=== PATIENT | female | born 1955 | race Caucasian/White ===

== ENCOUNTER → 2018-09-12 | Outpatient (CLI) | payer OTHER ==
[~2018-09-12] MED LIST: ABILIFY2 MG PO; LEXAPRO10 MG PO
== END ==
LOC: MAMMO 09:11
PROVIDERS: ATTEND Obstetrics & Gynecology
DX: Z12.31 Encounter for screening mammogram for malignant neoplasm of breast (principal)
CPT/HCPCS: 77067

== ENCOUNTER 2019-12-09 21:17 | Inpatient (IN) | payer OTHER ==
[~2019-12-09] VITALS: Ht 153.9 cm; Wt 89.4 kg
[2019-12-09 21:54] LABS: BASOPHILS % 0.3 % (0.0-1.0); EOSINOPHILS # (AUTO) 0.1 (0.0-0.4); HEMATOCRIT 36.5 % (34.2-44.1); HEMOGLOBIN 10.8 g/dL (12.0-16.0); LYMPHOCYTES # (AUTO) 2.7 (1.0-3.2); LYMPHOCYTES % 26.5 % (18.0-39.1); MEAN CORPUSCULAR HEMOGLOBIN 23.1 pg (28-32); MEAN CORPUSCULAR HGB CONC 29.6 g/dL (31-35); MONOCYTES # (AUTO) 0.7 (0.2-0.8); MONOCYTES % 6.6 % (4.4-11.3); NEUTROPHILS # (AUTO) 6.5 (2.1-6.9); NEUTROPHILS % 65.2 % (38.7-80.0); PLATELET COUNT 385 x10e3/uL (140-360); RED BLOOD COUNT 4.68 x10e6/uL (3.6-5.1)
[2019-12-09] MEDS ORDERED: SODIUM CHLORIDE 0.9% 1000ML 1,000 ML IV ONE ×2 (22:00→22:15)
[2019-12-09] MEDS ORDERED: VANCOMYCIN 1GM/NS 250 ML 250 ML IV ONE (22:00)
[2019-12-09] MEDS ORDERED: ACETAMINOPHEN 325 MG TAB PO ONE (22:00)
[2019-12-09] MEDS ORDERED: PIPER-TAZ 3.375 GM 50 ML IV ONE (22:00)
[2019-12-09 22:12] LABS: ALBUMIN 3.4 g/dL (3.5-5.0); ALBUMIN/GLOBULIN RATIO 0.8 (0.8-2.0); ANION GAP 15.8 mmol/L (8-16); CREATININE, SERUM 1.11 mg/dL (0.57-1.11); POTASSIUM 3.8 mmol/L (3.5-5.1)
[2019-12-09 22:25] LABS: BILIRUBIN,URINE NEGATIVE (NEGATIVE); CLARITY,URINE SL CLOUDY (CLEAR); COLOR,URINE YELLOW (YELLOW); KETONES,URINE NEGATIVE (NEGATIVE); LEUKOCYTE ESTERASE ,URINE TRACE (NEGATIVE); NITRITE,URINE NEGATIVE (NEGATIVE); PROTEIN,URINE DIPSTICK 1+ (NEGATIVE); URINE UROBILINOGEN 0.2 mg/dL (0.2 - 1)
--- NOTE | 2019-12-09 22:27 | Emergency Department Note ---
History of Present Illnes History of Present Illness Chief Complaint: General Medicine Complaints History of Present Illness This is a 64 year old female RT ARM SWELLING AFTER RECEIVING PHENERGAN AND "SLEEPING MEDICINE" IV AFTER ENDOSCOPY DONE ON Sunday12/05/19 AT [facility]; NOTED REDNESS AND TENDERNESS TO RT INNER AC REGION, PT SENSATION INTACT, PULSE +, ABLE TO MOVE EXTREMITY FREELY, C/O SUBJECTIVE FEVER AND NAUSEA; PT IN NAD, . Historian: Patient Arrival Mode: Car Onset (how long ago): day(s) (4) Location: RIGHT UPPER EXTREMITY Quality: REDNESS, SWELLING AND PAIN Radiation: Reports non-radiation Severity: moderate Onset quality: gradual Duration (how long): day(s) (4) Timing of current episode: constant Progression: worsening Context: Reports recent surgery (EGD); Denies recent illness Relieving factors: none Exacerbating factors: none Associated symptoms: Reports denies other symptoms Past Medical/Family History Physician Review I have reviewed the patient's past medical and family history. Any updates have been documented here. Past Medical History Recent Fever: Yes (SUBJECTIVE) Clinical Suspicion of Infectio: Yes New/Unexplained Change in Ment: No Past Medical History: Diabetes, Depression Other Medical History: HIATAL HERNIA UROSEPSIS Other Surgery: LAP BAND, TUMMY TUCK, GASTRIC SLEEVE Social History Smoking Cessation: Never Smoker Alcohol Use: None Any Illegal Drug Use: No Physically hurt or threatened: No Family History Family history of heart diseas: No Other family history HTN,DM Other Last Tetanus: UTD Review of Systems Review of Systems Constitutional: Reports no symptoms, Reports as per HPI EENTM: Reports no symptoms Cardiovascular: Reports no symptoms Respiratory: Reports no symptoms Gastrointestinal: Reports no symptoms Genitourinary: Reports no symptoms Musculoskeletal: Reports as per HPI Integumentary: Reports no symptoms Neurological: Reports no symptoms Psychological: Reports no symptoms Endocrine: Reports no symptoms Hematological/Lymphatic: Reports no symptoms Physical Exam Related Data Allergies: Coded Allergies: No Known Drug Allergies (Verified Allergy, Unknown, 01/08/09) Triage Vital Signs Vital Signs Date Time Temp Pulse Resp B/P (MAP) Pulse Ox O2 Delivery O2 Flow Rate FiO2 12/09/19 21:22 100.0 120 18 145/119 100 Room Air Vital signs reviewed: Yes Physical Exam CONSTITUTIONAL Constitutional: Present well-developed, Present well-nourished HENT HENT: Present normocephalic, Present atraumatic, Present oropharynx clear/moist, Present nose normal HENT L/R: Present left ext ear normal, Present right ext ear normal EYES Eyes: Reports PERRL, Reports conjunctivae normal NECK Neck: Present ROM normal PULMONARY Pulmonary: Present effort normal, Present breath sounds normal CARDIOVASCULAR Cardiovascular: Present regular rhythm, Present heart sounds normal, Present capillary refill normal, Present tachycardia (120) GASTROINTESTINAL Abdominal: Present soft, Present nontender, Present bowel sounds normal GENITOURINARY Genitourinary: Present exam deferred SKIN Skin: Present warm, Present dry MUSCULOSKELETAL REDNESS, SWELLING AND TENDERNESS TO UPPER INNER ARM, IV PUNCTURE SITE FROM 4 DAYS AGO IS IN DORSAL ASPECT OF RIGHT FOREARM Musculoskeletal: Present ROM normal NEUROLOGICAL Neurological: Present alert, Present oriented x 3, Present no gross motor or sensory deficits PSYCHOLOGICAL Psychological: Present mood/affect normal, Present judgement normal Results Laboratory Result Diagram: 12/09/19212912/09/192129 Laboratory Laboratory Tests Test 12/09/19 21:41 12/09/19 21:30 Urine Color Yellow (YELLOW) Urine Clarity Sl cloudy (CLEAR) Urine pH 7 (5 - 7) Urine Specific Mineral 1.020 (1.010-1.025) Urine Protein 1+ (NEGATIVE) Urine Glucose (UA) 2+ (NEGATIVE) Urine Ketones Negative (NEGATIVE) Urine Blood Trace (NEGATIVE) Urine Nitrite Negative (NEGATIVE) Urine Bilirubin Negative (NEGATIVE) Urine Urobilinogen 0.2 mg/dL (0.2 - 1) Urine Leukocyte Esterase Trace (NEGATIVE) Urine RBC 6-10 /HPF (0-5) Urine WBC 11-20 /HPF (0-5) Urine Epithelial Cells Moderate /LPF (NONE) Urine Bacteria Moderate /HPF (NONE) White Blood Count 10.00 x10e3/uL (4.8-10.8) Red Blood Count 4.68 x10e6/uL (3.6-5.1) Hemoglobin 10.8 g/dL (12.0-16.0) Hematocrit 36.5 % (34.2-44.1) Mean Corpuscular Volume 78.0 fL (81-99) Mean Corpuscular Hemoglobin 23.1 pg (28-32) Mean Corpuscular Hemoglobin Concent 29.6 g/dL (31-35) Red Cell Distribution Width 18.0 % (11.7-14.4) Platelet Count 385 x10e3/uL (140-360) Neutrophils (%) (Auto) 65.2 % (38.7-80.0) Lymphocytes (%) (Auto) 26.5 % (18.0-39.1) Monocytes (%) (Auto) 6.6 % (4.4-11.3) Eosinophils (%) (Auto) 1.0 % (0.0-6.0) Basophils (%) (Auto) 0.3 % (0.0-1.0) Neutrophils # (Auto) 6.5 (2.1-6.9) Lymphocytes # (Auto) 2.7 (1.0-3.2) Monocytes # (Auto) 0.7 (0.2-0.8) Eosinophils # (Auto) 0.1 (0.0-0.4) Basophils # (Auto) 0.0 (0.0-0.1) Absolute Immature Granulocyte (auto 0.04 x10e3/uL (0-0.1) Sodium Level 134 mmol/L (136-145) Potassium Level 3.8 mmol/L (3.5-5.1) Chloride Level 97 mmol/L (98-107) Carbon Dioxide Level 25 mmol/L (22-29) Anion Gap 15.8 mmol/L (8-16) Blood Urea Nitrogen 11 mg/dL (7-26) Creatinine 1.11 mg/dL (0.57-1.11) Estimat Glomerular Filtration Rate 49 ML/MIN (60-) BUN/Creatinine Ratio 10 (6-25) Glucose Level 329 mg/dL (74-118) Lactic Acid Level 3.4 mmol/L (0.5-2.0) Calcium Level 9.0 mg/dL (8.4-10.2) Total Bilirubin 0.3 mg/dL (0.2-1.2) Aspartate Amino Transf (AST/SGOT) 10 IU/L (5-34) Alanine Aminotransferase (ALT/SGPT) 11 IU/L (0-55) Alkaline Phosphatase 81 IU/L (40-150) Total Protein 7.9 g/dL (6.5-8.1) Albumin 3.4 g/dL (3.5-5.0) Globulin 4.5 g/dL (2.3-3.5) Albumin/Globulin Ratio 0.8 (0.8-2.0) Laboratory Tests Test 12/09/19 21:30 White Blood Count 10.00 x10e3/uL (4.8-10.8) Red Blood Count 4.68 x10e6/uL (3.6-5.1) Hemoglobin 10.8 g/dL (12.0-16.0) Hematocrit 36.5 % (34.2-44.1) Mean Corpuscular Volume 78.0 fL (81-99) Mean Corpuscular Hemoglobin 23.1 pg (28-32) Mean Corpuscular Hemoglobin Concent 29.6 g/dL (31-35) Red Cell Distribution Width 18.0 % (11.7-14.4) Platelet Count 385 x10e3/uL (140-360) Neutrophils (%) (Auto) 65.2 % (38.7-80.0) Lymphocytes (%) (Auto) 26.5 % (18.0-39.1) Monocytes (%) (Auto) 6.6 % (4.4-11.3) Eosinophils (%) (Auto) 1.0 % (0.0-6.0) Basophils (%) (Auto) 0.3 % (0.0-1.0) Neutrophils # (Auto) 6.5 (2.1-6.9) Lymphocytes # (Auto) 2.7 (1.0-3.2) Monocytes # (Auto) 0.7 (0.2-0.8) Eosinophils # (Auto) 0.1 (0.0-0.4) Basophils # (Auto) 0.0 (0.0-0.1) Absolute Immature Granulocyte (auto 0.04 x10e3/uL (0-0.1) Sodium Level 134 mmol/L (136-145) Potassium Level 3.8 mmol/L (3.5-5.1) Chloride Level 97 mmol/L (98-107) Carbon Dioxide Level 25 mmol/L (22-29) Anion Gap 15.8 mmol/L (8-16) Blood Urea Nitrogen 11 mg/dL (7-26) Creatinine 1.11 mg/dL (0.57-1.11) Estimat Glomerular Filtration Rate 49 ML/MIN (60-) BUN/Creatinine Ratio 10 (6-25) Glucose Level 329 mg/dL (74-118) Lactic Acid Level 3.4 mmol/L (0.5-2.0) Calcium Level 9.0 mg/dL (8.4-10.2) Total Bilirubin 0.3 mg/dL (0.2-1.2) Aspartate Amino Transf (AST/SGOT) 10 IU/L (5-34) Alanine Aminotransferase (ALT/SGPT) 11 IU/L (0-55) Alkaline Phosphatase 81 IU/L (40-150) Total Protein 7.9 g/dL (6.5-8.1) Albumin 3.4 g/dL (3.5-5.0) Globulin 4.5 g/dL (2.3-3.5) Albumin/Globulin Ratio 0.8 (0.8-2.0) Lab results reviewed: Yes Imaging Imaging results reviewed: Yes Impressions EXAMINATION: CHEST SINGLE (PORTABLE) INDICATION: FEVER COMPARISON: Chest radiograph 03/13/2009. FINDINGS: TUBES and LINES: None. LUNGS: Lungs are well inflated. Mild patchy bibasilar opacities. No evidence of lobar consolidation or pulmonary edema. PLEURA: No pleural effusion or pneumothorax. HEART AND MEDIASTINUM: The cardiomediastinal silhouette is unremarkable. BONES AND SOFT TISSUES: No acute osseous lesion. Soft tissues are unremarkable. UPPER ABDOMEN: No free air under the diaphragm. IMPRESSION: Mild patchy bibasilar opacities, likely atelectasis, although infectious process is possible in the appropriate clinical setting. No evidence of lobar pneumonia. Signed by: Dr. Blaze Sanchez MD on 12/10/2019 12:06 AM Dictated By: BLAZE SANCHEZ MD Transcribed By: SETH on 12/10/195 Procedures 12 Lead ECG Interpretation ECG Interpretation : ECG: ECG 1 Core Cutter And Reamer: Interpreted by ED physician Date: Dec 09, 2019 Time: 21:42 Rhythm: sinus tachycardia Rate: tachycardia BPM: 121 ST segments normal: Yes T waves normal: Yes Other findings: LVH with strain Clinical Impression: abnormal ECG Assessment & Plan Medical Decision Making MDM PT WITH FEVER, ERYTHEM, TENDERNESS AND SWELLING TO RIGHT UPPER ARM. CBC, CMP, EKG, CXR, BLOOD CULTURE, UA, URINE CULTURE, LACTIC ACID INITIAL LACTIC ACID 3.4 ZOSYN 3.375 GRAMS IV ORDERED VANCOMYCIN 1 GRAM IV ORDERED TYLENOL 975 MG PO ORDERED NS 2 LITER IV BOLUS ORDERED I SPOKE WITH DR PICKETT, ADMIT TO INPATIENT REPEAT LACTIC ACID 2.1 Assessment & Plan Final Impression: (1) Sepsis (2) Cellulitis of right upper arm (3) UTI (urinary tract infection) Depart Disposition: ADMITTED Last Vital Signs Date Time Temp Pulse Resp B/P (MAP) Pulse Ox O2 Delivery O2 Flow Rate FiO2 12/09/19 21:22 100.0 120 18 145/119 100 Room Air Home Meds Reported Medications Esomeprazole Magnesium (Esomeprazole Magnesium) 40 Mg Capsule. 12/10/19 Metformin Hcl (METFORMIN HCL ER) 500 Mg Tab.er.24h 12/10/19 Glipizide (GLIPIZIDE ER) 10 Mg Tab.er.24 12/10/19 Zolpidem Tartrate (ZOLPIDEM TARTRATE) 5 Mg Tablet 12/10/19 Escitalopram Oxalate (LEXAPRO) 10 Mg Tablet, 1 TAB PO DAILY 04/28/12 Aripiprazole* (ABILIFY*) 2 Mg Tablet, 1 TAB PO DAILY 04/28/12 Medications in the ED Acetaminophen 975 mg ONCE ONCE PO ; Start 12/09/19 at 22:00; Stop 12/09/19 at 22:01; Status DC Piperacillin Sod/ Tazobactam Sod 50 ml @ 50 mls/hr NOW ONCE IV ; Start 12/09/19 at 22:00; Stop 12/09/19 at 22:59 Vancomycin HCl 250 ml @ 200 mls/hr NOW ONCE IV ; Start 12/09/19 at 22:00; Stop 12/09/19 at 23:14 Sodium Chloride 1,000 ml @ 999 mls/hr Q1H1M ONCE IV ; Start 12/09/19 at 22:00; Stop 12/09/19 at 23:00 Sodium Chloride 1,000 ml @ 999 mls/hr Q1H1M ONCE IV ; Start 12/09/19 at 22:15; Stop 12/09/19 at 23:15 CAREY DUNLAP MD Dec 09, 2019 22:26
[2019-12-09 22:38] LABS: BACTERIA,URINE MODERATE /HPF; EPITHELIAL CELLS,URINE MODERATE /LPF
[2019-12-10] VITALS (7 sets, daily range): BP systolic 130–151; BP diastolic 68–79
--- NOTE | 2019-12-10 00:10 | Diagnostic Imaging Report ---
EXAMINATION: CHEST SINGLE (PORTABLE) INDICATION: FEVER COMPARISON: Chest radiograph 03/13/2009. FINDINGS: TUBES and LINES: None. LUNGS: Lungs are well inflated. Mild patchy bibasilar opacities. No evidence of lobar consolidation or pulmonary edema. PLEURA: No pleural effusion or pneumothorax. HEART AND MEDIASTINUM: The cardiomediastinal silhouette is unremarkable. BONES AND SOFT TISSUES: No acute osseous lesion. Soft tissues are unremarkable. UPPER ABDOMEN: No free air under the diaphragm. IMPRESSION: Mild patchy bibasilar opacities, likely atelectasis, although infectious process is possible in the appropriate clinical setting. No evidence of lobar pneumonia. Signed by: Dr. Blaze Francis MD on 12/10/2019 12:06 AM
[2019-12-10] MEDS ORDERED: VANCOMYCIN 1GM/NS 250 ML 250 ML IV SCH (00:30)
[2019-12-10] MEDS ORDERED: DEXTROSE 50% SYRINGE 50 ML IV PRN (00:30)
[2019-12-10] MEDS ORDERED: ACETAMINOPHEN 325 MG TAB PO PRN (00:30)
[2019-12-10] MEDS ORDERED: METFORMIN HCL500 M1 PO (00:40)
[2019-12-10] MEDS ORDERED: GLIPIZIDE ER10 MG PO (00:40)
[2019-12-10] MEDS ORDERED: ZOLPIDEM TARTRAT5 MG (00:40)
[2019-12-10] MEDS ORDERED: ESOMEPRAZOLE MA40 MG PO (00:40)
[2019-12-10] MEDS ORDERED: SODIUM CHLORIDE 0.9% 1000ML 1,000 ML IV ONE (01:00)
--- NOTE | 2019-12-10 01:45 | NUR ---
Pt arrived from ED to [facility] [id number] with admitting diagnosis of cellulitis on right upper arm, UTI, and sepsis. Pt alert and oriented x3. Ambulatory in room prn. On IVF (NS at 125ml/hr) and on scheduled IV antibiotic treatment. Call peterson within reach. Will monitor pt closely.
[2019-12-10] MEDS: PIPER-TAZ 3.375 GM 50 ML IV SCH ×3 (06:13→21:03)
[2019-12-10] MEDS: INSULIN REGULAR, HUMAN 100 UNIT/1 ML 3ML VIAL SQ SCH ×4 (07:58→20:55)
[2019-12-10] MEDS: METFORMIN HCL 750 MG TAB ER PO SCH ×2 (09:33→16:47)
[2019-12-10] MEDS: ESCITALOPRAM OXALATE 10 MG TAB PO SCH (09:34)
[2019-12-10] MEDS: PANTOPRAZOLE SOD 40 MG TABEC PO SCH ×2 (09:34→16:47)
--- NOTE | 2019-12-10 10:16 | History and Physical ---
REASON FOR ADMISSION: This is a 64-year-old lady, comes in with redness and tenderness in the right arm. HISTORY OF PRESENT ILLNESS: This is a 64-year-old lady with a history of recent endoscopy on 12/05/2019. The patient had an endoscopy with some medication and IV. The patient started to have some pain and tingling, numbness and tenderness. The patient was called back into the [facility], looked, added ibuprofen and also cold compresses were asked to be applied. The patient's pain was intractable yesterday, also had some fever and some chills. The patient came to the emergency room, was found to be in sepsis and admitted to the hospital for sepsis. PAST MEDICAL HISTORY: History of diabetes, history of depression, history of hiatal hernia. SURGICAL HISTORY: Includes history of lap band, history of tummy tuck, history of gastric sleeve. The patient was recently admitted to the hospital for urosepsis too in the ICU with possible end-organ damage. SOCIAL HISTORY: No EtOH. No IV drug abuse. No history of illicit drug abuse either. FAMILY HISTORY: Positive for hypertension, diabetes, and coronary artery disease. ALLERGIES: NO DRUG ALLERGIES NOTED. REVIEW OF SYSTEMS: Negative for chest pain. Positive for pain and tenderness in the right upper extremity. Positive for fever. Positive for chills. No nausea, vomiting, or diarrhea. No constipation. No rectal bleeding. No hematochezia. No hematemesis either. PHYSICAL EXAMINATION: VITAL SIGNS: Temperature 99.3, pulse of 98, respirations of 17, blood pressure is 137/88, pulse ox 100%. HEENT: Normocephalic, atraumatic. Pupils reactive to light and accommodation. CVS: S1 and S2 normal. Regular rate and rhythm. LUNGS: Clear to auscultation bilaterally. EXTREMITIES: Right arm with tenderness extending from the wrist all the way to the arm, forearm, also with lymphangitis present. LABORATORY VALUES: White count is 10,000, hemoglobin of 10.8 and hematocrit of 36.4. Chemistry shows sodium 134, potassium 3.8, BUN of 11, creatinine of 1.1. Initial lactic acid was 3.4 with a trend of 3.4 to 2.1 to now 1.8. Hemoglobin is normal. MICROBIOLOGY: Urine cultures are pending and blood cultures are pending. ASSESSMENT: Ms. Carmelina Pierson with: 1. Cellulitis of the right upper extremity. 2. Sepsis secondary to cellulitis of the right upper extremity, present on admission. 3. Hypertension. 4. Hyperlipidemia. 5. Diabetes mellitus. 6. History of depression. PLAN: Continue with current antibiotics. Currently, the patient is on Zosyn. She is on IV fluids 25 mL an hour, on vancomycin too. Acetaminophen and ondansetron. We will restart her home medication. Continue current regimen and we will also check her CBC, CMP tomorrow. Further recommendation per clinical course. We will reconcile the medications from home. MD EVELIA Wilson/MODL /[id number]
[2019-12-10] MEDS: VANCOMYCIN 1GM/NS 250 ML 250 ML IV SCH ×2 (10:54→22:17)
[2019-12-10] MEDS ORDERED: SODIUM CHLORIDE 0.9% 250ML 250 ML ONE (14:48)
[2019-12-10] MEDS ORDERED: METOPROLOL SUCC25 MG PO (16:36)
[2019-12-10] MEDS ORDERED: LOSARTAN POTAS100 MG PO (16:36)
[2019-12-10] MEDS ORDERED: REGLAN10 MG PO (16:36)
[2019-12-11] VITALS (8 sets, daily range): BP systolic 120–150; BP diastolic 76–86
[2019-12-11] MEDS: ONDANSETRON HCL INJ 2MG/ML 2ML 2 MG/ML VIAL IV PRN (00:45)
[2019-12-11] MEDS: ACETAMINOPHEN 1000 MG/100 ML IV PRN ×2 (05:35→15:15)
--- NOTE | 2019-12-11 06:00 | NUR ---
PAGED DR RIVERA FOR CONSULT.
[2019-12-11 06:24] LABS: BASOPHILS % 0.4 % (0.0-1.0); EOSINOPHILS # (AUTO) 0.1 (0.0-0.4); EOSINOPHILS % 1.8 % (0.0-6.0); HEMATOCRIT 31.1 % (34.2-44.1); HEMOGLOBIN 8.9 g/dL (12.0-16.0); LYMPHOCYTES # (AUTO) 1.9 (1.0-3.2); LYMPHOCYTES % 25.4 % (18.0-39.1); MEAN CORPUSCULAR HEMOGLOBIN 23.2 pg (28-32); MEAN CORPUSCULAR HGB CONC 28.6 g/dL (31-35); MONOCYTES # (AUTO) 0.6 (0.2-0.8); MONOCYTES % 7.8 % (4.4-11.3); NEUTROPHILS # (AUTO) 4.7 (2.1-6.9); NEUTROPHILS % 64.2 % (38.7-80.0); PLATELET COUNT 295 x10e3/uL (140-360); RED BLOOD COUNT 3.84 x10e6/uL (3.6-5.1); RED CELL DISTRIBUTION WIDTH 17.7 % (11.7-14.4)
[2019-12-11] MEDS: PIPER-TAZ 3.375 GM 50 ML IV SCH ×3 (06:24→21:47)
[2019-12-11 06:51] LABS: ALANINE AMINOTRANSFERASE 9 IU/L (0-55); ALBUMIN 2.7 g/dL (3.5-5.0); ALBUMIN/GLOBULIN RATIO 0.7 (0.8-2.0); ALKALINE PHOSPHATASE 60 IU/L (40-150); ANION GAP 10.6 mmol/L (8-16); BLOOD UREA NITROGEN 12 mg/dL (7-26); BUN/CREATININE RATIO 16 (6-25); CARBON DIOXIDE 22 mmol/L (22-29); CHLORIDE 108 mmol/L (98-107); CREATININE, SERUM 0.73 mg/dL (0.57-1.11); EST GLOMERULAR FILTRATION RATE > 60 ML/MIN (60-); GLUCOSE 150 mg/dL (74-118); POTASSIUM 3.6 mmol/L (3.5-5.1); SODIUM 137 mmol/L (136-145)
[2019-12-11] MEDS: INSULIN REGULAR, HUMAN 100 UNIT/1 ML 3ML VIAL SQ SCH ×4 (07:48→22:01)
[2019-12-11] MEDS: PANTOPRAZOLE SOD 40 MG TABEC PO SCH ×2 (08:01→17:00)
[2019-12-11 08:03] LABS: ANISOCYTOSIS SLIGHT; HYPOCHROMASIA SLIGHT; PLATELET ESTIMATE ADEQUATE; PLATELET MORPHOLOGY COMMENT RARE EDTA CLUMPING; POIKILOCYTOSIS SLIGHT; RBC MORPHOLOGY COMMENT NORMAL
[2019-12-11] MEDS: GLIPIZIDE 5 MG TAB ER PO SCH (08:12)
[2019-12-11] MEDS: METFORMIN HCL 750 MG TAB ER PO SCH ×2 (08:12→17:00)
[2019-12-11] MEDS: ESCITALOPRAM OXALATE 10 MG TAB PO SCH (08:12)
[2019-12-11] MEDS: VANCOMYCIN 1GM/NS 250 ML 250 ML IV SCH ×2 (11:00→23:37)
--- NOTE | 2019-12-11 11:00 | NUR ---
RECEIVED RESTING QUIETLY. NO COMPLAINS VOICED.
--- NOTE | 2019-12-11 17:55 | NUR ---
This is a 64-year-old lady with a history of recent endoscopy on 12/05/2019. The patient had an endoscopy with some medication and IV. The patient started to have some pain and tingling, numbness and tenderness. The patient was called back into the Endoscopy Center, looked, added ibuprofen and also cold compresses were asked to be applied. The patient's pain was intractable yesterday, also had some fever and some chills. The patient came to the emergency room, was found to be in sepsis and admitted to the hospital for sepsis. PAST MEDICAL HISTORY: History of diabetes, history of depression, history of hiatal hernia. SURGICAL HISTORY: Includes history of lap band, history of tummy tuck, history of gastric sleeve. The patient was recently admitted to the hospital for urosepsis too in the ICU with possible end-organ damage. SOCIAL HISTORY: No EtOH. No IV drug abuse. No history of illicit drug abuse either. FAMILY HISTORY: Positive for hypertension, diabetes, and coronary artery disease. ALLERGIES: NO DRUG ALLERGIES NOTED. REVIEW OF SYSTEMS: Negative for chest pain. Positive for pain and tenderness in the right upper extremity. Positive for fever. Positive for chills. No nausea, vomiting, or diarrhea. No constipation. No rectal bleeding. No hematochezia. No hematemesis either. [id number]
--- NOTE | 2019-12-11 18:45 | NUR ---
NO CHANGES AT THIS TIME IN PT STATUS.
--- NOTE | 2019-12-11 22:01 | Consultation ---
DATE OF CONSULTATION: HISTORY OF PRESENT ILLNESS: Ms. Carmelina Pierson is here for redness and swelling of right upper extremity. The patient who was here a week ago, apparently she underwent endoscopy on 12/05/2019. She went home. She did have an IV access in her right arm. She is coming with redness and swelling in that arm. The patient denies any specific fever or chills, but she says since she came here, she is doing much better. PAST MEDICAL HISTORY: Otherwise diabetes mellitus, depression. PAST SURGICAL HISTORY: Denies. ALLERGIES: NKA. SOCIAL HISTORY: There is no smoking, drug abuse, or alcohol abuse. FAMILY HISTORY: Otherwise noncontributory. REVIEW OF SYSTEMS: At present time, beside the pain and redness in arms, she denies any. There is no fever, no chills, no nausea, no vomiting, no diarrhea. LABORATORY DATA: Reviewed. Blood cultures still pending. Her white blood count of 10, hemoglobin of 10. Her sodium of 137, potassium 3.6, creatinine 0.73. MEDICATIONS: List reviewed. She is on vancomycin and Zosyn. PHYSICAL EXAMINATION: GENERAL: Currently alert, oriented. VITAL SIGNS: Stable. Currently afebrile. HEENT: She is not icteric. NECK: Supple. CHEST: Clear. EXTREMITIES: In the right arm there is erythema. There is edema. IMPRESSIONS: Cellulitis, thrombophlebitis of the right upper extremity. PLAN: Continue vancomycin and Zosyn. Await the blood cultures. Keep the arm elevated. Discussed with the patient. Answered all her questions. We will follow. MD TAWNY Lee/VIKAS /[id number]
[2019-12-12] VITALS (7 sets, daily range): BP systolic 128–152; BP diastolic 67–80
[2019-12-12 05:17] LABS: BASOPHILS % 0.6 % (0.0-1.0); EOSINOPHILS # (AUTO) 0.2 (0.0-0.4); EOSINOPHILS % 2.5 % (0.0-6.0); HEMATOCRIT 31.7 % (34.2-44.1); HEMOGLOBIN 9.2 g/dL (12.0-16.0); LYMPHOCYTES # (AUTO) 2.2 (1.0-3.2); LYMPHOCYTES % 34.3 % (18.0-39.1); MEAN CORPUSCULAR HEMOGLOBIN 23.7 pg (28-32); MEAN CORPUSCULAR VOLUME 81.7 fL (81-99); MONOCYTES # (AUTO) 0.4 (0.2-0.8); MONOCYTES % 6.5 % (4.4-11.3); NEUTROPHILS # (AUTO) 3.5 (2.1-6.9); NEUTROPHILS % 55.6 % (38.7-80.0); PLATELET COUNT 279 x10e3/uL (140-360); RED BLOOD COUNT 3.88 x10e6/uL (3.6-5.1); RED CELL DISTRIBUTION WIDTH 17.7 % (11.7-14.4)
[2019-12-12 05:43] LABS: ALANINE AMINOTRANSFERASE 10 IU/L (0-55); ALBUMIN 2.7 g/dL (3.5-5.0); ALBUMIN/GLOBULIN RATIO 0.7 (0.8-2.0); ALKALINE PHOSPHATASE 61 IU/L (40-150); ANION GAP 11.7 mmol/L (8-16); BLOOD UREA NITROGEN 14 mg/dL (7-26); BUN/CREATININE RATIO 18 (6-25); CALCIUM 8.7 mg/dL (8.4-10.2); CARBON DIOXIDE 24 mmol/L (22-29); CHLORIDE 108 mmol/L (98-107); CREATININE, SERUM 0.76 mg/dL (0.57-1.11); EST GLOMERULAR FILTRATION RATE > 60 ML/MIN (60-); GLUCOSE 109 mg/dL (74-118); MAGNESIUM 1.7 MG/DL (1.3-2.1); POTASSIUM 3.7 mmol/L (3.5-5.1); SODIUM 140 mmol/L (136-145)
[2019-12-12] MEDS: PIPER-TAZ 3.375 GM 50 ML IV SCH ×3 (06:41→22:00)
--- NOTE | 2019-12-12 07:00 | NUR ---
RECEIVED BEDSIDE SHIFT REPORT FROM OFF GOING NIGHT NURSE. PATIENT IN STABLE CONDITION, NO S/S OF DISTRESS NOTED. IV SITES ASYMPTOMATIC AND PATIENT, TRANSPARENT DRESSING C/D/I. BED IN LOWEST POSITION AND LOCKED. CALL LIGHT WITHIN REACH.
--- NOTE | 2019-12-12 07:11 | NUR ---
Patient endorsed to next shift for continuity of care.
[2019-12-12] MEDS: INSULIN REGULAR, HUMAN 100 UNIT/1 ML 3ML VIAL SQ SCH ×4 (07:30→21:00)
[2019-12-12] MEDS: PANTOPRAZOLE SOD 40 MG TABEC PO SCH ×2 (10:21→17:58)
[2019-12-12] MEDS: METFORMIN HCL 750 MG TAB ER PO SCH ×2 (10:21→17:58)
[2019-12-12] MEDS: ESCITALOPRAM OXALATE 10 MG TAB PO SCH (10:21)
[2019-12-12] MEDS: GLIPIZIDE 5 MG TAB ER PO SCH (10:21)
--- NOTE | 2019-12-12 16:08 | NUR ---
NOTIFIED ABOUT THE VANCOMYCIN TROUGH 10.2 HE STATED TO CONTINUE THE VANCOMYCIN.
[2019-12-12] MEDS: VANCOMYCIN 1GM/NS 250 ML 250 ML IV SCH (17:58)
--- NOTE | 2019-12-12 19:05 | NUR ---
COMPLETED BEDSIDE SHIFT REPORT AND ROUNDING WITH ONCOMING NIGHT NURSE. PATIENT IN STABLE CONDITION, NO S/S OF DISTRESS NOTED. IV SITES ASYMPTOMATIC AND PATIENT, TRANSPARENT DRESSING C/D/I. BED IN LOWEST POSITION AND LOCKED. CALL LIGHT WITHIN REACH.
--- NOTE | 2019-12-12 22:51 | Progress Note ---
DATE: SUBJECTIVE: Ms. Pierson is feeling better. There is no new complaint. Cultures are negative. PHYSICAL EXAMINATION: GENERAL: She is currently alert, oriented. VITAL SIGNS: Stable. Currently afebrile. HEENT: She is not icteric. NECK: Supple. CHEST: Clear. HEART: S1, S2. No murmur. ABDOMEN: Soft. IMPRESSION: Cellulitis, thrombophlebitis, clinically improving. Continue vancomycin. Continue Zosyn. Cultures are negative. Can change to oral doxycycline if continues to improve. Keep the arm elevated. We will follow. MD TAWNY Lee/MODL /[id number]
[2019-12-13] VITALS (8 sets, daily range): BP systolic 129–163; BP diastolic 72–84
[2019-12-13] MEDS: VANCOMYCIN 1GM/NS 250 ML 250 ML IV SCH ×2 (05:55→16:46)
--- NOTE | 2019-12-13 07:00 | NUR ---
RECEIVED BEDSIDE SHIFT REPORT FROM OFF GOING NIGHT NURSE. PATIENT IN STABLE CONDITION, NO S/S OF DISTRESS NOTED. IV ANTIBIOTIC INFUSING, SITES ASYMPTOMATIC AND PATIENT, TRANSPARENT DRESSING C/D/I. BED IN LOWEST POSITION AND LOCKED. CALL LIGHT WITHIN REACH.
[2019-12-13] MEDS: PIPER-TAZ 3.375 GM 50 ML IV SCH ×3 (07:09→22:00)
--- NOTE | 2019-12-13 07:10 | NUR ---
Patient endorsed to next shift for continuity of care.
[2019-12-13] MEDS: INSULIN REGULAR, HUMAN 100 UNIT/1 ML 3ML VIAL SQ SCH ×4 (07:30→21:00)
[2019-12-13] MEDS: METFORMIN HCL 750 MG TAB ER PO SCH ×2 (08:57→16:46)
[2019-12-13] MEDS: GLIPIZIDE 5 MG TAB ER PO SCH (08:57)
[2019-12-13] MEDS: ESCITALOPRAM OXALATE 10 MG TAB PO SCH (08:58)
[2019-12-13] MEDS: PANTOPRAZOLE SOD 40 MG TABEC PO SCH ×2 (08:58→16:46)
--- NOTE | 2019-12-13 17:50 | Progress Note ---
DATE: SUBJECTIVE: Ms. Pierson is doing better. There is no new complaint. Her arm is feeling better. Her blood cultures remained negative. PHYSICAL EXAMINATION: GENERAL: Currently alert and oriented. VITAL SIGNS: Stable, afebrile. HEENT: She is not icteric. NECK: Supple. CHEST: Clear. HEART: S1, S2. ABDOMEN: Soft. IMPRESSION: Cellulitis, thrombophlebitis, improving. The patient will be discharged home with oral doxycycline 1 mg p.o. b.i.d. for 2 weeks. Follow up as an outpatient. MD TAWNY Lee/VIKAS /[id number]
--- NOTE | 2019-12-13 20:02 | NUR ---
RECEIVED PT IN BED AOX3 .CELLULITIS TO THE RT UPPER ARM,. LEFT UPPER ARM 20 S/L DENIES PAIN . . CALL LIGHT WITHIN REACH. CONTINUE TO MONITOR
[2019-12-14] VITALS (8 sets, daily range): BP systolic 132–162; BP diastolic 69–99
[2019-12-14] MEDS: VANCOMYCIN 1GM/NS 250 ML 250 ML IV SCH ×2 (05:00→17:32)
[2019-12-14] MEDS: PIPER-TAZ 3.375 GM 50 ML IV SCH ×3 (06:00→21:25)
[2019-12-14] MEDS: INSULIN REGULAR, HUMAN 100 UNIT/1 ML 3ML VIAL SQ SCH ×4 (07:30→20:26)
--- NOTE | 2019-12-14 07:40 | NUR ---
PATIENT IS IN STABLE CONDITION WITH NO S/S OF RESPIRATORY DISTRESS. NO PAIN VOICED. RIGHT ARM IS WARM TO TOUCH, REDNESS NOTED WELL EDEMA. CALL LIGHT IS WITHIN REACH, PATIENT INSTRUCTED TO CALL FOR ASSISTANCE NEEDED.
--- NOTE | 2019-12-14 07:53 | NUR ---
PT RESTING BEDSIDE REPORT GIVEN TO THE ONCOMING NURSE
[2019-12-14] MEDS: ESCITALOPRAM OXALATE 10 MG TAB PO SCH (09:03)
[2019-12-14] MEDS: METFORMIN HCL 750 MG TAB ER PO SCH ×2 (09:03→16:08)
[2019-12-14] MEDS: PANTOPRAZOLE SOD 40 MG TABEC PO SCH ×2 (09:03→16:08)
[2019-12-14] MEDS: GLIPIZIDE 5 MG TAB ER PO SCH (09:03)
--- NOTE | 2019-12-14 16:53 | Progress Note ---
DATE: SUBJECTIVE: Ms. Pierson is doing better. There is no new complaint. Her arm is doing better, now she is having thrombophlebitis in the other arm where she had her IV. PHYSICAL EXAMINATION: GENERAL: She is currently alert, oriented. VITAL SIGNS: Stable, afebrile. HEENT: She is not icteric. NECK: Supple. CHEST: Clear. HEART: S1, S2. No murmur. ABDOMEN: Soft. IMPRESSION: Thrombophlebitis. The patient can be discharged home with doxycycline 100 mg p.o. b.i.d., aspirin 325 mg p.o. b.i.d. Keep the arms elevated. Heat pad, both arms. MD TAWNY Lee/VIKAS /[id number]
[2019-12-14] MEDS: ONDANSETRON HCL INJ 2MG/ML 2ML 2 MG/ML VIAL IV PRN (17:32)
--- NOTE | 2019-12-14 18:52 | NUR ---
PATIENT IN STABLE CONDITION WITH NO S/S OF RESPIRATORY DISTRESS. NO PAIN VOICED. IV ANTIBIOTIC INFUSING. CALL LIGHT IS WITHIN REACH, PATIENT INSTRUCTED TO CALL FOR ASSISTANCE NEEDED. SHIFT REPORT GIVEN TO ONCOMING NURSE.
[2019-12-15 00:45] VITALS: BP 142/73
[2019-12-15] MEDS: VANCOMYCIN 1GM/NS 250 ML 250 ML IV SCH (04:05)
[2019-12-15 05:19] VITALS: BP 141/70
[2019-12-15] MEDS: PIPER-TAZ 3.375 GM 50 ML IV SCH (06:03)
--- NOTE | 2019-12-15 06:45 | NUR ---
patient is resting in bed.
--- NOTE | 2019-12-15 07:00 | NUR ---
PATIENT IS AWAKE, ALERT, AND IN STABLE CONDITION WITH NO S/S OF RESPIRATORY DISTRESS. PATIENT DENIES PAIN. CALL LIGHT IS WITHIN REACH- PATIENT INSTRUCTED TO CALL FOR ASSISTANCE NEEDED.
[2019-12-15] MEDS: INSULIN REGULAR, HUMAN 100 UNIT/1 ML 3ML VIAL SQ SCH (07:30)
[2019-12-15 07:52] VITALS: BP 140/78
[2019-12-15] MEDS: PANTOPRAZOLE SOD 40 MG TABEC PO SCH (08:15)
[2019-12-15] MEDS: ESCITALOPRAM OXALATE 10 MG TAB PO SCH (08:15)
[2019-12-15] MEDS: GLIPIZIDE 5 MG TAB ER PO SCH (08:15)
[2019-12-15] MEDS: METFORMIN HCL 750 MG TAB ER PO SCH (08:15)
--- NOTE | 2019-12-15 08:21 | Discharge Summary ---
DISCHARGE DIAGNOSIS: Right arm cellulitis and thrombophlebitis. HISTORY OF PRESENT ILLNESS AND HOSPITAL COURSE: See hospital chart for full details. The patient is lady, who was brought in with an IV recently as an outpatient, where she then developed a phlebitis of the right upper extremity with significant overlying cellulitis, so she was brought and placed on IV antibiotics, warm compresses, where she made significant daily improvement. By the time of discharge, she has almost no redness of the right upper extremity and the phlebitis is much better. The patient states she is not able to tolerate aspirin as part of her regimen to help with phlebitis, so she will continue with the arm elevation and warm compresses at home. She was discharged home with p.o. doxycycline 100 mg b.i.d. for 10 more days and to follow up in 1 week with me. Please see hospital chart for full details. MD TONEY Musa/VIKAS /[id number]
[2019-12-15 08:53] VITALS: BP 140/78
[2019-12-15] MEDS ORDERED: ONDANSETRON HCL 4 MG ORAL DISINTEGRATING TAB PO PRN (11:15)
[2019-12-15 11:34] VITALS: BP 134/72
--- NOTE | 2019-12-15 12:30 | NUR ---
PATIENT DISCHARGE HOME- PATIENT OFF THE UNIT AT 1215 PER WHEELCHAIR ACCOMPANIED BY PCT TO THE FRONT LOBBY. PATIENT IN STABLE CONDITION WITH NO S/S OF RESPIRATORY DISTRESS. NO PAIN VOICED. IV REMOVED WITH TIP INTACT. DISCHARGE TEACHING, INSTRUCTIONS, AND MEDICATION GIVEN TO THE PATIENT. ALL PERSONAL ITEMS TAKEN WITH THE PATIENT.
== END 2019-12-15 12:17 | disposition home or self-care (01) | DRG 872 ==
LOC: ER 22:15 → ERHOLD 12-10 00:21 → MED/SURG3 12-10 01:49
PROVIDERS: ADMIT Family Medicine; ATTEND Family Medicine
DX: A41.9 Sepsis, unspecified organism (principal); T80.1XXA Vascular complications following infusion, transfusion and therapeutic injection, initial encounter; N39.0 Urinary tract infection, site not specified; E78.5 Hyperlipidemia, unspecified; E11.9 Type 2 diabetes mellitus without complications; F32.9 Major depressive disorder, single episode, unspecified; Z11.59 Encounter for screening for other viral diseases; E11.22 Type 2 diabetes mellitus with diabetic chronic kidney disease; I12.9 Hypertensive chronic kidney disease with stage 1 through stage 4 chronic kidney disease, or unspecified chronic kidney disease; N18.3 Chronic kidney disease, stage 3 (moderate); Z79.4 Long term (current) use of insulin; D64.9 Anemia, unspecified; F41.9 Anxiety disorder, unspecified
CPT/HCPCS: 36415; 71045; 80053; 80202; 81001; 82948; 83605; 83735; 85025; 87040; 87086; 93005; 99284; J1817; J2405; J2543; J3370; J7030; J7050; U0002

== ENCOUNTER 2020-03-06 20:36 | Inpatient (IN) | payer OTHER ==
[~2020-03-06] VITALS: Ht 167.6 cm; Wt 93.4 kg
[~2020-03-06 20:36] MED LIST changes: +ESOMEPRAZOLE MA40 MG PO; +GLIPIZIDE ER10 MG PO; +LOSARTAN POTAS100 MG PO; +METFORMIN HCL500 M1 PO; +METOPROLOL SUCC25 MG PO; +REGLAN10 MG PO; +ZOLPIDEM TARTRAT5 MG
[2020-03-06] MEDS ORDERED: ONDANSETRON HCL INJ 2MG/ML 2ML 2 MG/ML VIAL IV STA (21:28)
[2020-03-06] MEDS ORDERED: SODIUM CHLORIDE 0.9% 1000ML 1,000 ML IV ONE (21:30)
--- OUTSIDE RECORDS SUMMARY | 2020-03-06 21:46 | XMS REPORT | Continuity of Care Document ---
Author Author Formerly [facility] t Organization [facility] Address [address] [place] [address] Phone Unavailable Care Team Providers Care Rf Test Technician Name Role Phone Marvin PITTMAN PCP Yuni DUNLAP Attphys Unavailable Zain TORREZ, Jerry Pena Attphys Norberto Alfonso DO Attphys [place]ford TORREZ, Yasmin Briones Attphys [phone] Mariely Mcneil RN Attphys Unavailable Markell ANG, Laci Attphys Unavailable OCTAVIO BACON Attphys Unavailable LEONEL CRUZ Admphys Unavailable Payers Payer Name Policy Type Policy Number Effective Date Expiration Date S tomas [facility] Care [id number] 2014 00:00:00 [facility] AETNAAETNA HMO,POS,EPO, [id number] 2013-PresentO [id number] 2014 00:00:00 Arcenio Schaeffer Problems Condition Name Condition Details Condition Category Status Onset Date Resolution Date Last Treatment Date Treating Clinician Comments Source Chest pain Chest pain Disease Active 2019-10-14 00:00:00 Arcenio Schaeffer Severe episode of recurrent major depres sive disorder, 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, without psychotic features Disease Active 2019-04-07 00:00:00 Arcenio Schaeffer Type 2 diabetes mellitus without complic ation, without long-term current use of insulin Type 2 diabetes mellitus without complic ation, without long-term current use of insulin Disease Active 2019-04-07 00:00:00 Arcenio Schaeffer Essential hypertension Essential hypertension Disease Active 2017-11-19 00:00:[address] [facility] Cellulitis of right upper arm Problem Active [facility] Urinary tract infection Problem Active [facility] History of Past Illness Condition Name Condition Details Condition Category Status Onset Date Resolution Date Last Treatment Date Treating Clinician Comments Source PERRY (dyspnea on exertion) PERRY (dyspnea on exertion) Disease Re solved 2019-10-14 00:00:00 2019-10-14 00:00:00 2019-10-14 13:16:53 H sal Schaeffer Allergies, Adverse Reactions, Alerts Allergy Name Allergy Type Status Severity Reaction(s) Onset Date Inacti ve Date Treating Clinician Comments Source No Known Allergies DA Active U 2018-02-11 00:00:00 [facility] No Known Allergies DA Active U 2016-05-15 00:00:00 [facility] Family History Family Member Diagnosis Comments Start Date Stop Date Source Natural father CABG/Stent [facility] Natural father Heart attack Arcenio Schaeffer Maternal grandfather Stroke [place] Natural mother Heart disease Rg [facility]ational Natural mother Hypertension Rg [employer]ational Natural mother Lung cancer Rg M ethodist Natural mother Thyroid cancer [place] Paternal grandfather Heart attack Ho maude Priceist Natural sister Heart disease Rg [place] Natural sister Thyroid cancer [place] Social History Social Habit Start Date Stop Date Quantity Comments Source Sex Assigned At Mariza Schaeffer Tobacco use and exposure 2019-12-24 00:00:00 2019-12-24 00:00:00 Taya bella used Arcenio Schaeffer Alcohol intake 2019-12-24 00:00:00 2019-12-24 00:00:00 Current drinker of alcohol (finding) Arcenio Schaeffer Alcohol Comment 2017-11-19 00:00:00 2017-11-19 00:00:00 4 margaritas a month Arcenio Schaeffer Smoking Status Start Date Stop Date Source Never smoker Arcenio Parikh t Medications Ordered Medication Name Filled Medication Name Start Date Stop Da te Current Medication? Ordering Clinician Indication Dosage Frequency Signature (SIG) Comments Components Source zolpidem (AMBIEN) 10 mg tablet 2019-11-13 15:00:28 2019-11-13 00 :00:00 No 10mg QD Take 10 mg by mouth nightly. Arcenio Schaeffer zolpidem (AMBIEN) 10 mg tablet 2019-11-13 00:00:00 2020-03-12 23 :59:00 No 10mg QD Take 1 tablet (10 mg total) by mouth nightly for 120 d ays. Arcenio Schaeffer metoclopramide (Reglan) 10 MG tablet 2019-10-24 15:09:51 Yes 10mg Q.[id number] Take 10 mg by mouth 3 (three) times a day. Arcenio Schaeffer zolpidem (AMBIEN) 5 MG tablet 2019-10-24 00:00:00 2019-11-13 00:00:00 No Situational anxiety 10mg QD Take 2 tablets (10 m g total) by mouth nightly as needed for sleep for up to 30 days. Bettina Schaeffer esomeprazole (NexIUM) 40 MG capsule 2019-10-15 16:16:2 2 2019-10-15 00:00:00 No 40mg Q.5D Take 40 mg by mouth 2 (two) times a day. Arcenio Schaeffer metFORMIN (FORTAMET) 1,000 mg 24 hr tablet 2019-10-15 00:00:00 Yes 1000mg QD Take 1 tablet (1,000 mg tota l) by mouth daily with breakfast for 30 days. Arcenio Schaeffer esomeprazole (NexIUM) 40 MG capsule 2019-10-15 00:00:0 0 2019-11-14 23:59:00 No 40mg Q.5D Take 1 capsule (40 mg total) by mouth 2 (two) times a day for 30 days. Arcenio Schaeffer glipiZIDE (GLUCOTROL) 10 MG 24 hr tablet 2019-09 00:00:00 2019-11-14 23:59:00 No 10mg QD Take 1 tablet (10 mg total) by mouth daily for 30 days. Arcenio Schaeffer zolpidem (AMBIEN) 5 MG tablet 2019-10-15 00:00:00 2019-10-24 00: 00:00 No 5mg QD Take 1 tablet (5 mg total) b y mouth nightly as needed for sleep for up to 30 days. Arcenio Schaeffer insulin GLARGINE (LANTUS SOLOSTAR) 100 unit/mL injection (pe n) 2019-10-15 00:00:00 2019-10-15 00:00:00 No 15U QD Inject 15 Units under the skin nightly for 30 days. Arcenio Schaeffer hyoscyamine sulfate 0.125 mg tablet,disintegrating 2019-10-14 21:23:41 2019-10-14 00:00:00 No Q24H Take by mouth daily as needed. Arcenio Schaeffer cyanocobalamin 1,000 mcg/mL injection 2019-04-14 14:56 :44 2019-04-14 00:00:00 No 1000ug Q30D Inject 1,000 mc g into the shoulder, thigh, or buttocks every 30 (thirty) days. Arcenio Schaeffer cyanocobalamin 1,000 mcg/mL injection 2019-04-14 00:00 :00 2019-10-15 00:00:00 No 1000ug Q30D Inject 1 mL (1, 000 mcg total) into the shoulder, thigh, or buttocks every 30 (thirty) days. Arcenio Schaeffer glimepiride (AMARYL) 2 MG tablet 2019-04-09 00:00:00 2019-09 00:00:00 No 2mg QD Take 1 tablet (2 mg total) by mouth daily befor e breakfast. Arcenio Schaeffer nitrofurantoin, macrocrystal-monohydrate, (MACROBID) 100 MG capsule 2019-04-09 00:00:00 2019-04-14 23:59:00 No 100mg Q.5D Take 1 capsule (100 mg total) by mouth 2 (two) times a day for 5 days. Sanju Schaeffer losartan (COZAAR) 50 MG tablet 2019-04-07 00:00:00 Yes Essential hypertension 50mg QD Take 1 tablet (50 mg total) by mouth daily. Arcenio Schaeffer metoprolol succinate XL (TOPROL-XL) 25 mg 24 hr tablet 2019-04-07 00:00:00 Yes Essential hypertension 25mg QD Take 1 tablet (25 mg total) by mouth daily. Arcenio Schaeffer escitalopram (LEXAPRO) 20 MG tablet 2019-04-07 00:00:00 Yes Severe episode of recurrent major depressive disorder, without psychotic features (HCC) 20mg QD Take 1 tablet (20 mg total) by mouth daily. Arcenio Schaeffer losartan (COZAAR) 100 MG tablet 2019-04-07 00:00:00 00:00:00 No Essential hypertension 100mg QD Take 1 tablet (100 mg total) by mouth daily. Arcenio Schaeffer clonIDINE (CATAPRES) 0.1 MG tablet 2019-04-04 00:00:00 Yes Essential hypertension .1mg QD Take 1 tablet (0.1 m g total) by mouth daily. Prn BP over 170/100. Arcenio Schaeffer metFORMIN XR (GLUCOPHAGE-XR) 500 mg 24 hr tablet 2018-10-31 00:00:00 2019-10-15 00:00:00 No Type 2 diabetes leslie itus without complication, without long-term current use of insulin (HCC) 500mg Q.5D T terrie 1 tablet (500 mg total) by mouth 2 (two) times a day. Arcenio Bernard thjose ferrous gluconate (FERGON) 324 MG tablet 2018-09-02 00:00:00 Yes 324mg Q.5D Take 1 tablet (324 mg total) by mouth 2 (two) times a day. Arcenio Schaeffer clonIDINE (CATAPRES) 0.1 MG tablet 2018-08-30 00:00:00 201 01-29-15 00:00:00 No Essential hypertension .1mg QD Take 1 ta blet (0.1 mg total) by mouth daily. Prn BP over 170/100. Arcenio Schaeffer losartan (COZAAR) 50 MG tablet 2018-08-05 00:00:00 2019-04-07 00 :00:00 No 50mg QD Take 1 tablet (50 mg total) by mouth daily. Arcenio Schaeffer escitalopram (LEXAPRO) 20 MG tablet 2018-08-01 00:00:0 0 2019-04-07 00:00:00 No 20mg QD Take 1 tablet (20 mg total) by mouth tristan ly. Arcenio Schaeffer rosuvastatin (CRESTOR) 20 MG tablet 2018-06-26 00:00:0 0 2019-06-26 23:59:00 No Hyperlipidemia, unspecified hyperlipidemia type 20mg QD Take 1 tablet (20 mg total) by mouth daily. Arcenio Schaeffer metoprolol succinate XL (TOPROL-XL) 25 mg 24 hr tablet 2018-06-26 00:00:00 2019-04-07 00:00:00 No Hyperlipidemia, unspecified hyperl ipidemia type 25mg QD Take 1 tablet (25 mg total) by mouth daily. Arcenio Schaeffer Escitalopram Oxalate (Lexapro) 10 Mg TABLET Escitalopr am Oxalate (Lexapro) 10 Mg TABLET Yes 1 Daily [facility] Esomeprazole Magnesium Esomeprazole Magnesium Yes 1 Twice A Day [facility] Glipizide (Glipizide Er) 10 Mg TAB.ER.24 Glipizide (Gl ipizide Er) 10 Mg TAB.ER.24 Yes 1 Daily [facility] Losartan Potassium Losartan Potassium Yes 50 Da lyubov [facility] Metformin Hcl (Metformin Hcl Er) 500 Mg TAB.ER.24H Met formin Hcl (Metformin Hcl Er) 500 Mg TAB.ER.24H Yes 1 Twice A Day [facility] Metoclopramide Hcl (Reglan) 10 Mg TABLET Metoclopramid e Hcl (Reglan) 10 Mg TABLET Yes 10 Three Times A Day [facility] Metoprolol Succinate Metoprolol Succinate Yes Daily [facility] Aripiprazole (Abilify*) 2 Mg TABLET Aripiprazole (Abilify*) 2 Mg TABLET 2019-12-10 00:00:00 No 1 Daily [facility] Zolpidem Tartrate Zolpidem Tartrate 2019-12-10 00:00:00 No [facility] Vital Signs Vital Name Observation Time Observation Value Comments Source Body Temperature 2019-12-15 11:34:00 97.7 [degF] [facility] Weight 2019-12-10 02:30:00 197.03 [lb_av] [facility] BMI (Body Mass Index) 2019-12-10 02:30:00 37.7 kg/m2 [facility] Systolic blood pressure 2019-10-24 15:07:00 121 mm[Hg] Arcenio Schaeffer Diastolic blood pressure 2019-10-24 15:07:00 76 mm[Hg] Arcenio Schaeffer Heart rate 2019-10-24 15:07:00 106 /min Rg Nond[employer]ational Body temperature 2019-10-24 15:07:00 37.22 Nena Hous kelly [employer]ational Body height 2019-10-24 15:07:00 167.6 cm Arcenio Schaeffer Body weight 2019-10-24 15:07:00 95.255 kg Arcenio Schaeffer BMI 2019-10-24 15:07:00 33.89 kg/m2 Arcenio Schaeffer Oxygen saturation in Arterial blood by Pulse oximetry 10-23 15:07:00 98 /min Arcenio Schaeffer Respiratory rate 2019-10-15 15:00:00 18 /min Bettina mendoza [employer] Procedures Procedure Date / Time Performed Performing Clinician Sour e URINE CULTURE 2019-10-24 16:20:00 Becky Pittman BASIC METABOLIC PANEL 2019-10-24 16:20:00 Becky Pittman URINALYSIS, AUTOMATED WITH MICROSCOPY 2019-10-24 16:20:00 Li ncolnBecky POC GLUCOSE 2019-10-24 16:01:00 Becky Pittman ECG 12-LEAD 2019-10-15 11:23:52 Leonel Cruz URINALYSIS, AUTOMATED WITH MICROSCOPY 2019-10-15 11:14:00 Go nzLeonel kim POC GLUCOSE 2019-10-15 11:06:00 Leonel Cruz TTE COMPLETE, WO CONTRAST, W DOPPLER ([id number]) 2019-10-15 11:0 0:00 Leonel Cruz POC GLUCOSE 2019-10-15 07:08:00 Leonel Cruz HEMOGLOBIN A1C 2019-10-15 03:31:00 Leonel Cruz LIPID PANEL 2019-10-15 03:31:00 Leonel Cruz BASIC METABOLIC PANEL 2019-10-15 03:31:00 eLonel Cruz ESTIMATED GFR 2019-10-15 03:31:00 Leonel Cruz POC GLUCOSE 2019-10-14 20:21:00 SanfordLeonel Arcenio Schaeffer TROPONIN 2019-10-14 17:02:00 SanfordLeonel Nondenominational POC GLUCOSE 2019-10-14 14:48:[address] CARDIAC OVERREAD 2019-10-14 14:37:40 SanfordLeonel Arcenio Schaeffer CV CTA CORONARY ARTERIES W CONTRAST 2019-10-14 14:36:01 Cecile kim Leonel Aysmin Arcenio Schaeffer POC GLUCOSE 2019-10-14 13:30:00 SanfordLeonel Arcenio Schaeffer TROPONIN 2019-10-14 12:35:00 SanfordLeonel Yasmin Arcenio Shcaeffer ARTERIAL BLOOD GAS 2019-10-14 12:35:00 SanfordLeonel Arcenio Schaeffer BETA HYDROXYBUTYRATE 2019-10-14 12:07:00 SanfordLeonel Arcenio Schaeffer POC GLUCOSE 2019-10-14 11:54:00 Delvin Alfonso XR CHEST 1 VW PORTABLE 2019-10-14 10:56:07 Delvin Alfonso OR CRITICAL CARE, E/M 30-74 MINUTES 2019-10-14 10:37:26 Delvin Alfonso ECG ED PRELIMINARY INTERPRETATION 2019-10-14 10:37:26 Aldo Alfonso HC COMPLETE BLD COUNT W/AUTO DIFF 2019-10-14 10:35:00 Aldo Alfonso COMPREHENSIVE METABOLIC PANEL 2019-10-14 10:35:00 Keegan Alfonso TROPONIN 2019-10-14 10:35:00 Leonel Cruz B NATRIURETIC PEPTIDE 2019-10-14 10:35:00 Delvin Alfonso ESTIMATED GFR 2019-10-14 10:35:00 Delvin Alfonso ethjose LIPID PANEL 2019-10-14 10:35:00 Delvin Alfonso ethjose HEMOGLOBIN A1C 2019-10-14 10:35:00 Delvin Alfonsoodist ECG 12-LEAD 2019-10-14 10:21:27 Sanford Leonel Yasmin Arcenio Schaeffer POCT INFLUENZA A/B 2019-05-16 16:25:00 Becky Pittman POCT RAPID STREP A 2019-05-16 16:25:00 Becky Pittman COMPREHENSIVE METABOLIC PANEL 2019-04-07 16:03:00 Chanelle Pittman cia URINALYSIS, AUTOMATED WITH MICROSCOPY 2019-04-07 16:03:00 Li ncolnBecky HEMOGLOBIN A1C 2019-04-07 16:03:00 Becky Pittman THYROID STIMULATING HORMONE 2019-04-07 16:03:00 Edgar Pittman CBC WITH PLATELET AND DIFFERENTIAL 2019-04-07 16:03:00 Jeff lnBecky FERRITIN LEVEL 2019-04-07 16:03:00 Becky Pittman TOTAL IRON BINDING CAPACITY 2019-04-07 16:03:00 Edgar Pittman Plan of Care Planned Activity Planned Date Details Comments Source Future Scheduled Test 2019-12-20 00:00:00 INFLUENZA VACCINE [code = INFLUENZA VACCINE] [facility] Future Scheduled Test 2019-08-02 00:00:00 URINE MICROALBUMIN [code = URINE MICROALBUMIN] [facility] Future Scheduled Test 2005 00:00:00 BREAST CANCER SCRE ENING [code = BREAST CANCER SCREENING] [facility] Future Scheduled Test 2005 00:00:00 COLONOSCOPY SCREEN ING [code = COLONOSCOPY SCREENING] [facility] Future Scheduled Test 2005 00:00:00 SHINGLES VACCINES (#1) [code = SHINGLES VACCINES (#1)] [facility] Future Scheduled Test 1976 00:00:00 Screening for isauro gnant neoplasm of cervix (procedure) [code = 126996923] [facility] Future Scheduled Test 1965 00:00:00 DIABETIC FOOT EXAM [code = DIABETIC FOOT EXAM] [facility] Future Scheduled Test 1955 00:00:00 DIABETIC RETINAL E YE EXAM [code = DIABETIC RETINAL EYE EXAM] [facility] Instructions Cellulitis [facility] Instructions Urinary Tract Infection - Women [facility] Encounters Start Date/Time End Date/Time Encounter Type Admission Type [facility] Care Department Encounter ID Source 2019-12-10 00:21:00 2019-12-15 12:17:00 Discharged Inpatient 1 CAREY DUNLAP [facility] [id number] [facility] 2019-10-24 00:00:00 2019-10-24 00:00:00 Outpatient GENIE PITTMAN [facility] [id number] [facility] 2019-10-24 00:00:00 2019-10-24 00:00:00 Outpatient GENIE PITTMAN [facility] [id number] [facility] 2019-10-14 00:00:00 2019-10-15 00:00:00 Outpatient PROSPER CRUZ [facility] 064 [id number] [facility] Results Test Description Test Time Test Comments Results Result Comments Source Capillary blood glucose measurement by glucometer (mas s/volume) 2019-12-15 07:06:00 Test Item Bedside Glucose (test code = 18824-2) 89 70-120 Meter ID: [id number] [facility]villeerum or plasma trough vancomycin level at trough (mass/volume)2019-12-14 16:40:00* Test Item Value Reference Range Interpretation Comments Vancomycin Level Trough (test code = 4092-3) 9.3 5.0-10.0 [facility] automated count (number/volume)2019-12-12 04:48:00* Test Item Value Reference Range Interpretation Comments White Blood Count (test code = 6690-2) 6.30 4.8-10.8 [facility] erythrocytes automated count (number/volume)2019-12-12 04:48:00* Test Item Value Reference Range Interpretation Comments Red Blood Count (test code = 789-8) 3.88 3.6-5.1 [facility] hemoglobin measurement (moles/volume)2019-12-12 04:48:00* Test Item Value Reference Range Interpretation Comments Hemoglobin (test code = 16748-8) 9.2 12.0-16.0 [facility] CenterAutomated blood hematocrit (volume fraction)2019-12-12 04:48:00* Test Item Value Reference Range Interpretation Comments Hematocrit (test code = 4544-3) 31.7 34.2-44.1 [facility] CenterAutomated erythrocyte mean corpuscular [id number] 04:48:00* Test Item Value Reference Range Interpretation Comments Mean Corpuscular Volume (test code = 787-2) 81.7 81-99 [facility] CenterAutomated erythrocyte mean corpuscular hemoglobin (mass per erythrocyte)2019-12-12 04:48:00* Test Item Value Reference Range Interpretation Comments Mean Corpuscular Hemoglobin (test code = 785-6) 23.7 28-32 [facility] CenterAutomated erythrocyte mean corpuscular hemoglobin concentration measurement (mass/volume)2019-12-12 04:48:00* Test Item Value Reference Range Interpretation Comments Mean Corpuscular Hemoglobin Concent (test code = 786-4) 29.0 31-35 [facility] CenterRDW FirRd-Iqu8575-22-24 04:48:00* Test Item Value Reference Range Interpretation Comments Red Cell Distribution Width (test code = 35244-6) 17.7 11.7 -14.4 [facility] CenterAutomated blood platelet count (count/volume)2019-12-12 04:48:00* Test Item Value Reference Range Interpretation Comments Platelet Count (test code = 777-3) 279 140-360 [facility] CenterAutom[facility] blood segmented neutrophil count as percentage of total mawatcbmas9561-11-98 04:48:00* Test Item Value Reference Range Interpretation Comments Neutrophils (%) (Auto) (test code = 25043-6) 55.6 38.7-80.0 [facility] CenterAutom[facility] blood lymphocyte count as percentage ot total vjqqrwhzpg1770-51-14 04:48:00* Test Item Value Reference Range Interpretation Comments Lymphocytes (%) (Auto) (test code = 736-9) 34.3 18.0-39.1 [facility] CenterAutom[facility] blood monocyte count as percentage of total khwrzhlmdo1182-76-49 04:48:00* Test Item Value Reference Range Interpretation Comments Monocytes (%) (Auto) (test code = 5905-5) 6.5 4.4-11.3 [facility] CenterAutomated blood eosinophil count as percentage of total pukqsgolxz8980-20-48 04:48:00* Test Item Value Reference Range Interpretation Comments Eosinophils (%) (Auto) (test code = 713-8) 2.5 0.0-6.0 [facility] CenterAutom[facility] blood basophil count as percentage of total pmaryqhfiu3418-67-05 04:48:00* Test Item Value Reference Range Interpretation Comments Basophils (%) (Auto) (test code = 706-2) 0.6 0.0-1.0 [facility] CenterFluoroscopic procedure less than one hour jighdwzd6358-09-15 04:48:00* Test Item Value Reference Range Interpretation Comments IM GRANULOCYTES % (test code = IM GRANULOCYTES %) 0.5 0.0- 1.0 [facility] CenterAutom[facility] blood neutrophil count 2019-12-12 04:48:00* Test Item Value Reference Range Interpretation Comments Neutrophils # (Auto) (test code = 751-8) 3.5 2.1-6.9 [facility] CenterBlood lymphocytes count (number/volume) 2019-12-12 04:48:00* Test Item Value Reference Range Interpretation Comments Lymphocytes # (Auto) (test code = 31129-3) 2.2 1.0-3.2 [facility] CenterBlood monocytes automated count (number/volume)2019-12-12 04:48:00* Test Item Value Reference Range Interpretation Comments Monocytes # (Auto) (test code = 742-7) 0.4 0.2-0.8 [facility] CenterAutomated blood eosinophil count 2019-12-12 04:48:00* Test Item Value Reference Range Interpretation Comments Eosinophils # (Auto) (test code = 711-2) 0.2 0.0-0.4 [facility] CenterAutomated blood basophil count (count/volume)2019-12-12 04:48:00* Test Item Value Reference Range Interpretation Comments Basophils # (Auto) (test code = 704-7) 0.0 0.0-0.1 [facility] CenterFluoroscopic procedure less than one hour dxvujuvu9035-03-53 04:48:00* Test Item Value Reference Range Interpretation Comments Absolute Immature Granulocyte (auto (julee t code = Absolute Immature Granulocyte (auto) 0.03 0-0.1 [facility]ville[facility] or plasma sodium measurement (moles/volume)2019-12-12 04:48:00* Test Item Value Reference Range Interpretation Comments Sodium Level (test code = 2951-2) 140 136-145 [facility] Greenvilleerum or plasma potassium measurement (moles/volume)2019-12-12 04:48:00* Test Item Value Reference Range Interpretation Comments Potassium Level (test code = 2823-3) 3.7 3.5-5.1 [facility]ville[facility]um or plasma chloride measurement (moles/volume)2019-12-12 04:48:00* Test Item Value Reference Range Interpretation Comments Chloride Level (test code = 2075-0) 108 98-107 [facility] Greenvilleerum or plasma carbon dioxide, total measurement (moles/volume)2019-12-12 04:48:00* Test Item Value Reference Range Interpretation Comments Carbon Dioxide Level (test code = 2028-9) 24 22-29 [facility] Greenvilleerum or plasma anion dzf9749-12-02 04:48:00* Test Item Value Reference Range Interpretation Comments Anion Gap (test code = 83486-9) 11.7 8-16 [facility] Greenvilleerum or plasma urea nitrogen measurement (mass/volume)2019-12-12 04:48:00* Test Item Value Reference Range Interpretation Comments Blood Urea Nitrogen (test code = 3094-0) 14 7-26 [facility]villeerum or plasma creatinine measurement (mass/volume)2019-12-12 04:48:00* Test Item Value Reference Range Interpretation Comments Creatinine (test code = 2160-0) 0.76 0.57-1.11 [facility]villeerum or plasma urea nitrogen/creatinine mass jzloa5748-41-92 04:48:00* Test Item Value Reference Range Interpretation Comments BUN/Creatinine Ratio (test code = 3097-3) 18 6-25 [facility] CenterEstimated glomerular filtration rate (GFR) pxrqnykqlskse5246-89-33 04:48:00* Test Item Value Reference Range Interpretation Comments Estimat Glomerular Filtration Rate (test code = 439055829) > 60 >60 Ranges were taken from the National Kidney Disease Education Program and the [facility] literature.Reference ranges:60 or greater: Pkyvzg25-36 ( for 3 consecutive months): Chronic kidney disease 15 or less: Kidney failureMission Regional Medical CenterGlucose fnhblkbxvbo8540-55-89 04:48:00* Test Item Value Reference Range Interpretation Comments Glucose Level (test code = XHS0741) 109 74-118 [facility] Greenvilleerum or plasma calcium measurement (mass/volume)2019-12-12 04:48:00* Test Item Value Reference Range Interpretation Comments Calcium Level (test code = 45228-1) 8.7 8.4-10.2 [facility]villeerum or plasma magnesium measurement (mass/volume)2019-12-12 04:48:00* Test Item Value Reference Range Interpretation Comments Magnesium Level (test code = 49500-8) 1.7 1.3-2.1 [facility]villeerum or plasma total bilirubin measurement (mass/volume)2019-12-12 04:48:00* Test Item Value Reference Range Interpretation Comments Total Bilirubin (test code = 1975-2) 0.2 0.2-1.2 [facility] CenterFluoroscopic procedure less than one hour vbztxqrv7998-03-73 04:48:00* Test Item Value Reference Range Interpretation Comments Aspartate Amino Transf (AST/SGOT) (test code = Aspartate Amino Transf (AST/SGOT)) 15 5-34 [facility] Greenvilleerum or plasma alanine aminotransferase measurement (enzymatic activity/volume)2019-12-12 04:48:00* Test Item Value Reference Range Interpretation Comments Alanine Aminotransferase (ALT/SGPT) (test code = 1742-6) 10 0-55 [facility] at Greenvilleerum or plasma protein measurement (mass/volume)2019-12-12 04:48:00* Test Item Value Reference Range Interpretation Comments Total Protein (test code = 2885-2) 6.4 6.5-8.1 [facility] albumin measurement (mass/volume)2019-12-12 04:48:00* Test Item Value Reference Range Interpretation Comments Albumin (test code = 1751-7) 2.7 3.5-5.0 [facility] glob[facility] (mass/volume) 2019-12-12 04:48:00* Test Item Value Reference Range Interpretation Comments Globulin (test code = 59642-9) 3.7 2.3-3.5 [facility] albumin/globulin mass vfenj8598-49-08 04:48:00* Test Item Value Reference Range Interpretation Comments Albumin/Globulin Ratio (test code = 1759-0) 0.7 0.8-2.0 [facility] alkaline phosphatase measurement (enzymatic activity/volume)2019-12-12 04:48:00* Test Item Value Reference Range Interpretation Comments Alkaline Phosphatase (test code = 6768-6) 61 40-150 [facility] platelets count by estimate (number/volume)2019-12-11 05:30:00* Test Item Value Reference Range Interpretation Comments Platelet Estimate (test code = 82235-0) ADEQUATE [facility] CenterPlatelet velxhxhhut1381-42-18 05:30:00* Test Item Value Reference Range Interpretation Comments Platelet Morphology Comment (test code = 21672-0) RARE EDTA CLUMPIN G [facility] CenterBlood hypochromia detection by light xnxfuucaig5492-72-86 05:30:00* Test Item Value Reference Range Interpretation Comments Hypochromasia (test code = 728-6) SLIGHT [facility] poikilocytosis detection by light oilmuzmwdp9657-34-53 05:30:00* Test Item Value Reference Range Interpretation Comments Poikilocytosis (test code = 779-9) [facility]IGHT [facility] anisocytosis detection by light mzdgjmeoye4103-27-75 05:30:00* Test Item Value Reference Range Interpretation Comments Anisocytosis (test code = 702-1) SLIGHT [facility] CenterRBC jrdmfjzvlr6071-26-70 05:30:00* Test Item Value Reference Range Interpretation Comments Red Cell Morphology Comment (test code = 6742-1) NORMAL [facility] CenterFluoroscopic procedure less than one hour ezkruocm5605-22-48 05:40:00* Test Item Value Reference Range Interpretation Comments Lactic Acid Level (test code = Lactic Acid Level) 1.8 0.5- 2.0 [facility] CenterFluoroscopic procedure less than one hour olvgcoyj2505-94-97 00:50:00* Test Item Value Reference Range Interpretation Comments Coronavirus (PCR) (test code = Coronavirus (PCR)) NOT DETECTED NOTD ETECTED SARS-COV-2 (COVID19), HIGHRISK, RT-PCRNegative results do not preclude SARS-CoV- 2 infection and should not be used as the sole basis for patient management deci sions. Negative results must be combined with clinical observations, patient his tory, and epidemiological information. Optimum specimen types and timing for pea k viral levels during infections caused by SARS-CoV-2 have not been determined. Collection of multiple specimens ot types of specimens may be necessary to detec t virus. Improper specimen collection and handling, sequence variability under p rimers/probes, or organism present below the limit of detection may lead to fals e negative results. Positive and negative predictive values of testing are highl y dependent on prevalance. False negative test results are more likely when prev alence is high.The expected result is negative (not detected).The SARS-CoV-2 julee t is intended for the qualitative detection of nucleic acid from SARS-CoV-2 in n asopharyngeal and oropharyngeal swab samples from patients who meet COVID-19 cli nical and or epidemiological criteria. For lower respiratory tract specimens, th e assay is submitted for authoriztion by FDA under an Emergency Use Authorizatio n (EUA). Testing methodology is real time RT-PCR. If received as separate collec tion devices, nasopharygeal and oropharyngeal specimens are combined for analysi s. Additional specimens may be split to a separate accession for analysi and rep orting as this test includes a single unit of service.Test results must be corre lated with clinical presentation and evaluated in the context of other laborator y and epidemiologic data. Test performance can be affected because the epidemiol ogy and clinical spectrum of infection caused by SARS-CoV-2 is not fully known. For example, the optimum types of specimens to collect and when during the cours e of infection these specimens are most likely to contain detectable viral RNA m ay not be known.This test has not been Food and Drug Administration (FDA) cleare d or approved and has been authorized by FDA under an Emergency Use Authorizatio n (EUA). The test is only authorized for the duration of the declaration that ci rcumstances exist justifying the authorization of emergency use of in vitro diag nostic tests for detection and/or diagnosis of SARS-CoV-2 under section 564(b) o f the Act, 21 U.S.C. section 360bbb-3(b)(1), unless the authorization is termina mario or revoked sooner. [facility] are certified under the C linical Laboratory Improvement Amendments of 1988 (CLIA), 42 U.S.C. section 263a , to perform high complexity tests.Testing performed by [facility] [id number] [place], [place] [phone] Director: Andre Hanna M.D.CLIA # [id number] [facility] SINGLE (PORTABLE)2019-12-09 23:58:00 [place] [address] Patient Name: YVES LUGO MR #: [id number] : 1955 Age/Sex: 64/F Req #: [id number] Adm Physician: Ordered by: CAREY DUNLAP MD Report #: [id number] Location: ER Room/Bed: Procedure: [id number] DX/CH EST SINGLE (PORTABLE) Exam Date: 12/09/19 Exam Time: 2229 REPORT STATUS: Signed EXAM INATION: CHEST SINGLE (PORTABLE) INDICATION: FEVER COMPARISON: C hest radiograph 03/13/2009. FINDINGS: TUBES and LINES: None. LUNGS: Lungs are well inflated. Mild patchy bibasilar opacities. No evidence of lobar consolidation or pulmonary edema. PLEURA: No pleural effusion or pneumothorax. HEART AND MEDIASTINUM: The cardiomediastinal silhouette is unremarkable. BONES AND SOFT TISSUES: No acute osseous lesion. Soft tissues are unremarkable. UPPER ABDOMEN: No free air under the diaphragm. IMPRESSION: Mild patchy bibasilar opacities, likely atelectasis, al though infectious process is possible in the appropriate clinical setting. No evidence of lobar pneumonia. Signed by: Dr. Ja Sanchez MD on 12/10/2019 1 2:06 AM Dictated By: JA SANCHEZ MD Transcribed By: SETH on 12/10/195 COPY TO: CAREY AKERS MD Urine color tmxcuwrbovipj2939-83-06 21:41:00* Test Item Value Reference Range Interpretation Comments Urine Color (test code = 5778-6) YELLOW YELLOW [facility] CenterUrine bcxdpsl9782-40-92 21:41:00* Test Item Value Reference Range Interpretation Comments Urine Clarity (test code = 30362-2) SL CLOUDY CLEAR [facility]villepecific gravity of Urine by Test strip 2019-12-09 21:41:00* Test Item Value Reference Range Interpretation Comments Urine Specific [place] (test code = 5811-5) 1.020 1.010-1.02 5 [facility] CenterU[facility] pH measurement by automated test lfnfp6598-66-16 21:41:00* Test Item Value Reference Range Interpretation Comments Urine pH (test code = 78769-9) 7 5-7 [facility] CenterUrine leukocyte esterase detection by cvxpdlyi3017-65-11 21:41:00* Test Item Value Reference Range Interpretation Comments Urine Leukocyte Esterase (test code = 5799-2) TRACE NEGATIVE [facility] CenterU[facility] nitrite dpdhdizzy5309-38-00 21:41:00* Test Item Value Reference Range Interpretation Comments Urine Nitrite (test code = 33783-1) NEGATIVE NEGATIVE [facility] CenterU[facility] protein measurement by test strip (mass/volume)2019-12-09 21:41:00* Test Item Value Reference Range Interpretation Comments Urine Protein (test code = 5804-0) 1+ NEGATIVE [facility] CenterU[facility] glucose luqwadziv2260-14-86 21:41:00* Test Item Value Reference Range Interpretation Comments Urine Glucose (UA) (test code = 2349-9) 2+ NEGATIVE [facility] CenterU[facility] ketones detection by automated test vkrog9679-01-83 21:41:00* Test Item Value Reference Range Interpretation Comments Urine Ketones (test code = 41272-1) NEGATIVE NEGATIVE [facility] CenterUrine urobilinogen measurement by test strip (mass/volume)2019-12-09 21:41:00* Test Item Value Reference Range Interpretation Comments Urine Urobilinogen (test code = 66090-6) 0.2 0.2-1 [facility] CenterU[facility] total bilirubin measurement (mass/volume)2019-12-09 21:41:00* Test Item Value Reference Range Interpretation Comments Urine Bilirubin (test code = 1978-6) NEGATIVE NEGATIVE [facility] CenterU[facility] erythrocytes ofpocmcfn1510-34-36 21:41:00* Test Item Value Reference Range Interpretation Comments Urine Blood (test code = 41694-7) TRACE NEGATIVE [facility] CenterAutomated urine sediment leukocyte count by microscopy (number/high power field)2019-12-09 21:41:00* Test Item Value Reference Range Interpretation Comments Urine WBC (test code = 5821-4) 11-20 0-5 [facility] CenterErythrocytes detection in urine sediment by light bzgkwslizt7256-87-07 21:41:00* Test Item Value Reference Range Interpretation Comments Urine RBC (test code = 25316-9) 6-10 0-5 [facility] CenterBacteria detection in urine sediment by light raeeggdsxu7159-83-78 21:41:00* Test Item Value Reference Range Interpretation Comments Urine Bacteria (test code = 01310-6) MODERATE NONE [facility] CenterEpithelial cells detection in urine sediment by light aonhnvdyfc6200-88-40 21:41:00* Test Item Value Reference Range Interpretation Comments Urine Epithelial Cells (test code = 07995-2) MODERATE NONE [facility] CenterBlood iroaoyi5609-76-53 21:30:00* Test Item Value Reference Range Interpretation Comments Blood Culture (test code = 80472717) NO GROWTH AFTER 5 DAYS, FINAL REPORT [facility] CenterBasic metabolic mvnfy5508-18-55 18:27:00 * Test Item Value Reference Range Interpretation Comments Glucose (test code = 2345-7) 181 mg/dL 65-99 H Fasting reference interval For someone without known diabetes, a glucosevalue >125 mg/dL indicates that they may havediabetes and this should be confirmed with afollow-up test. BUN (test code = 3094-0) 8 mg/dL 7-25 Creatinine (test code = 2160-0) 0.90 mg/dL 0.5-0.99 For patients >49 years of age, the reference limitfor Creatinine is approximately 13% higher for peopleidentified as -Citizen Of [place]. EGFR Non-Afr. Citizen Of [place] (test code = 2775) 68 > OR = 60 mL /min/1.73m2 EGFR (test code = 13804-8) 78 > OR = 60 mL/min/1.73m2 BUN/creatinine ratio (test code = 3097-3) NOT APPLICABLE 6- 22 (randy c) Sodium (test code = 2951-2) 137 mmol/L 135-146 Potassium (test code = 2823-3) 3.4 mmol/L 3.5-5.3 L Chloride (test code = 2075-0) 101 mmol/L 98-110 CO2 (test code = 2027-9) 25 mmol/L 20-32 Calcium (test code = 90410-0) 9.6 mg/dL 8.6-10.4 RAC (test code = RAC) Performing Organization Info rmation: Site ID: RGA Name: [facility] Address: [address] [place] [phone] Director: Delvin Yin Lab Interpretation (test code = 11242-5) Abnormal [place], automated with thwonknrxp9222-35-28 18:27:00* Test Item Value Reference Range Interpretation Comments Color, UA (test code = 5778-6) YELLOW YELLOW Appearance (test code = 5767-9) CLOUDY CLEAR A Specific gravity, urine (test code = 5811-5) 1.016 1.001-1.0 35 pH, urine (test code = 5803-2) 6.0 5.0-8.0 Glucose, urine (test code = 94063-7) 3+ NEGATIVE A Bilirubin, UA (test code = 5770-3) NEGATIVE NEGATIVE Ketones, UA (test code = 2514-8) NEGATIVE NEGATIVE Occult blood, urine (test code = 5794-3) TRACE NEGATIVE A Protein, UA (test code = 86067-1) 1+ NEGATIVE A Nitrite, UA (test code = 5802-4) NEGATIVE NEGATIVE Leukocyte esterase, UA (test code = 5799-2) 2+ NEGATIVE A WBC, UA (test code = 5821-4) 20-40 < OR = 5 /HPF A RBC, UA (test code = 23908-2) 0-2 < OR = 2 /HPF Squamous epithelial cells, UA (test code = 55120-7) 0-5 < OR = 5 /HPF Bacteria, UA (test code = 5769-5) FEW NONE SEEN /HPF A Calcium oxalate crystals, UA (test code = 00233-4) FEW NON E OR FEW /HPF Hyaline casts, UA (test code = 5796-8) NONE SEEN NONE SEEN /LPF RAC (test code = RAC) Performing Organization Info rmation: Site ID: RGA Name: [facility] Address: [address] [place] [phone] Director: Delvin Yin Lab Interpretation (test code = 71634-1) Abnormal [place] recwwcm6025-57-23 04:27:00* Test Item Value Reference Range Interpretation Comments Urine culture (test code = 630-4) SEE NOTE CULTURE, URINE, ROUTINE Micro Number: [id number] Test Status: Final Specimen Source: NOT GIVEN Specimen Quality: Adequate Result: Multiple organisms present, each less than 10,000 CFU/mL. These organisms, commonly found on external and internal genitalia, are considered to be colonizers. No further testing performed. RAC (test code = RAC) Performing Organization Info rmation: Site ID: RGA Name: [facility] Address: [address] [place] [phone] Director: Delvin Yin [facility] finrbpi4330-30-70 16:01:00* Test Item Value Reference Range Interpretation Comments POC glucose (test code = 4929088) 196 65-100 [facility] 12 qlyp3169-62-93 10:37:25* Test Item Value Reference Range Interpretation Comments Ventricular rate (test code = 253) 77 Atrial rate (test code = 255) 77 OR interval (test code = 266) 156 QRSD interval (test code = 260) 86 QT interval (test code = 264) 412 QTC interval (test code = 265) 466 P axis 1 (test code = 267) 24 QRS axis 1 (test code = 268) 8 T wave axis (test code = 270) 22 EKG impression (test code = 273) Normal sinus rhythm-N ormal ECG-In automated comparison with ECG of 14-OCT-2019 10:21,-ST no longer depressed in Lateral leads-Electronically Signed By Hardy TORREZ [facility] ([id number]) on 10/15/2019 10:30:16 PM [facility] HospitalTran[facility]horacic Echocardiogram Complete, (w Contrast, Strain and 3D if needed)2019-10-15 12:44:00Interface, Radiology Results In - 10/15/2019 12:44 PM CDT Echocardiography Report [address] [address] Pat.Name: YVES LUGO Pat.ID: [id number] St.Date: 10/15/2019 Refer.MD: LEONEL CRUZ MDExbairon Time: 10:13:00 AM Study Type:Routine Echo Height: 66in Weight: 209lb BSA: 2.04 m2 Age: 1 1955,64Y Sex: FEMALE BP: 117/75 HR: 82 bpm Sonogrphr: JUDY Pemberton, RVS Pat. Stat.:Inpatient Room: A7036 Study Status:Final Echo Event ID:[id number] Order ID: [id number] Reason for Study:HF - Initial eval of known or suspected HF (systeolicor diastolic) based on symptoms, signs, or abnormal test resultsP rocedures: 2D Echo, Colorflow Doppler, Strain, Portable SUMMARY: LV EF is hyperdynamic.Est imated EF is >70%.RV systolic function is normal. FINDINGS: LV: LV size is normal. Concentric left ventricular remodeling. LV EF is hyperdynamic. Overall wall motion is hyperdynamic. Estimated EF is >70%.RV: RV size is normal. RV systolic function is normal.LA: LA size is normal.RA: RA size is normal.AO: Aortic root diameter is normal in size. Ascending aorta diameter is mildly enlarged.CHANDAN: Small anterior pericardial effusion.AV: No structural AV abnormalities noted.MV: No structural MV abnormalities noted.PV: No structural PV abnormalities noted. A trace of pulmonic regurgitation. TV: No structural TV abnormalities noted.Doyle: Diastolic dysfunction Grade I (Mild): Impaired relaxation with normal LV filling pressures.Other: Insufficient TR jet to estimate PA systolic pressure. MEASUREME NTS: 2DPara sternal Long Desha Ao An 2.1 cm LVPWd 0.93 cm A o Rtd 3.4 cm Index 1.7 cm/m2 LA Ds 3.5 cm IVSd 0.98 cm RWT 0.52 LVIDd 3.6 cm Index 1.8 cm/m2 LV Mass 101 g (87-129) LVIDs 1.8 cm LVM Index 50 g/m2 LV%fs 50 % LVOT 2 cm LA Sng Plane LA Area 17 cm2 (8.8-23.4) LA Vol 45 ml Index 22 ml/m2 LA LngAx 5.2 cm LVOT LVOT Area 3.1 cm2 DOPPLERLVOT Stroke Vol LVOT TVI 21 cm HR 78 bpm LVOT LVOT SV 63 ml LVOT CO 4.9 l/min SVi 31 ml/m2 LVOT CI 2.4 l/m/m2 Signed 10/15/2019 12:44 PMSu Gus Forrest M.D.[place]Hemoglobin A1c 2019-10-15 08:06:19* Test Item Value Reference Range Interpretation Comments Hemoglobin A1C (test code = 85381-0) 11.6 % 4-5.6 H HbA1c cutoffs for diagnosing diabetes:4.0% - 5.6% = normal5.7% - 6.4% = increased risk for diabetes (prediabetes)9>=6.5% = jesnjqfr6Qkvob for glycemic control (ADA 2016)< 7.0% Target for non adults with diabetes. More or less stringent targets may be appropriate for individual patients. <7.5% Target for Children and adolescents with type 1 diabetes. Lab Interpretation (test code = 07944-2) Abnormal [facility] MethodistLipid mfpcq0284-13-48 04:22:54* Test Item Value Reference Range Interpretation Comments Cholesterol (test code = 2093-3) 198 mg/dL <200 Triglycerides (test code = 2571-8) 239 mg/dL <150 H HDL cholesterol (test code = 2085-9) 34 mg/dL >40 L LDL cholesterol (test code = 2089-1) 145 mg/dL <100 H Result obtained by direct LDL measurement Lipid panel interpretation (test code = 52418-6) SeeBelow Total Cholesterol (mg/dL) <200 Desirable 200-239 Borderline-high >=240 High Triglycerides (mg/dL) <150 Normal 150-199 Borderline-high 200-499 High >=500 Very high HDL Cholesterol (mg/dL) <40 Low (male) <40 Low (female) LDL Cholesterol (mg/dL) <100 Optimal 100-129 Near or above optimal 130-159 Borderline-high 160-189 High >=190 Very high Risk Catergories that modify LDL goals.Risk Catergories LDL goal (mg/dL)CHD and CHD risk equivalent <100 (10-year risk >20%)Multiple (2+) risk factors <130 (10-year risk =<20%)0-1 risk factors <160 (<10-year risk) Defining levels of lipids in metabolic syndromeTriglycerides >=150 mg/dLHDL Cholesterol Men <40 mg/dL Women <40 mg/dL Non-HDL cholesterol is a second target for therapy in personswith high triglycerides (>=200 mg/dL) Lab Interpretation (test code = 60649-9) Abnormal Arcenio NondenominationalEstimated [id number] 04:22:54* Test Item Value Reference Range Interpretation Comments Estimated GFR (test code = 5488) 80 mL/min/1.73 m2 Catergory Units InterpretationG1 >=90 Normal or highG2 60-89 Mildly nrjbxkdmwP7s 45-59 Mildly to moderately hkuhvsghrT8r 30-44 Moderately to severely decreasedG4 15-29 Severely decreasedG5 <15 Kidney failureThe eGFR was calculated using the Chronic Kidney Disease Epidemiology Collaboration (CKD-EPI) equation. Interpretation is based on recommendations of the National Kidney Foundation-Kidney Disease Outcomes Quality Initiative (NKF-KDOQI) published in 2014. Arcenio SchaefferWfcizpifsVttvzncp5939-88-61 17:53:06* Test Item Value Reference Range Interpretation Comments Troponin (test code = 31654-4) <0.006 0-0.04 In patients suspected of having a myocardial infarction, along with all other appropriate clinical measures and actions including ECG and other diagnostics as appropriate, measure Ultra TnI at 0 hrs and at 3 hrs.Myocardial infarction VERY LIKELYThe 0 hr TnI level is > 0.10 ng/mL Kvng cardial infarction LIKELYThe 0 hr TnI level is > 0.04 ng/mL and 3 hr level is increased or decreased by at least 0.020 ng/mL Myocardi al infarction VERY UNLIKELYBoth the 0 hr and 3 hr TnI levels <= 0.04 ng/mL(within normal limits) OR 0 hr is > 0.04 ng/mL and 3 hr is increased OR decreased by less than 0.020 ng/mL [facility] cta coronary arteries w contrast and ffr if gwwnoh0355-13-38 17:15:00Interface, Radiology Results In - 10/14/2019 5:15 PM CDT Nuclear Cardiology and Cardiac CT [address] [place] [address] Department Number: [phone] CTA Coronary Arteries w/ Calcium Scoring ReportPat.Name: YVES LUGO [facility].ID: [id number] .Date: 10/14/2019 Refer.MD: LEONEL CRUZ MD.Exam Time: 1:58:00 PM Study Type:CTA Coronary Arteries with Calcium ScoringHeight: 66in BSA: 2.06 m2 Age: 1 1955,64Y Sex: FEMALE BP: 162/80 HR: 75 bpm Nuclear Tech:ASHLEY Franco(N)(CT)CPT - 4: CCTA w Thoracic Aorta (NonCongenital) [id number] Event ID:[id number] Order ID: [id number] Reason for Study:ED [place] ACS Pathway, Chest painProcedures: CT Prospective (Intervals), CT Flash Mode with PlanningScanRace: C SUMMARY: ----Technique: IV contrast was administered and sequential 0.[address] cutswere ob tained through the chest using the Siemens Somatom Force CTscanner. Image post- processing consisting of multiplanar and 3Dreconstructions were performed using the Nora IntelliSpaceworkstation. Interactive image viewing, volumetric displ ay, andanalysis were also performed. 3D coronary artery calcium scoring wasdone in accordance with a standardized protocol. Coronary Artery Calcium Score (CACS) Result: The total coronary arterycalcium score is zero.CTA RESULTSLeft Main: A normal sized 4.7 mm artery which arises normally from the leftsinus of Valsalva and divides into the left anterior descending andcircumflex coronary arteries. No significant atherosclerotic plaque ispresent.Left anterior descending (LAD): A normal sized 4.2 mm artery which wraps around the apex and gives offone major diagonal branch and a large first septal call worker artery.No significant athero sclerotic plaque is present.The first diagonal is a 2.5 mm bifurcating artery wh ich has nosignificant atherosclerotic plaque. The first septal is a large 2.0 mm artery which has no significantatherosclerotic plaque. Left circumflex: A normal sized 3.8 mm non-dominant artery which gives off two majorobtuse marginal elsa cleopatra before terminating in the AV groove. Nosignificant atherosclerotic plaque i s present.The first obtuse marginal is a 1.8 mm artery which has no significanta therosclerotic plaque.The second obtuse marginal is a large 3.0 mm trifurcating artery whichhas no significant atherosclerotic plaque. Right coronary artery: A normal sized 4.5mm dominant artery which arises normally from theright sinus of Valsalva and gives off several right ventricularbranches, the posterior descendi ng artery and the posterolateralartery. No significant atherosclerotic plaque i s present. The posterior descending is a 2.0 mm artery which has no significanta therosclerotic plaque. The posterolateral branch is a large 3.5 mm trifurcating artery whichhas no significant atherosclerotic plaque. Ramus: None Stents: None. Bypass Grafts: None.Pulmonary Arteries:The main pulmonary artery is mildly dilat ed at 3.2 cm. but with noproximal thrombus identified.Left Atrial and Pulmonary Vein (PV) Dimensions: Left atrial size (A-P diameter) 3.6 cm.Left atrial volum e: 61 ml. Variant PV anatomy Left superior PV15 mm. Left inferior PV15 mm. Ri ght superior PV15 mm. Right middle PV 4 mm. Right inferior PV11 mm.Lipomatous hypertrophy of the interatrial septum.There is no evidence of the left atrial ap pendage clot.Left Ventricular Valve Morphology/Function:Aortic valve is tri-leaf let with no significant stenosis and onlytrace aortic regurgitation (AROA <0.05 cm2).Mitral valve is normal without significant stenosis or regurgitation.T horacic Aortic Dimensions (systole):No aortic aneurysm or dissection is seen.Aor tic root: 3.6 cm.Sinotubular junction 3.1 cm.Mid ascending thoracic aorta 4.0 cm .Descending thoracic aorta 2.4 cm.Pericardium:No pericardial effusion or pericar dial thickening.Non-Cardiac Findings: Moderately large hiatal hernia.Bilateral small subpleural bullae. CONCLUSIONThe coronary artery calcium score indicates n o significant coronaryatherosclerosis. CT coronary angiography shows no signific ant coronary arteryatherosclerosis or stenosis. No aortic aneurysm or dissection is seen.The main pulmonary artery is mildly dilated at 3.2 cm. but with noprox imal thrombus identified.Aortic valve is tri-leaflet with no significant stenosi s and onlytrace aortic regurgitation (AROA <0.05 cm2).Mitral valve is normal without significant stenosis or regurgitation.No pericardial effusion or pericardial thickening.Lipomatous hypertrophy of the interatrial septum.Moderately large hiatal hernia.There is no evidence of the left atrial appendage clot.Variant PV anatomy. Please refer to the separate radiology report in [facility] for anyadditional non-cardiovascular findings. STUDY QUALITYThe study quality is excellent.COMMENTS: None. ------FINDINGS: Signed 10/14/2019 05:15 PMAlex De La [place] MethodistCT Cardiac [id number] 14:48:03Hm Interface, Radiology Results Incoming - 10/14/2019 2:51 PM CDTEXAMINATION: CT CARDIAC OVERREADCLINICAL HISTORY: Radiology overread of imaging performed in the cardiology department. Only extracardiac structures are assessed. Acute Symptoms with Suspicion of ACS (Urgent Presentation) HIGH Pretest Probability of CAD Nondiagnostic ECG or Equivocal cardiac biomarkers TECHNIQUE: Please refer to cardiology note for details on the acquisition technique.COMPARISON: None. CT notedFINDINGS: Extracardiac findings:Lungs and airways: No acute airspac e disease or suspicious pulmonary nodules. Pleura: No pleural effusion or pneumo thorax.Mediastinum and lymph nodes: No lymphadenopathy. Upper abdomen: There are partially visualized operative changes about the thoracoabdominal junction with intact suture lines in the stomach that appear to relate to gastric sleeve with sliding hiatal hernia. There is mild thickening of the distal esophagus with mi nimal fluid, correlate for history of reflux.Musculoskeletal: No suspicious osse ous lesions.Please refer to separately dictated cardiology report for cardiac an d vascular findings.IMPRESSION:1.Stable small hiatal hernia with operative forrest es involving the proximal stomach as described.Arcenio PriceistBeta epqxychecmxgisn2810-78-60 13:28:55* Test Item Value Reference Range Interpretation Comments Beta hydroxybutyrate (test code = 6873-4) 0.14 mmol/L 0.02-0.27 Rg MethodistArterial blood [id number] 12:55:11* Test Item Value Reference Range Interpretation Comments pH, arterial (test code = 2744-1) 7.47 7.35-7.45 H pCO2, arterial (test code = 2019-8) 34 35- 45 mmHg L pO2, arterial (test code = 2703-7) 91 80- 90 mmHg H Bicarbonate, arterial (test code = 1960-4) 24.4 mmol/L 21-28 Base excess, arterial (test code = 1925-7) 2 -2 - 2 mEq- L O2 saturation, arterial (test code = 2708-6) 98 % 95-100 Lab Interpretation (test code = 77442-6) Abnormal Rg MethodistB natriuretic ebkdcsb7204-56-59 11:52:07* Test Item Value Reference Range Interpretation Comments BNP (test code = 73933-1) 14 pg/mL 0-100 RADHA (test code = RADHA) GLUCOSE results called to an d read back by _NAINA PURCELL/KODY AT 10/14/2019 11:48 BY LM1. Arcenio SchaefferComprehensive metabolic tmfpr2799-50-83 11:40:33* Test Item Value Reference Range Interpretation Comments Sodium (test code = 2951-2) 131 135- 148 mEq/L L Potassium (test code = 2823-3) 4.2 3.5- 5.0 mEq/L Chloride (test code = 2075-0) 92 98- 112 mEq/L L CO2 (test code = 2027-9) 20 24- 31 mEq/L L Anion gap (test code = 02699-0) 19@ANIO 7- 15 mEq/L H BUN (test code = 3094-0) 19 mg/dL 8-23 Creatinine (test code = 2160-0) 0.93 mg/dL 0.5-0.9 H Glucose (test code = 2345-7) 489 mg/dL 65-99 HH Calcium (test code = 80728-4) 10.3 mg/dL 8.8-10.2 H Protein (test code = 2885-2) 8.2 g/dL 6.3-8.3 -[place] 4.6- 7.0 g/dL1 week 4.4-7.6 g/dL7 months-1year 5.1-7.3 g/dL1-2 years 5.6-7.5 g/dL>3 years 6.0-8.0 g/fR47-003 6.3-8.3 g/dL Albumin (test code = 1751-7) 3.3 g/dL 3.5-5 L A/G ratio (test code = 1759-0) 0.7 0.7-3.8 Alkaline phosphatase (test code = 6768-6) 81 U/L 35-104 AST (test code = 1920-8) 12 U/L 10-35 ALT (test code = 1742-6) 9 U/L 5-50 Total bilirubin (test code = 1974-2) 0.3 mg/dL 0-1.2 Lab Interpretation (test code = 49542-2) Abnormal [place] [facility] and dzagbqmvuqtv7808-34-47 10:59:18* Test Item Value Reference Range Interpretation Comments WBC (test code = 66537-8) 8.91 4.50- 11.00 k/uL RBC (test code = 79614-2) 4.60 m/uL 4.2-5.5 HGB (test code = 718-7) 9.6 g/dL 12-16 L HCT (test code = 4544-3) 33.9 % 37-47 L MCV (test code = 787-2) 73.7 fL 82-100 L MCH (test code = 785-6) 20.9 pg 27-34 L MCHC (test code = 786-4) 28.3 g/dL 31-37 L RDW - SD (test code = 23005-0) 43.4 fL 37-55 MPV (test code = 73491-8) 10.3 fL 8.8-13.2 Platelet count (test code = 92312-3) 406 150- 400 k/uL H Nucleated RBC (test code = 05507-9) 0.00 /100 WBC Neutrophils (test code = 51920-2) 70.8 % 39-69 H Lymphocytes (test code = 09267-7) 21.0 % 25-45 L Monocytes (test code = 06441-5) 6.6 % 0-10 Eosinophils (test code = 51293-6) 0.9 % 0-5 Basophils (test code = 11338-1) 0.4 % 0-1 Immature granulocytes (test code = 11272-6) 0.3 % 0-1 "Immature granulocytes" (promyelocytes, myelocytes, metamyelocytes) Lab Interpretation (test code = 41721-4) Abnormal Rg MethodistXR Chest 1 Vw Dqmhuopq6196-12-08 10:57:12Hm Interface, Radiology Results 10/14/2019 11:00 AM CDTExamination: XR CHEST 1 VW PORTABLEClinical history: "SOB" Comparison: None IMPRESSION: Lungs are clear. Lung volumes are low. Cardiomediastinal silhouette is within normal limits. Suspicious osseous lesion is not seen. [facility]-[id number] MethodistECG ED Preliminary Interpretation - Not an Order 2019-10-14 10:37:26* Test Item Value Reference Range Interpretation Comments RADHA (test code = RADHA) Delvin Alfonso DO 5:14 PMECG ED Preliminary Interpretation - Not an OrderPerformed by: Delvin Alfonso DOAuthorized by: Delvin Alfonso DO ECG reviewed by ED Physician in the absence of a wrapper hands sprayer: yes Interpretation: Interpretation: abnormal Rate: ECG rate: 110 ECG rate assessment: tachycardic Rhythm: Rhythm: sinus tachycardia ST segments: ST segments: Normal Lab Interpretation (test code = 18188-4) Abnormal [facility] NYRY6134-25-53 10:37:26SDelvin arnold DO 10/16/2019 5:14 PMCritical CarePerformed by: Delvin Alfonso DOAuthorized by: Delvin Alfonso DO Critical care provider statement: Critical care time (minutes): 45 Critical care time was exclusive of: Teaching time Critical care was necessary to treat or prevent imminent or life-threatening deterioration of the following conditions: Hyperglycemia. Critical care was time spent personally by me on the following activities: Development of treatment plan with patient or surrogate, discussions with consultants, eval uation of patient's response to treatment, examination of patient, interpretatio n of cardiac output measurements, obtaining history from patient or surrogate, o rdering and performing treatments and interventions, pulse oximetry, ordering an d review of laboratory studies, ordering and review of radiographic studies, re- evaluation of patient's condition and review of old [facility] rapid strep [id number] 16:25:00* Test Item Value Reference Range Interpretation Comments Rapid strep A antigen result (test code = 69161-7) Negative Neg ative [facility] Influenza A/[id number] 16:25:00* Test Item Value Reference Range Interpretation Comments Rapid Influenza A Ag (test code = 53863-9) negative Rapid Influenza B Ag (test code = 71708-3) negative [facility] agwiq4413-02-11 14:57:00* Test Item Value Reference Range Interpretation Comments Ferritin level (test code = 2276-4) 11 ng/mL 16-288 L RAC (test code = RAC) Performing Organization Info rmation: Site ID: RGA Name: [facility] Address: [address] [place] [id number] Director: Delvin Yin Lab Interpretation (test code = 45435-3) Abnormal [place] MethodistThyroid stimulating wwenyil0183-55-25 14:57:00* Test Item Value Reference Range Interpretation Comments TSH (test code = 3016-3) 1.26 0.40- 4.50 mIU/L RAC (test code = RAC) Performing Organization Info rmation: Site ID: RAYSHAWN Name: [facility] Address: [address] [place] [address] Director: Delvin Yin [place] MethodistTotal iron binding gdvybkfx3217-23-27 14:57:00* Test Item Value Reference Range Interpretation Comments Iron level (test code = 2498-4) 29 45- 160 mcg/dL L Iron binding capacity (test code = 2500-7) 466 250- 450 mc g/dL (calc) H Iron saturation (test code = 2502-3) 6 16- 45 % (calc) L RAC (test code = RAC) Performing Organization Info rmation: Site ID: RAYSHAWN Name: [facility] Address: [address] [place] [address] Director: Delvin Yin Lab Interpretation (test code = 81862-1) Abnormal [place] MethodistMAMMOGRAPHY DIGITAL SCR [id number] 09:41:00 [place] [address] Patient Name: YVES LUGO MR #: [id number] : 1955 Age/Sex: 63/F Req #: [id number] Adm Physician: Ordered by: OCTAVIO BACON MD Report #: [id number] [facility] Procedure: 1145-6045 M G/MAMMOGRAPHY DIGITAL SCR BILAT Exam Date: 09/12/18 Exam Time: 0933 REPORT STATUS: Sign ed #[id number] - MGSCRBIL #BILATERAL DIGITAL SCREENING MAMMOGRAM WITH CAD: 09/12/2018 CLINICAL: Routine screening. Comparison is made to exams dated: 07/30/2014 mammogram and 05/23/2013 mammogram - [facility]. The tissue of both breasts is predominantly fatty. Current study was also evaluated with a Computer Aided Detection (CAD) system. There are benign vascular calcifications in both breasts. No significant masses, calcifications, or other findings are seen in either breast. There has been no significant interval change. IMPRESSION: BENIGN There is no mammograp hic evidence of malignancy. A 1 year screening mammogram is recommended. The patient will be notified by letter of the results. MICHAELA ULLOA M.D., mc/ashok:09/24/2018 09:38:10 [employer] Architect: Irlanda [employer] RT(R)(M), [facility] letter sent: Normal Exam Mammogram BI-RADS: 2 Benign Dictated By: CHERI ULLOA MD 7 Transcribed By: ASHOK on 12/06 COPY TO: OCTAVIO BACON MD
--- OUTSIDE RECORDS SUMMARY | 2020-03-06 21:46 | XMS REPORT | Clinical Summary ---
Author Author [facility] Organization [facility] Address Unknown Phone Unavailable Care Team Providers Care Staff Auditor Name Role Phone Becky Pittman MD PCP [phone] Allergies No Known Active Allergies Medications End Date Status Medication Sig Dispensed Refills Start Date Active ferrous gluconate Take 1 tablet 60 tablet 3 (FERGON) 324 MG tablet (324 mg 9 total) by mouth 2 (two) times a day. Active clonIDINE (CATAPRES) 0.1 Take 1 tablet 30 tablet 3 MG tabletIndications: (0.1 mg 9 Essential hypertension total) by mouth daily. Prn BP over 170/100. Active losartan (COZAAR) 50 MG Take 1 tablet 30 tablet 2 tabletIndications: (50 mg total) 9 Essential hypertension by mouth daily. Active metoprolol succinate XL Take 1 tablet 30 tablet 2 (TOPROL-XL) 25 mg 24 hr (25 mg total) 9 tabletIndications: by mouth Essential hypertension daily. 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 Active metFORMIN (FORTAMET) Take 1 tablet 30 tablet 0 1,000 mg 24 hr tablet (1,000 mg 0 total) by mouth daily with breakfast for 30 days. 03/12/2020 Active zolpidem (AMBIEN) 10 mg Take 1 tablet 30 tablet 3 tablet (10 mg total) 0 by mouth nightly for 120 days. 10/15/2019 Discontinued (Reorder) esomeprazole (NexIUM) 40 Take 40 mg by 0 MG capsule mouth 2 (two) times a day. 06/26/2019 rosuvastatin (CRESTOR) 20 Take 1 tablet 90 tablet 4 MG tabletIndications: (20 mg total) 9 Hyperlipidemia, by mouth unspecified daily. hyperlipidemia type 04/07/2019 Discontinued metoprolol succinate XL Take 1 tablet 90 tablet 3 (TOPROL-XL) 25 mg 24 hr (25 mg total) 9 tabletIndications: by mouth Hyperlipidemia, daily. unspecified hyperlipidemia type 10/14/2019 Discontinued (Med List Clean up) hyoscyamine sulfate 0.125 Take by mouth 0 mg tablet,disintegrating daily as needed. 04/07/2019 Discontinued (Reorder) escitalopram (LEXAPRO) 20 Take 1 tablet 30 tablet 1 MG tablet (20 mg total) 9 by mouth daily. 04/07/2019 Discontinued (Reorder) losartan (COZAAR) 50 MG Take 1 tablet 30 tablet 1 tablet (50 mg total) 9 by mouth daily. 04/04/2019 Discontinued (Reorder) clonIDINE (CATAPRES) 0.1 Take 1 tablet 30 tablet 0 MG tabletIndications: (0.1 mg 9 Essential hypertension total) by mouth daily. Prn BP over 170/100. 10/15/2019 Discontinued (Stop Taking at Discharge) metFORMIN XR Take 1 tablet 60 tablet 1 (GLUCOPHAGE-XR) 500 mg 24 (500 mg 9 hr tabletIndications: total) by Type 2 diabetes mellitus mouth 2 (two) without complication, times a day. without long-term current use of insulin ([facility]) 04/07/2019 Discontinued (Alternate ther apy) losartan (COZAAR) 100 MG Take 1 tablet 30 tablet 2 tabletIndications: (100 mg 9 Essential hypertension total) by mouth daily. 10/15/2019 Discontinued (Stop Taking at Discharge) glimepiride (AMARYL) 2 MG Take 1 tablet 30 tablet 3 tablet (2 mg total) 9 by mouth daily before breakfast. 04/14/2019 nitrofurantoin, Take 1 10 capsule 0 macrocrystal-monohydrate, capsule (100 9 (MACROBID) 100 MG capsule mg total) by mouth 2 (two) times a day for 5 days. 04/14/2019 Discontinued (Reorder) cyanocobalamin 1,000 Inject 1,000 0 mcg/mL injection mcg into the shoulder, thigh, or buttocks every 30 (thirty) days. 10/15/2019 Discontinued (Stop Taking at Discharge) cyanocobalamin 1,000 Inject 1 mL 10 mL 0 04/14 mcg/mL injection (1,000 mcg 9 total) into the shoulder, thigh, or buttocks every 30 (thirty) days. 10/15/2019 Discontinued (Stop Taking at Discharge) insulin GLARGINE (LANTUS Inject 15 450 Units 0 0 SOLOSTAR) 100 unit/mL Units under 0 injection (pen) the skin nightly for 30 days. 11/14/2019 esomeprazole (NexIUM) 40 Take 1 60 capsule 0 0 MG capsule capsule (40 0 mg total) by mouth 2 (two) times a day for 30 days. 11/14/2019 glipiZIDE (GLUCOTROL) 10 Take 1 tablet 30 tablet 0 MG 24 hr tablet (10 mg total) 0 by mouth daily for 30 days. 10/24/2019 Discontinued (Dose adjustmen t) zolpidem (AMBIEN) 5 MG Take 1 tablet 30 tablet 0 0 tablet (5 mg total) 0 by mouth nightly as needed for sleep for up to 30 days. 11/13/2019 Discontinued (Alternate ther apy) zolpidem (AMBIEN) 5 MG Take 2 0 02 tabletIndications: tablets (10 0 Situational anxiety mg total) by mouth nightly as needed for sleep for up to 30 days. 11/13/2019 Discontinued (Reorder) zolpidem (AMBIEN) 10 mg Take 10 mg by 0 tablet mouth nightly. Active Problems Problem Noted Date Chest pain 10/14/2019 Severe episode of recurrent major depressive disorder , without psychotic 04/07/2019 features Type 2 diabetes mellitus without complication, withou t long-term current 04/07/2019 use of insulin Essential hypertension 11/19/2017 Resolved Problems Problem Noted Date Resolved Date PERRY (dyspnea on exertion) 10/14/2019 10/14/2019 Encounters Care Team Description Date Type Specialty Becky Pittman MD 11/13/2019 Telephone Family Medicine Becky Pittman MD Diabetic ketoacidosis without coma assoc iated with type 2 diabetes mellitus (HCC); Essential hypertension; Microhematuria 10/24/2019 Lab Lab Becky Pittman MD Diabetic ketoacidosis without coma assoc iated with type 2 diabetes mellitus (HCC) (Primary Dx); Essential hypertension; Situational anxiety; Microhematuria 10/24/2019 Office Visit Family Becky Haji MD 10/23/2019 Telephone Family Medicine 10/23/2019 Travel 10/16/2019 Travel Becky Pittman MD 10/16/2019 Telephone Family Medicine Delvin Alfonso DO Gonzalez, Maria Guillermina, MD DOE (dyspnea on exertion) (Primary Dx); Hyperglycemia; Type 2 diabetes mellitus without complication, without long-term current use of insulin (HCC) 10/14/2019 Emergency Cardiology - 10/15/2019 10/14/2019 Travel Becky Pittman MD Upper respiratory tract infection, unspe cified type (Primary Dx) 05/16/2019 Office Visit Family Becky Haji MD 05/15/2019 Telephone Family Becky Haji MD 04/10/2019 Telephone Family Medicine Becky Pittman MD 04/09/2019 Orders Only Family Becky Haji MD Essential hypertension; Type 2 diabetes mellitus without complication, without long-term current use of insulin (HCC); Fatigue, unspecified type; Iron deficiency anemia, unspecified iron deficiency anemia type 04/07/2019 Lab Lab Becky Pittman MD Essential hypertension (Primary Dx); Type 2 diabetes mellitus without complication, without long-term current use of insulin (HCC); Severe episode of recurrent major depressive disorder, without psychotic features (HCC); Iron deficiency anemia, unspecified iron deficiency anemia type; Fatigue, unspecified type 04/07/2019 Office Visit Family Medicine Genie Mcneil RN 04/07/2019 Telephone Access Genie Mcneil RN 04/07/2019 Nurse Triage Access Laci Guillaume RN Med Refill 04/04/2019 Refill Cardiology Laci Guillaume, RN Hypertension 03/17/2019 Telephone Cardiology Laci Guillaume, RN Hypertension 03/17/2019 Telephone Cardiology after 03/06/2019 Surgical History Surgery Date Site/Laterality Comments GASTRIC BYPASS LAPAROSCOPIC GASTRIC BANDING Medical History Medical History Date Comments Depression 2 suicide attempts Anxiety Kidney stones Hypertension CACS=0 (04/07); Echo EF > 7 0% (10/07); CTA Coronaries (-) (10/07) Diabetes (HCC) microalbumin (+) (08/06) Acid reflux EGD (-) (04/07) (12/07) Microcytic anemia 11/2017 Hb 8.3 (12/05), 9.5 (04/08), 9.6 (10/07); ferritin 11 (04/08) H/O colonoscopy 1 polyp (04/07); Dr West [phone] Family History Medical History Relation Name Comments CABG/Stent Father 4 vessels Heart attack Father Stroke Maternal Grandfather Heart disease Mother Hypertension Mother Lung cancer Mother smoker Thyroid cancer Mother Heart attack Paternal Grandfather Heart disease Sister partially blocked c arotid artery Thyroid cancer Sister Relation Name Status Comments Father (Age 78) Maternal Grandfather Mother (Age 62) Paternal Grandfather Sister Social History Date Tobacco Use Types Packs/Day Years Used Never Smoker Smokeless Tobacco: Never Used Tobacco Cessation: Counseling Given: No Drinks/Week oz/Week Comments Alcohol Use 4 margaritas a month Yes Sex Assigned at Date Recorded Not on file Last Filed Vital Signs Reading Time Taken Comments Vital Sign 121/76 10/24/2019 3:07 PM CDT Blood Pressure 106 10/24/2019 3:07 PM CDT Pulse 37.2 C (99 F) 10/24/2019 3:07 PM CDT Temperature 18 10/15/2019 3:00 PM CDT Respiratory Rate 98% 10/24/2019 3:07 PM CDT Oxygen Saturation - - Inhaled Oxygen Concentration 95.3 kg (210 lb) 10/24/2019 3:07 PM CDT Weight 167.6 cm (5' 6") 10/24/2019 3:07 PM CDT Height 33.89 10/24/2019 3:07 PM CDT Body Mass Index Plan of Treatment Health Maintenance Due Date Last Done Comments DIABETIC RETINAL EYE EXAM 1955 DIABETIC FOOT EXAM 1965 CERVICAL CANCER SCREENING 1976 BREAST CANCER SCREENING 2005 COLONOSCOPY SCREENING 2005 SHINGLES VACCINES (#1) 2005 URINE MICROALBUMIN 08/02/2019 08/01/2018 INFLUENZA VACCINE 12/20/2019 Procedures Comments Procedure Name Priority Date/Time Associated Diag nosis URINALYSIS, AUTOMATED Routine 10/24/2019 Microhem aturia WITH MICROSCOPY 4:20 PM CDT BASIC METABOLIC PANEL Routine 10/24/2019 Diabetic ketoacidosis 4:20 PM CDT without coma associated with type 2 diabetes mellitus (HCC) Essential hypertension URINE CULTURE Routine 10/24/2019 Microhematuria 4:20 PM CDT POC GLUCOSE Routine 10/24/2019 Diabetic ketoac idosis 4:01 PM CDT without coma associated with type 2 diabetes mellitus (HCC) ECG 12-LEAD Routine 10/15/2019 11:23 AM CDT URINALYSIS, AUTOMATED Routine 10/15/2019 WITH MICROSCOPY 11:14 AM CDT POC GLUCOSE Routine 10/15/2019 11:06 AM CDT TTE COMPLETE, WO Routine 10/15/2019 CONTRAST, W DOPPLER 11:00 AM CDT ([id number]) POC GLUCOSE Routine 10/15/2019 7:08 AM CDT ESTIMATED GFR Routine 10/15/2019 3:31 AM CDT BASIC METABOLIC PANEL Routine 10/15/2019 3:31 AM CDT LIPID PANEL Routine 10/15/2019 3:31 AM CDT HEMOGLOBIN A1C Routine 10/15/2019 3:31 AM CDT POC GLUCOSE Routine 10/14/2019 8:21 PM CDT TROPONIN Timed 10/14/2019 5:02 PM CDT POC GLUCOSE Routine 10/14/2019 2:[address] CARDIAC OVERREAD STAT 10/14/2019 2:37 PM CDT CV CTA CORONARY ARTERIES STAT 10/14/2019 W CONTRAST 2:36 PM CDT POC GLUCOSE Routine 10/14/2019 1:30 PM CDT ARTERIAL BLOOD GAS STAT 10/14/2019 12:35 PM CDT TROPONIN Timed 10/14/2019 12:35 PM CDT BETA HYDROXYBUTYRATE STAT 10/14/2019 12:07 PM CDT POC GLUCOSE Routine 10/14/2019 11:54 AM CDT XR CHEST 1 VW PORTABLE STAT 10/14/2019 10:56 AM CDT ECG ED PRELIMINARY Routine 10/14/2019 INTERPRETATION 10:37 AM CDT RI CRITICAL CARE, E/M Routine 10/14/2019 30-74 MINUTES 10:37 AM CDT HEMOGLOBIN A1C STAT 10/14/2019 10:35 AM CDT LIPID PANEL STAT 10/14/2019 10:35 AM CDT ESTIMATED GFR STAT 10/14/2019 10:35 AM CDT B NATRIURETIC PEPTIDE STAT 10/14/2019 10:35 AM CDT TROPONIN STAT 10/14/2019 10:35 AM CDT COMPREHENSIVE METABOLIC STAT 10/14/2019 PANEL 10:35 AM CDT HC COMPLETE BLD COUNT STAT 10/14/2019 W/AUTO DIFF 10:35 AM CDT ECG 12-LEAD STAT 10/14/2019 10:21 AM CDT POCT RAPID STREP A Routine 05/16/2019 Upper respi ratory tract 4:25 PM [employer]TING AG[employer]Y MANAGER infection, unspecified type POCT INFLUENZA A/B Routine 05/16/2019 Upper respi ratory tract 4:25 PM BETTING AGENCY MANAGER infection, unspecified type TOTAL IRON BINDING Routine 04/07/2019 Iron defici ency anemia, CAPACITY 4:03 PM BETTING AGENCY MANAGER unspecified iron deficiency anemia type FERRITIN LEVEL Routine 04/07/2019 Iron deficiency anemia, 4:03 PM BETTING AGENCY MANAGER unspecified iron deficiency anemia type CBC WITH PLATELET AND Routine 04/07/2019 Iron def iciency anemia, DIFFERENTIAL 4:03 PM BETTING AGENCY MANAGER unspecified iron deficiency anemia type THYROID STIMULATING Routine 04/07/2019 Essential hypertension HORMONE 4:03 PM BETTING AGENCY MANAGER Fatigue, unspecifie d type HEMOGLOBIN A1C Routine 04/07/2019 Type 2 diabetes mellitus 4:03 PM BETTING AGENCY MANAGER without complication, without long-term current use of insulin (HCC) URINALYSIS, AUTOMATED Routine 04/07/2019 Essentia l hypertension WITH MICROSCOPY 4:03 PM BETTING AGENCY MANAGER COMPREHENSIVE METABOLIC Routine 04/07/2019 Essent ial hypertension PANEL 4:03 PM BETTING AGENCY MANAGER after 03/06/2019 Results * Urinalysis, automated with microscopy (10/24/2019 4:20 PM CDT) Only the most recent of 3 results within the time period is included. Color, UA YELLOW YELLOW [facility] [place] Appearance CLOUDY (A) CLEAR [facility] [place] Specific 1.016 1.001 - 1.035 [facility] gravity, urine [facility] [place] pH, urine 6.0 5.0 - 8.0 [facility] [place] Glucose, urine 3+ (A) NEGATIVE [facility] [place] Bilirubin, UA NEGATIVE NEGATIVE [facility] [place] Ketones, UA NEGATIVE NEGATIVE [facility] [place] Occult blood, TRACE (A) NEGATIVE [facility] [place] Protein, UA 1+ (A) NEGATIVE [facility] [place] Nitrite, UA NEGATIVE NEGATIVE [facility] [place] Leukocyte 2+ (A) NEGATIVE [facility] esterase, UA [facility] [place] WBC, UA 20-40 (A) < OR = 5 /HPF [facility] [place] RBC, UA 0-2 < OR = 2 /HPF [facility] [place] Squamous 0-5 < OR = 5 /HPF [facility] epithelial [facility]AGNOSTICS cells, UA [place] Bacteria, UA FEW (A) NONE SEEN /HPF [facility] [place] Calcium oxalate FEW NONE OR FEW /HPF [facility] crystals, [facility] [place] Hyaline casts, NONE SEEN NONE SEEN /LPF [facility] UA [facility] [place] Specimen Blood Resulting Agency Comment Performing Organization Information: Site ID: [id number] Name: [employer] [facility] Address: [address] [place] [id number] Director: Delvin Yin Performing Organization Address [facility] P benita Number [address] [place] [phone] * Urine culture (10/24/2019 4:20 PM CDT) Pathologist [facility] [place] Urine culture SEE NOTE [facility] Comment: DIAGNOSTICS CULTURE, URINE, ROUTINE [place] Micro Number: [id number] Test Status: Final Specimen Source: NOT GIVEN Specimen Quality: Adequate Result: Multiple organisms present, each less than 10,000 CFU/mL. These organisms, commonly found on external and internal genitalia, are considered to be colonizers. No further testing performed. Specimen Urine Resulting Agency Comment Performing Organization Information: Site ID: [facility] Name: [employer] [facility] Address: [address] [place] [id number] Director: Delvin Yin Performing Organization Address [facility] P benita Number [place] [phone] * Basic metabolic panel (10/24/2019 4:20 PM CDT) Only the most recent of 2 results within the time period is included. Glucose 181 (H) 65 - 99 mg/dL [facility] Comment: DIAGNOSTICS Fasting [place] reference interval For someone without known diabetes, a glucose value >125 mg/dL indicates that they may have diabetes and this should be confirmed with a follow-up test. BUN 8 7 - 25 mg/dL [facility] Creatinine 0.90 0.50 - 0.99 mg/dL [facility] Comment: DIAGNOSTICS For patients >49 years of age, [place] the reference limit for Creatinine is approximately 13% higher for people identified as -Mauritanian. EGFR Non-Afr. 68 > OR = 60 [facility] [place]ian mL/min/1.73m2 [facility] [place] EGFR 78 > OR = 60 [facility] [place] mL/min/1.73m2 [facility] BUN/creatinine NOT APPLICABLE 6 - 22 (calc) [facility] ratio [facility] [place] Sodium 137 135 - 146 mmol/L [facility] [place] Potassium 3.4 (L) 3.5 - 5.3 mmol/L [facility] [place] Chloride 101 98 - 110 mmol/L [facility] [place] CO2 25 20 - 32 mmol/L [facility] [place] Calcium 9.6 8.6 - 10.4 mg/dL [facility] [place] Specimen Blood Resulting Agency Comment Performing Organization Information: Site ID: [id number] Name: [facility] Address: [address] [place] [address] Director: Delvin Yin Performing Organization Address City/State/[facility] Code P benita Number [employer] [place] [address] [place] [address] [phone] * POC glucose (10/24/2019 4:01 PM CDT) Only the most recent of 7 results within the time period is included. Pathologist [facility] [place] POC glucose 196 65 - 100 Specimen Blood * ECG 12 lead (10/15/2019 11:23 AM CDT) Only the most recent of 2 results within the time period is included. Pathologist [facility] [place] Ventricular 77 [facility] rate Atrial rate 77 [facility] RI interval 156 [facility] QRSD interval 86 [facility] QT interval 412 [facility] QTC interval 466 [facility] P axis 1 24 [facility] QRS axis 1 8 [facility] T wave axis 22 [facility] EKG impression Normal sinus rhythm-Normal [facility] MUSE ECG-In automated comparison with ECG of 14-OCT-2019 10:21,-ST no longer depressed in Lateral leads- Specimen Narrative Performed At This result has an attachment that is n ot available. Performing Organization Address City/[facility] P benita Number [facility] MUSE [address] [place] [address] * Transthoracic Echocardiogram Complete, (w Contrast, Strain and 3D if needed) (10/15/2019 11:00 AM CDT) Specimen Narrative Performed At [facility] Echo cardiography Report [id number] [place] [address] Pat.Name: CARMELINA PIERSON Pat.ID: [id number] .Date: 10/15/2019 Refer.MD: LEONEL CRUZ MD Exam Time: 10:13:00 AM Study Type:Routine Echo Height: 66in Weight: 209lb BSA: 2.04 m2 Age: 1 1955,64Y Sex: FEMALE BP: 117/75 HR: 82 bpm Sonogrphr: JUDY Pemberton, RVS Pat. Stat.:Inpatient Room: A7036 Study Status:Final Echo Event ID:[id number] Order ID: [id number] Reason for Study:HF - Initial eval of k nown or suspected HF (systeolic or diastolic) based on symptoms, signs, or abnormal test results Procedures: 2D Echo, Colorflow Doppler, Strain, Portable SUMMARY: LV EF is hyperdynamic. Estimated EF is >70%. RV systolic function is normal. FINDINGS: LV: LV size is normal. Concent delores left ventricular remodeling. LV EF is hyperdynamic. Ov erall wall motion is hyperdynamic. Estimated EF is >70%. RV: RV size is normal. RV syst olic function is normal. LA: LA size is normal. RA: RA size is normal. AO: Aortic root diameter is no rmal in size. Ascending aorta diameter is mildly enlarg ed. CHANDAN: Small anterior pericardial effusion. AV: No structural AV abnormali ties noted. MV: No structural MV abnormali ties noted. PV: No structural PV abnormali ties noted. A trace of pulmonic regurgitation. TV: No structural TV abnormali ties noted. Doyle: Diastolic dysfunction Grade I (Mild): Impaired relaxation with normal LV filling pr essures. Other: Insufficient TR jet to jos er mate PA systolic pressure. MEASUREMENTS: 2D Parasternal Long Colver Ao An 2.1 cm LVPWd 0.93 cm Ao Rtd 3.4 cm Index 1.7 cm/m2 LA Ds 3.5 cm IVSd 0.98 cm RWT 0.52 LVIDd 3.6 cm Index 1.8 cm/m2 LV Mass 101 g (87-12 9) LVIDs 1.8 cm LVM Index 50 g/m LV%fs 50 % LVOT 2 cm LA Sng Plane LA Area 17 cm (8.8-2 3.4) LA Vol 45 ml Index 22 ml/m2 LA LngAx 5.2 cm LVOT LVOT Area 3.1 cm DOPPLER LVOT Stroke Vol LVOT TVI 21 cm HR 78 bpm LVOT LVOT SV 63 ml LVOT CO 4.9 l/min SVi 31 ml/m LVOT CI 2.4 l/m/m Signed 10/15/2019 12:44 PM Dagmar Winters M.D. Procedure Note Interface, Radiology Results In - 10/15/2019 12:44 PM CDT Echocardiography Report [id number] [place] [address] Pat.Name: CARMELINA PIERSON Pat.ID: [id number] .Date: 10/15/2019 Refer.MD: LEONEL CRUZ MD Exam Time: 10:13:00 AM Study Type:Routine Echo Height: 66in Weight: 209lb BSA: 2.04 m2 Age: 1 1955,64Y Sex: FEMALE BP: 117/75 HR: 82 bpm Sonogrphr: JUDY Pemberton RVS Pat. Stat.:Inpatient [facility]: [facility] Study Status:Final Echo Event ID:[id number] Order ID: [id number] Reason for Study:HF - Initial eval of known or suspected HF (systeolic or diastolic) based on symptoms, signs, or abnormal test results Procedures: 2D Echo, Colorflow Doppler, Strain, Portable SUMMARY: LV EF is hyperdynamic. Estimated EF is >70%. RV systolic function is normal. FINDINGS: LV: LV size is normal. Concentric left ventricular remodeling. LV EF is hyperdynamic. Overall wall motion is hyperdynamic. Estimated EF is >70%. RV: RV size is normal. RV systolic function is normal. LA: LA size is normal. RA: RA size is normal. AO: Aortic root diameter is normal in size. Ascending aorta diameter is mildly enlarged. CHANDAN: Small anterior pericardial effusion. AV: No structural AV abnormalities noted. MV: No structural MV abnormalities noted. PV: No structural PV abnormalities noted. A trace of pulmonic regurgitation. TV: No structural TV abnormalities noted. Dyole: Diastolic dysfunction Grade I (Mild): Impaired relaxation with normal LV filling pressures. Other: Insufficient TR jet to estimate PA systolic pressure. MEASUREMENTS: 2D Parasternal Long Colver Ao An 2.1 cm LVPWd 0.93 cm Ao Rtd 3.4 cm Index 1.7 cm/m2 LA Ds 3.5 cm IVSd 0.98 cm RWT 0.52 LVIDd 3.6 cm Index 1.8 cm/m2 LV Mass 101 g (87-129) LVIDs 1.8 cm LVM Index 50 g/m LV%fs 50 % LVOT 2 cm LA Sng Plane LA Area 17 cm (8.8-23.4) LA Vol 45 ml Index 22 ml/m2 LA LngAx 5.2 cm LVOT LVOT Area 3.1 cm DOPPLER LVOT Stroke Vol LVOT TVI 21 cm HR 78 bpm LVOT LVOT SV 63 ml LVOT CO 4.9 l/min SVi 31 ml/m LVOT CI 2.4 l/m/m Signed 10/15/2019 12:44 PM Dagmar Winters M.D. Performing Organization Address City/[facility]/ZIP Code P [facility] [address] [place] [address] * Estimated GFR (10/15/2019 3:31 AM CDT) Only the most recent of 2 results within the time period is included. Estimated GFR 80 mL/min/1.73 m2 [place] Comment: [facility] Interpretation G1 >=90 Normal or high G2 60-89 Mildly decreased G3a 45-59 Mildly to moderately decreased G3b 30-44 Moderately to severely decreased G4 15-29 Severely decreased G5 <15 Kidney failure The eGFR was calculated using the Chronic Kidney Disease Epidemiology Collaboration (CKD-EPI) equation. Interpretation is based on recommendations of the National Kidney Foundation-Kidney Disease Outcomes Quality Initiative (NKF-KDOQI) published in 2014. Specimen Performing Organization Address [facility] P benita Number [facility] [place] [address] PATHOLOGY AND GENOMIC MEDICINE [place] [address] * Hemoglobin A1c (10/15/2019 3:31 AM CDT) Only the most recent of 3 results within the time period is included. Hemoglobin A1C 11.6 (H) 4.0 - 5.6 % [place] Comment: [facility] HbA1c cutoffs for diagnosing HOSPITAL diabetes: 4.0% - 5.6% = normal 5.7% - 6.4% = increased risk for diabetes (prediabetes)9 >=6.5% = diabetes9 Goals for glycemic control (ADA 2016) < 7.0% Target for non adults with diabetes. More or less stringent targets may be appropriate for individual patients. <7.5% Target for Children and adolescents with type 1 diabetes. Specimen Blood Performing Organization Address [facility]/ZIP Code P benita Number [facility] DEPARTMENT OF [address] [place] [address] PATHOLOGY AND GENOMIC MEDICINE [place] [address] * Lipid panel (10/15/2019 3:31 AM CDT) Only the most recent of 2 results within the time period is included. Cholesterol 198 <200 mg/dL [facility] Triglycerides 239 (H) <150 mg/dL [facility] HDL cholesterol 34 (L) >40 mg/dL [facility] LDL cholesterol 145 (H)Comment: Result <100 mg/dL [place] [facility] obtained by direct LDL [facility] Comment: [facility] Total Cholesterol (mg/dL) [facility] <200 Desirable 200-239 Borderline-high >=240 High Triglycerides (mg/dL) <150 Normal 150-199 Borderline-high 200-499 High >=500 Very high HDL Cholesterol (mg/dL) <40 Low (male) <40 Low (female) LDL Cholesterol (mg/dL) <100 Optimal 100-129 Near or above optimal 130-159 Borderline-high 160-189 High >=190 Very high Risk Catergories that modify LDL goals. Risk Catergories LDL goal (mg/dL) CHD and CHD risk equivalent <100 (10-year risk >20%) Multiple (2+) risk factors <130 (10-year risk =<20%) 0-1 risk factors <160 (<10-year risk) Defining levels of lipids in metabolic syndrome Triglycerides >=150 mg/dL HDL Cholesterol Men <40 mg/dL Women <40 mg/dL Non-HDL cholesterol is a second target for therapy in persons with high triglycerides (>=200 mg/dL) Specimen Blood Performing Organization Address City/[facility]/ZIP Code P benita Number [facility] DEPARTMENT OF [address] [place] [address] PATHOLOGY AND GENOMIC MEDICINE [address] * Troponin (10/14/2019 5:02 PM CDT) Only the most recent of 3 results within the time period is included. Troponin <0.006 0.000 - 0.040 ng/mL [place] Comment: [facility]OR[facility]ISM In patients suspected of HOSPITAL having a myocardial infarction, along with all other appropriate clinical measures and actions including ECG and other diagnostics as appropriate, measure Ultra TnI at 0 hrs and at 3 hrs. Myocardial infarction VERY LIKELY The 0 hr TnI level is > 0.10 ng/mL Myocardial infarction LIKELY The 0 hr TnI level is > 0.04 ng/mL and 3 hr level is increased or decreased by at least 0.020 ng/mL Myocardial infarction VERY UNLIKELY Both the 0 hr and 3 hr TnI levels <= 0.04 ng/mL(within normal limits) OR 0 hr is > 0.04 ng/mL and 3 hr is increased OR decreased by less than 0.020 ng/mL Specimen Blood Performing Organization Address City/State/ZIP Code P benita Number [facility] DEPARTMENT OF [address] [place] [address] PATHOLOGY AND GENOMIC MEDICINE [place] [facility]MON[facility] [address] * CT Cardiac Overread (10/14/2019 2:37 PM CDT) Specimen Narrative Performed At EXAMINATION: [facility] CLINICAL HISTORY: Radiology overread of imaging performed in the cardiology department. Only extracardiac structure s are assessed. Acute Symptoms with Suspicion of ACS (Urgent Presentation) HIGH Pretest Probability of CAD Nondiagnostic ECG or Equivocal cardiac biomarkers TECHNIQUE: Please refer to cardiology n ote for details on the acquisition technique. COMPARISON: None. CT 10/19/2018 noted FINDINGS: Extracardiac findings: Lungs and airways: No acute airspace di sease or suspicious pulmonary nodules. Pleura: No pleural effusion or pneumoth orax. Mediastinum and lymph nodes: No lymphad enopathy. Upper abdomen: There are partially visu alized operative changes about the thoracoabdominal junction with intact s uture lines in the stomach that appear to relate to gastric sleeve with sliding h iatal hernia. There is mild thickening of the distal esophagus with minimal fluid, correlate for history of reflux. Musculoskeletal: No suspicious osseous lesions. Please refer to separately dictated car diology report for cardiac and vascular findings. IMPRESSION: 1.Stable small hiatal hernia with opera tive changes involving the proximal stomach as described. Procedure Note Interface, Radiology Results Incoming - 10/14/2019 2:51 PM CDT EXAMINATION: CT CARDIAC OVERREAD CLINICAL HISTORY: Radiology overread of imaging performed in the cardiology department. Only extracardiac structures are assessed. Acute Symptoms with Suspicion of ACS (Urgent Presentation) HIGH Pretest Probability of CAD Nondiagnostic ECG or Equivocal cardiac biomarkers TECHNIQUE: Please refer to cardiology note for details on the acquisition technique. COMPARISON: None. CT 10/19/2018 noted FINDINGS: Extracardiac findings: Lungs and airways: No acute airspace disease or suspicious pulmonary nodules. Pleura: No pleural effusion or pneumothorax. Mediastinum and lymph nodes: No lymphadenopathy. Upper abdomen: There are partially visualized operative changes about the thoracoabdominal junction with intact suture lines in the stomach that appear to relate to gastric sleeve with sliding hiatal hernia. There is mild thickening of the distal esophagus with minimal fluid, correlate for history of reflux. Musculoskeletal: No suspicious osseous lesions. Please refer to separately dictated cardiology report for cardiac and vascular findings. IMPRESSION: 1.Stable small hiatal hernia with operat jovanny changes involving the proximal stomach as described. Performing Organization Address City/State/ZIP Code P benita Number [facility] [address] [place] [address] * Cv cta coronary arteries w contrast and ffr if needed (10/14/2019 2:36 PM CDT) Specimen Narrative Performed At [facility] Cardi ology and Cardiac CT [address] [facility] [address], [place] [address] Department Number: [phone] CTA Coronary Arteries w/ Calcium Scoring Report Pat.Name: CARMELINA PIERSON Shraddha.ID: [id number] St.Date: 10/14/2019 Refer.MD: LEONEL CRUZ MD. Exam Time: 1:58:00 PM Study Type:CTA Coronary Arteries with C alcium Scoring Height: 66in BSA: 2.06 m2 Age: 1 1955,64Y Sex: FEMALE BP: 162/80 HR: 75 bpm Nuclear Tech:ASHLEY Franco(N)(CT ) CPT - 4: CCTA w Thoracic Aorta (No nCongenital) [id number] Nuclear Event ID:[id number] Order ID: [id number] Reason for Study:ED [facility] ACS Path way, Chest pain Procedures: CT Prospective (Intervals), CT Flash Mode with Planning Scan Race: C SUMMARY: Technique: IV contrast was administered and sequential 0.[address] cuts were obtained through the chest using he Siemens Somatom Force CT scanner. Image post-processing consisti ng of multiplanar and 3D reconstructions were performed using [email or web address] workstation. Interactive image viewing, volumetric display, and analysis were also performed. 3D jang ry artery calcium scoring was done in accordance with a standardized protocol. Coronary Artery Calcium Score (CACS) Re sult: The total coronary artery calcium score is zero. CTA RESULTS Left Main: A normal sized 4.7 mm artery which ar ises normally from the left sinus of Valsalva and divides into the left anterior descending and circumflex coronary arteries. No signif icant atherosclerotic plaque is present. Left anterior descending (LAD): A normal sized 4.2 mm artery which wrap s around the apex and gives off one major diagonal branch and a large f irst septal supervisor modern languages artery. No significant atherosclerotic plaque i s present. The first diagonal is a 2.5 mm bifurcat ing artery which has no significant atherosclerotic plaque. The first septal is a large 2.0 mm elsa ry which has no significant atherosclerotic plaque. Left circumflex: A normal sized 3.8 mm non-dominant elsa ry which gives off two major obtuse marginal arteries before termina ting in the AV groove. No significant atherosclerotic plaque is p resent. The first obtuse marginal is a 1.8 mm a rtery which has no significant atherosclerotic plaque. The second obtuse marginal is a large 3 .0 mm trifurcating artery which has no significant atherosclerotic plaq ue. Right coronary artery: A normal sized 4.5mm dominant artery wh ich arises normally from the right sinus of Valsalva and gives off s everal right ventricular branches, the posterior descending elsa ry and the posterolateral artery. No significant atheroscleroti c plaque is present. The posterior descending is a 2.0 mm ar noe which has no significant atherosclerotic plaque. The posterolateral branch is a large 3. 5 mm trifurcating artery which has no significant atherosclerotic plaq ue. Ramus: None Stents: None. Bypass Grafts: None. Pulmonary Arteries: The main pulmonary artery is mildly dil ated at 3.2 cm. but with no proximal thrombus identified. Left Atrial and Pulmonary Vein (PV) D imensions: Left atrial size (A-P diameter) 3.6 cm. Left atrial volume: 61 ml. Variant PV anatomy Left superior PV15 mm. Left inferior PV15 mm. Right superior PV15 mm. Right middle PV 4 mm. Right inferior PV11 mm. Lipomatous hypertrophy of the interatri al septum. There is no evidence of the left atrial appendage clot. Left Ventricular Valve Morphology/Funct ion: Aortic valve is tri-leaflet with no sig nificant stenosis and only trace aortic regurgitation (AROA <0.05 cm2). Mitral valve is normal without signific ant stenosis or regurgitation. Thoracic Aortic Dimensions (systole): No aortic aneurysm or dissection is see n. Aortic root: 3.6 cm. Sinotubular junction 3.1 cm. Mid ascending thoracic aorta 4.0 cm. Descending thoracic aorta 2.4 cm. Pericardium: No pericardial effusion or pericardial thickening. Non-Cardiac Findings: Moderately large hiatal hernia. Bilateral small subpleural bullae. CONCLUSION The coronary artery calcium score indic ates no significant coronary atherosclerosis. CT coronary angiography shows no signif icant coronary artery atherosclerosis or stenosis. No aortic aneurysm or dissection is see n. The main pulmonary artery is mildly dil ated at 3.2 cm. but with no proximal thrombus identified. Aortic valve is tri-leaflet with no sig nificant stenosis and only trace aortic regurgitation (AROA <0.05 cm2). Mitral valve is normal without signific ant stenosis or regurgitation. No pericardial effusion or pericardial thickening. Lipomatous hypertrophy of the interatri al septum. Moderately large hiatal hernia. There is no evidence of the left atrial appendage clot. Variant PV anatomy. Please refer to the separate radiology report in [facility] for any additional non-cardiovascular findings. STUDY QUALITY The study quality is excellent. COMMENTS: None. FINDINGS: Signed 10/14/2019 05:15 PM Juan Carlos Buckner MD Procedure Note Interface, Radiology Results In - 10/14/2019 5:15 PM CDT Nuclear Cardiology and Cardiac CT [address] [place] [address] Department Number: [phone] CTA Coronary Arteries w/ Calcium Scoring Report Pat.Name: CARMELINA PIERSON Pat.ID: [id number] .Date: 10/14/2019 Refer.MD: LEONEL CRUZ MD. Exam Time: 1:58:00 PM Study Type:CTA Coronary Arteries with Calcium Scoring Height: 66in BSA: 2.06 m2 Age: 1 1955,64Y Sex: FEMALE BP: 162/80 HR: 75 bpm Nuclear Tech:ASHLEY Franco(N)(CT) CPT - 4: CCTA w Thoracic Aorta (NonCongenital) [id number] Nuclear Event ID:[id number] Order ID: [id number] Reason for Study:ED [facility] ACS Pathway, Chest pain Procedures: CT Prospective (Intervals), CT Flash Mode with Planning Scan Race: C SUMMARY: Technique: IV contrast was administered and sequential 0.[address] cuts were obtained through the chest using the Siemens Somatom Force CT scanner. Image post-processing consisting of multiplanar and 3D reconstructions were performed using the [employer] workstation. Interactive image viewing, volumetric display, and analysis were also performed. 3D coronary artery calcium scoring was done in accordance with a standardized protocol. Coronary Artery Calcium Score (CACS) Result: The total coronary artery calcium score is zero. CTA RESULTS Left Main: A normal sized 4.7 mm artery which arises normally from the left sinus of Valsalva and divides into the left anterior descending and circumflex coronary arteries. No significant atherosclerotic plaque is present. Left anterior descending (LAD): A normal sized 4.2 mm artery which wraps around the apex and gives off one major diagonal branch and a large first septal supervisor modern languages artery. No significant atherosclerotic plaque is present. The first diagonal is a 2.5 mm bifurcating artery which has no significant atherosclerotic plaque. The first septal is a large 2.0 mm artery which has no significant atherosclerotic plaque. Left circumflex: A normal sized 3.8 mm non-dominant artery which gives off two major obtuse marginal arteries before terminating in the AV groove. No significant atherosclerotic plaque is present. The first obtuse marginal is a 1.8 mm artery which has no significant atherosclerotic plaque. The second obtuse marginal is a large 3.0 mm trifurcating artery which has no significant atherosclerotic plaque. Right coronary artery: A normal sized 4.5mm dominant artery which arises normally from the right sinus of Valsalva and gives off several right ventricular branches, the posterior descending artery and the posterolateral artery. No significant atherosclerotic plaque is present. The posterior descending is a 2.0 mm artery which has no significant atherosclerotic plaque. The posterolateral branch is a large 3.5 mm trifurcating artery which has no significant atherosclerotic plaque. Ramus: None Stents: None. Bypass Grafts: None. Pulmonary Arteries: The main pulmonary artery is mildly dilated at 3.2 cm. but with no proximal thrombus identified. Left Atrial and Pulmonary Vein (PV) Dimensions: Left atrial size (A-P diameter) 3.6 cm. Left atrial volume: 61 ml. Variant PV anatomy Left superior PV15 mm. Left inferior PV15 mm. Right superior PV15 mm. Right middle PV 4 mm. Right inferior PV11 mm. Lipomatous hypertrophy of the interatrial septum. There is no evidence of the left atrial appendage clot. Left Ventricular Valve Morphology/Function: Aortic valve is tri-leaflet with no significant stenosis and only trace aortic regurgitation (AROA <0.05 cm2). Mitral valve is normal without significant stenosis or regurgitation. Thoracic Aortic Dimensions (systole): No aortic aneurysm or dissection is seen. Aortic root: 3.6 cm. Sinotubular junction 3.1 cm. Mid ascending thoracic aorta 4.0 cm. Descending thoracic aorta 2.4 cm. Pericardium: No pericardial effusion or pericardial thickening. Non-Cardiac Findings: Moderately large hiatal hernia. Bilateral small subpleural bullae. CONCLUSION The coronary artery calcium score indicates no significant coronary atherosclerosis. CT coronary angiography shows no significant coronary artery atherosclerosis or stenosis. No aortic aneurysm or dissection is seen. The main pulmonary artery is mildly dilated at 3.2 cm. but with no proximal thrombus identified. Aortic valve is tri-leaflet with no significant stenosis and only trace aortic regurgitation (AROA <0.05 cm2). Mitral valve is normal without significant stenosis or regurgitation. No pericardial effusion or pericardial thickening. Lipomatous hypertrophy of the interatrial septum. Moderately large hiatal hernia. There is no evidence of the left atrial appendage clot. Variant PV anatomy. Please refer to the separate radiology report in [facility] for any additional non-cardiovascular findings. STUDY QUALITY The study quality is excellent. COMMENTS: None. FINDINGS: Signed 10/14/2019 05:15 PM Juan Carlos Buckner MD Performing Organization Address [facility]/ZIP Code P benita Number [facility] [address] [place] [address] * Arterial blood gas (10/14/2019 12:35 PM CDT) pH, arterial 7.47 (H) 7.35 - 7.45 [facility] pCO2, arterial 34 (L) 35 - 45 mmHg [facility] pO2, arterial 91 (H) 80 - 90 mmHg [facility] Bicarbonate, 24.4 21.0 - 28.0 mmol/L [facility] Base excess, 2 -2 - 2 mEq/L [facility] O2 saturation, 98 95 - 100 % [facility] Specimen Blood Performing Organization Address [facility]/ZIP Code P benita Number [facility] DEPARTMENT OF [address] [place] [address] PATHOLOGY AND GENOMIC MEDICINE [address] * Beta hydroxybutyrate (10/14/2019 12:07 PM CDT) Beta 0.14 0.02 - 0.27 mmol/L [facility] Specimen Serum Performing Organization Address City/State/ZIP Code P benita Number [facility] DEPARTMENT OF [address] [place] [address] PATHOLOGY AND GENOMIC MEDICINE [address] * XR Chest 1 Vw Portable (10/14/2019 10:56 AM CDT) Specimen Narrative Performed At Examination: XR CHEST 1 VW PORTABLE [facility] Clinical history: "SOB" Comparison: None IMPRESSION: Lungs are clear. Lung volum es are low. Cardiomediastinal silhouette is within normal limits. Suspicious oss eous lesion is not seen. [id number] Procedure Note Hm Interface, Radiology Results Incoming - 10/14/2019 11:00 AM CDT Examination: XR CHEST 1 VW PORTABLE Clinical history: "SOB" Comparison: None IMPRESSION: Lungs are clear. Lung volumes are low. Cardiomediastinal silhouette is within normal limits. Suspicious osseous lesion is not seen. [id number] Performing Organization Address City/State/[place] [address] * ECG ED Preliminary Interpretation - Not an Order (10/14/2019 10:37 AM CDT) Narrative Performed At Delvin Alfonso DO 10/16/2019 5:14 PM ECG ED Preliminary Interpretation - Not an Order Performed by: Delvin Alfonso DO Authorized by: Delvin Alfonso DO ECG reviewed by ED Physician in the abs ence of a plastics design engineer: yes Interpretation: Interpretation: abnormal Rate: ECG rate: 110 ECG rate assessment: tachycardic Rhythm: Rhythm: sinus tachycardia ST segments: ST segments: Normal * CRITICAL CARE (10/14/2019 10:37 AM CDT) Narrative Performed At Delvin Alfonso DO 10/16/2019 5:14 PM Critical Care Performed by: Delvin Alfonso DO Authorized by: Delvin Alfonso DO Critical care provider statement: Critical care time (minutes): 45 Critical care time was exclusive of: Teaching time Critical care was necessary to treat or prevent imminent or life-threatening deterioration of the f ollowing conditions: Hyperglycemia. Critical care was time spent personal ly by me on the following activities: Development of treatment plan with patient or surrogate, discussions with consultants, evaluatio n of patient's response to treatment, examination of patient, inte rpretation of cardiac output measurements, obtaining history from pa tient or surrogate, ordering and performing treatments and interventions , pulse oximetry, ordering and review of laboratory studies, ordering and review of radiographic studies, re-evaluation of patient's condition an d review of old charts * CBC with platelet and differential (10/14/2019 10:35 AM CDT) Only the most recent of 2 results within the time period is included. WBC 8.91 4.50 - 11.00 k/uL [facility] RBC 4.60 4.20 - 5.50 m/uL [facility] HGB 9.6 (L) 12.0 - 16.0 g/dL [facility] HCT 33.9 (L) 37.0 - 47.0 % [facility] MCV 73.7 (L) 82.0 - 100.0 fL [facility] MCH 20.9 (L) 27.0 - 34.0 pg [facility] MCHC 28.3 (L) 31.0 - 37.0 g/dL [facility] RDW - SD 43.4 37.0 - 55.0 fL [facility] MPV 10.3 8.8 - 13.2 fL [facility] Platelet count 406 (H) 150 - 400 k/uL [facility] Nucleated RBC 0.00 /100 WBC [facility] Neutrophils 70.8 (H) 39.0 - 69.0 % [facility] Lymphocytes 21.0 (L) 25.0 - 45.0 % [facility] Monocytes 6.6 0.0 - 10.0 % [facility] Eosinophils 0.9 0.0 - 5.0 % [facility] Basophils 0.4 0.0 - 1.0 % [facility] Immature 0.3Comment: "Immature 0.0 - 1.0 % [place] granulocytes granulocytes" (promyelocytes, METHOD IST myelocytes, metamyelocytes) HOSPITAL Specimen Blood Performing Organization Address City/[facility] P benita Number [facility] DEPARTMENT OF [address] [place] [address] PATHOLOGY AND GENOMIC MEDICINE [address] * B natriuretic peptide (10/14/2019 10:35 AM CDT) [facility] BNP 14 0 - 100 pg/mL [facility] Specimen Blood Narrative Performed At [facility] results called to and read back by _NAINA KRAMER/KODY AT [facility] DEPARTMENT OF 10/14/2019 11:48 BY LM1. PATHOLOGY AND GENOMIC MEDICINE Performing Organization Address [facility] P benita Number [facility] DEPARTMENT OF [address] [place] [address] PATHOLOGY AND GENOMIC MEDICINE [address] * Comprehensive metabolic panel (10/14/2019 10:35 AM CDT) Only the most recent of 2 results within the time period is included. Sodium 131 (L) 135 - 148 mEq/L [facility] Potassium 4.2 3.5 - 5.0 mEq/L [facility] Chloride 92 (L) 98 - 112 mEq/L [facility] CO2 20 (L) 24 - 31 mEq/L [facility] Anion gap 19@ANIO (H) 7 - 15 mEq/L [facility] BUN 19 8 - 23 mg/dL [facility] Creatinine 0.93 (H) 0.50 - 0.90 mg/dL [facility] Glucose 489 (HH) 65 - 99 mg/dL [facility] Calcium 10.3 (H) 8.8 - 10.2 mg/dL [facility] Protein 8.2 6.3 - 8.3 g/dL [place] Comment: [facility] 4.6-7.0 g/dL 1 week 4.4-7.6 g/dL 7 months-1year 5.1-7.3 g/dL 1-2 years 5.6-7.5 g/dL >3 years 6.0-8.0 g/dL 18-150 6.3-8.3 g/dL Albumin 3.3 (L) 3.5 - 5.0 g/dL [facility] A/G ratio 0.7 0.7 - 3.8 [facility] Alkaline 81 35 - 104 U/L [place] phosphatase [facility] AST 12 10 - 35 U/L [facility] ALT 9 5 - 50 U/L [facility] Total bilirubin 0.3 0.0 - 1.2 mg/dL [facility] Specimen Blood Performing Organization Address [facility] P benita Number [facility] DEPARTMENT OF [address] [place] [address] PATHOLOGY AND GENOMIC MEDICINE [address] * POC Influenza A/B (05/16/2019 4:25 PM BETTING AGENCY MANAGER) [facility] Rapid Influenza negative A Ag Rapid Influenza negative B Ag Specimen Nares * POC rapid strep A (05/16/2019 4:25 PM BETTING AGENCY MANAGER) [facility] Rapid strep A Negative Negative antigen result Specimen Swab * Total iron binding capacity (04/07/2019 4:03 PM BETTING AGENCY MANAGER) [facility] Iron level 29 (L) 45 - 160 mcg/dL [facility] Iron binding 466 (H) 250 - 450 mcg/dL [facility] capacity (calc) [facility] Iron saturation 6 (L) 16 - 45 % (calc) [facility] Specimen Blood Resulting Agency Comment Performing Organization Information: Site ID: [id number] Name: [facility] Address: [address] [place] [phone] Director: Delvin Yin Performing Organization Address City/[facility]/ZIP [facility] P benita Number [employer] [address] [address] * Thyroid stimulating hormone (04/07/2019 4:03 PM BETTING AGENCY MANAGER) [facility] TSH 1.26 0.40 - 4.50 mIU/L [facility] Specimen Blood Resulting Agency Comment Performing Organization Information: Site ID: [id number] Name: [facility] Address: [address] [place] [phone] Director: Delvin Yin Performing Organization Address City/[facility]/ZIP Code P benita Number [address] [facility] [address] [place] [phone] * Ferritin level (04/07/2019 4:03 PM BETTING AGENCY MANAGER) Ferritin level 11 (L) 16 - 288 ng/mL [facility] [place] Specimen Blood Resulting Agency Comment Performing Organization Information: Site ID: [id number] Name: [facility] Address: [address] [place] [phone] Director: Delvin Yin Performing Organization Address [facility] Code P benita Number [address] [address] [facility] [address] [place] [phone] after 03/06/2019 Insurance Type Payer Benefit Subscriber ID Effective Phone Address Plan / Dates Group HMO AETNA AETNA [id number] HMO,POS,EP resent O, MC/EC Advance Directives For more information, please contact: [phone] Patient Hospital Plan Administrator Explanation Type Date Recorded Advance Directives, Living Will and Medical Power of Desktop Support Engineer
--- NOTE | 2020-03-06 21:50 | Emergency Department Note ---
History of Present Illnes History of Present Illness Chief Complaint: General Medicine Complaints History of Present Illness This is a 64 year old female PRESENTS TO ED WITH REPORT OF HYPOTENSION X1 DAY (113/70 IN TRIAGE), NAUSEA AND GENERALIZED WEAKNESS X2 WEEKS; HR 118, PT REPORTS HX SINUS TACHYCARDIA, STATES, "MY HEART RATE IS ALWAYS HIGH." . Historian: Patient Arrival Mode: Car Research Biostatistician Required: No Onset (how long ago): week(s) (2) Location: ALL OVER Quality: GENARLIZED WEAKNESS, NAUSEA, REPORT LOW BLOOD PRESSURE AT HOME Radiation: Reports non-radiation Severity: moderate Onset quality: gradual Duration (how long): week(s) (2) Timing of current episode: constant Progression: worsening Chronicity: new Context: Denies recent illness, Denies recent surgery, Denies recent travel, Denies non-compliance w/ medications Relieving factors: none Exacerbating factors: none Associated symptoms: Reports malaise, Reports nausea/vomiting (NO VOMITING), Reports weakness Treatments prior to arrival: none Past Medical/Family History Physician Review I have reviewed the patient's past medical and family history. Any updates have been documented here. Past Medical History Recent Fever: No Clinical Suspicion of Infectio: No New/Unexplained Change in Ment: No Past Medical History: Hypertension, Diabetes, Anxiety, Depression Other Medical History: Hiatal Hernia Urosepsis Sinus Tach Other Surgery: Lap Band surgery, Abdominoplasty, Gastric sleeve surgery, right wrist surgery Social History Smoking Cessation: Never Smoker Alcohol Use: None TB Exposure/Symptoms: No Family History Family history of heart diseas: No Other Last Tetanus: UTD Review of Systems Review of Systems Constitutional: Reports malaise, Reports weakness EENTM: Reports no symptoms Cardiovascular: Reports no symptoms Respiratory: Reports no symptoms Gastrointestinal: Reports nausea Genitourinary: Reports no symptoms Musculoskeletal: Reports no symptoms Integumentary: Reports no symptoms Neurological: Reports weakness Psychological: Reports no symptoms Endocrine: Reports no symptoms Hematological/Lymphatic: Reports no symptoms Review of other systems: All other systems negative Physical Exam Related Data Allergies: Coded Allergies: No Known Drug Allergies (Verified Allergy, Unknown, 01/08/09) Triage Vital Signs Vital Signs Date Time Temp Pulse Resp B/P (MAP) Pulse Ox O2 Delivery O2 Flow Rate FiO2 03/06/20 21:00 98.4 120 18 113/70 99 Room Air Vital signs reviewed: Yes Physical Exam CONSTITUTIONAL Constitutional: Present well-developed, Present well-nourished; Absent distressed HENT HENT: Present normocephalic, Present atraumatic, Present oropharynx clear/moist, Present nose normal HENT L/R: Present left ext ear normal, Present right ext ear normal EYES Eyes: Reports PERRL, Reports conjunctivae normal NECK Neck: Present ROM normal PULMONARY Pulmonary: Present effort normal, Present breath sounds normal CARDIOVASCULAR Cardiovascular: Present regular rhythm, Present heart sounds normal, Present capillary refill normal, Present normal rate GASTROINTESTINAL Abdominal: Present soft, Present nontender, Present bowel sounds normal GENITOURINARY Genitourinary: Present exam deferred SKIN Skin: Present warm, Present dry MUSCULOSKELETAL Musculoskeletal: Present ROM normal NEUROLOGICAL Neurological: Present alert, Present oriented x 3, Present no gross motor or sensory deficits PSYCHOLOGICAL Psychological: Present mood/affect normal, Present judgement normal Results Laboratory Laboratory Laboratory Tests Test 03/06/20 21:30 White Blood Count 11.61 x10e3/uL (4.8-10.8) Red Blood Count 5.53 x10e6/uL (3.6-5.1) Hemoglobin 12.8 g/dL (12.0-16.0) Hematocrit 42.8 % (34.2-44.1) Mean Corpuscular Volume 77.4 fL (81-99) Mean Corpuscular Hemoglobin 23.1 pg (28-32) Mean Corpuscular Hemoglobin Concent 29.9 g/dL (31-35) Red Cell Distribution Width 18.1 % (11.7-14.4) Platelet Count 473 x10e3/uL (140-360) Neutrophils (%) (Auto) 71.3 % (38.7-80.0) Lymphocytes (%) (Auto) 21.4 % (18.0-39.1) Monocytes (%) (Auto) 6.2 % (4.4-11.3) Eosinophils (%) (Auto) 0.4 % (0.0-6.0) Basophils (%) (Auto) 0.3 % (0.0-1.0) Neutrophils # (Auto) 8.3 (2.1-6.9) Lymphocytes # (Auto) 2.5 (1.0-3.2) Monocytes # (Auto) 0.7 (0.2-0.8) Eosinophils # (Auto) 0.1 (0.0-0.4) Basophils # (Auto) 0.0 (0.0-0.1) Absolute Immature Granulocyte (auto 0.05 x10e3/uL (0-0.1) Sodium Level 134 mmol/L (136-145) Potassium Level 3.5 mmol/L (3.5-5.1) Chloride Level 96 mmol/L (98-107) Carbon Dioxide Level 21 mmol/L (22-29) Anion Gap 20.5 mmol/L (8-16) Blood Urea Nitrogen 24 mg/dL (7-26) Creatinine 1.40 mg/dL (0.57-1.11) Estimat Glomerular Filtration Rate 38 ML/MIN (60-) BUN/Creatinine Ratio 17 (6-25) Glucose Level 179 mg/dL (74-118) Lactic Acid Level 1.8 mmol/L (0.5-2.0) Calcium Level 10.2 mg/dL (8.4-10.2) Total Bilirubin 0.3 mg/dL (0.2-1.2) Aspartate Amino Transf (AST/SGOT) 32 IU/L (5-34) Alanine Aminotransferase (ALT/SGPT) 27 IU/L (0-55) Alkaline Phosphatase 77 IU/L (40-150) Creatine Kinase 39 IU/L (29-168) Creatine Kinase MB 0.70 ng/mL (0-5.0) Troponin I 0.002 ng/mL (0-0.300) Total Protein 8.9 g/dL (6.5-8.1) Albumin 4.1 g/dL (3.5-5.0) Globulin 4.8 g/dL (2.3-3.5) Albumin/Globulin Ratio 0.9 (0.8-2.0) Amylase Level 59 U/L (25-125) Lipase 64 U/L (8-78) Laboratory Tests Test 03/06/20 21:30 Lab results reviewed: Yes Imaging Imaging results reviewed: Yes Impressions EXAMINATION: CHEST SINGLE (PORTABLE) INDICATION: ^GENERALIZED WEAKNESS ^[id number] ^2204 ^Y COMPARISON: 12/09/2019 FINDINGS: AP view TUBES and LINES: None. LUNGS: Lungs are well inflated. Mild right perihilar haziness. PLEURA: No pleural effusion or pneumothorax. HEART AND MEDIASTINUM: The cardiomediastinal silhouette is unremarkable. BONES AND SOFT TISSUES: No acute osseous lesion. Soft tissues are unremarkable. UPPER ABDOMEN: No free air under the diaphragm. IMPRESSION: Mild right perihilar haziness, could represent bronchovascular shadow versus developing pneumonia in the appropriate clinical context. Otherwise, no focal consolidations. Signed by: Dr. Sly Samuel MD on 03/06/2020 10:35 PM Dictated By: SLY SAMUEL MD 34 Transcribed By: SETH on 03/06/202234 COPY TO: CAREY DUNLAP MD~ Procedure: [id number] CT/CT BRAIN WO Exam Date: 03/06/20 Exam Time: 2214 REPORT STATUS: Signed EXAMINATION: Head CT without contrast. HISTORY:Generalized weakness, hypotension. COMPARISON:None. TECHNIQUE: Multidetector axial images were obtained from the foramen magnum to the vertex without contrast. The images were reconstructed using brain and bone algorithms. Thin section brain images were reformatted into coronal and sagittal planes. Dose modulation, iterative reconstruction, and/or weight based adjustment of the mA/kV was utilized to reduce the radiation dose to as low as reasonably achievable. Intravenous contrast: None IMAGE QUALITY: Suboptimal evaluation due to bandlike artifacts. FINDINGS: Skull/scalp: No lytic or blastic. lesions. No surgical changes. Parenchyma: Nonspecific bilateral frontoparietal patchy white matter hypodensity are likely related to small vessel ischemic changes. No acute hemorrhage, mass or acute major vascular territorial infarct. Arteries: No density suggestive of thrombosis. Dural sinuses: No abnormal density suggestive of thrombosis. Ventricles: No hydrocephalus or displacement. Extra-axial spaces: No abnormal density. Brain volume: Mild generalized cerebral volume loss. Craniocervical junction: No mass, Chiari malformation, or basilar invagination. Sella: No mass. Paranasal/mastoid sinuses: Imaged portions unremarkable. IMPRESSION: Suboptimal evaluation due to bandlike artifacts, despite the limitation no gross acute intracranial abnormality. Mild supratentorial white matter microvascular ischemic changes. Mild generalized cerebral volume loss. Signed by: Dr. Nguyen Antunez M.D. on 03/06/2020 10:46 PM Dictated By: NGUYEN ANTUNEZ MD 45 Transcribed By: SETH on 03/06/202245 COPY TO: CAREY DUNLAP MD~ Procedures 12 Lead ECG Interpretation ECG Interpretation : ECG: ECG 1 Research Biostatistician: Interpreted by ED physician Date: Mar 06, 2020 Time: 21:31 Rhythm: sinus tachycardia Rate: tachycardia BPM: 121 ST segments normal: No (NON SPECIFIC CHANGES THROUGH OUT) T waves flattening: III, V1 Other findings: LVH Clinical Impression: abnormal ECG Assessment & Plan Medical Decision Making MDM PT WITH GENERALIZED WEAKNESS AND NAUSEA FOR 2 WEEKS, STATES BLOOD PRESSURE LOW AT HOME TODAY CBC, CMP, EKG,CARDIAC ENZYMES, UA, CXR, CT BRAIN ORDERED TO EVAL FOR ELECTROLYTE ABNORMALITY, DEHYDRATION, RENAL INSUFFICIENCY, UTI, PNEUMONIA, INTRACRANIAL ABNORMALITY, MYOCARDIAL INFARCTION, NS 1 LITER BOLUS IV ORDERED ZOFRAN 4 MG IV ORDERED i spoke with shahid thompson in obs Assessment & Plan Final Impression: (1) Pneumonia (2) Generalized weakness (3) Dehydration Depart Disposition: ADMITTED Last Vital Signs Date Time Temp Pulse Resp B/P (MAP) Pulse Ox O2 Delivery O2 Flow Rate FiO2 03/06/20 21:00 98.4 120 18 113/70 99 Room Air Home Meds Reported Medications Losartan Potassium (LOSARTAN POTASSIUM) 100 Mg Tablet, 50 MG PO DAILY, TAB 12/10/19 Metoprolol Succinate (METOPROLOL SUCCINATE) 25 Mg Tab.er.24h, PO DAILY 12/10/19 Metoclopramide Hcl (REGLAN) 10 Mg Tablet, 10 MG PO TID, TAB 12/10/19 Esomeprazole Magnesium (Esomeprazole Magnesium) 40 Mg Capsule., 1 CAP PO BID 12/10/19 Metformin Hcl (METFORMIN HCL ER) 500 Mg Tab.er.24h, 1 TAB PO BID 12/10/19 Glipizide (GLIPIZIDE ER) 10 Mg Tab.er.24, 1 TAB PO DAILY 12/10/19 Escitalopram Oxalate (LEXAPRO) 10 Mg Tablet, 1 TAB PO DAILY 04/28/12 Medications in the ED Sodium Chloride 1,000 ml @ 999 mls/hr Q1H1M ONCE IV ; Start 03/06/20 at 21:30; Stop 03/06/20 at 22:30 Ondansetron HCl 4 mg NOW STAT IV ; Start 03/06/20 at 21:28; Stop 03/06/20 at 21:32; Status DC CAREY DUNLAP MD Mar 06, 2020 21:50
[2020-03-06 21:51] LABS: BASOPHILS % 0.3 % (0.0-1.0); EOSINOPHILS # (AUTO) 0.1 (0.0-0.4); EOSINOPHILS % 0.4 % (0.0-6.0); HEMATOCRIT 42.8 % (34.2-44.1); HEMOGLOBIN 12.8 g/dL (12.0-16.0); LYMPHOCYTES # (AUTO) 2.5 (1.0-3.2); LYMPHOCYTES % 21.4 % (18.0-39.1); MEAN CORPUSCULAR HEMOGLOBIN 23.1 pg (28-32); MEAN CORPUSCULAR HGB CONC 29.9 g/dL (31-35); MEAN CORPUSCULAR VOLUME 77.4 fL (81-99); MONOCYTES # (AUTO) 0.7 (0.2-0.8); MONOCYTES % 6.2 % (4.4-11.3); NEUTROPHILS # (AUTO) 8.3 (2.1-6.9); NEUTROPHILS % 71.3 % (38.7-80.0); PLATELET COUNT 473 x10e3/uL (140-360); RED BLOOD COUNT 5.53 x10e6/uL (3.6-5.1); RED CELL DISTRIBUTION WIDTH 18.1 % (11.7-14.4)
[2020-03-06 22:08] LABS: AMYLASE 59 U/L (25-125); LIPASE 64 U/L (8-78)
[2020-03-06 22:10] LABS: ALBUMIN 4.1 g/dL (3.5-5.0); ALBUMIN/GLOBULIN RATIO 0.9 (0.8-2.0); ANION GAP 20.5 mmol/L (8-16); CALCIUM 10.2 mg/dL (8.4-10.2); CREATININE, SERUM 1.4 mg/dL (0.57-1.11); POTASSIUM 3.5 mmol/L (3.5-5.1)
[2020-03-06 22:17] LABS: CREATINE KINASE MB 0.7 ng/mL (0-5.0)
--- NOTE | 2020-03-06 22:38 | Diagnostic Imaging Report ---
EXAMINATION: CHEST SINGLE (PORTABLE) INDICATION: ^GENERALIZED WEAKNESS ^[id number] ^5 ^Y COMPARISON: 12/09/2019 FINDINGS: AP view TUBES and LINES: None. LUNGS: Lungs are well inflated. Mild right perihilar haziness. PLEURA: No pleural effusion or pneumothorax. HEART AND MEDIASTINUM: The cardiomediastinal silhouette is unremarkable. BONES AND SOFT TISSUES: No acute osseous lesion. Soft tissues are unremarkable. UPPER ABDOMEN: No free air under the diaphragm. IMPRESSION: Mild right perihilar haziness, could represent bronchovascular shadow versus developing pneumonia in the appropriate clinical context. Otherwise, no focal consolidations. Signed by: Dr. Sly Mathis MD on 03/06/2020 10:35 PM
--- NOTE | 2020-03-06 22:50 | Diagnostic Imaging Report ---
EXAMINATION: Head CT without contrast. HISTORY:Generalized weakness, hypotension. COMPARISON:None. TECHNIQUE: Multidetector axial images were obtained from the foramen magnum to the vertex without contrast. The images were reconstructed using brain and bone algorithms. Thin section brain images were reformatted into coronal and sagittal planes. Dose modulation, iterative reconstruction, and/or weight based adjustment of the mA/kV was utilized to reduce the radiation dose to as low as reasonably achievable. Intravenous contrast: None IMAGE QUALITY: Suboptimal evaluation due to bandlike artifacts. FINDINGS: Skull/scalp: No lytic or blastic. lesions. No surgical changes. Parenchyma: Nonspecific bilateral frontoparietal patchy white matter hypodensity are likely related to small vessel ischemic changes. No acute hemorrhage, mass or acute major vascular territorial infarct. Arteries: No density suggestive of thrombosis. Dural sinuses: No abnormal density suggestive of thrombosis. Ventricles: No hydrocephalus or displacement. Extra-axial spaces: No abnormal density. Brain volume: Mild generalized cerebral volume loss. Craniocervical junction: No mass, Chiari malformation, or basilar invagination. Sella: No mass. Paranasal/mastoid sinuses: Imaged portions unremarkable. IMPRESSION: Suboptimal evaluation due to bandlike artifacts, despite the limitation no gross acute intracranial abnormality. Mild supratentorial white matter microvascular ischemic changes. Mild generalized cerebral volume loss. Signed by: Dr. Nguyen Antunez M.D. on 03/06/2020 10:46 PM
[2020-03-06] MEDS ORDERED: SODIUM CHLORIDE 0.9% 1000ML 1,000 ML IV SCH (23:15)
--- OUTSIDE RECORDS SUMMARY | 2020-03-06 23:21 | XMS REPORT | Continuity of Care Document ---
Author Author [facility] t Organization [facility] Address [address] [place] [address] Phone Unavailable Care Team Providers Care Light Equipment Operator Name Role Phone Marvin PITTMAN PCP Yuni DUNLAP Attphys Unavailable Zain TORREZ, Jerry Pena Attphys Norberto Alfonso DO Attphys [facility] TORREZ, Yasmin Briones Attphys [phone] Mariely Mcneil RN Attphys Unavailable Markell ANG, Laci Gaitanphys Unavailable OCTAVIO BACON Attphys Unavailable ANALI CRUZ Admphydanielle Unavailable Payers Payer Name Policy Type Policy Number Effective Date Expiration Date S tomas Joanna [facility] Care [id number] 2014 00:00:00 [facility] AETNAAETNA HMO,POS,EPO, [id number] [id number] 2014 00:00:00 Arcenio Schaeffer Problems Condition Name [...] 00:00:[address] Sepsis Problem Active [facility]ulitis of right upper arm Problem Active [facility] Urinary tract infection Problem Active [facility] History of Past Illness Condition Name Condition [...] Known Allergies DA Active U 2018-02-11 00:00:00 [facility] No Known Allergies DA Active U 2016-05-15 00:00:00 [facility] Family History Family Member Diagnosis Comments Start Date Stop Date Source Natural father CABG/Stent [facility] thodist Natural father Heart attack Arcenio Schaeffer Maternal grandfather Stroke [place] Natural mother Heart disease Rg Bahai Natural mother Hypertension Rg Bahai Natural mother Lung cancer Rg M ethodist Natural mother Thyroid cancer [place] Paternal grandfather Heart attack Ho maude Schaeffer Natural sister Heart disease Rg Bahai Natural sister Thyroid cancer [place] Social History Social Habit Start Date Stop [...] 10 MG tablet 2019-10-24 15:09:51 Yes 10mg Q.[id number] Take 10 mg by mouth 3 (three) [...] (Lexapro) 10 Mg TABLET Yes 1 Daily [facility] Esomeprazole Magnesium Esomeprazole Magnesium Yes 1 Twice A Day [facility] Glipizide (Glipizide Er) 10 Mg TAB.ER.24 Glipizide (Gl ipizide Er) 10 Mg TAB.ER.24 Yes [address] [facility] [place] [place] Losartan Potassium Losartan Potassium Yes 50 Da lyubov [facility] Metformin Hcl (Metformin Hcl Er) 500 Mg TAB.ER.24H Met formin Hcl (Metformin Hcl Er) 500 Mg TAB.ER.24H Yes 1 Twice A Day [facility] Metoclopramide Hcl (Reglan) 10 Mg TABLET Metoclopramid e Hcl (Reglan) 10 Mg TABLET Yes 10 Three Times A Day C [facility] Metoprolol Succinate Metoprolol Succinate Yes Daily [facility] Aripiprazole (Abilify*) 2 Mg TABLET Aripiprazole (Abilify*) 2 Mg TABLET 2019-12-10 00:00:00 No 1 Daily [facility] Zolpidem Tartrate Zolpidem Tartrate 2019-12-10 00:00:00 No [facility] Vital Signs Vital Name Observation Time Observation Value Comments Source Body Temperature 2019-12-15 11:34:00 97.7 [degF] [facility] Weight 2019-12-10 02:30:00 197.03 [lb_av] [facility] BMI (Body Mass Index) 2019-12-10 02:30:00 37.7 kg/m2 [facility] Systolic blood pressure 2019-10-24 15:07:00 121 mm[Hg] Arcenio Schaeffer Diastolic blood pressure 2019-10-24 15:07:00 76 mm[Hg] Arcenio Schaeffer Heart rate 2019-10-24 15:07:00 106 /min Rg Bahai Body temperature 2019-10-24 15:07:00 37.22 Nena Hous kelly Bahai Body height 2019-10-24 15:07:00 167.6 cm Rg Bahai Body weight 2019-10-24 15:07:00 95.255 kg Arcenio Priceist BMI 2019-10-24 15:07:00 33.89 kg/m2 Arcenio Schaeffer Oxygen saturation in Arterial blood by Pulse oximetry 10-23 15:07:00 98 /min Arcenio Schaeffer Respiratory rate 2019-10-15 15:00:00 18 /min Bettina mendoza Bahai Procedures Procedure Date / Time Performed Performing Clinician Sourc e URINE CULTURE 2019-10-24 16:20:00 Becky Pittman BASIC METABOLIC PANEL 2019-10-24 16:20:00 Becky Pittman URINALYSIS, AUTOMATED WITH MICROSCOPY 2019-10-24 16:20:00 Li ncolnBecky POC GLUCOSE 2019-10-24 16:01:00 Becky Pittman ECG 12-LEAD 2019-10-15 11:23:52 Anali Cruz URINALYSIS, AUTOMATED WITH MICROSCOPY 2019-10-15 11:14:00 Go nzAnali kim POC GLUCOSE 2019-10-15 11:06:00 Anali Cruz TTE COMPLETE, WO CONTRAST, W DOPPLER ([id number]) 2019-10-15 11:0 0:00 Anali Cruz POC GLUCOSE 2019-10-15 07:08:00 Anali Cruz HEMOGLOBIN A1C 2019-10-15 03:31:00 Anali Cruz LIPID PANEL 2019-10-15 03:31:00 Anali Cruz BASIC METABOLIC PANEL 2019-10-15 03:31:00 Anali Cruz ESTIMATED GFR 2019-10-15 03:31:00 Anali Cruz POC GLUCOSE 2019-10-14 20:21:00 SanfordAnali Arcenio Schaeffer TROPONIN 2019-10-14 17:02:00 SanfordAnali Bahai POC GLUCOSE 2019-10-14 14:48:[address] CARDIAC OVERREAD 2019-10-14 14:37:40 SanfordAnali Brantkristal alicea Arcenio Schaeffer CV CTA CORONARY ARTERIES W CONTRAST 2019-10-14 14:36:01 Cecile kim Anali Yasmin Arcenio Schaeffer POC GLUCOSE 2019-10-14 13:30:00 SanfordAnali Arcenio Schaeffer TROPONIN 2019-10-14 12:35:00 SanfordAnali Yasmin Arcenio Schaeffer ARTERIAL BLOOD GAS 2019-10-14 12:35:00 SanfordAnali Arcenio Schaeffer BETA HYDROXYBUTYRATE 2019-10-14 12:07:00 [facility] Anali Guojhonatan wseley Arcenio Schaeffer POC GLUCOSE 2019-10-14 11:54:00 Delvin Alfonso XR CHEST 1 VW PORTABLE 2019-10-14 10:56:07 Delvin Alfonso MD CRITICAL CARE, E/M 30-74 MINUTES 2019-10-14 10:37:26 Delvin Alfonso ECG ED PRELIMINARY INTERPRETATION 2019-10-14 10:37:26 Aldo Alfonso HC COMPLETE BLD COUNT W/AUTO DIFF 2019-10-14 10:35:00 Aldo Alfonso COMPREHENSIVE METABOLIC PANEL 2019-10-14 10:35:00 Keegan Alfonso TROPONIN 2019-10-14 10:35:00 Anali Cruz B NATRIURETIC PEPTIDE 2019-10-14 10:35:00 Delvin Alfonso ESTIMATED GFR 2019-10-14 10:35:00 Delvin Alfonso ethjose LIPID PANEL 2019-10-14 10:35:00 Delvin Alfonso HEMOGLOBIN A1C 2019-10-14 10:35:00 Delvin Alfonsoodi ECG 12-LEAD 2019-10-14 10:21:27 [facility] Anali Yasmin Arcenio Schaeffer POCT INFLUENZA A/B 2019-05-16 [...] 00:00:00 INFLUENZA VACCINE [code = INFLUENZA VACCINE] [facility] Future Scheduled Test 2019-08-02 00:00:00 URINE MICROALBUMIN [code = URINE MICROALBUMIN] [facility] Future Scheduled Test 2005 00:00:00 BREAST CANCER SCRE ENING [code = BREAST CANCER SCREENING] [facility] Future Scheduled Test 2005 00:00:00 COLONOSCOPY SCREEN ING [code = COLONOSCOPY SCREENING] [facility] Future Scheduled Test 2005 00:00:00 SHINGLES VACCINES (#1) [code = SHINGLES VACCINES (#1)] [facility] Future Scheduled Test 1976 00:00:00 Screening for isauro gnant neoplasm of cervix (procedure) [code = 170495295] [facility] Future Scheduled Test 1965 00:00:00 DIABETIC FOOT EXAM [code = DIABETIC FOOT EXAM] [facility] Future Scheduled Test 1955 00:00:00 DIABETIC RETINAL E YE EXAM [code = DIABETIC RETINAL EYE EXAM] [facility] Instructions Cellulitis [facility] Instructions Urinary Tract Infection - Women [facility] Encounters Start Date/Time End Date/Time Encounter Type Admission Type [facility] Department Encounter ID Source 2019-12-10 00:21:00 2019-12-15 12:17:00 Discharged Inpatient 1 CAREY DUNLAP [facility] [id number] [facility] 2019-10-24 00:00:00 2019-10-24 00:00:00 Outpatient GENIE PITTMAN [facility] [id number] [facility] 2019-10-24 00:00:00 2019-10-24 00:00:00 Outpatient GENIE PITTMAN [facility] [id number] [facility] 2019-10-14 00:00:00 2019-10-15 00:00:00 Outpatient PROSPER CRUZ [facility] 064 [id number] [facility] Results Test Description Test Time Test Comments Results Result Comments Source CT BRAIN WO 2020-03-06 22:38:00 [facility] 1955 Sex: F [facility] [address] [place] [address] Patient Name: YVES LUGO MR #: [id number] : 1955 Age/Sex: 64/F Req #: [id number] Adm Physician: Ordered by: CAREY DUNLAP MD Report #: [id number] Location: ER Room/Bed: Procedure: [id number] CT/CT BRAIN WO Exam Date: 03/06/20 Exam Time: 2214 REPORT STATUS: Signed EXAMINATION: Head CT without contrast. HISTORY:Generalized weakness, hypotension. COMPARISON:None. TECHNIQUE: Multidetector axial images were obtained from the foramen magnum to the vertex without contrast. The images were reconstructed using brain and bone algorithms. Thin section brain images were reformatted into coronal and sagittal planes. Dose modulation, iterative reconstruction, and/or weight based adjustment of the mA/kV was utilized to reduce the radiation dose to as low as reasonably achievable. Intravenous contrast: None IMAGE QUALITY: Suboptimal evaluation due to bandlike artifacts. FINDINGS: Skull/scalp: No lytic or blastic. lesions. No surgical changes. Parenchyma: Nonspecific bilateral frontoparietal patchy white matter hypodensity are likely related to small vessel ischemic changes. No acute hemorrhage, mass or acute major vascular territorial infarct. Arteries: No density suggestive of thrombosis. Dural sinuses: No abnormal density suggestive of thrombosis. Ventricles: No hydrocephalus or displacement. Extra-axial spaces: No abnormal density. Brain volume: Mild generalized cerebral volume loss. Craniocervical junction: No mass, Chiari malformation, or basilar invagination. Sella: No mass. Paranasal/mastoid sinuses: Imaged portions unremarkable. IMPRESSION: Suboptimal evaluation due to bandlike artifacts, despite the limitation no gross acute intracranial abnormality. Mild supratentorial white matter microvascular ischemic changes. Mild generalized cerebral volume loss. Signed by: Dr. Cal Antunez M.D. on 03/06/2020 10:46 PM Dictated By: CAL ANTUNEZ MD 45 Transcribed By: SETH on 03/06/202245 COPY TO: CAREY DUNLAP MD CHEST SINGLE (PORTABLE) 2020-03-06 22:32:00 [facility] 1955 Sex: F [place] [id number] [place] [address] Patient Name: YVES LUGO MR #: [id number] : 1955 Age/Sex: 64/F Req #: [id number] [facility] Physician: Ordered by: CAREY DUNLAP MD Report #: [id number] Location: ER Room/Bed: Procedure: [id number] DX/CHEST SINGLE (PORTABLE) Exam Date: 03/06/20 Exam Time: 2204 REPORT STATUS: Signed EXAMINATION: CHEST SINGLE (PORTABLE) INDICATION: GENERALIZED WEAKNESS [id number] COMPARISON: 12/09/2019 FINDINGS: AP view TUBES and LINES: None. LUNGS: Lungs are well inflated. Mild right perihilar haziness. PLEURA: No pleural effusion or pneumothorax. HEART AND MEDIASTINUM: The cardiomediastinal silhouette is unremarkable. BONES AND SOFT TISSUES: No acute osseous lesion. Soft tissues are unremarkable. UPPER ABDOMEN: No free air under the diaphragm. IMPRESSION: Mild right perihilar haziness, could represent bronchovascular shadow versus developing pneumonia in the appropriate clinical context. Otherwise, no focal consolidations. Signed by: Dr. Boom Samuel MD on 03/06/2020 10:35 PM Dictated By: BOOM SAMUEL MD 34 Transcribed By: SETH on 03/06/202234 COPY TO: CAREY DUNLAP MD Capillary blood glucose measurement by glucometer (mas s/volume) 2019-12-15 07:06:00 Test Item Bedside Glucose (test code = 97265-4) 89 70-120 Meter ID: [id number] [facility] of [facility] Cancer Centererum or plasma trough vancomycin level at trough (mass/volume)2019-12-14 16:40:00* Test Item Value Reference Range Interpretation Comments Vancomycin Level Trough (test code = 4092-3) 9.3 5.0-10.0 [facility] automated count (number/volume)2019-12-12 04:48:00* Test Item Value Reference Range Interpretation Comments White Blood Count (test code = 6690-2) 6.30 4.8-10.8 [facility] erythrocytes automated count (number/volume)2019-12-12 04:48:00* Test Item Value Reference Range Interpretation Comments Red Blood Count (test code = 789-8) 3.88 3.6-5.1 [facility] hemoglobin measurement (moles/volume)2019-12-12 04:48:00* Test Item Value Reference Range Interpretation Comments Hemoglobin (test code = 32164-1) 9.2 12.0-16.0 [facility] CampusAutomated blood hematocrit (volume fraction)2019-12-12 04:48:00* Test Item Value Reference Range Interpretation Comments Hematocrit (test code = 4544-3) 31.7 34.2-44.1 [facility] CampusAutomated erythrocyte mean corpuscular whkhgp3939-00-88 04:48:00* Test Item Value Reference Range Interpretation Comments Mean Corpuscular Volume (test code = 787-2) 81.7 81-99 [facility] CampusAutomated erythrocyte mean corpuscular hemoglobin (mass per erythrocyte)2019-12-12 04:48:00* Test Item Value Reference Range Interpretation Comments Mean Corpuscular Hemoglobin (test code = 785-6) 23.7 28-32 [facility] CampusAutomated erythrocyte mean corpuscular hemoglobin concentration measurement (mass/volume)2019-12-12 04:48:00* Test Item Value Reference Range Interpretation Comments Mean Corpuscular Hemoglobin Concent (test code = 786-4) 29.0 31-35 [facility] CampusRDW RehNj-Iay4523-66-24 04:48:00* Test Item Value Reference Range Interpretation Comments Red Cell Distribution Width (test code = 78819-3) 17.7 11.7 -14.4 [facility] CampusAutmission hospitaled blood platelet count (count/volume)2019-12-12 04:48:00* Test Item Value Reference Range Interpretation Comments Platelet Count (test code = 777-3) 279 140-360 [facility] CampusAutmission hospitaled blood segmented neutrophil count as percentage of total wnybdsfngk5883-15-95 04:48:00* Test Item Value Reference Range Interpretation Comments Neutrophils (%) (Auto) (test code = 98052-0) 55.6 38.7-80.0 [facility] blood lymphocyte count as percentage ot total fazsdzwlmh4795-78-35 04:48:00* Test Item Value Reference Range Interpretation Comments Lymphocytes (%) (Auto) (test code = 736-9) 34.3 18.0-39.1 [facility] CampusAutomated blood monocyte count as percentage of total avfjdhjalt6090-40-06 04:48:00* Test Item Value Reference Range Interpretation Comments Monocytes (%) (Auto) (test code = 5905-5) 6.5 4.4-11.3 [facility] CampusAutmission hospitaled blood eosinophil count as percentage of total ttatmdoqan8830-55-06 04:48:00* Test Item Value Reference Range Interpretation Comments Eosinophils (%) (Auto) (test code = 713-8) 2.5 0.0-6.0 [facility] CampusAutomated blood basophil count as percentage of total jymbxswcbr0013-44-31 04:48:00* Test Item Value Reference Range Interpretation Comments Basophils (%) (Auto) (test code = 706-2) 0.6 0.0-1.0 [facility] CampusFluoroscopic procedure less than one hour xmtcgdmr2491-00-60 04:48:00* Test Item Value Reference Range Interpretation Comments IM GRANULOCYTES % (test code = IM GRANULOCYTES %) 0.5 0.0- 1.0 [facility] CampusAutomated blood neutrophil count 2019-12-12 04:48:00* Test Item Value Reference Range Interpretation Comments Neutrophils # (Auto) (test code = 751-8) 3.5 2.1-6.9 [facility] CampusBlood lymphocytes count (number/volume) 2019-12-12 04:48:00* Test Item Value Reference Range Interpretation Comments Lymphocytes # (Auto) (test code = 33331-7) 2.2 1.0-3.2 [facility] CampusBlood monocytes automated count (number/volume)2019-12-12 04:48:00* Test Item Value Reference Range Interpretation Comments Monocytes # (Auto) (test code = 742-7) 0.4 0.2-0.8 [facility] CampusAutomated blood eosinophil count 2019-12-12 04:48:00* Test Item Value Reference Range Interpretation Comments Eosinophils # (Auto) (test code = 711-2) 0.2 0.0-0.4 [facility] CampusAutomated blood basophil count (count/volume)2019-12-12 04:48:00* Test Item Value Reference Range Interpretation Comments Basophils # (Auto) (test code = 704-7) 0.0 0.0-0.1 [facility] CampusFluoroscopic procedure less than one hour yrdboodz1513-36-18 04:48:00* Test Item Value Reference Range Interpretation Comments Absolute Immature Granulocyte (auto (julee t code = Absolute Immature Granulocyte (auto) 0.03 0-0.1 [facility]ererum or plasma sodium measurement (moles/volume)2019-12-12 04:48:00* Test Item Value Reference Range Interpretation Comments Sodium Level (test code = 2951-2) 140 136-145 [facility]ererum or plasma potassium measurement (moles/volume)2019-12-12 04:48:00* Test Item Value Reference Range Interpretation Comments Potassium Level (test code = 2823-3) 3.7 3.5-5.1 [facility] Centererum or plasma chloride measurement (moles/volume)2019-12-12 04:48:00* Test Item Value Reference Range Interpretation Comments Chloride Level (test code = 2075-0) 108 98-107 [facility] Centererum or plasma carbon dioxide, total measurement (moles/volume)2019-12-12 04:48:00* Test Item Value Reference Range Interpretation Comments Carbon Dioxide Level (test code = 2028-9) 24 - [facility] Centererum or plasma anion rdo0572-71-23 04:48:00* Test Item Value Reference Range Interpretation Comments Anion Gap (test code = 89590-6) 11.7 8-16 [facility]ererum or plasma urea nitrogen measurement (mass/volume)2019-12-12 04:48:00* Test Item Value Reference Range Interpretation Comments Blood Urea Nitrogen (test code = 3094-0) 14 7-26 [facility]ererum or plasma creatinine measurement (mass/volume)2019-12-12 04:48:00* Test Item Value Reference Range Interpretation Comments Creatinine (test code = 2160-0) 0.76 0.57-1.11 [facility] Centererum or plasma urea nitrogen/creatinine mass qhyxr2917-17-76 04:48:00* Test Item Value Reference Range Interpretation Comments BUN/Creatinine Ratio (test code = 3097-3) 18 6-25 [facility] CampusEstimated glomerular filtration rate (GFR) zvnwzlhyxrdtf1139-02-18 04:48:00* Test Item Value Reference Range Interpretation Comments Estimat Glomerular Filtration Rate (test code = 958269861) > 60 >60 Ranges were taken from the National Kidney Disease Education Program and the [facility] Kidney Foundation literature.Reference ranges:60 or greater: Hvtcew44-31 ( for 3 consecutive months): Chronic kidney disease 15 or less: Kidney failureCHI St. [facility] - Patients Medical CenterGlucose rciippetcai5515-88-54 04:48:00* Test Item Value Reference Range Interpretation Comments Glucose Level (test code = WSL2838) 109 74-118 [facility] Centererum or plasma calcium measurement (mass/volume)2019-12-12 04:48:00* Test Item Value Reference Range Interpretation Comments Calcium Level (test code = 25157-0) 8.7 8.4-10.2 [facility] Centererum or plasma magnesium measurement (mass/volume)2019-12-12 04:48:00* Test Item Value Reference Range Interpretation Comments Magnesium Level (test code = 76112-4) 1.7 1.3-2.1 [facility] Centererum or plasma total bilirubin measurement (mass/volume)2019-12-12 04:48:00* Test Item Value Reference Range Interpretation Comments Total Bilirubin (test code = 1975-2) 0.2 0.2-1.2 [facility] CampusFluoroscopic procedure less than one hour sbpalnlr9137-04-25 04:48:00* Test Item Value Reference Range Interpretation Comments Aspartate Amino Transf (AST/SGOT) (test code = Aspartate Amino Transf (AST/SGOT)) 15 5-34 [facility] Centererum or plasma alanine aminotransferase measurement (enzymatic activity/volume)2019-12-12 04:48:00* Test Item Value Reference Range Interpretation Comments Alanine Aminotransferase (ALT/SGPT) (test code = 1742-6) 10 0-55 [facility] Centererum or plasma protein measurement (mass/volume)2019-12-12 04:48:00* Test Item Value Reference Range Interpretation Comments Total Protein (test code = 2885-2) 6.4 6.5-8.1 [facility] Centererum or plasma albumin measurement (mass/volume)2019-12-12 04:48:00* Test Item Value Reference Range Interpretation Comments Albumin (test code = 1751-7) 2.7 3.5-5.0 [facility] CampusPlasma globulin measurement (mass/volume) 2019-12-12 04:48:00* Test Item Value Reference Range Interpretation Comments Globulin (test code = 61530-9) 3.7 2.3-3.5 [facility] Centererum or plasma albumin/globulin mass tourk0211-85-92 04:48:00* Test Item Value Reference Range Interpretation Comments Albumin/Globulin Ratio (test code = 1759-0) 0.7 0.8-2.0 [facility] Centererum or plasma alkaline phosphatase measurement (enzymatic activity/volume)2019-12-12 04:48:00* Test Item Value Reference Range Interpretation Comments Alkaline Phosphatase (test code = 6768-6) 61 40-150 [facility] CampusBlood platelets count by estimate (number/volume)2019-12-11 05:30:00* Test Item Value Reference Range Interpretation Comments Platelet Estimate (test code = 21900-0) ADEQUATE [facility] CampusPlatelet pgudnqtwrc0339-21-48 05:30:00* Test Item Value Reference Range Interpretation Comments Platelet Morphology Comment (test code = 48455-8) RARE EDTA CLUMPIN G [facility] CampusBlood hypochromia detection by light goyhreoszd8114-80-67 05:30:00* Test Item Value Reference Range Interpretation Comments Hypochromasia (test code = 728-6) SLIGHT [facility]Bl[facility] poikilocytosis detection by light mwwhgwqzyj6080-86-53 05:30:00* Test Item Value Reference Range Interpretation Comments Poikilocytosis (test code = 779-9) SLIGHT [facility]Bl[facility] anisocytosis detection by light bmmqjddmym9771-69-58 05:30:00* Test Item Value Reference Range Interpretation Comments Anisocytosis (test code = 702-1) SLIGHT [facility] CampusRBC rnlkifavrg8133-26-49 05:30:00* Test Item Value Reference Range Interpretation Comments Red Cell Morphology Comment (test code = 6742-1) NORMAL [facility] CampusFluoroscopic procedure less than one hour hyolxqzh1643-22-05 05:40:00* Test Item Value Reference Range Interpretation Comments Lactic Acid Level (test code = Lactic Acid Level) 1.8 0.5- 2.0 [facility] CampusFluoroscopic procedure less than one hour bnxvbeht2011-00-33 00:50:00* Test Item Value Reference Range Interpretation [...] complexity tests.Testing performed by [facility] [id number] [place], [place] [phone] Director: Andre Hanna M.D.CLIA # [id number] [facility] SINGLE (PORTABLE)2019-12-09 23:58:00 [place] [address] Patient Name: YVES LUGO MR #: [id number] : 1955 Age/Sex: 64/F Req #: [id number] Adm Physician: Ordered by: CAREY DUNLAP MD Report #: [id number] Location: ER Room/Bed: Procedure: [id number] DX/CH EST SINGLE (PORTABLE) Exam Date: 12/09/19 Exam Time: 2230 REPORT STATUS: Signed EXAM INATION: CHEST SINGLE [...] COPY TO: CAREY AKERS MD Urine color nmhjheukcoqwc2452-39-77 21:41:00* Test Item Value Reference Range Interpretation Comments Urine Color (test code = 5778-6) YELLOW YELLOW [facility] ruiemct6117-89-90 21:41:00* Test Item Value Reference Range Interpretation Comments Urine Clarity (test code = 82798-7) SL CLOUDY CLEAR [facility] of Urine by Test strip 2019-12-09 21:41:00* Test Item Value Reference Range Interpretation Comments Urine Specific [place] (test code = 5811-5) 1.020 1.010-1.02 5 [facility] pH measurement by automated test uwpls4936-82-40 21:41:00* Test Item Value Reference Range Interpretation Comments Urine pH (test code = 91910-7) 7 5-7 [facility] leukocyte esterase detection by clzrvomy4168-97-86 21:41:00* Test Item Value Reference Range Interpretation Comments Urine Leukocyte Esterase (test code = 5799-2) TRACE NEGATIVE [facility] nitrite lghextsdy2489-32-53 21:41:00* Test Item Value Reference Range Interpretation Comments Urine Nitrite (test code = 15115-8) NEGATIVE NEGATIVE [facility] protein measurement by test strip (mass/volume)2019-12-09 21:41:00* Test Item Value Reference Range Interpretation Comments Urine Protein (test code = 5804-0) 1+ NEGATIVE [facility] glucose qityyyypb3332-02-44 21:41:00* Test Item Value Reference Range Interpretation Comments Urine Glucose (UA) (test code = 2349-9) 2+ NEGATIVE [facility] ketones detection by automated test dzrhk1634-45-11 21:41:00* Test Item Value Reference Range Interpretation Comments Urine Ketones (test code = 32311-3) NEGATIVE NEGATIVE [facility] urobilinogen measurement by test strip (mass/volume)2019-12-09 21:41:00* Test Item Value Reference Range Interpretation Comments Urine Urobilinogen (test code = 46936-7) 0.2 0.2-1 [facility] total bilirubin measurement (mass/volume)2019-12-09 21:41:00* Test Item Value Reference Range Interpretation Comments Urine Bilirubin (test code = 1978-6) NEGATIVE NEGATIVE [facility] erythrocytes zzygikoea0113-21-88 21:41:00* Test Item Value Reference Range Interpretation Comments Urine Blood (test code = 01800-6) TRACE NEGATIVE [facility] CampusAutomated urine sediment leukocyte count by microscopy (number/high power field)2019-12-09 21:41:00* Test Item Value Reference Range Interpretation Comments Urine WBC (test code = 5821-4) 11-20 0-5 [facility] CampusErythrocytes detection in urine sediment by light hcaiknptdm8476-42-86 21:41:00* Test Item Value Reference Range Interpretation Comments Urine RBC (test code = 29339-5) 6-10 0-5 [facility] CampusBacteria detection in urine sediment by light bsscflkumn9031-32-24 21:41:00* Test Item Value Reference Range Interpretation Comments Urine Bacteria (test code = 17550-0) MODERATE NONE [facility] CampusEpithelial cells detection in urine sediment by light iyoycfyiey2526-51-57 21:41:00* Test Item Value Reference Range Interpretation Comments Urine Epithelial Cells (test code = 96277-4) MODERATE NONE [facility] CampusBlood bfmdoqy7246-37-12 21:30:00* Test Item Value Reference Range Interpretation Comments Blood Culture (test code = 42355036) NO GROWTH AFTER 5 DAYS, FINAL REPORT [facility] CampusBasic metabolic dnsxr0554-76-50 18:27:00 * Test Item Value Reference Range [...] is approximately 13% higher for peopleidentified as -Vietnamese. EGFR Non-Afr. Vietnamese (test code = 2775) 68 > OR = 60 mL /min/1.73m2 EGFR (test code = 72775-1) 78 > OR = 60 mL/min/1.73m2 BUN/creatinine ratio (test code = 3097-3) NOT APPLICABLE 6- 22 (randy c) Sodium (test code = 2951-2) 137 mmol/L 135-146 Potassium (test code = 2823-3) 3.4 mmol/L 3.5-5.3 L Chloride (test code = 2075-0) 101 mmol/L 98-110 CO2 (test code = 2027-9) 25 mmol/L 20-32 Calcium (test code = 81494-2) 9.6 mg/dL 8.6-10.4 RAC (test code = RAC) Performing Organization Info rmation: Site ID: RGA Name: [facility] Address: [address] [place] [phone] Director: Delvin Yin Lab Interpretation (test code = 53070-9) Abnormal Rg MethodistUrinalysis, automated with ejoimpjxof1697-06-87 18:27:00* Test Item Value Reference Range Interpretation Comments Color, UA (test code = 5778-6) YELLOW YELLOW Appearance (test code = 5767-9) CLOUDY CLEAR A Specific gravity, urine (test code = 5811-5) 1.016 1.001-1.0 35 pH, urine (test code = 5803-2) 6.0 5.0-8.0 Glucose, urine (test code = 83444-8) 3+ NEGATIVE A Bilirubin, UA (test code = 5770-3) NEGATIVE NEGATIVE Ketones, UA (test code = 2514-8) NEGATIVE NEGATIVE Occult blood, urine (test code = 5794-3) TRACE NEGATIVE A Protein, UA (test code = 27955-4) 1+ NEGATIVE A Nitrite, UA (test code = 5802-4) NEGATIVE NEGATIVE Leukocyte esterase, UA (test code = 5799-2) 2+ NEGATIVE A WBC, UA (test code = 5821-4) 20-40 < OR = 5 /HPF A RBC, UA (test code = 67749-4) 0-2 < OR = 2 /HPF Squamous epithelial cells, UA (test code = 48970-9) 0-5 < OR = 5 /HPF Bacteria, UA (test code = 5769-5) FEW NONE SEEN /HPF A Calcium oxalate crystals, UA (test code = 32346-0) FEW NON E OR FEW /HPF Hyaline casts, UA (test code = 5796-8) NONE SEEN NONE SEEN /LPF RAC (test code = RAC) Performing Organization Info rmation: Site ID: RAYSHAWN Name: [facility] Address: [address] [place] [phone] Director: Delvin Yin Lab Interpretation (test code = 14245-1) Abnormal [facility] jixnrmg6026-36-40 04:27:00* Test Item Value Reference Range Interpretation Comments Urine culture (test code = 630-4) SEE NOTE CULTURE, URINE, ROUTINE Micro Number: [id number] Test Status: Final Specimen Source: NOT GIVEN Specimen Quality: Adequate Result: Multiple organisms present, each less than 10,000 CFU/mL. These organisms, commonly found on external and internal genitalia, are considered to be colonizers. No further testing performed. RAC (test code = RAC) Performing Organization Info rmation: Site ID: RGA Name: [facility] Address: [address] [place] [phone] Director: Delvin Yin [facility] ojjqtgm1578-91-14 16:01:00* Test Item Value Reference Range Interpretation Comments POC glucose (test code = 4892888) 196 65-100 [facility] 12 myto5747-97-05 10:37:25* Test Item Value Reference Range Interpretation Comments Ventricular rate (test code = 253) 77 Atrial rate (test code = 255) 77 MD interval (test code = 266) 156 QRSD [...] 10:21,-ST no longer depressed in Lateral leads- [facility] CenterTran[facility]hor[facility] Echocardi[facility] Complete, (w Contrast, Strain and 3D if needed)2019-10-15 12:44:00Interface, Radiology Results In - 10/15/2019 12:44 PM CDT Echocardiography Report [address] [place] [address] Pat.Name: YVES LUGO [facility].ID: [id number] .Date: 10/15/2019 Refer.MD: ANALI CRUZ MDExbairon Time: 10:13:00 AM Study Type:Routine Echo Height: 66in Weight: 209lb BSA: 2.04 m2 Age: 1 1955,64Y Sex: FEMALE BP: 117/75 HR: 82 bpm Sonogrphr: JUDY Pemberton, RVS Pat. Stat.:Inpatient Room: [facility] Study Status:Final Echo Event ID:[id number] Order ID: [id number] Reason for Study:HF - Initial eval of [...] systolic pressure. MEASUREME NTS: 2DPara sternal Long Herman Ao An 2.1 cm LVPWd 0.93 cm [...] l/m/m2 Signed 10/15/2019 12:44 PMSu Gus Forrest M.D.Hugo MethodistHemoglobin A1c 2019-10-15 08:06:19* Test Item Value Reference Range Interpretation Comments Hemoglobin A1C (test code = 90657-5) 11.6 % 4-5.6 H HbA1c cutoffs for diagnosing diabetes:4.0% - 5.6% = normal5.7% - 6.4% = increased risk for diabetes (prediabetes)9>=6.5% = htssmxkk7Ojjds for glycemic control (ADA 2016)< 7.0% Target for non adults with diabetes. More or less stringent targets may be appropriate for individual patients. <7.5% Target for Children and adolescents with type 1 diabetes. Lab Interpretation (test code = 55025-2) Abnormal Hugo MethodistLipid liaxf4112-28-36 04:22:54* Test Item Value Reference Range Interpretation Comments Cholesterol (test code = 2093-3) 198 mg/dL <200 Triglycerides (test code = 2571-8) 239 mg/dL <150 H HDL cholesterol (test code = 2085-9) 34 mg/dL >40 L LDL cholesterol (test code = 2089-1) 145 mg/dL <100 H Result obtained by direct LDL measurement Lipid panel interpretation (test code = 04481-1) SeeBelow Total Cholesterol (mg/dL) <200 Desirable 200-239 [...] (>=200 mg/dL) Lab Interpretation (test code = 33232-7) Abnormal Rg MethodistEstimated APB8633-24-52 04:22:54* Test Item Value Reference Range Interpretation Comments Estimated GFR (test code = 5488) 80 mL/min/1.73 m2 Catergory Units InterpretationG1 >=90 Normal or highG2 60-89 Mildly gcmqpfdofR1m 45-59 Mildly to moderately skjbuhyeoM7z 30-44 Moderately to severely decreasedG4 15-29 Severely decreasedG5 <15 Kidney failureThe eGFR was calculated using the Chronic Kidney Disease Epidemiology Collaboration (CKD-EPI) equation. Interpretation is based on recommendations of the National Kidney Foundation-Kidney Disease Outcomes Quality Initiative (NKF-KDOQI) published in 2014. Rg SncxpgkjmZlshjlyh8380-53-62 17:53:06* Test Item Value Reference Range Interpretation Comments Troponin (test code = 48084-4) <0.006 0-0.04 In patients suspected of having [...] OR decreased by less than 0.020 ng/mL Rg Tone cta coronary arteries w contrast and ffr if svzfzm7409-73-28 17:15:00Interface, Radiology Results In - 10/14/2019 5:15 PM CDT Nuclear Cardiology and Cardiac CT [address] [place] [address] Department Number: [phone] CTA Coronary Arteries w/ Calcium Scoring ReportPat.Name: YVES LUGO.ID: [id number] .Date: 10/14/2019 Refer.MD: ANALI CRUZ MD.Exam Time: 1:58:00 PM Study Type:CTA Coronary Arteries with Calcium ScoringHeight: 66in BSA: 2.06 m2 Age: 1 1955,64Y Sex: FEMALE BP: 162/80 HR: 75 bpm Nuclear Tech:ASHLEY Franco(N)(CT)CPT - 4: CCTA w Thoracic Aorta (NonCongenital) [id number] Event ID:[id number] Order ID: [id number] Reason for Study:ED [facility] ACS Pathway, Chest painProcedures: CT Prospective (Intervals), CT Flash Mode with PlanningScanRace: C SUMMARY: ----Technique: IV contrast was administered and sequential 0.[address] cutswere ob tained through the chest using the Siemens Somatom Force CTscanner. Image post- processing consisting of multiplanar and 3Dreconstructions were performed using the Bettermentpaceworkstation. Interactive image viewing, volumetric displ ay, andanalysis [...] diagonal branch and a large first septal batch room technician artery.No significant athero sclerotic plaque is present.The [...] refer to the separate radiology report in [facility] for anyadditional non-cardiovascular findings. STUDY QUALITYThe study quality is excellent.COMMENTS: None. ------FINDINGS: Signed 10/14/2019 05:[facility] Doyle MethodistNJ Cardiac Pbnfbdwj1390-44-70 14:48:03Hm Interface, Radiology Results Incoming - 10/14/2019 [...] forrest es involving the proximal stomach as described.Rg MethodistBeta geumazexnttewvg2768-39-86 13:28:55* Test Item Value Reference Range Interpretation Comments Beta hydroxybutyrate (test code = 6873-4) 0.14 mmol/L 0.02-0.27 Hugo MethodistArterial blood qok1162-15-57 12:55:11* Test Item Value Reference Range Interpretation [...] % 95-100 Lab Interpretation (test code = 52141-4) Abnormal Hugo MethodistB natriuretic bikgspn7325-12-65 11:52:07* Test Item Value Reference Range Interpretation Comments BNP (test code = 86897-4) 14 pg/mL 0-100 RADHA (test code = RADHA) GLUCOSE results called to an d read back by JEFF PURCELL/KODY AT 10/14/2019 11:48 BY LM1. Rg MethodistComprehensive metabolic yktes4038-87-13 11:40:33* Test Item Value Reference Range Interpretation Comments Sodium (test code = 2951-2) 131 135- 148 mEq/L L Potassium (test code = 2823-3) 4.2 3.5- 5.0 mEq/L Chloride (test code = 2075-0) 92 98- 112 mEq/L L CO2 (test code = 2027-9) 20 24- 31 mEq/L L Anion gap (test code = 11560-7) 19@ANIO 7- 15 mEq/L H BUN (test code = 3094-0) 19 mg/dL 8-23 Creatinine (test code = 2160-0) 0.93 mg/dL 0.5-0.9 H Glucose (test code = 2345-7) 489 mg/dL 65-99 HH Calcium (test code = 07133-6) 10.3 mg/dL 8.8-10.2 H Protein (test code = 2885-2) 8.2 g/dL 6.3-8.3 -[place] 4.6- 7.0 g/dL1 week 4.4-7.6 g/dL7 months-1year 5.1-7.3 g/dL1-2 years 5.6-7.5 g/dL>3 years 6.0-8.0 g/mA16-212 6.3-8.3 g/dL Albumin (test code = 1751-7) 3.3 g/dL 3.5-5 L A/G ratio (test code = 1759-0) 0.7 0.7-3.8 Alkaline phosphatase (test code = 6768-6) 81 U/L 35-104 AST (test code = 1920-8) 12 U/L 10-35 ALT (test code = 1742-6) 9 U/L 5-50 Total bilirubin (test code = 1974-2) 0.3 mg/dL 0-1.2 Lab Interpretation (test code = 28030-4) Abnormal [facility] with platelet and cdwruiewhccr3663-00-75 10:59:18* Test Item Value Reference Range Interpretation Comments WBC (test code = 02644-9) 8.91 4.50- 11.00 k/uL RBC (test code = 43688-9) 4.60 m/uL 4.2-5.5 HGB (test code = 718-7) 9.6 g/dL 12-16 L HCT (test code = 4544-3) 33.9 % 37-47 L MCV (test code = 787-2) 73.7 fL 82-100 L MCH (test code = 785-6) 20.9 pg 27-34 L MCHC (test code = 786-4) 28.3 g/dL 31-37 L RDW - SD (test code = 65275-2) 43.4 fL 37-55 MPV (test code = 90072-2) 10.3 fL 8.8-13.2 Platelet count (test code = 94507-5) 406 150- 400 k/uL H Nucleated RBC (test code = 38159-9) 0.00 /100 WBC Neutrophils (test code = 60830-8) 70.8 % 39-69 H Lymphocytes (test code = 51705-4) 21.0 % 25-45 L Monocytes (test code = 35899-4) 6.6 % 0-10 Eosinophils (test code = 36045-0) 0.9 % 0-5 Basophils (test code = 77279-9) 0.4 % 0-1 Immature granulocytes (test code = 61581-5) 0.3 % 0-1 "Immature granulocytes" (promyelocytes, myelocytes, metamyelocytes) Lab Interpretation (test code = 17237-5) Abnormal Hugo MethodistXR Chest 1 Fahbmzwn8782-20-81 10:57:12Hm Interface, Radiology Results 10/14/2019 11:00 AM CDTExamination: XR CHEST 1 PORTABLEClinical history: "SOB" Comparison: None IMPRESSION: Lungs are clear. Lung volumes are low. Cardiomediastinal silhouette is within normal limits. Suspicious osseous lesion is not seen. [facility]-[id number] MethodistECG ED Preliminary Interpretation - Not an Order 2019-10-14 10:37:26* Test Item Value Reference Range Interpretation Comments RADHA (test code = RADHA) Delvin Alfonso DO 5:14 [facility] ED Preliminary Interpretation - Not an OrderPerformed by: Delvin Alfonso DOAuthorized by: Delvin Alfonso DO ECG reviewed by ED Physician in the absence of a web content coordinator: yes Interpretation: Interpretation: abnormal Rate: ECG rate: 110 ECG rate assessment: tachycardic Rhythm: Rhythm: sinus tachycardia ST segments: ST segments: Normal Lab Interpretation (test code = 82862-5) Abnormal [facility] WIAS0881-82-05 10:37:26SDelvin arnold DO 10/16/2019 5:14 PMCritical CarePerformed by: Delvin Alfonso DOAuthorized by: Delvin Alfonso, Critical care provider statement: Critical care time [...] of patient's condition and [facility] rapid strep S3006-67-39 16:25:00* Test Item Value Reference Range Interpretation Comments Rapid strep A antigen result (test code = 67152-3) Negative Neg ative [facility] Influenza A/K5895-06-73 16:25:00* Test Item Value Reference Range Interpretation Comments Rapid Influenza A Ag (test code = 58566-5) negative Rapid Influenza B Ag (test code = 07561-6) negative Hugo MethodistFerritin chbcd3482-77-42 14:57:00* Test Item Value Reference Range Interpretation Comments Ferritin level (test code = 2276-4) 11 ng/mL 16-288 L RAC (test code = RAC) Performing Organization Info rmation: Site ID: RGA Name: [facility] Address: [address] [place] [phone] Director: Delvin Yin Lab Interpretation (test code = 18452-4) Abnormal Hugo MethodistThyroid stimulating haftxpb5804-44-35 14:57:00* Test Item Value Reference Range Interpretation Comments TSH (test code = 3016-3) 1.26 0.40- 4.50 mIU/L RAC (test code = RAC) Performing Organization Info rmation: Site ID: RGA Name: [facility] Address: [address] [place] [phone] Director: Delvin Yin Hugo MethodistTotal iron binding debljafc6361-23-12 14:57:00* Test Item Value Reference Range Interpretation Comments Iron level (test code = 2498-4) 29 45- 160 mcg/dL L Iron binding capacity (test code = 2500-7) 466 250- 450 mc g/dL (calc) H Iron saturation (test code = 2502-3) 6 16- 45 % (calc) L RAC (test code = RAC) Performing Organization Info rmation: Site ID: RGA Name: [facility] Address: [address] [place] [phone] Director: Delvin Yin Lab Interpretation (test code = 48713-2) Abnormal Hugo MethodistMAMMOGRAPHY DIGITAL SCR PIWGF9104-03-00 09:41:00 [place] [address] Patient Name: YVES LUGO MR #: [id number] : 1955 Age/Sex: 63/F Req #: [id number] Adm Physician: Ordered by: OCTAVIO BACON MD Report #: [id number] Location: MAMMO Room/Bed: Procedure: [id number] M G/MAMMOGRAPHY DIGITAL SCR BILAT Exam Date: 09/12/18 Exam Time: 932 REPORT STATUS: Sign ed #[id number] - MGSCRBIL #BILATERAL DIGITAL SCREENING MAMMOGRAM WITH CAD: 09/12/2018 CLINICAL: Routine screening. Comparison is made to exams dated: 07/30/2014 mammogram and 05/23/2013 mammogram - [facility]. The tissue of both breasts is predominantly [...] the results. MICHAELA ULLOA M.D., mc/ashok:09/24/2018 09:38:10 Gi Physician: Irlanda GÓMEZ)(Edward), [facility] letter sent: Normal Exam Mammogram BI-RADS: 2 Benign Dictated By: CHERI ULLOA MD 7 Transcribed By: ASHOK on 12/06 COPY TO: OCTAVIO BACON MD
--- OUTSIDE RECORDS SUMMARY | 2020-03-06 23:21 | XMS REPORT | Clinical Summary ---
Author Author Rg Denominational Organization Rg Denominational Address Unknown Phone Unavailable Care Team Providers Care Accountant Tax Name Role Phone Becky Pittman MD PCP [phone] Allergies No Known Active Allergies Medications End [...] day. without long-term current use of insulin ([facility]) 04/07/2019 Discontinued (Alternate ther apy) losartan (COZAAR) [...] H/O colonoscopy 1 polyp (04/07); Dr West [phone] Family History Medical History Relation Name Comments [...] 10/15/2019 CONTRAST, W DOPPLER 11:00 AM CDT ([id number]) POC GLUCOSE Routine 10/15/2019 7:08 AM CDT [...] PRELIMINARY Routine 10/14/2019 INTERPRETATION 10:37 AM CDT OR CRITICAL CARE, E/M Routine 10/14/2019 30-74 MINUTES [...] 05/16/2019 Upper respi ratory tract 4:25 PM BRICK PAVER infection, unspecified type POCT INFLUENZA A/B Routine 05/16/2019 Upper respi ratory tract 4:25 PM BRICK PAVER infection, unspecified type TOTAL IRON BINDING Routine 04/07/2019 Iron defici ency anemia, CAPACITY 4:03 PM BRICK PAVER unspecified iron deficiency anemia type FERRITIN LEVEL Routine 04/07/2019 Iron deficiency anemia, 4:03 PM BRICK PAVER unspecified iron deficiency anemia type CBC WITH PLATELET AND Routine 04/07/2019 Iron def iciency anemia, DIFFERENTIAL 4:03 PM BRICK PAVER unspecified iron deficiency anemia type THYROID STIMULATING Routine 04/07/2019 Essential hypertension HORMONE 4:03 PM BRICK PAVER Fatigue, unspecifie d type HEMOGLOBIN A1C Routine 04/07/2019 Type 2 diabetes mellitus 4:03 PM BRICK PAVER without complication, without long-term current use of insulin (HCC) URINALYSIS, AUTOMATED Routine 04/07/2019 Essentia l hypertension WITH MICROSCOPY 4:03 PM BRICK PAVER COMPREHENSIVE METABOLIC Routine 04/07/2019 Essent ial hypertension PANEL 4:03 PM BRICK PAVER after 03/06/2019 Results * Urinalysis, automated with microscopy (10/24/2019 4:20 PM CDT) Only the most recent of 3 results within the time period is included. Color, UA YELLOW YELLOW [facility] [place] Appearance CLOUDY (A) CLEAR [facility] [place] Specific 1.016 1.001 - 1.035 [facility] gravity, urine [facility] [place] pH, urine 6.0 5.0 - 8.0 [facility] [place] Glucose, urine 3+ (A) NEGATIVE [facility] [place] Bilirubin, UA NEGATIVE NEGATIVE [facility] [place] Ketones, UA NEGATIVE NEGATIVE [facility] [place] Occult blood, TRACE (A) NEGATIVE [facility] [place] Protein, UA 1+ (A) NEGATIVE [facility] [place] Nitrite, UA NEGATIVE NEGATIVE [facility] [place] Leukocyte 2+ (A) NEGATIVE [facility] esterase, UA [facility] [place] WBC, UA 20-40 (A) < OR = 5 /HPF [facility] [place] RBC, UA 0-2 < OR = 2 /HPF [facility] [place] Squamous 0-5 < OR = 5 /HPF [facility] epithelial DIAGNOSTICS cells, UA [place] Bacteria, UA FEW (A) NONE SEEN /HPF [facility] [place] Calcium oxalate FEW NONE OR FEW /HPF [facility] crystals, [facility] [place] Hyaline casts, NONE SEEN NONE SEEN /LPF [facility]A [facility] [place] Specimen Blood Resulting Agency Comment Performing Organization Information: Site ID: A Name: [facility] Address: [address] [place] [phone] Director: Delvin Yin Performing Organization Address [facility] P benita Number [facility] [place] [phone] 72 * Urine culture (10/24/2019 4:20 PM CDT) Pathologist [facility] Urine culture SEE NOTE [facility] Comment: DIAGNOSTICS CULTURE, URINE, ROUTINE [place] Micro Number: [id number] Test Status: Final Specimen Source: NOT GIVEN Specimen Quality: Adequate Result: Multiple organisms present, each less than 10,000 CFU/mL. These organisms, commonly found on external and internal genitalia, are considered to be colonizers. No further testing performed. Specimen Urine Resulting Agency Comment Performing Organization Information: Site ID: [facility] Name: [facility] Address: [address] [place] [id number] Director: Delvin Yin Performing Organization Address [facility] P benita Number [place] [phone] * Basic metabolic panel (10/24/2019 4:20 PM CDT) Only the most recent of 2 results within the time period is included. Glucose 181 (H) 65 - 99 mg/dL [facility] Comment: DIAGNOSTICS Fasting [place] reference interval For someone without known diabetes, a glucose value >125 mg/dL indicates that they may have diabetes and this should be confirmed with a follow-up test. BUN 8 7 - 25 mg/dL [facility] Creatinine 0.90 0.50 - 0.99 mg/dL [facility] Comment: DIAGNOSTICS For patients >49 years of age, [place] the reference limit for Creatinine is approximately 13% higher for people identified as -Cameroonian. EGFR Non-Afr. 68 > OR = 60 [facility] Cameroonian mL/min/1.73m2 [facility] [place] EGFR 78 > OR = 60 [facility] [place] mL/min/1.73m2 [facility] BUN/creatinine NOT APPLICABLE 6 - 22 (calc) [facility] ratio [facility] [place] Sodium 137 135 - 146 mmol/L [facility] [place] Potassium 3.4 (L) 3.5 - 5.3 mmol/L [facility] [place] Chloride 101 98 - 110 mmol/L [facility] [place] CO2 25 20 - 32 mmol/L [facility] [place] Calcium 9.6 8.6 - 10.4 mg/dL [employer] [place] Specimen Blood Resulting Agency Comment Performing Organization Information: Site ID: RGA Name: [facility] Address: [address] [place] [address] Director: Delvin Yin Performing Organization Address City/State/[facility] Code P benita Number [employer] [place] [address] [place] [phone] * POC glucose (10/24/2019 4:01 PM CDT) Only the most recent of 7 results within the time period is included. Pathologist [facility] POC glucose 196 65 - 100 Specimen Blood * ECG 12 lead (10/15/2019 11:23 AM CDT) Only the most recent of 2 results within the time period is included. Pathologist [facility] Ventricular 77 [facility] rate Atrial rate 77 [facility] OR interval 156 [facility] QRSD interval 86 [facility] QT interval 412 [facility] QTC interval 466 [facility] P axis 1 24 [facility] QRS axis 1 8 [facility] T wave axis 22 [facility] EKG impression Normal sinus rhythm-Normal [facility] MUSE ECG-In automated comparison with ECG of 14-OCT-2019 10:21,-ST no longer depressed in Lateral leads- Specimen Narrative Performed At This result has an attachment that is n ot available. Performing Organization Address City/[facility] P benita Number [facility] MUSE [address] [place] [address] * Transthoracic Echocardiogram Complete, (w Contrast, Strain and 3D if needed) (10/15/2019 11:00 AM CDT) Specimen Narrative Performed At [facility] Echo cardiography Report [address] [place] [address] Pat.Name: CARMELINA PIERSON Pat.ID: [id number] .Date: 10/15/2019 Refer.MD: LEONEL CRUZ MD Exam Time: 10:13:00 AM Study Type:Routine Echo Height: 66in Weight: 209lb BSA: 2.04 m2 Age: 1 1955,64Y Sex: FEMALE BP: 117/75 HR: 82 bpm Sonogrphr: JUDY Pemberton, RVS Pat. Stat.:Inpatient Room: A7036 Study Status:Final Echo Event ID:[id number] Order ID: [id number] Reason for Study:HF - Initial eval of [...] pr essures. Other: Insufficient TR jet to jose r mate PA systolic pressure. MEASUREMENTS: 2D Parasternal Long Kamiah Ao An 2.1 cm LVPWd 0.93 cm [...] 10/15/2019 12:44 PM CDT Echocardiography Report [address] [place] [address] Pat.Name: CARMELINA PIERSON Pat.ID: [id number] .Date: 10/15/2019 Refer.MD: LEONEL CRUZ MD Exam Time: 10:13:00 AM Study Type:Routine Echo Height: 66in Weight: 209lb BSA: 2.04 m2 Age: 1 1955,64Y Sex: FEMALE BP: 117/75 HR: 82 bpm Sonogrphr: JUDY Pemberton RVS Pat. Stat.:Inpatient Room: [facility] Study Status:Final Echo Event ID:[id number] Order ID: [id number] Reason for Study:HF - Initial eval of [...] regurgitation. TV: No structural TV abnormalities noted. Doyle: Diastolic dysfunction Grade I (Mild): Impaired relaxation with normal LV filling pressures. Other: Insufficient TR jet to estimate PA systolic pressure. MEASUREMENTS: 2D Parasternal Long Kamiah Ao An 2.1 cm LVPWd 0.93 cm [...] PM Dagmar Winters M.D. Performing Organization Address City/[facility]/ZIP Code P benita [facility] [address] [place] [address] * Estimated GFR (10/15/2019 3:31 AM CDT) Only the most recent of 2 results within the time period is included. Estimated GFR 80 mL/min/1.73 m2 [place] Comment: [place] [facility] Interpretation G1 >=90 Normal or high [...] 2014. Specimen Performing Organization Address [facility] P benita Number [facility] [address] PATHOLOGY AND GENOMIC MEDICINE [place] [address] * Hemoglobin A1c (10/15/2019 3:31 AM CDT) Only the most recent of 3 results within the time period is included. Hemoglobin A1C 11.6 (H) 4.0 - 5.6 % [place] Comment: [place] HbA1c cutoffs for diagnosing HOSPITAL diabetes: 4.0% [...] Specimen Blood Performing Organization Address [facility]/ZIP Code P benita Number [facility] DEPARTMENT OF [address] [place] [address] PATHOLOGY AND GENOMIC MEDICINE [place] [address] * Lipid panel (10/15/2019 3:31 AM CDT) Only the most recent of 2 results within the time period is included. Cholesterol 198 <200 mg/dL [facility] Triglycerides 239 (H) <150 mg/dL [facility] HDL cholesterol 34 (L) >40 mg/dL [facility] LDL cholesterol 145 (H)Comment: Result <100 mg/dL [place] [facility] obtained by direct LDL [facility] interpretation Comment: [place] Total Cholesterol (mg/dL) [facility] <200 Desirable 200-239 Borderline-high >=240 High Triglycerides [...] (>=200 mg/dL) Specimen Blood Performing Organization Address City/[facility]/ZIP Code P benita Number [facility] DEPARTMENT OF [address] [place] [address] PATHOLOGY AND GENOMIC MEDICINE [address] * Troponin (10/14/2019 5:02 PM CDT) Only the most recent of 3 results within the time period is included. Troponin <0.006 0.000 - 0.040 ng/mL [place] Comment: [place] In patients suspected of HOSPITAL having a [...] Organization Address City/State/ZIP Code P benita Number [facility] DEPARTMENT OF [address] [place] [address] PATHOLOGY AND GENOMIC MEDICINE [place] [address] * CT Cardiac Overread (10/14/2019 2:37 PM CDT) Specimen Narrative Performed At EXAMINATION: CT CARDIAC OVERREAD [facility] CL[facility]ICAL HISTORY: Radiology overread of imaging performed [...] City/State/ZIP Code P benita Number [facility] [address] [place] [address] * Cv cta coronary arteries w contrast and ffr if needed (10/14/2019 2:36 PM CDT) Specimen Narrative Performed At [facility] Nuclear Cardi ology and Cardiac CT [address] [facility] [address], [place] [address] Department Number: [phone] CTA Coronary Arteries w/ Calcium Scoring Report Pat.Name: CARMELINA PIERSON Shraddha.ID: [id number] St.Date: 10/14/2019 Refer.MD: LEONEL CRUZ MD. Exam Time: 1:58:00 PM Study Type:CTA Coronary Arteries with C alcium Scoring Height: 66in BSA: 2.06 m2 Age: 1 1955,64Y Sex: FEMALE BP: 162/80 HR: 75 bpm Nuclear Tech:ASHLEY Franco(N)(CT ) CPT - 4: CCTA w Thoracic Aorta (No nCongenital) [id number] Nuclear Event ID:[id number] Order ID: [id number] Reason for Study:ED [facility] Path way, Chest pain Procedures: CT Prospective (Intervals), CT Flash Mode with Planning Scan Race: C SUMMARY: Technique: IV contrast was administered and sequential 0.[address] cuts were obtained through the chest using he Siemens Somatom Force CT scanner. Image post-processing consisti ng of multiplanar and 3D reconstructions were performed using [employer]tests workstation. Interactive image viewing, volumetric display, and [...] branch and a large f irst septal processing spec artery. No significant atherosclerotic plaque i s [...] separate radiology report in [facility] for any additional non-cardiovascular findings. STUDY QUALITY The study quality is excellent. COMMENTS: None. FINDINGS: Signed 10/14/2019 05:15 PM Juan Carlos Buckner MD Procedure Note Interface, Radiology Results In - 10/14/2019 5:15 PM CDT Nuclear Cardiology and Cardiac CT [address] [place] [address] Department Number: [phone] CTA Coronary Arteries w/ Calcium Scoring Report Pat.Name: CARMELINA PIERSON Pat.ID: [id number] .Date: 10/14/2019 Refer.MD: LEONEL CRUZ MD. Exam Time: 1:58:00 PM Study Type:CTA Coronary Arteries with Calcium Scoring Height: 66in BSA: 2.06 m2 Age: 1 1955,64Y Sex: FEMALE BP: 162/80 HR: 75 bpm Nuclear Tech:ASHLEY Franco(N)(CT) CPT - 4: CCTA w Thoracic Aorta (NonCongenital) [id number] Nuclear Event ID:[id number] Order ID: [id number] Reason for Study:ED [facility] ACS Pathway, Chest pain Procedures: CT Prospective (Intervals), CT Flash Mode with Planning Scan Race: C SUMMARY: Technique: IV contrast was administered and sequential 0.[address] cuts were obtained through the chest using the Siemens Somatom Force CT scanner. Image post-processing consisting of multiplanar and 3D reconstructions were performed using the [employer] workstation. Interactive image viewing, volumetric display, and [...] diagonal branch and a large first septal processing spec artery. No significant atherosclerotic plaque is present. [...] separate radiology report in [facility] for any additional non-cardiovascular findings. STUDY QUALITY The study quality is excellent. COMMENTS: None. FINDINGS: Signed 10/14/2019 05:15 PM Juan Carlos Buckner MD Performing Organization Address [facility]/ZIP Code P beniat Number [facility] [address] [place] [address] * Arterial blood gas (10/14/2019 12:35 PM CDT) pH, arterial 7.47 (H) 7.35 - 7.45 [facility] pCO2, arterial 34 (L) 35 - 45 mmHg [facility] pO2, arterial 91 (H) 80 - 90 mmHg [facility] Bicarbonate, 24.4 21.0 - 28.0 mmol/L [facility] Base excess, 2 -2 - 2 mEq/L [facility] O2 saturation, 98 95 - 100 % [facility] Specimen Blood Performing Organization Address [facility]/ZIP Code P benita Number [facility] DEPARTMENT OF [address] [place] [address] PATHOLOGY AND GENOMIC MEDICINE [address] * Beta hydroxybutyrate (10/14/2019 12:07 PM CDT) Beta 0.14 0.02 - 0.27 mmol/L [facility] Specimen Serum Performing Organization Address City/State/ZIP Code P benita Number [facility] DEPARTMENT OF [address] [place] [address] PATHOLOGY AND GENOMIC MEDICINE [address] * XR Chest 1 Vw Portable (10/14/2019 10:56 AM CDT) Specimen Narrative Performed At Examination: XR CHEST 1 VW PORTABLE [facility] Clinical history: "SOB" Comparison: None IMPRESSION: Lungs are clear. Lung volum es are low. Cardiomediastinal silhouette is within normal limits. Suspicious oss eous lesion is not seen. [id number] Procedure Note Hm Interface, Radiology Results Incoming - 10/14/2019 11:00 AM CDT Examination: XR CHEST 1 VW PORTABLE Clinical history: "SOB" Comparison: None IMPRESSION: Lungs are clear. Lung volumes are low. Cardiomediastinal silhouette is within normal limits. Suspicious osseous lesion is not seen. [id number] Performing Organization Address City/State/[place] [address] * ECG ED Preliminary Interpretation - Not an Order (10/14/2019 10:37 AM CDT) Narrative Performed At Delvin Alfonso DO 10/16/2019 5:14 PM ECG ED Preliminary Interpretation - Not an Order Performed by: Delvin Alfonso DO Authorized by: Delvin Alfonso DO ECG reviewed by ED Physician in the abs ence of a market survey representative: yes Interpretation: Interpretation: abnormal Rate: ECG rate: [...] included. WBC 8.91 4.50 - 11.00 k/uL [facility] RBC 4.60 4.20 - 5.50 m/uL [facility] HGB 9.6 (L) 12.0 - 16.0 g/dL [facility] HCT 33.9 (L) 37.0 - 47.0 % [facility] MCV 73.7 (L) 82.0 - 100.0 fL [facility] MCH 20.9 (L) 27.0 - 34.0 pg [facility] MCHC 28.3 (L) 31.0 - 37.0 g/dL [facility] RDW - SD 43.4 37.0 - 55.0 fL [facility] MPV 10.3 8.8 - 13.2 fL [facility] Platelet count 406 (H) 150 - 400 k/uL [facility] Nucleated RBC 0.00 /100 WBC [facility] Neutrophils 70.8 (H) 39.0 - 69.0 % [facility] Lymphocytes 21.0 (L) 25.0 - 45.0 % [facility] Monocytes 6.6 0.0 - 10.0 % [facility] Eosinophils 0.9 0.0 - 5.0 % [facility] Basophils 0.4 0.0 - 1.0 % [facility] Immature 0.3Comment: "Immature 0.0 - 1.0 % [place] granulocytes granulocytes" (promyelocytes, [facility] myelocytes, metamyelocytes) HOSPITAL Specimen Blood Performing Organization Address City/[facility] P benita Number [facility] DEPARTMENT OF [address] [place] [address] PATHOLOGY AND GENOMIC MEDICINE [address] * B natriuretic peptide (10/14/2019 10:35 AM CDT) [facility] BNP 14 0 - 100 pg/mL [facility] Specimen Blood Narrative Performed At [facility] results called to and read back by _NAINA KRAMER/KODY AT [facility] DEPARTMENT OF 10/14/2019 11:48 BY LM1. PATHOLOGY AND GENOMIC MEDICINE Performing Organization Address [facility] P benita Number [facility] DEPARTMENT OF [address] [place] [address] PATHOLOGY AND GENOMIC MEDICINE [address] * Comprehensive metabolic panel (10/14/2019 10:35 AM CDT) Only the most recent of 2 results within the time period is included. Sodium 131 (L) 135 - 148 mEq/L [facility] Potassium 4.2 3.5 - 5.0 mEq/L [facility] Chloride 92 (L) 98 - 112 mEq/L [facility] CO2 20 (L) 24 - 31 mEq/L [facility] Anion gap 19@ANIO (H) 7 - 15 mEq/L [facility] BUN 19 8 - 23 mg/dL [facility] Creatinine 0.93 (H) 0.50 - 0.90 mg/dL [facility] Glucose 489 (HH) 65 - 99 mg/dL [facility] Calcium 10.3 (H) 8.8 - 10.2 mg/dL [facility] Protein 8.2 6.3 - 8.3 g/dL [place] Comment: [facility] 4.6-7.0 g/dL 1 week 4.4-7.6 g/dL 7 months-1year 5.1-7.3 g/dL 1-2 years 5.6-7.5 g/dL >3 years 6.0-8.0 g/dL 18-150 6.3-8.3 g/dL Albumin 3.3 (L) 3.5 - 5.0 g/dL [facility] A/G ratio 0.7 0.7 - 3.8 [facility] Alkaline 81 35 - 104 U/L [place] phosphatase [facility] AST 12 10 - 35 U/L [facility] ALT 9 5 - 50 U/L [facility] Total bilirubin 0.3 0.0 - 1.2 mg/dL [facility] Specimen Blood Performing Organization Address [facility] P benita Number [facility] DEPARTMENT OF [address] [place] [address] PATHOLOGY AND GENOMIC MEDICINE [address] * POC Influenza A/B (05/16/2019 4:25 PM BRICK PAVER) [facility] Rapid Influenza negative A Ag Rapid Influenza negative B Ag Specimen Nares * POC rapid strep A (05/16/2019 4:25 PM BRICK PAVER) [facility] Rapid strep A Negative Negative antigen result Specimen Swab * Total iron binding capacity (04/07/2019 4:03 PM BRICK PAVER) [facility] Iron level 29 (L) 45 - 160 mcg/dL [facility] Iron binding 466 (H) 250 - 450 mcg/dL [facility] capacity (calc) [facility] Iron saturation 6 (L) 16 - 45 % (calc) [facility] Specimen Blood Resulting Agency Comment Performing Organization Information: Site ID: [id number] Name: [facility] Lab Address: [address] [place] [phone] Director: Delvin Yin Performing Organization Address City/[facility]/ZIP [facility] P benita Number [place] [address] [address] * Thyroid stimulating hormone (04/07/2019 4:03 PM BRICK PAVER) [facility] TSH 1.26 0.40 - 4.50 mIU/L [facility] Specimen Blood Resulting Agency Comment Performing Organization Information: Site ID: RGA Name: [facility] Address: [address] [place] [phone] Director: Delvin Yin Performing Organization Address City/[facility]/ZIP Code P benita Number GISELL Kimble [facility] [address] [place] [phone] * Ferritin level (04/07/2019 4:03 PM BRICK PAVER) Ferritin level 11 (L) 16 - 288 ng/mL [employer] [place] Specimen Blood Resulting Agency Comment Performing Organization Information: Site ID: RGA Name: [facility] Address: [address] [place] [phone] Director: Delvin Yin Performing Organization Address [facility] Code P benita Number GISELL Kimble [facility] [address] [place] [phone] 72 after 03/06/2019 Insurance Type Payer Benefit Subscriber ID Effective Phone Address Plan / Dates Group HMO AETNA AETNA [id number] [id number] HMO,POS,EP resent O, MC/EC Advance Directives For more information, please contact: [phone] Patient Library Science Instructor Explanation Type Date Recorded Advance Directives, Living Will and Medical Power of Call Center Director
[2020-03-07] VITALS (9 sets, daily range): BP systolic 90–118; BP diastolic 44–72
[2020-03-07] MEDS: CEFTRIAXONE SOD 1 GM/NS 50 ML 50 ML IV SCH ×2 (00:32→23:05)
[2020-03-07 00:42] LABS: CLARITY,URINE CLOUDY (CLEAR); COLOR,URINE YELLOW (YELLOW)
[2020-03-07 00:43] LABS: BACTERIA,URINE MANY /HPF; BILIRUBIN,URINE SMALL (NEGATIVE); EPITHELIAL CELLS,URINE MANY /LPF; KETONES,URINE TRACE (NEGATIVE); LEUKOCYTE ESTERASE ,URINE TRACE (NEGATIVE); NITRITE,URINE NEGATIVE (NEGATIVE); PROTEIN,URINE DIPSTICK 2+ (NEGATIVE); RBC,URINE >50 /HPF (0-5); URINE UROBILINOGEN 0.2 mg/dL (0.2 - 1); WBC,URINE (MAN) >50 /HPF (0-5)
[2020-03-07] MEDS: AZITHROMYCIN 500MG/NS 250 ML 250 ML IV SCH ×2 (01:37→23:45)
[2020-03-07] MEDS: SODIUM CHLORIDE 0.9% 1000ML 1,000 ML IV SCH ×5 (01:37→20:44)
--- NOTE | 2020-03-07 02:00 | NUR ---
RECEIVED PATIENT FROM ER IN STABLE CONDITION, NO SIGNS OF DISTRESS NOTED. IV FLUIDS ARE RUNNING AT ORDERED RATE AND PATIENT VOICES NO PAIN THIS TIME. PATIENT ENCOURAGED TO USE CALL LIGHT FOR ASSISTANCE. BED IS IN LOW POSITION, BOTH SIDE RAILS ARE UP, CALL LIGHT IS WITHIN EASY REACH, WILL CONTINUE TO MONITOR.
[2020-03-07] MEDS: ONDANSETRON HCL INJ 2MG/ML 2ML 2 MG/ML VIAL IV PRN ×4 (02:18→12:15)
[2020-03-07] MEDS ORDERED: PROMETHAZINE HC25 M1 PO (05:21)
[2020-03-07] MEDS ORDERED: ALPRAZOLAM0.5 MG PO (05:21)
[2020-03-07] MEDS ORDERED: PIOGLITAZONE HC45 MG PO (05:21)
[2020-03-07 06:44] LABS: BASOPHILS % 0.3 % (0.0-1.0); EOSINOPHILS # (AUTO) 0.1 (0.0-0.4); HEMATOCRIT 32.2 % (34.2-44.1); HEMOGLOBIN 9.6 g/dL (12.0-16.0); LYMPHOCYTES # (AUTO) 2.5 (1.0-3.2); MEAN CORPUSCULAR HEMOGLOBIN 23.4 pg (28-32); MEAN CORPUSCULAR HGB CONC 29.8 g/dL (31-35); MEAN CORPUSCULAR VOLUME 78.3 fL (81-99); MONOCYTES # (AUTO) 0.9 (0.2-0.8); MONOCYTES % 9.9 % (4.4-11.3); NEUTROPHILS # (AUTO) 5.2 (2.1-6.9); NEUTROPHILS % 59.5 % (38.7-80.0); PLATELET COUNT 344 x10e3/uL (140-360); RED BLOOD COUNT 4.11 x10e6/uL (3.6-5.1); RED CELL DISTRIBUTION WIDTH 16.5 % (11.7-14.4)
[2020-03-07 07:08] LABS: ALBUMIN/GLOBULIN RATIO 0.9 (0.8-2.0); ANION GAP 12.4 mmol/L (8-16); CALCIUM 8.7 mg/dL (8.4-10.2); CREATININE, SERUM 1.28 mg/dL (0.57-1.11); POTASSIUM 3.4 mmol/L (3.5-5.1)
[2020-03-07 07:33] LABS: CREATINE KINASE MB 0.6 ng/mL (0-5.0)
[2020-03-07] MEDS ORDERED: DEXTROSE 50% SYRINGE 50 ML IV PRN (08:15)
[2020-03-07] MEDS ORDERED: ESOMEPRAZOLE MAGNESIUM PO SCH (09:00)
[2020-03-07] MEDS: PANTOPRAZOLE SOD 40 MG TABEC PO SCH ×2 (09:22→17:12)
[2020-03-07] MEDS: PIOGLITAZONE HCL 15 MG TAB PO SCH (09:22)
[2020-03-07] MEDS: ESCITALOPRAM OXALATE 10 MG TAB PO SCH (09:22)
--- NOTE | 2020-03-07 10:31 | History and Physical ---
REASON FOR ADMISSION: The patient is a 64-year-old female who came in with intractable nausea, vomiting, and inability to keep food down. HISTORY OF PRESENT ILLNESS: . Carmelina Pierson, who was seen by her primary care physician about 2 days prior to admission. The patient started with elevated amount of blood sugars and new medications added to the regimen. The patient also started with intractable nausea yesterday came and called me. The patient was given promethazine, was asked to come in if the symptoms were not abating to watch for dehydration and also for possible DKA. Currently, the patient came in and was found to have mild dehydration and also questionable pneumonic patch and x-ray. PAST MEDICAL HISTORY: History of hypertension, history of hyperlipidemia, history of diabetes mellitus, history of depression, history of anxiety. The patient also has history of frequent UTIs and history of recent cellulitis of right upper arm. ALLERGIES: NO DRUG ALLERGIES. PAST SURGICAL HISTORY: History of bypass surgery, history of kidney stents for kidney stones, history of tummy tuck or abdominoplasty. FAMILY HISTORY: Positive for father with pulmonary embolism. Mother with myocardial infarction. Mother with lung cancer. Father with coronary artery disease with CABG and the patient also has history of lithotripsies for kidney stones. SOCIAL HISTORY: No EtOH. No IV drug abuse. No history of smoking at this time. She is retired. REVIEW OF SYSTEMS: Negative for chest pain. No shortness of breath. Positive for abdominal pain. No constipation. Positive for nausea and vomiting and no diarrhea. No chills. No back pain. No diplopia. No blurry vision. MEDICATIONS: She takes at home include: 1. Alprazolam 0.5 mg as needed. 2. Escitalopram 10 mg daily. 3. Esomeprazole 40 mg for reflux esophagitis. 4. Glipizide 10 mg ER. 5. Losartan 100 mg. 6. Metformin 500 mg q.24 hours. 7. Reglan 10 mg for her gastroparesis. 8. Metoprolol 25 mg ER. 9. Pioglitazone 45 mg. PHYSICAL EXAMINATION: GENERAL: The patient is alert and oriented x3, in better spirits right now. She is not nauseous. VITAL SIGNS: Temperature is 97.7, pulse of 96, respirations 17, blood pressure is 116/44, yesterday was 90/47, O2 at room air 98%. HEENT: Normocephalic atraumatic. CVS: S1, S2. Normal regular rate and rhythm. ABDOMEN: Soft, nontender, nondistended. EXTREMITIES: No clubbing, no cyanosis, no edema. LABORATORY DATA: Initially white count was 11.61, hemoglobin of 12.8, hematocrit 42.8 with a platelet count of 473. The patient's current one hemoglobin is down to 9.6 and hematocrit of 32.2. Chemistry shows sodium of 134 yesterday with a BUN of 24 with a creatinine of 1.40. Lactic acid was 1.8. Troponins were negative x2. Glucoses in the 140s to 170s. Serology coronavirus is pending. MICROBIOLOGY: Blood cultures and urine cultures are pending. IMAGING STUDIES: A brain CT was done yesterday showed mild generalized white matter microvascular ischemic changes. Chest x-ray done yesterday showed mild right perihilar haziness could represent bronchovascular shadow versus developing pneumonia. ASSESSMENT: This is Ms. Carmelina Pierson with: 1. Dehydration. 2. Acute renal failure. 3. Hypertension secondary to volume depletion. 4. Questionable pneumonia. 5. Diabetes mellitus. 6. Hypertension. 7. History of diabetes with gastroparesis also secondary to bypass surgery. PLAN: 1. Continue with current medication. The patient still is getting hydrated. Kidneys are looking better. We will need a CT scan to delineate need for antibiotic and also for delineating a pneumonic process. 2. Acute dehydration with acute renal failure. Continue with IV fluid resuscitation. 3. Diabetes. We will put on sliding scale. 4. Hypertension. We will hold back on hypertensive secondary to low blood pressures. Continue to monitor the patient. Further recommendation per clinical course. 5. Disposition. We will discharge today depending on the progression of the patient's symptoms. MD ADRIANA WilsonJ/MODL /[id number]
[2020-03-07] MEDS: INSULIN LISPRO 100 UNIT/1 ML 3ML VIAL SQ SCH ×3 (12:18→20:35)
[2020-03-07 15:49] LABS: CREATINE KINASE MB 0.6 ng/mL (0-5.0)
[2020-03-07] MEDS: ALPRAZOLAM 0.5 MG TAB PO PRN (20:35)
[2020-03-08] VITALS (9 sets, daily range): BP systolic 112–129; BP diastolic 62–77
[2020-03-08] MEDS: ONDANSETRON HCL INJ 2MG/ML 2ML 2 MG/ML VIAL IV PRN (02:36)
[2020-03-08 05:41] LABS: BASOPHILS % 0.5 % (0.0-1.0); EOSINOPHILS # (AUTO) 0.2 (0.0-0.4); EOSINOPHILS % 2.8 % (0.0-6.0); HEMATOCRIT 28.9 % (34.2-44.1); HEMOGLOBIN 8.6 g/dL (12.0-16.0); LYMPHOCYTES # (AUTO) 2.5 (1.0-3.2); LYMPHOCYTES % 39.7 % (18.0-39.1); MEAN CORPUSCULAR HEMOGLOBIN 23.4 pg (28-32); MEAN CORPUSCULAR HGB CONC 29.8 g/dL (31-35); MEAN CORPUSCULAR VOLUME 78.5 fL (81-99); MONOCYTES # (AUTO) 0.6 (0.2-0.8); MONOCYTES % 8.8 % (4.4-11.3); NEUTROPHILS # (AUTO) 3.1 (2.1-6.9); NEUTROPHILS % 47.9 % (38.7-80.0); PLATELET COUNT 308 x10e3/uL (140-360); RED BLOOD COUNT 3.68 x10e6/uL (3.6-5.1); RED CELL DISTRIBUTION WIDTH 16.6 % (11.7-14.4)
[2020-03-08 05:59] LABS: ANION GAP 9.5 mmol/L (8-16); BLOOD UREA NITROGEN 19 mg/dL (7-26); BUN/CREATININE RATIO 21 (6-25); CALCIUM 8.2 mg/dL (8.4-10.2); CARBON DIOXIDE 25 mmol/L (22-29); CHLORIDE 105 mmol/L (98-107); CREATININE, SERUM 0.89 mg/dL (0.57-1.11); EST GLOMERULAR FILTRATION RATE > 60 ML/MIN (60-); GLUCOSE 130 mg/dL (74-118); POTASSIUM 3.5 mmol/L (3.5-5.1); SODIUM 136 mmol/L (136-145)
[2020-03-08] MEDS: INSULIN LISPRO 100 UNIT/1 ML 3ML VIAL SQ SCH ×4 (07:30→20:59)
[2020-03-08] MEDS: METOPROLOL SUCCINATE 25 MG TAB XL PO SCH (09:04)
[2020-03-08] MEDS: SODIUM CHLORIDE 0.9% 1000ML 1,000 ML IV SCH ×3 (09:04→22:39)
[2020-03-08] MEDS: PANTOPRAZOLE SOD 40 MG TABEC PO SCH ×2 (09:06→17:37)
[2020-03-08] MEDS: PIOGLITAZONE HCL 15 MG TAB PO SCH (09:06)
[2020-03-08] MEDS: ESCITALOPRAM OXALATE 10 MG TAB PO SCH (09:11)
--- NOTE | 2020-03-08 14:33 | NUR ---
RESENT UPDATED CLINS TO R1 FOR LOC DETERMINATION. [facility] case account ending in 4119 has been reviewed and completed by PAS Physicians. Service Line: Level of Care (LOC) / Admission Status Review Initial patient type was submitted as: IO - Initial Observation PAS Recommendation: IO
--- NOTE | 2020-03-08 17:07 | NUR ---
Nutrition Screen Note RD Recommendation for Physician: -Recommend ADA diet Plan of Care: RD following, monitoring for tolerance and adequacy Nutrition reason for involvement: consult diabetic diet education Primary Diagnose(s): dehydration, generalized weakness, and pneumonia PMH: History of hypertension, history of hyperlipidemia, history of diabetes mellitus, history of depression, history of anxiety. The patient also has history of frequent UTIs and history of recent cellulitis of right upper arm. Ht: 66 in Wt:206 lb BMI: 33.2 kg/m2 IBW:[address] Assessment: (03/08/20) Chart reviewed. Labs and meds reviewed. Pt is a 64 year old female admitted with dehydration, generalized weakness, and pneumonia. Pt reports eating about 50% of her meals. No weight loss reported and pt stated she usually weighs 206 lbs. Pt reports some loose stools. RD discussed and provided written materials regarding carbohydrate counting and reading the food label. Pt verbalized understanding. Will continue to monitor. Current Diet: cardiac Malnutrition Evaluation (03/08/20) The patient does not meet criteria for a specified degree of malnutrition at this time. Will re-evaluate at follow-up as appropriate. Diet Education Needs Assessment: Diet education indicated, Learner(s): pt Barriers: no barriers identified Cultural/Language Modifications: no cultural/language modifications Readiness: eager/acceptance Method: explanation/discussion/handout Topics: carbohydrate counting and reading the food label Understanding/Compliance: pt verbalized understanding Nutrition Care Level: low Signed: Yuni Carcamo RD, LD
[2020-03-08] MEDS: CEFTRIAXONE SOD 1 GM/NS 50 ML 50 ML IV SCH (22:39)
[2020-03-08] MEDS: AZITHROMYCIN 500MG/NS 250 ML 250 ML IV SCH (22:39)
[2020-03-08] MEDS: ALPRAZOLAM 0.5 MG TAB PO PRN (22:39)
[2020-03-09] VITALS (8 sets, daily range): BP systolic 120–131; BP diastolic 67–79
[2020-03-09 06:01] LABS: BASOPHILS % 0.7 % (0.0-1.0); EOSINOPHILS # (AUTO) 0.2 (0.0-0.4); EOSINOPHILS % 3.6 % (0.0-6.0); HEMOGLOBIN 8.2 g/dL (12.0-16.0); LYMPHOCYTES # (AUTO) 2.3 (1.0-3.2); MEAN CORPUSCULAR HEMOGLOBIN 23.3 pg (28-32); MEAN CORPUSCULAR HGB CONC 29.3 g/dL (31-35); MEAN CORPUSCULAR VOLUME 79.5 fL (81-99); MONOCYTES # (AUTO) 0.4 (0.2-0.8); MONOCYTES % 7.2 % (4.4-11.3); NEUTROPHILS # (AUTO) 2.8 (2.1-6.9); NEUTROPHILS % 48.2 % (38.7-80.0); PLATELET COUNT 280 x10e3/uL (140-360); RED BLOOD COUNT 3.52 x10e6/uL (3.6-5.1); RED CELL DISTRIBUTION WIDTH 16.8 % (11.7-14.4)
[2020-03-09 06:25] LABS: ALANINE AMINOTRANSFERASE 15 IU/L (0-55); ALBUMIN 2.6 g/dL (3.5-5.0); ALBUMIN/GLOBULIN RATIO 0.9 (0.8-2.0); ALKALINE PHOSPHATASE 42 IU/L (40-150); ANION GAP 11.7 mmol/L (8-16); BLOOD UREA NITROGEN 20 mg/dL (7-26); BUN/CREATININE RATIO 24 (6-25); CALCIUM 8.2 mg/dL (8.4-10.2); CARBON DIOXIDE 22 mmol/L (22-29); CHLORIDE 106 mmol/L (98-107); CREATININE, SERUM 0.83 mg/dL (0.57-1.11); EST GLOMERULAR FILTRATION RATE > 60 ML/MIN (60-); GLUCOSE 146 mg/dL (74-118); MAGNESIUM 1.4 MG/DL (1.3-2.1); POTASSIUM 3.7 mmol/L (3.5-5.1); SODIUM 136 mmol/L (136-145)
--- NOTE | 2020-03-09 07:00 | NUR ---
RECEIVED BEDSIDE REPORT FROM OFF GOING NIGHT NURSE. PATIENT IN STABLE CONDITION, NO S/S OF DISTRESS NOTED. RESPIRATIONS EVEN AND NONLABORED. PATIENT ABLE TO VOICE NEEDS. TELEMETRY APPLIED. IV FLUID INFUSING, SITE ASYMPTOMATIC AND PATENT, TRANSPARENT DRESSING C/D/I. BED IN LOWEST POSITION AND LOCKED, SIDE RAILS X 2, NONSKID SOCKS APPLIED. CALL LIGHT WITHIN REACH.
[2020-03-09] MEDS: INSULIN LISPRO 100 UNIT/1 ML 3ML VIAL SQ SCH ×4 (07:30→21:50)
[2020-03-09 08:12] LABS: HYPOCHROMASIA SLIGHT; MICROCYTOSIS SLIGHT; OVALOCYTES FEW; PLATELET ESTIMATE ADEQUATE; PLATELET MORPHOLOGY COMMENT NORMAL; RBC MORPHOLOGY COMMENT NORMAL
[2020-03-09] MEDS: PANTOPRAZOLE SOD 40 MG TABEC PO SCH ×2 (08:24→15:57)
[2020-03-09] MEDS: ESCITALOPRAM OXALATE 10 MG TAB PO SCH (08:25)
[2020-03-09] MEDS: METOPROLOL SUCCINATE 25 MG TAB XL PO SCH (08:25)
[2020-03-09] MEDS: PIOGLITAZONE HCL 15 MG TAB PO SCH (08:26)
[2020-03-09] MEDS: SODIUM CHLORIDE 0.9% 1000ML 1,000 ML IV SCH ×2 (09:45→17:33)
--- NOTE | 2020-03-09 19:01 | NUR ---
COMPLETED BEDSIDE REPORT AND ROUNDING WITH ONCOMING NIGHT NURSE. PATIENT IN STABLE CONDITION, NO S/S OF DISTRESS NOTED. RESPIRATIONS EVEN AND NONLABORED. PATIENT ABLE TO VOICE NEEDS. TELEMETRY APPLIED. IV FLUID INFUSING, SITE ASYMPTOMATIC AND PATENT, TRANSPARENT DRESSING C/D/I. BED IN LOWEST POSITION AND LOCKED, SIDE RAILS X 2, NONSKID SOCKS APPLIED. CALL LIGHT WITHIN REACH.
[2020-03-09] MEDS: ALPRAZOLAM 0.5 MG TAB PO PRN (22:09)
[2020-03-09] MEDS: CEFTRIAXONE SOD 1 GM/NS 50 ML 50 ML IV SCH (22:09)
[2020-03-09] MEDS: AZITHROMYCIN 500MG/NS 250 ML 250 ML IV SCH (22:53)
[2020-03-10] VITALS: BP 131/76
[2020-03-10 04:00] VITALS: BP 120/74
[2020-03-10] MEDS: SODIUM CHLORIDE 0.9% 1000ML 1,000 ML IV SCH (04:03)
[2020-03-10] MEDS: INSULIN LISPRO 100 UNIT/1 ML 3ML VIAL SQ SCH (07:30)
[2020-03-10] MEDS ORDERED: CIPRO500 MG PO (07:37)
[2020-03-10 08:05] VITALS: BP 143/74
[2020-03-10] MEDS ORDERED: ONDANSETRON HCL 4 MG ORAL DISINTEGRATING TAB PO PRN (08:15)
[2020-03-10] MEDS: PANTOPRAZOLE SOD 40 MG TABEC PO SCH (08:22)
[2020-03-10] MEDS: METOPROLOL SUCCINATE 25 MG TAB XL PO SCH (08:23)
[2020-03-10] MEDS: ESCITALOPRAM OXALATE 10 MG TAB PO SCH (08:23)
[2020-03-10] MEDS: PIOGLITAZONE HCL 15 MG TAB PO SCH (08:24)
[2020-03-10 08:34] VITALS: BP 143/74
--- NOTE | 2020-03-10 10:49 | NUR ---
PATIENT DISCHARGED HOME. PATIENT OFF THE UNIT @ 1035 VIA WHEELCHAIR ACCOMPANIED BY RN TO THE LOBBY. PATIENT IN STABLE CONDITION, NO S/S OF DISTRESS NOTED. NO PAIN VOICE. IV ACCESS REMOVED WITH TIP INTACT. ALL PERSONAL ITEMS TAKEN WITH THE PATIENT. DISCHARGE TEACHING AND INSTRUCTION GIVEN TO THE PATIENT. PATIENT VERBALIZED UNDERSTANDING. DIS CHARGE PAPERWORK AND PRESCRIPTION GIVEN TO THE PATIENT.
[2020-03-10] MEDS ORDERED: AZITHROMYCIN 250 MG TAB PO SCH (23:00)
--- NOTE | 2020-03-11 06:09 | Discharge Summary ---
DISCHARGE DIAGNOSES: 1. Urinary tract infection, Proteus. 2. Dehydration. 3. Diabetes. 4. Anxiety. HISTORY OF PRESENT ILLNESS AND HOSPITAL COURSE: See hospital chart for details. The patient is a lady, who presented with a 1-week complaint of nausea, vomiting, dehydration, decreased p.o. intake with worsening of her sugars she was found to be dehydrated. She was placed on IV fluids. She had leukocytosis. She was started on IV antibiotics and was found to have urinary tract infection, rule out Proteus. At the time of discharge, she was feeling great. She was able to ambulate well. She has dehydration, resolved. She was able to tolerate p.o. intake well without any issues and she was really want to go home, so she was discharged home with p.o. Cipro 500 mg one p.o. b.i.d. for 10 more days and follow up with me in 1 to 2 weeks. Please see hospital chart for full details. MD TONEY Musa/VIKAS /[id number]
== END 2020-03-10 10:35 | disposition home or self-care (01) | DRG 194 ==
LOC: ER 21:43 → ERHOLD 23:09 → MED/SURG3 03-07 00:39 → OBSVTOIN 03-08 10:40
PROVIDERS: ADMIT Internal Medicine; ATTEND Internal Medicine
DX: J15.9 Unspecified bacterial pneumonia (principal); N17.9 Acute kidney failure, unspecified; N39.0 Urinary tract infection, site not specified; E86.0 Dehydration; B96.4 Proteus (mirabilis) (morganii) as the cause of diseases classified elsewhere; Z11.59 Encounter for screening for other viral diseases; F41.9 Anxiety disorder, unspecified; E11.22 Type 2 diabetes mellitus with diabetic chronic kidney disease; I12.9 Hypertensive chronic kidney disease with stage 1 through stage 4 chronic kidney disease, or unspecified chronic kidney disease; N18.30 Chronic kidney disease, stage 3 unspecified; E66.9 Obesity, unspecified; Z68.33 Body mass index [BMI] 33.0-33.9, adult; D64.9 Anemia, unspecified; K21.9 Gastro-esophageal reflux disease without esophagitis; E78.5 Hyperlipidemia, unspecified; F32.9 Major depressive disorder, single episode, unspecified
CPT/HCPCS: 36415; 70450; 71045; 80048; 80053; 81001; 82150; 82550; 82553; 82948; 83605; 83690; 83735; 84484; 85025; 87040; 87086; 87186; 93005; 96361; 96372; 99284; G0378; J0456; J0696; J2405; J7030

== ENCOUNTER 2020-03-17 15:06 | Inpatient (IN) | payer OTHER ==
[~2020-03-17] VITALS: Ht 167.6 cm; Wt 91.2 kg
[~2020-03-17 15:06] MED LIST changes: +ALPRAZOLAM0.5 MG PO; +CIPRO500 MG PO; +PIOGLITAZONE HC45 MG PO; +PROMETHAZINE HC25 M1 PO
[2020-03-17] MEDS ORDERED: SODIUM CHLORIDE 0.9% 1000ML 1,000 ML IV STA (15:46)
[2020-03-17] MEDS ORDERED: PANTOPRAZOLE 40 MG 10ML VIAL IV NR (15:46)
[2020-03-17] MEDS ORDERED: ONDANSETRON HCL INJ 2MG/ML 2ML 2 MG/ML VIAL IV NR (15:46)
[2020-03-17 16:24] LABS: BASOPHILS # (AUTO) 0.1 (0.0-0.1); BASOPHILS % 0.6 % (0.0-1.0); EOSINOPHILS # (AUTO) 0.1 (0.0-0.4); EOSINOPHILS % 1.1 % (0.0-6.0); HEMATOCRIT 39.3 % (34.2-44.1); HEMOGLOBIN 11.8 g/dL (12.0-16.0); LYMPHOCYTES # (AUTO) 1.8 (1.0-3.2); LYMPHOCYTES % 19.4 % (18.0-39.1); MEAN CORPUSCULAR HEMOGLOBIN 23.2 pg (28-32); MEAN CORPUSCULAR VOLUME 77.4 fL (81-99); MONOCYTES # (AUTO) 0.6 (0.2-0.8); MONOCYTES % 6.4 % (4.4-11.3); NEUTROPHILS # (AUTO) 6.7 (2.1-6.9); NEUTROPHILS % 72.2 % (38.7-80.0); PLATELET COUNT 298 x10e3/uL (140-360); RED BLOOD COUNT 5.08 x10e6/uL (3.6-5.1)
[2020-03-17 16:26] LABS: CLARITY,URINE SL CLOUDY (CLEAR); COLOR,URINE YELLOW (YELLOW); LEUKOCYTE ESTERASE ,URINE SMALL (NEGATIVE); NITRITE,URINE NEGATIVE (NEGATIVE); PROTEIN,URINE DIPSTICK 1+ (NEGATIVE)
[2020-03-17 16:27] LABS: BILIRUBIN,URINE NEGATIVE (NEGATIVE); KETONES,URINE TRACE (NEGATIVE); URINE UROBILINOGEN 0.2 mg/dL (0.2 - 1)
[2020-03-17 16:57] LABS: BACTERIA,URINE FEW /HPF; EPITHELIAL CELLS,URINE FEW /LPF
[2020-03-17 16:58] LABS: INR 0.91; PROTHROMBIN TIME 12.7 seconds (11.9-14.5)
[2020-03-17 17:02] LABS: PARTIAL THROMBOPLASTIN TIME 20.9 seconds (23.8-35.5)
[2020-03-17 17:09] LABS: ALBUMIN 4.1 g/dL (3.5-5.0); ALBUMIN/GLOBULIN RATIO 0.9 (0.8-2.0); ANION GAP 18.7 mmol/L (8-16); CALCIUM 10.7 mg/dL (8.4-10.2); CREATININE, SERUM 1.38 mg/dL (0.57-1.11); MAGNESIUM 1.5 MG/DL (1.3-2.1); POTASSIUM 3.7 mmol/L (3.5-5.1)
[2020-03-17 17:16] LABS: CREATINE KINASE MB 0.6 ng/mL (0-5.0)
--- NOTE | 2020-03-17 17:23 | Diagnostic Imaging Report ---
EXAMINATION: CHEST SINGLE (NOT PORTABLE) INDICATION: ^WEAKNESS, RECENT PNEUMONIA ^[id number] ^[id number] COMPARISON: Chest radiograph 03/06/2020 FINDINGS: TUBES and LINES: None. LUNGS: Normal lung volumes. No focal opacity or consolidation. Previously noted right perihilar haziness is no longer visualized. PLEURA: No pleural effusion or pneumothorax. HEART AND MEDIASTINUM: The cardiomediastinal silhouette is unremarkable. BONES AND SOFT TISSUES: No acute osseous lesion. Soft tissues are unremarkable. UPPER ABDOMEN: No free air under the diaphragm. IMPRESSION: No acute thoracic radiographic abnormality. Previously noted right perihilar haziness is no longer visualized. Signed by: Dr. Markell Ramos M.D. on 03/17/2020 5:20 PM
--- NOTE | 2020-03-17 18:19 | Emergency Department Note ---
History of Present Illnes History of Present Illness Chief Complaint: Abdominal Complaints History of Present Illness This is a 64 year old female PATIENT IN FROM HOME WITH COMPLAINTS OF NAUSEA AND WEAKNESS X 3 WEEKS; STATES WAS RECENTLY ADMITTED FOR A URINARY TRACT INFECTION, STATES IS STILL TAKING THE ABX, BUT DID NOT TAKE ANY TODAY. PATIENT TACHYCARDIC IN TRIAGE, DENIES PAIN, AMBULATORY WITHOUT ASSISTANCE. Historian: Patient Arrival Mode: Car History limited by: condition of the patient [employer] Required: No Onset (how long ago): week(s) (3) Location: GENERALIZED Quality: N/V/WEAKNESS Radiation: Reports non-radiation Severity: moderate Onset quality: gradual Timing of current episode: intermittent Progression: waxing and waning Chronicity: new Context: Reports recent illness Relieving factors: none Exacerbating factors: none Associated symptoms: Reports denies other symptoms Past Medical/Family History Physician Review I have reviewed the patient's past medical and family history. Any updates have been documented here. Past Medical History Recent Fever: No Clinical Suspicion of Infectio: Yes New/Unexplained Change in Ment: No Past Medical History: Hypertension, Diabetes, Anxiety, Depression Other Medical History: HIATAL HERNIA UROSEPSIS Other Surgery: LAP BAND SURGERY ABDOMINOPLASTY GASTRIC SLEEVE RIGHT WRIST SURGERY Social History Smoking Cessation: Never Smoker Counseling Performed: No Alcohol Use: None Any Illegal Drug Use: No TB Exposure/Symptoms: No Physically hurt or threatened: No Family History Family history of heart diseas: No Other Last Tetanus: UTD Review of Systems Review of Systems Constitutional: Reports as per HPI, Reports weakness EENTM: Reports no symptoms Cardiovascular: Reports no symptoms Respiratory: Reports no symptoms Gastrointestinal: Reports as per HPI Genitourinary: Reports no symptoms Musculoskeletal: Reports no symptoms Integumentary: Reports no symptoms Neurological: Reports no symptoms Psychological: Reports no symptoms Endocrine: Reports no symptoms Hematological/Lymphatic: Reports no symptoms Physical Exam Related Data Allergies: Coded Allergies: No Known Drug Allergies (Verified Allergy, Unknown, 01/08/09) Triage Vital Signs Vital Signs Date Time Temp Pulse Resp B/P (MAP) Pulse Ox O2 Delivery O2 Flow Rate FiO2 03/17/20 15:33 97.8 116 20 134/91 100 Room Air Vital signs reviewed: Yes Physical Exam CONSTITUTIONAL Constitutional: Present well-developed, Present well-nourished HENT HENT: Present normocephalic, Present atraumatic, Present mucosae dry, Present nose normal HENT L/R: Present left ext ear normal, Present right ext ear normal EYES Eyes: Reports PERRL, Reports conjunctivae normal NECK Neck: Present ROM normal PULMONARY Pulmonary: Present effort normal, Present breath sounds normal CARDIOVASCULAR Cardiovascular: Present regular rhythm, Present heart sounds normal, Present capillary refill normal, Present tachycardia GASTROINTESTINAL Abdominal: Present soft, Present nontender, Present bowel sounds normal GENITOURINARY Genitourinary: Present exam deferred SKIN Skin: Present warm, Present dry MUSCULOSKELETAL Musculoskeletal: Present ROM normal NEUROLOGICAL Neurological: Present alert, Present oriented x 3, Present no gross motor or sensory deficits PSYCHOLOGICAL Psychological: Present mood/affect normal, Present judgement normal Results Laboratory Result Diagram: 03/17/20 1545 03/17/20 1545 Laboratory Laboratory Tests Test 03/17/20 15:45 White Blood Count 9.34 x10e3/uL (4.8-10.8) Red Blood Count 5.08 x10e6/uL (3.6-5.1) Hemoglobin 11.8 g/dL (12.0-16.0) Hematocrit 39.3 % (34.2-44.1) Mean Corpuscular Volume 77.4 fL (81-99) Mean Corpuscular Hemoglobin 23.2 pg (28-32) Mean Corpuscular Hemoglobin Concent 30.0 g/dL (31-35) Red Cell Distribution Width 17.0 % (11.7-14.4) Platelet Count 298 x10e3/uL (140-360) Neutrophils (%) (Auto) 72.2 % (38.7-80.0) Lymphocytes (%) (Auto) 19.4 % (18.0-39.1) Monocytes (%) (Auto) 6.4 % (4.4-11.3) Eosinophils (%) (Auto) 1.1 % (0.0-6.0) Basophils (%) (Auto) 0.6 % (0.0-1.0) Neutrophils # (Auto) 6.7 (2.1-6.9) Lymphocytes # (Auto) 1.8 (1.0-3.2) Monocytes # (Auto) 0.6 (0.2-0.8) Eosinophils # (Auto) 0.1 (0.0-0.4) Basophils # (Auto) 0.1 (0.0-0.1) Absolute Immature Granulocyte (auto 0.03 x10e3/uL (0-0.1) Prothrombin Time 12.7 seconds (11.9-14.5) Prothromb Time International Ratio 0.91 Activated Partial Thromboplast Time 20.9 seconds (23.8-35.5) Urine Color Yellow (YELLOW) Urine Clarity Sl cloudy (CLEAR) Urine pH 5.5 (5 - 7) Urine Specific Addis 1.025 (1.010-1.025) Urine Protein 1+ (NEGATIVE) Urine Glucose (UA) Negative (NEGATIVE) Urine Ketones Trace (NEGATIVE) Urine Blood Trace (NEGATIVE) Urine Nitrite Negative (NEGATIVE) Urine Bilirubin Negative (NEGATIVE) Urine Urobilinogen 0.2 mg/dL (0.2 - 1) Urine Leukocyte Esterase Small (NEGATIVE) Urine RBC 6-10 /HPF (0-5) Urine WBC 11-20 /HPF (0-5) Urine Epithelial Cells Few /LPF (NONE) Urine Bacteria Few /HPF (NONE) Sodium Level 135 mmol/L (136-145) Potassium Level 3.7 mmol/L (3.5-5.1) Chloride Level 98 mmol/L (98-107) Carbon Dioxide Level 22 mmol/L (22-29) Anion Gap 18.7 mmol/L (8-16) Blood Urea Nitrogen 32 mg/dL (7-26) Creatinine 1.38 mg/dL (0.57-1.11) Estimat Glomerular Filtration Rate 38 ML/MIN (60-) BUN/Creatinine Ratio 23 (6-25) Glucose Level 183 mg/dL (74-118) Calcium Level 10.7 mg/dL (8.4-10.2) Magnesium Level 1.5 MG/DL (1.3-2.1) Total Bilirubin 0.4 mg/dL (0.2-1.2) Aspartate Amino Transf (AST/SGOT) 23 IU/L (5-34) Alanine Aminotransferase (ALT/SGPT) 21 IU/L (0-55) Alkaline Phosphatase 58 IU/L (40-150) Creatine Kinase 25 IU/L (29-168) Creatine Kinase MB 0.60 ng/mL (0-5.0) Troponin I 0.006 ng/mL (0-0.300) Total Protein 8.6 g/dL (6.5-8.1) Albumin 4.1 g/dL (3.5-5.0) Globulin 4.5 g/dL (2.3-3.5) Albumin/Globulin Ratio 0.9 (0.8-2.0) Lab results reviewed: Yes Imaging Imaging results reviewed: Yes Impressions EXAMINATION: CHEST SINGLE (NOT PORTABLE) INDICATION: ^WEAKNESS, RECENT PNEUMONIA ^[id number] ^[id number] COMPARISON: Chest radiograph 03/06/2020 FINDINGS: TUBES and LINES: None. LUNGS: Normal lung volumes. No focal opacity or consolidation. Previously noted right perihilar haziness is no longer visualized. PLEURA: No pleural effusion or pneumothorax. HEART AND MEDIASTINUM: The cardiomediastinal silhouette is unremarkable. BONES AND SOFT TISSUES: No acute osseous lesion. Soft tissues are unremarkable. UPPER ABDOMEN: No free air under the diaphragm. IMPRESSION: No acute thoracic radiographic abnormality. Previously noted right perihilar haziness is no longer visualized. Signed by: Dr. Markell Ramos M.D. on 03/17/2020 5:20 PM Assessment & Plan Medical Decision Making MDM N/V, WEAKNESS - CHECK CBC, CHEM, CARDIACS, UA/CX, CXR - R/O ELECTROLYTE ABNL, RENAL INSUFF, UTI, NSTEMI, PNEUMONIA Reassessment Reassessment SPOKE WITH DR LIRIANO - RAKESH BOYCE, [facility] Assessment & Plan Final Impression: (1) Renal insufficiency (2) UTI (urinary tract infection) (3) Dehydration (4) Vomiting Depart Disposition: ADMITTED Last Vital Signs Date Time Temp Pulse Resp B/P (MAP) Pulse Ox O2 Delivery O2 Flow Rate FiO2 03/17/20 15:33 97.8 116 20 134/91 100 Room Air Home Meds Reported Medications Ciprofloxacin Hcl (CIPRO) 500 Mg Tablet, 500 MG PO BID, #14 TAB 03/10/20 Pioglitazone Hcl (PIOGLITAZONE HCL) 45 Mg Tablet, 30 MG PO DAILY, #30 TAB 03/07/20 Alprazolam (ALPRAZOLAM) 0.5 Mg Tablet, 0.5 MG PO HS PRN for SLEEP, #90 TAB 03/07/20 Promethazine Hcl (PROMETHAZINE HCL) 25 Mg Tablet, 25 MG PO Q6H, TAB 03/07/20 Losartan Potassium (LOSARTAN POTASSIUM) 100 Mg Tablet, 50 MG PO DAILY, TAB 12/10/19 Metoprolol Succinate (METOPROLOL SUCCINATE) 25 Mg Tab.er.24h, PO DAILY 12/10/19 Metoclopramide Hcl (REGLAN) 10 Mg Tablet, 10 MG PO TID, TAB 12/10/19 Esomeprazole Magnesium (Esomeprazole Magnesium) 40 Mg Capsule.dr, 1 CAP PO BID 12/10/19 Metformin Hcl (METFORMIN HCL ER) 500 Mg Tab.er.24h, 1 TAB PO BID 12/10/19 Glipizide (GLIPIZIDE ER) 10 Mg Tab.er.24, 1 TAB PO DAILY 12/10/19 Escitalopram Oxalate (LEXAPRO) 10 Mg Tablet, 20 MG PO DAILY 04/28/12 Medications in the ED Pantoprazole Sodium 40 mg ONCE IV ; Start 03/17/20 at 15:46; Stop 03/17/20 at 16:59; Status DC Ondansetron HCl 4 mg ONCE IV ; Start 03/17/20 at 15:46; Stop 03/17/20 at 16:59; Status DC Sodium Chloride 1,000 ml @ 0 mls/hr Q0M STAT IV ; Start 03/17/20 at 15:46; Stop 03/17/20 at 15:49; Status DC CL CHRISTIE MD Mar 17, 2020 18:19
[2020-03-17] MEDS ORDERED: DEXTROSE 50% SYRINGE 50 ML IV PRN (18:30)
[2020-03-17] MEDS ORDERED: ACETAMINOPHEN 325 MG TAB PO PRN (18:30)
--- NOTE | 2020-03-17 20:40 | NUR ---
ADMISSION ASSESSMENT DONE.AAOX4.AMBULATES.HAS C/O NAUSEA.NO RESP.DISTRESS NOTED.ORIENTED TO THE UNIT.BED LOCKED AND IN LOWEST POSITION.PHONE AND CALL LIGHT WITHIN REACH.IV TO LEFT AC #20 G PATENT.IV FLUID RUNNING.STABLE CONDITION.
[2020-03-17 21:00] VITALS: BP 134/90
[2020-03-17] MEDS: CEFTRIAXONE SOD 1 GM/NS 50 ML 50 ML IV SCH (21:21)
[2020-03-17] MEDS: SODIUM CHLORIDE 0.9% 1000ML 1,000 ML IV SCH (21:21)
--- NOTE | 2020-03-17 21:30 | NUR ---
PROVIDED SNACKS.NO PAIN VOICED.DENIED ANY NEEDS.
[2020-03-17] MEDS: ONDANSETRON HCL INJ 2MG/ML 2ML 2 MG/ML VIAL IV PRN (21:55)
[2020-03-17] MEDS: INSULIN LISPRO 100 UNIT/1 ML 3ML VIAL SQ SCH (22:00)
[2020-03-17 22:16] VITALS: BP 134/90
[2020-03-17 23:51] VITALS: BP 130/90
[2020-03-18] VITALS (7 sets, daily range): BP systolic 98–128; BP diastolic 63–76
[2020-03-18] MEDS: ONDANSETRON HCL INJ 2MG/ML 2ML 2 MG/ML VIAL IV PRN (03:43)
[2020-03-18 05:14] LABS: BASOPHILS # (AUTO) 0.1 (0.0-0.1); BASOPHILS % 0.7 % (0.0-1.0); EOSINOPHILS # (AUTO) 0.2 (0.0-0.4); EOSINOPHILS % 1.6 % (0.0-6.0); HEMATOCRIT 34.6 % (34.2-44.1); HEMOGLOBIN 10.4 g/dL (12.0-16.0); LYMPHOCYTES # (AUTO) 2.2 (1.0-3.2); LYMPHOCYTES % 23.1 % (18.0-39.1); MEAN CORPUSCULAR HEMOGLOBIN 23.6 pg (28-32); MEAN CORPUSCULAR HGB CONC 30.1 g/dL (31-35); MEAN CORPUSCULAR VOLUME 78.5 fL (81-99); MONOCYTES # (AUTO) 0.8 (0.2-0.8); MONOCYTES % 8.2 % (4.4-11.3); NEUTROPHILS # (AUTO) 6.3 (2.1-6.9); PLATELET COUNT 363 x10e3/uL (140-360); RED BLOOD COUNT 4.41 x10e6/uL (3.6-5.1); RED CELL DISTRIBUTION WIDTH 16.7 % (11.7-14.4)
[2020-03-18 05:38] LABS: ANION GAP 15.4 mmol/L (8-16); CALCIUM 9.1 mg/dL (8.4-10.2); CREATININE, SERUM 1.04 mg/dL (0.57-1.11); POTASSIUM 3.4 mmol/L (3.5-5.1)
[2020-03-18] MEDS: SODIUM CHLORIDE 0.9% 1000ML 1,000 ML IV SCH ×2 (05:57→17:03)
[2020-03-18] MEDS: PROMETHAZINE 25MG/ NS 50ML (IV) IV PRN ×3 (06:01→17:09)
[2020-03-18] MEDS: PANTOPRAZOLE 40 MG 10ML VIAL IV SCH ×2 (06:14→17:04)
[2020-03-18 06:25] LABS: CREATINE KINASE MB 0.7 ng/mL (0-5.0)
[2020-03-18] MEDS: CEFTRIAXONE SOD 1 GM/NS 50 ML 50 ML IV SCH ×2 (06:32→17:34)
--- NOTE | 2020-03-18 07:00 | NUR ---
RECEIVED BEDSIDE SHIFT REPORT FROM OFF GOING NIGHT NURSE. RESPIRATIONS EVEN AND NONLABORED. PATIENT ABLE TO VOICE NEEDS. PATIENT IN STABLE CONDITION, NO S/S OF DISTRESS NOTED. IV FLUIDS INFUSING, SITE ASYMPTOMATIC AND PATENT,TRANSPARENT DRESSING C/D/I. BED IN LOWEST POSITION AND LOCKED, SIDE RAILS X2 NON SKID SOCKS APPLIED. CALL LIGHT WITHIN REACH.
--- NOTE | 2020-03-18 07:21 | NUR ---
BED SIDE SHIFT REPORT GIVEN TO ONCOMING RN.STABLE CONDITION.
[2020-03-18] MEDS: INSULIN LISPRO 100 UNIT/1 ML 3ML VIAL SQ SCH ×4 (07:30→21:00)
[2020-03-18] MEDS ORDERED: POTASSIUM CHLORIDE 20 MEQ TAB CR PO ONE (08:30)
[2020-03-18] MEDS ORDERED: PANTOPRAZOLE 40 MG 10ML VIAL IV SCH (09:00)
--- NOTE | 2020-03-18 09:20 | NUR ---
Pt sleeping soundly and no family present. Resource Teacher left a card describing availability of assistant to the president and instructions on how to contact a assistant to the president. OLAF MELCHOR Resource Teacher Spiritual Care Department O: [phone]
[2020-03-18] MEDS: METOPROLOL SUCCINATE 25 MG TAB XL PO SCH (09:42)
[2020-03-18] MEDS: METOCLOPRAMIDE HCL 10 MG TAB PO SCH ×3 (09:43→20:30)
[2020-03-18] MEDS: LOSARTAN POTASSIUM 100 MG TAB PO SCH (09:44)
[2020-03-18] MEDS: PIOGLITAZONE HCL 15 MG TAB PO SCH (09:45)
[2020-03-18] MEDS: ESCITALOPRAM OXALATE 10 MG TAB PO SCH (09:45)
[2020-03-18 10:58] LABS: CREATINE KINASE 51 IU/L (29-168)
--- NOTE | 2020-03-18 12:50 | NUR ---
PATIENT ARRIVED TO ROOM 291. ORIENTED TO ROOM AND POLICIES. EDUCATED ON TRANSITION OF CARE FOLDER. CALL LIGHT WITHIN REACH. BED IN THE LOWEST POSITION.
--- NOTE | 2020-03-18 13:12 | NUR ---
REPORT CALLED TO ERIN ANG. PATIENT TRANSFERRED TO ROOM 291 VIA WHEELCHAIR, PATIENT IN STABLE CONDITION, NO S/S OF DISTRESS NOTED. VITAL SIGNS STABLE. PATIENT ABLE TO VOICE NEEDS.
--- NOTE | 2020-03-18 19:15 | NUR ---
Bedside shift report given to oncoming nurse. Patient is resting in bed. No acute distress noted at this time. Call light within reach. Bed in the lowest position.
[2020-03-18] MEDS: ALPRAZOLAM 0.5 MG TAB PO PRN (20:30)
[2020-03-19] VITALS (7 sets, daily range): BP systolic 111–123; BP diastolic 63–78
[2020-03-19] MEDS: SODIUM CHLORIDE 0.9% 1000ML 1,000 ML IV SCH ×4 (02:39→18:24)
[2020-03-19 06:04] LABS: BASOPHILS % 0.6 % (0.0-1.0); EOSINOPHILS # (AUTO) 0.2 (0.0-0.4); EOSINOPHILS % 2.8 % (0.0-6.0); HEMATOCRIT 29.3 % (34.2-44.1); HEMOGLOBIN 8.5 g/dL (12.0-16.0); LYMPHOCYTES # (AUTO) 2.8 (1.0-3.2); LYMPHOCYTES % 41.4 % (18.0-39.1); MEAN CORPUSCULAR HEMOGLOBIN 23.5 pg (28-32); MEAN CORPUSCULAR VOLUME 80.9 fL (81-99); MONOCYTES # (AUTO) 0.6 (0.2-0.8); MONOCYTES % 8.8 % (4.4-11.3); NEUTROPHILS # (AUTO) 3.2 (2.1-6.9); NEUTROPHILS % 46.1 % (38.7-80.0); PLATELET COUNT 324 x10e3/uL (140-360); RED BLOOD COUNT 3.62 x10e6/uL (3.6-5.1); RED CELL DISTRIBUTION WIDTH 17.2 % (11.7-14.4)
[2020-03-19] MEDS: CEFTRIAXONE SOD 1 GM/NS 50 ML 50 ML IV SCH ×2 (06:04→18:49)
[2020-03-19] MEDS: PANTOPRAZOLE 40 MG 10ML VIAL IV SCH (06:04)
[2020-03-19 06:48] LABS: ALBUMIN 2.7 g/dL (3.5-5.0); ALBUMIN/GLOBULIN RATIO 0.9 (0.8-2.0); ANION GAP 11.8 mmol/L (8-16); CREATININE, SERUM 1.14 mg/dL (0.57-1.11); MAGNESIUM 1.6 MG/DL (1.3-2.1); POTASSIUM 3.8 mmol/L (3.5-5.1)
[2020-03-19] MEDS: INSULIN LISPRO 100 UNIT/1 ML 3ML VIAL SQ SCH ×4 (07:30→21:00)
[2020-03-19] MEDS: ESCITALOPRAM OXALATE 10 MG TAB PO SCH (08:21)
[2020-03-19] MEDS: LOSARTAN POTASSIUM 100 MG TAB PO SCH (08:21)
[2020-03-19] MEDS: METOCLOPRAMIDE HCL 10 MG TAB PO SCH ×3 (08:21→20:34)
[2020-03-19] MEDS: PIOGLITAZONE HCL 15 MG TAB PO SCH (08:35)
--- NOTE | 2020-03-19 09:58 | NUR ---
CALL RECEIVED FROM MARGARITA DC CARDIAC CATH TECHNOLOGIST. CONTACT FILOMENA @ [phone] W ANY DC PLANNING NEEDS.
[2020-03-19] MEDS: METOPROLOL SUCCINATE 25 MG TAB XL PO SCH (11:30)
[2020-03-19] MEDS ORDERED: ONDANSETRON HCL 4 MG ORAL DISINTEGRATING TAB PO PRN (11:30)
[2020-03-19] MEDS: PANTOPRAZOLE SOD 40 MG TABEC PO SCH (18:24)
[2020-03-19] MEDS: ALPRAZOLAM 0.5 MG TAB PO PRN (20:34)
[2020-03-20] VITALS (8 sets, daily range): BP systolic 123–131; BP diastolic 63–75
[2020-03-20] MEDS: SODIUM CHLORIDE 0.9% 1000ML 1,000 ML IV SCH ×3 (06:01→16:06)
[2020-03-20] MEDS: CEFTRIAXONE SOD 1 GM/NS 50 ML 50 ML IV SCH ×2 (06:03→17:38)
[2020-03-20] MEDS: PANTOPRAZOLE SOD 40 MG TABEC PO SCH ×2 (06:03→17:38)
[2020-03-20] MEDS: INSULIN LISPRO 100 UNIT/1 ML 3ML VIAL SQ SCH ×4 (07:30→20:15)
--- NOTE | 2020-03-20 08:04 | Progress Note ---
DATE: 03/20/2020 SUBJECTIVE: This is Ms. Carmelina Pierson with a history of urinary tract infection, nausea, and generalized debility. The patient came in, is on ceftriaxone and also is on Reglan for gastroparesis and also for nausea. The patient is feeling better, however, very weak. Medicines have been reinstated. The patient also has alprazolam for anxiety. OBJECTIVE: VITAL SIGNS: Temperature is 98.0, pulse of 73, respirations of 18, blood pressure is 123/75, pulse oximetry of 98% on room air. HEENT: Normocephalic, atraumatic. Pupils are reactive. CVS: S1 and S2, normal. Tenderness in the epigastrium. EXTREMITIES: No clubbing, no cyanosis, no edema. LABORATORY VALUES: The patient's white count is 6.83, hemoglobin of 8.5, hematocrit of 29.3. Chemistry shows sodium 140, potassium of 3.8, BUN of 28, creatinine of 1.14 on the 30th. ASSESSMENT: This is Ms. Carmelina Pierson with: 1. Urinary tract infection, slowly resolving. 2. Acute renal injury. 3. Hyperlipidemia. 4. Uncontrolled diabetes mellitus. PLAN: Continue with current medication. Physical therapy will be started. We will continue walking the patient. Further recommendation and clinical course. We will continue monitoring her progress and therapy and also possible discharge in 1 to 2 days. MD ADRIANA WilsonJ/MODL /[id number]
[2020-03-20] MEDS: METOPROLOL SUCCINATE 25 MG TAB XL PO SCH (08:56)
[2020-03-20] MEDS: ESCITALOPRAM OXALATE 10 MG TAB PO SCH (08:57)
[2020-03-20] MEDS: PIOGLITAZONE HCL 15 MG TAB PO SCH (08:57)
[2020-03-20] MEDS: METOCLOPRAMIDE HCL 10 MG TAB PO SCH ×3 (08:57→20:17)
[2020-03-20] MEDS: LOSARTAN POTASSIUM 100 MG TAB PO SCH (08:57)
[2020-03-20] MEDS: ALPRAZOLAM 0.5 MG TAB PO PRN (21:11)
--- NOTE | 2020-03-20 21:35 | NUR ---
Patient refused bed alarm
[2020-03-21] VITALS: BP 143/74
[2020-03-21] MEDS: SODIUM CHLORIDE 0.9% 1000ML 1,000 ML IV SCH ×2 (01:00→02:30)
[2020-03-21 04:00] VITALS: BP 132/76
[2020-03-21] MEDS: CEFTRIAXONE SOD 1 GM/NS 50 ML 50 ML IV SCH (05:08)
[2020-03-21] MEDS: PANTOPRAZOLE SOD 40 MG TABEC PO SCH (05:08)
[2020-03-21] MEDS: INSULIN LISPRO 100 UNIT/1 ML 3ML VIAL SQ SCH (07:30)
[2020-03-21 07:48] LABS: BASOPHILS % 0.5 % (0.0-1.0); EOSINOPHILS # (AUTO) 0.2 (0.0-0.4); EOSINOPHILS % 2.9 % (0.0-6.0); HEMATOCRIT 27.9 % (34.2-44.1); HEMOGLOBIN 8.2 g/dL (12.0-16.0); LYMPHOCYTES # (AUTO) 2.5 (1.0-3.2); LYMPHOCYTES % 43.1 % (18.0-39.1); MEAN CORPUSCULAR HEMOGLOBIN 23.4 pg (28-32); MEAN CORPUSCULAR HGB CONC 29.4 g/dL (31-35); MEAN CORPUSCULAR VOLUME 79.5 fL (81-99); MONOCYTES # (AUTO) 0.4 (0.2-0.8); NEUTROPHILS # (AUTO) 2.7 (2.1-6.9); NEUTROPHILS % 46.2 % (38.7-80.0); PLATELET COUNT 299 x10e3/uL (140-360); RED BLOOD COUNT 3.51 x10e6/uL (3.6-5.1); RED CELL DISTRIBUTION WIDTH 17.2 % (11.7-14.4)
--- NOTE | 2020-03-21 07:59 | Progress Note ---
DATE: SUBJECTIVE: This is a 64-year-old lady, who came in with urinary tract infection, nausea, and dehydration. Currently feeling better. Nausea is better. She is taking Reglan 3 times a day with uncontrolable nausea. The patient's UTI panel, urine culture was negative so far. CURRENT MEDICATIONS: Include pantoprazole 40 mg, Rocephin q.12 hours, alprazolam 0.5 mg, Reglan 10 mg 3 times a day, pioglitazone 30 mg daily, losartan daily, escitalopram 20 mg daily, and Zofran as needed. PHYSICAL EXAMINATION: VITAL SIGNS: Temperature is 98.1, respirations 17, blood pressure is 132/76, and pulse oximeter 97%. HEENT: Normocephalic, atraumatic. Pupils are reactive to light and accommodation. CVS: S1, S2 normal. Regular rhythm. ABDOMEN: Soft, nontender, and nondistended. EXTREMITIES: No clubbing, no cyanosis, no edema. LABORATORY VALUES: The patient's glucose has been in the 140s to 150s. ASSESSMENT/PLAN: This is Ms. Carmelina Pierson with: 1. Urinary tract infection. The patient is better. Cultures are negative. The patient can be sent home on Keflex 500 mg twice a day for 30 days. 2. Acute renal failure, improved. 3. Hyperlipidemia. 4. Uncontrolled diabetes mellitus. 5. Anemia, probably of chronic disease. We will check her labs today and discharge depending on CBC levels and also BNP levels. Further recommendation per clinical course. MD EVELIA Wilson/MODL /[id number]
[2020-03-21 08:07] VITALS: BP 152/91
[2020-03-21] MEDS: ESCITALOPRAM OXALATE 10 MG TAB PO SCH (08:09)
[2020-03-21] MEDS: LOSARTAN POTASSIUM 100 MG TAB PO SCH (08:09)
[2020-03-21] MEDS: METOCLOPRAMIDE HCL 10 MG TAB PO SCH (08:09)
[2020-03-21] MEDS: PIOGLITAZONE HCL 15 MG TAB PO SCH (08:09)
[2020-03-21] MEDS: METOPROLOL SUCCINATE 25 MG TAB XL PO SCH (08:10)
[2020-03-21 08:17] VITALS: BP 152/91
[2020-03-21 08:24] LABS: ANION GAP 9.7 mmol/L (8-16); BLOOD UREA NITROGEN 15 mg/dL (7-26); BUN/CREATININE RATIO 20 (6-25); CALCIUM 7.8 mg/dL (8.4-10.2); CARBON DIOXIDE 22 mmol/L (22-29); CHLORIDE 109 mmol/L (98-107); CREATININE, SERUM 0.76 mg/dL (0.57-1.11); EST GLOMERULAR FILTRATION RATE > 60 ML/MIN (60-); GLUCOSE 98 mg/dL (74-118); POTASSIUM 3.7 mmol/L (3.5-5.1); SODIUM 137 mmol/L (136-145)
--- NOTE | 2020-03-21 09:49 | NUR ---
Discharge education provided. Discharge packet and prescription given. Verbalized understanding regarding follow-up appointment with primary doctor. PIV to left AC removed, catheter intact, no bleeding noted. Transported patient via wheelchair to private vehicle with all personal belongings taken.
--- OUTSIDE RECORDS SUMMARY | 2020-03-25 17:33 | XMS REPORT | Clinical Summary ---
Author Author [facility] Organization [place] [facility] Address Unknown Phone Unavailable Care Team Providers Care Remote Sensing Technologist Name Role Phone Becky Pittman MD PCP [phone] Allergies No Known Active Allergies Medications End [...] mouth daily with breakfast for 30 days. 10/15/2019 Discontinued (Reorder) esomeprazole (NexIUM) 40 [...] day. without long-term current use of insulin (HCC) 04/07/2019 Discontinued (Alternate ther apy) losartan (COZAAR) [...] 10 mg by 0 tablet mouth nightly. 03/12/2020 zolpidem (AMBIEN) 10 mg Take 1 tablet 30 tablet 3 tablet (10 mg total) 0 by mouth nightly for 120 days. Active Problems Problem Noted Date Chest pain [...] Situational anxiety; Microhematuria 10/24/2019 Office Visit Family Medicine Becky Pittman MD 10/23/2019 Telephone Family Medicine 10/23/2019 Travel [...] Family Becky Haji MD 05/15/2019 Telephone Family Medicine Becky Pittman MD 04/10/2019 Telephone Family Medicine Becky Pittman MD 04/09/2019 Orders Only Family Medicine Becky Pittman MD Essential hypertension; Type 2 diabetes mellitus [...] Guillaume, RN Hypertension 03/17/2019 Telephone Cardiology after 03/17/2019 Surgical History Surgery Date Site/Laterality Comments GASTRIC [...] H/O colonoscopy 1 polyp (04/07); Dr West [phone] Family History Medical History Relation Name Comments [...] Health Maintenance Due Date Last Done Comments DIABETES: RETINAL EYE 1965 EXAM DIABETIC FOOT EXAM 1965 CERVICAL CANCER SCREENING [...] 10/15/2019 CONTRAST, W DOPPLER 11:00 AM CDT ([id number]) POC GLUCOSE Routine 10/15/2019 7:08 AM CDT [...] PRELIMINARY Routine 10/14/2019 INTERPRETATION 10:37 AM CDT GA CRITICAL CARE, E/M Routine 10/14/2019 30-74 MINUTES [...] 05/16/2019 Upper respi ratory tract 4:25 PM FRAUD EXAMINER infection, unspecified type POCT INFLUENZA A/B Routine 05/16/2019 Upper respi ratory tract 4:25 PM FRAUD EXAMINER infection, unspecified type TOTAL IRON BINDING Routine 04/07/2019 Iron defici ency anemia, CAPACITY 4:03 PM FRAUD EXAMINER unspecified iron deficiency anemia type FERRITIN LEVEL Routine 04/07/2019 Iron deficiency anemia, 4:03 PM FRAUD EXAMINER unspecified iron deficiency anemia type CBC WITH PLATELET AND Routine 04/07/2019 Iron def iciency anemia, DIFFERENTIAL 4:03 PM FRAUD EXAMINER unspecified iron deficiency anemia type THYROID STIMULATING Routine 04/07/2019 Essential hypertension HORMONE 4:03 PM FRAUD EXAMINER Fatigue, unspecifie d type HEMOGLOBIN A1C Routine 04/07/2019 Type 2 diabetes mellitus 4:03 PM FRAUD EXAMINER without complication, without long-term current use of insulin (HCC) URINALYSIS, AUTOMATED Routine 04/07/2019 Essentia l hypertension WITH MICROSCOPY 4:03 PM FRAUD EXAMINER COMPREHENSIVE METABOLIC Routine 04/07/2019 Essent ial hypertension PANEL 4:03 PM FRAUD EXAMINER after 03/17/2019 Results * Urinalysis, automated with microscopy (10/24/2019 4:20 PM CDT) Only the most recent of 3 results within the time period is included. Color, UA YELLOW YELLOW [facility] [place] Appearance CLOUDY (A) CLEAR [facility] [place] Specific 1.016 1.001 - 1.035 [facility] gravity, urine [facility] [place] pH, urine 6.0 5.0 - 8.0 [facility] [place] Glucose, urine 3+ (A) NEGATIVE [facility] [place] Bilirubin, UA NEGATIVE NEGATIVE [facility] [place] Ketones, UA NEGATIVE NEGATIVE [facility] [place] Occult blood, TRACE (A) NEGATIVE [facility] [place] Protein, UA 1+ (A) NEGATIVE [facility] [place] Nitrite, UA NEGATIVE NEGATIVE [facility] [place] Leukocyte 2+ (A) NEGATIVE [facility] esterase, [facility] [place] WBC, UA 20-40 (A) < OR = 5 /HPF [facility] [place] RBC, UA 0-2 < OR = 2 /HPF [facility] [place] Squamous 0-5 < OR = 5 /HPF [facility] epithelial DIAGNOSTICS cells, UA [place] Bacteria, UA FEW (A) NONE SEEN /HPF [facility] [place] Calcium oxalate FEW NONE OR FEW /HPF [facility] crystals, [facility] [place] Hyaline casts, NONE SEEN NONE SEEN /LPF [facility]A [facility] [place] Specimen Blood Resulting Agency Comment Performing Organization Information: Site ID: A Name: [facility] Address: [address] [place] [phone] Director: Delvin Yin Performing Organization Address [facility] P benita Number [facility] [employer] [place] [phone] * Urine culture (10/24/2019 4:20 PM CDT) Pathologist [facility] Urine culture SEE NOTE [facility] Comment: DIAGNOSTICS CULTURE, URINE, ROUTINE [place] Micro Number: [id number] Test Status: Final Specimen Source: NOT GIVEN Specimen Quality: Adequate Result: Multiple organisms present, each less than 10,000 CFU/mL. These organisms, commonly found on external and internal genitalia, are considered to be colonizers. No further testing performed. Specimen Urine Resulting Agency Comment Performing Organization Information: Site ID: [facility] Name: [email or web address] [facility] Lab Address: [address] [place] [phone] Director: Delvin Yin Performing Organization Address [facility] P benita Number [place] [address] * Basic metabolic panel (10/24/2019 4:20 PM CDT) Only the most recent of 2 results within the time period is included. Glucose 181 (H) 65 - 99 mg/dL [facility] Comment: DIAGNOSTICS Fasting [place] reference interval For someone without known diabetes, a glucose value >125 mg/dL indicates that they may have diabetes and this should be confirmed with a follow-up test. BUN 8 7 - 25 mg/dL [facility] Creatinine 0.90 0.50 - 0.99 mg/dL [facility] Comment: DIAGNOSTICS For patients >49 years of age, [place] the reference limit for Creatinine is approximately 13% higher for people identified as -Venezuelan. EGFR Non-Afr. 68 > OR = 60 [facility] [place]an mL/min/1.73m2 [facility] [place] EGFR 78 > OR = 60 [facility] Venezuelan mL/min/1.73m2 [facility] BUN/creatinine NOT APPLICABLE 6 - 22 (calc) [facility] ratio [employer] [place] Sodium 137 135 - 146 mmol/L [facility] [place] Potassium 3.4 (L) 3.5 - 5.3 mmol/L [facility] [place] Chloride 101 98 - 110 mmol/L [facility] [place] CO2 25 20 - 32 mmol/L [facility] [place] Calcium 9.6 8.6 - 10.4 mg/dL [employer] [place] Specimen Blood Resulting Agency Comment Performing Organization Information: Site ID: RGA Name: [facility] Address: [address] [place] [address] Director: Delvin Yin Performing Organization Address City/State/[facility] Code P benita Number [employer] [place] [address] [place] [phone] * POC glucose (10/24/2019 4:01 PM CDT) Only the most recent of 7 results within the time period is included. [facility] POC glucose 196 65 - 100 Specimen Blood * ECG 12 lead (10/15/2019 11:23 AM CDT) Only the most recent of 2 results within the time period is included. Pathologist [facility] Ventricular 77 [facility] MUSE rate Atrial rate 77 [facility] GA interval 156 [facility] QRSD interval 86 [facility] QT interval 412 [facility] QTC interval 466 [facility] P axis 1 24 [facility] QRS axis 1 8 [facility] T wave axis 22 [facility] EKG impression Normal sinus rhythm-Normal [facility] MUSE ECG-In automated comparison with ECG of 14-OCT-2019 10:21,-ST no longer depressed in Lateral leads- Specimen Narrative Performed At This result has an attachment that is n ot available. Performing Organization Address City/[facility] Code P benita Number [facility] MUSE [address] [place] [address] * Transthoracic Echocardiogram Complete, (w Contrast, Strain and 3D if needed) (10/15/2019 11:00 AM CDT) Specimen Narrative Performed At [facility] Echo cardiography Report [address] [place] [address] Pat.Name: CARMELINA PIERSON Pat.ID: [id number] .Date: 10/15/2019 Refer.MD: LEONEL CRUZ MD Exam Time: 10:13:00 AM Study Type:Routine Echo Height: 66in Weight: 209lb BSA: 2.04 m2 Age: 1 1955,64Y Sex: FEMALE BP: 117/75 HR: 82 bpm Sonogrphr: JUDY Pemberton, RVS Pat. Stat.:Inpatient Room: A7036 Study Status:Final Echo Event ID:[id number] Order ID: [id number] Reason for Study:HF - Initial eval of [...] PA systolic pressure. MEASUREMENTS: 2D Parasternal [place] Ao An 2.1 cm LVPWd 0.93 cm [...] 10/15/2019 12:44 PM CDT Echocardiography Report [address] [place] [address] Pat.Name: CARMELINA PIERSON Pat.ID: [id number] .Date: 10/15/2019 Refer.MD: LEONEL CRUZ MD Exam Time: 10:13:00 AM Study Type:Routine Echo Height: 66in Weight: 209lb BSA: 2.04 m2 Age: 1 1955,64Y Sex: FEMALE BP: 117/75 HR: 82 bpm Sonogrphr: JUDY Pemberton RVS Pat. Stat.:Inpatient Room: A7036 Study Status:Final Echo Event ID:[id number] Order ID: [id number] Reason for Study:HF - Initial eval of [...] PA systolic pressure. MEASUREMENTS: 2D Parasternal [place] Ao An 2.1 cm LVPWd 0.93 cm [...] PM Dagmar Winters M.D. Performing Organization Address City/[facility]/ZIP Code P benita Number [facility] [address] [place] [address] * Estimated GFR (10/15/2019 3:31 AM CDT) Only the most recent of 2 results within the time period is included. Estimated GFR 80 mL/min/1.73 m2 [place] Comment: [facility] Interpretation G1 >=90 Normal or high [...] published in 2014. Specimen Performing Organization Address [facility] [place] [address] PATHOLOGY AND GENOMIC MEDICINE [place] Y[address] * Hemoglobin A1c (10/15/2019 3:31 AM CDT) Only the most recent of 3 results within the time period is included. Hemoglobin A1C 11.6 (H) 4.0 - 5.6 % [place] Comment: [facility] HbA1c cutoffs for diagnosing HOSPITAL diabetes: 4.0% - 5.6% = normal 5.7% - 6.4% = increased risk for diabetes (prediabetes)9 >=6.5% = diabetes9 Goals for glycemic control (ADA 2016) < 7.0% Target for non adults with diabetes. More or less stringent targets may be appropriate for individual patients. <7.5% Target for Children and adolescents with type 1 diabetes. Specimen Blood Performing Organization Address [facility]/ZIP Code P benita Number [facility] DEPARTMENT OF [address] [place] [address] PATHOLOGY AND GENOMIC MEDICINE [place] [address] * Lipid panel (10/15/2019 3:31 AM CDT) Only the most recent of 2 results within the time period is included. Cholesterol 198 <200 mg/dL [facility] Triglycerides 239 (H) <150 mg/dL [facility] HDL cholesterol 34 (L) >40 mg/dL [facility] LDL cholesterol 145 (H)Comment: Result <100 mg/dL [facility] obtained by direct LDL [facility] Lip[facility] panel [facility] Comment: [facility] Total Cholesterol (mg/dL) [facility] <200 Desirable 200-239 Borderline-high >=240 High [...] (>=200 mg/dL) Specimen Blood Performing Organization Address City/[facility]/ZIP Code P benita Number [facility] DEPARTMENT OF [address] [place] [address] PATHOLOGY AND GENOMIC MEDICINE [address] * Troponin (10/14/2019 5:02 PM CDT) Only the most recent of 3 results within the time period is included. Pathologist [facility] Troponin <0.006 0.000 - 0.040 ng/mL [place] Comment: YAZIDI In patients suspected of HOSPITAL having a [...] Organization Address City/State/ZIP Code P benita Number [facility] DEPARTMENT OF [address] [place] [address] PATHOLOGY AND GENOMIC MEDICINE [place] Y[facility]IDI [address] * CT Cardiac Overread (10/14/2019 2:37 PM CDT) Specimen Narrative Performed At EXAMINATION: CT CARDIAC OVERREAD [facility] CLINICAL HISTORY: Radiology overread of imaging performed [...] City/State/ZIP Code P benita Number [facility] [address] [place] [address] * Cv cta coronary arteries w contrast and ffr if needed (10/14/2019 2:36 PM CDT) Specimen Narrative Performed At [facility] Nuclear Cardi ology and Cardiac CT [address], [place] [address] Department Number: [phone] CTA Coronary Arteries w/ Calcium Scoring Report Pat.Name: CARMELINA PIERSON Pat.ID: [id number] St.Date: 10/14/2019 Refer.MD: LEONEL CRUZ MD. Exam Time: 1:58:00 PM Study Type:CTA Coronary Arteries with C alcium Scoring Height: 66in BSA: 2.06 m2 Age: 1 1955,64Y Sex: FEMALE BP: 162/80 HR: 75 bpm Nuclear Tech:ASHLEY Franco(N)(CT ) CPT - 4: CCTA w Thoracic Aorta (No nCongenital) [id number] Nuclear Event ID:[id number] Order ID: [id number] Reason for Study:[facility] Path way, Chest pain Procedures: CT Prospective (Intervals), CT Flash Mode with Planning Scan Race: C SUMMARY: Technique: IV contrast was administered and sequential 0.[address] cuts were obtained through the chest using he Siemens Somatom Force CT scanner. Image post-processing consisti ng of multiplanar and 3D reconstructions were performed using [facility] workstation. Interactive image viewing, volumetric display, and [...] branch and a large f irst septal licensed massage practitioner artery. No significant atherosclerotic plaque i s [...] refer to the separate radiology report in Psychiatric for any additional non-cardiovascular findings. STUDY QUALITY The study quality is excellent. COMMENTS: None. FINDINGS: Signed 10/14/2019 05:15 PM Juan Carlos Buckner MD Procedure Note Interface, Radiology Results In - 10/14/2019 5:15 PM CDT Nuclear Cardiology and Cardiac CT [address] [place] [address] Department Number: [phone] CTA Coronary Arteries w/ Calcium Scoring Report Pat.Name: CARMELINA PIERSON Pat.ID: [id number] .Date: 10/14/2019 Refer.MD: LEONEL CRUZ MD. Exam Time: 1:58:00 PM Study Type:CTA Coronary Arteries with Calcium Scoring Height: 66in BSA: 2.06 m2 Age: 1 1955,64Y Sex: FEMALE BP: 162/80 HR: 75 bpm Nuclear Tech:ASHLEY Franco(N)(CT) CPT - 4: CCTA w Thoracic Aorta (NonCongenital) [id number] Nuclear Event ID:[id number] Order ID: [id number] Reason for Study:ED [facility] ACS Pathway, Chest pain Procedures: CT Prospective (Intervals), CT Flash Mode with Planning Scan Race: C SUMMARY: Technique: IV contrast was administered and sequential 0.[address] cuts were obtained through the chest using the Siemens Somatom Force CT scanner. Image post-processing consisting of multiplanar and 3D reconstructions were performed using the [employer] workstation. Interactive image viewing, volumetric display, and [...] diagonal branch and a large first septal licensed massage practitioner artery. No significant atherosclerotic plaque is present. [...] refer to the separate radiology report in Psychiatric for any additional non-cardiovascular findings. STUDY QUALITY The study quality is excellent. COMMENTS: None. FINDINGS: Signed 10/14/2019 05:15 PM Juan Carlos Buckner MD Performing Organization Address [facility]/ZIP Code P benita Number [facility] [address] [place] [address] * Arterial blood gas (10/14/2019 12:35 PM CDT) pH, arterial 7.47 (H) 7.35 - 7.45 [facility] pCO2, arterial 34 (L) 35 - 45 mmHg [facility] pO2, arterial 91 (H) 80 - 90 mmHg [facility] Bicarbonate, 24.4 21.0 - 28.0 mmol/L [facility] Base excess, 2 -2 - 2 mEq/L [facility] O2 saturation, 98 95 - 100 % [facility] Specimen Blood Performing Organization Address [facility]/ZIP Code P benita Number [facility] DEPARTMENT OF [address] [place] [address] PATHOLOGY AND GENOMIC MEDICINE [address] * Beta hydroxybutyrate (10/14/2019 12:07 PM CDT) Beta 0.14 0.02 - 0.27 mmol/L [facility] Specimen Serum Performing Organization Address City/State/ZIP Code P benita Number [facility] DEPARTMENT OF [address] [place] [address] PATHOLOGY AND GENOMIC MEDICINE [address] * XR Chest 1 Vw Portable (10/14/2019 10:56 AM CDT) Specimen Narrative Performed At Examination: XR CHEST 1 VW PORTABLE [facility] Clinical history: "SOB" Comparison: None IMPRESSION: Lungs are clear. Lung volum es are low. Cardiomediastinal silhouette is within normal limits. Suspicious oss eous lesion is not seen. [id number] Procedure Note Hm Interface, Radiology Results Incoming - 10/14/2019 11:00 AM CDT Examination: XR CHEST 1 VW PORTABLE Clinical history: "SOB" Comparison: None IMPRESSION: Lungs are clear. Lung volumes are low. Cardiomediastinal silhouette is within normal limits. Suspicious osseous lesion is not seen. [id number] Performing Organization Address City/State/ZIP [place] [address] * ECG ED Preliminary Interpretation - Not an Order (10/14/2019 10:37 AM CDT) Narrative Performed At Delvin Alfonso DO 10/16/2019 5:14 PM ECG ED Preliminary Interpretation - Not an Order Performed by: Delvin Alfonso DO Authorized by: Delvin Alfonso DO ECG reviewed by ED Physician in the abs ence of a tariff compiling clerk: yes Interpretation: Interpretation: abnormal Rate: ECG rate: [...] included. WBC 8.91 4.50 - 11.00 k/uL [facility] RBC 4.60 4.20 - 5.50 m/uL [facility] HGB 9.6 (L) 12.0 - 16.0 g/dL [facility] HCT 33.9 (L) 37.0 - 47.0 % [facility] MCV 73.7 (L) 82.0 - 100.0 fL [facility] MCH 20.9 (L) 27.0 - 34.0 pg [facility] MCHC 28.3 (L) 31.0 - 37.0 g/dL [facility] RDW - SD 43.4 37.0 - 55.0 fL [facility] MPV 10.3 8.8 - 13.2 fL [facility] Platelet count 406 (H) 150 - 400 k/uL [facility] Nucleated RBC 0.00 /100 W[facility] Neutrophils 70.8 (H) 39.0 - 69.0 % [facility] Lymphocytes 21.0 (L) 25.0 - 45.0 % [facility] Monocytes 6.6 0.0 - 10.0 % [facility] Eosinophils 0.9 0.0 - 5.0 % [facility] Basophils 0.4 0.0 - 1.0 % [facility] Immature 0.3Comment: "Immature 0.0 - 1.0 % [place] granulocytes granulocytes" (promyelocytes, METHOD [facility] myelocytes, metamyelocytes) HOSPITAL Specimen Blood Performing Organization Address City/[facility] P benita Number [facility] DEPARTMENT OF [address] [place] [address] PATHOLOGY AND GENOMIC MEDICINE [address] * B natriuretic peptide (10/14/2019 10:35 AM CDT) [facility] BNP 14 0 - 100 pg/mL [facility] Specimen Blood Narrative Performed At [facility] results called to and read back by _NAINA KRAMER/KODY AT [facility] DEPARTMENT OF 10/14/2019 11:48 BY LM1. PATHOLOGY AND GENOMIC MEDICINE Performing Organization Address [facility] P benita Number [facility] DEPARTMENT OF [address] [place] [address] PATHOLOGY AND GENOMIC MEDICINE [address] * Comprehensive metabolic panel (10/14/2019 10:35 AM CDT) Only the most recent of 2 results within the time period is included. Sodium 131 (L) 135 - 148 mEq/L [facility] Potassium 4.2 3.5 - 5.0 mEq/L [facility] Chloride 92 (L) 98 - 112 mEq/L [facility] CO2 20 (L) 24 - 31 mEq/L [facility] Anion gap 19@ANIO (H) 7 - 15 mEq/L [facility] BUN 19 8 - 23 mg/dL [facility] Creatinine 0.93 (H) 0.50 - 0.90 mg/dL [facility] Glucose 489 (HH) 65 - 99 mg/dL [facility] Calcium 10.3 (H) 8.8 - 10.2 mg/dL [facility] Protein 8.2 6.3 - 8.3 g/dL [place] Comment: [facility] 4.6-7.0 g/dL 1 week 4.4-7.6 g/dL 7 months-1year 5.1-7.3 g/dL 1-2 years 5.6-7.5 g/dL >3 years 6.0-8.0 g/dL 18-150 6.3-8.3 g/dL Albumin 3.3 (L) 3.5 - 5.0 g/dL [facility] A/G ratio 0.7 0.7 - 3.8 [facility] Alkaline 81 35 - 104 U/L [place] phosphatase [facility] [place] AST 12 10 - 35 U/L [facility] ALT 9 5 - 50 U/L [facility] Total bilirubin 0.3 0.0 - 1.2 mg/dL [facility] Specimen Blood Performing Organization Address [facility] P benita Number [facility] DEPARTMENT OF [address] [place] [address] PATHOLOGY AND GENOMIC MEDICINE [address] * POC Influenza A/B (05/16/2019 4:25 PM FRAUD EXAMINER) [facility] Rapid Influenza negative A Ag Rapid Influenza negative B Ag Specimen Nares * POC rapid strep A (05/16/2019 4:25 PM FRAUD EXAMINER) [facility] Rapid strep A Negative Negative antigen result Specimen Swab * Total iron binding capacity (04/07/2019 4:03 PM FRAUD EXAMINER) [facility] Iron level 29 (L) 45 - 160 mcg/dL [facility] Iron binding 466 (H) 250 - 450 mcg/dL [facility] capacity (calc) [facility] Iron saturation 6 (L) 16 - 45 % (calc) [facility] Specimen Blood Resulting Agency Comment Performing Organization Information: Site ID: RGA Name: [facility] Lab Address: [address] [place] [address] Director: Delvin Yin Performing Organization Address City/[facility] P benita Number [facility] [employer] [address] [address] * Thyroid stimulating hormone (04/07/2019 4:03 PM FRAUD EXAMINER) [facility] TSH 1.26 0.40 - 4.50 mIU/L [facility] Specimen Blood Resulting Agency Comment Performing Organization Information: Site ID: RGA Name: [facility] Address: [address] [place] [phone] Director: Delvin Yin Performing Organization Address City/[facility] Code P benita Number [facility] [employer] [place] [address] [place], [place] [address] * Ferritin level (04/07/2019 4:03 PM FRAUD EXAMINER) Ferritin level 11 (L) 16 - 288 ng/mL [employer] [place] Specimen Blood Resulting Agency Comment Performing Organization Information: Site ID: RGA Name: [facility] Address: [address] [place] [phone] Director: Delvin Yin Performing Organization Address [facility] Code P benita Number [facility] [employer] [facility] [address] [place] [address] 72 after 03/17/2019 Insurance Type Payer Benefit Subscriber ID Effective Phone Address Plan / Dates Group HMO AETNA AETNA [id number] 2014-P HMO,POS,EP resent O, MC/EC Advance Directives For more information, please contact: [phone] Patient [employer] Explanation Type Date Recorded Advance Directives, Living Will and Medical Power of Data Management Associate
--- OUTSIDE RECORDS SUMMARY | 2020-03-25 17:33 | XMS REPORT | Continuity of Care Document ---
Author Author [facility] t Organization [facility] Address [address] [place] [place] [address] Phone Unavailable Care Team Providers Care Objects Conservator Name Role Phone Marvin PITTMAN PCP Shasta CHRISTIE Attphys Unavailable Yuni DUNLAP Attphys Unavailable Zain TORREZ, Jerry Pena Attphys Norberto Alfonso DO Attphys [place] TORRZE, Yasmin Briones Attphys [phone] Tarun ANG, Mariely Prescott Attphys Unavailable Markell ANG, Laci Attphys Unavailable OCTAVIO BACON Attphys Unavailable ANALI CRUZ Admphys Unavailable Payers Payer Name Policy Type Policy Number Effective Date Expiration Date S tomas Aerajendrana [facility] Care [id number] 2014 00:00:00 C [facility] AETNAAETNA HMO,POS,EPO, [id number] 2013-PresentO [id number] 2014 00:00:00 Arcenio Schaeffer Problems Condition Name [...] Essential hypertension Disease Active 2017-11-19 00:00:[address] Sepsis Problem Active [facility] Problem [facility] Urinary tract infection Problem Active [facility] History of Past Illness Condition Name Condition Details Condition Category Status Onset Date Resolution Date Last Treatment Date Treating Clinician Comments Source PERRY (dyspnea on exertion) PERRY (dyspnea on exertion) Disease Re solved 2019-10-14 00:00:00 2019-10-14 00:00:00 2019-10-14 13:16:53 Gonzalo Schaeffer Allergies, Adverse Reactions, Alerts Allergy Name Allergy Type Status Severity Reaction(s) Onset Date Inacti ve Date Treating Clinician Comments Source No Known Allergies DA Active U 2018-02-11 00:00:00 [facility] No Known Allergies DA Active U 2016-05-15 00:00:00 [facility] Family History Family Member Diagnosis Comments Start Date Stop Date Source Natural father CABG/Stent Rg Me thodist Natural father Heart attack Arcenio Schaeffer Maternal grandfather Stroke [place] Natural mother Heart disease Rg Cheondoism Natural mother Hypertension Arcenio Schaeffer Natural mother Lung cancer Rg M ethodist Natural mother Thyroid cancer [place] Paternal grandfather Heart attack Ho maude Schaeffer Natural sister Heart disease Arcenio Cheondoism Natural sister Thyroid cancer [place] Social History Social Habit Start Date Stop [...] 10 MG tablet 2019-10-24 15:09:51 Yes 10mg [id number] Take 10 mg by mouth 3 (three) [...] 2 (two) times a day. Arcenio Bernard thodi ferrous gluconate (FERGON) 324 MG tablet 2018-09-02 [...] (Lexapro) 10 Mg TABLET Yes 1 Daily [facility] Esomeprazole Magnesium Esomeprazole Magnesium Yes 1 Twice A Day [facility] Glipizide (Glipizide Er) 10 Mg TAB.ER.24 Glipizide (Gl ipizide Er) 10 Mg TAB.ER.24 Yes 1 Daily [facility] Losartan Potassium Losartan Potassium Yes 50 Da lyubov [facility] Metformin Hcl (Metformin Hcl Er) 500 Mg TAB.ER.24H Met formin Hcl (Metformin Hcl Er) 500 Mg TAB.ER.24H Yes 1 Twice A Day [facility] Metoclopramide Hcl (Reglan) 10 Mg TABLET Metoclopramid e Hcl (Reglan) 10 Mg TABLET Yes 10 Three Times A Day C [facility] Metoprolol Succinate Metoprolol Succinate Yes Daily [facility] Aripiprazole (Abilify*) 2 Mg TABLET Aripiprazole (Abilify*) 2 Mg TABLET 2019-12-10 00:00:00 No 1 Daily [facility] Zolpidem Tartrate Zolpidem Tartrate 2019-12-10 00:00:00 No [facility] Vital Signs Vital Name Observation Time Observation Value Comments Source Body Temperature 2019-12-15 11:34:00 97.7 [degF] [facility] Weight 2019-12-10 02:30:00 197.03 [lb_av] [facility] BMI (Body Mass Index) 2019-12-10 02:30:00 37.7 kg/m2 [facility] Systolic blood pressure 2019-10-24 15:07:00 121 mm[Hg] Arcenio Schaeffer Diastolic blood pressure 2019-10-24 15:07:00 76 mm[Hg] Arcenio Schaeffer Heart rate 2019-10-24 15:07:00 106 /min Arcenio Schaeffer Body temperature 2019-10-24 15:07:00 37.22 [place]ena [place] Cheondoism Body height 2019-10-24 15:07:00 167.6 cm Arcenio Schaeffer Body weight 2019-10-24 15:07:00 95.255 kg Arcenio Schaeffer BMI 2019-10-24 15:07:00 33.89 kg/m2 Arcenio Schaeffer Oxygen saturation in Arterial blood by Pulse oximetry 10-23 15:07:00 98 /min Arcenio Schaeffer Respiratory rate 2019-10-15 15:00:00 18 /min Bettina kelly Schaeffer Procedures Procedure Date / Time Performed Performing Clinician Sourc e URINE CULTURE 2019-10-24 16:20:00 Becky Pittman BASIC METABOLIC PANEL 2019-10-24 16:20:00 Becky Pittman URINALYSIS, AUTOMATED WITH MICROSCOPY 2019-10-24 16:20:00 Li ncolnBecky POC GLUCOSE 2019-10-24 16:01:00 Becky Pittman ECG 12-LEAD 2019-10-15 11:23:52 Anali Cruz URINALYSIS, AUTOMATED WITH MICROSCOPY 2019-10-15 11:14:00 Go Anali song POC GLUCOSE 2019-10-15 11:06:00 Anali Cruz TTE COMPLETE, WO CONTRAST, W DOPPLER ([id number]) 2019-10-15 11:0 0:00 Anali Cruz POC GLUCOSE 2019-10-15 07:08:00 Anali Cruz HEMOGLOBIN A1C 2019-10-15 03:31:00 Anali Cruz LIPID PANEL 2019-10-15 03:31:00 Anali Cruz BASIC METABOLIC PANEL 2019-10-15 03:31:00 Anali Cruz ESTIMATED GFR 2019-10-15 03:31:00 Anali Cruzmina Arcenio Schaeffer POC GLUCOSE 2019-10-14 20:21:00 Anali Cruzmina Arcenio Schaeffer TROPONIN 2019-10-14 17:02:00 Anali Cruzlermina Arcenio Schaeffer POC GLUCOSE 2019-10-14 14:48:[address] CARDIAC OVERREAD 2019-10-14 14:37:40 Anali Cruzzully nixon Schaeffer CV CTA CORONARY ARTERIES W CONTRAST 2019-10-14 14:36:01 Anali Thomasmina Arcenio Schaeffer POC GLUCOSE 2019-10-14 13:30:00 Anali Cruzmina Arcenio Schaeffer TROPONIN 2019-10-14 12:35:00 Anali Cruzminshasta Schaeffer ARTERIAL BLOOD GAS 2019-10-14 12:35:00 Anali Cruzjesus peralta Arcenio Schaeffer BETA HYDROXYBUTYRATE 2019-10-14 12:07:00 Anali Cruz lupilloshasta Schaeffer POC GLUCOSE 2019-10-14 11:54:00 Delvin Alfonso XR CHEST 1 VW PORTABLE 2019-10-14 10:56:07 Delvin Alfonso SD CRITICAL CARE, E/M 30-74 MINUTES 2019-10-14 10:37:26 [...] Delvin Alfonso HEMOGLOBIN A1C 2019-10-14 10:35:00 Delvin Alfonso ethodist ECG 12-LEAD 2019-10-14 10:21:27 [facility] Anali Yasminshasta Schaeffer POCT INFLUENZA A/B 2019-05-16 16:25:00 Becky Pittman POCT RAPID STREP A 2019-05-16 16:25:00 Becky Pittman COMPREHENSIVE METABOLIC PANEL 2019-04-07 16:03:00 Chanelle Pittman cia URINALYSIS, AUTOMATED WITH MICROSCOPY 2019-04-07 16:03:00 Marisol ncoBecky vickers HEMOGLOBIN A1C 2019-04-07 16:03:00 Becky Pittman THYROID STIMULATING HORMONE 2019-04-07 16:03:00 Edgar Pittman CBC WITH PLATELET AND DIFFERENTIAL 2019-04-07 16:03:00 Steveno lnBecky FERRITIN LEVEL 2019-04-07 16:03:00 Becky Pittman TOTAL IRON BINDING CAPACITY 2019-04-07 16:03:00 Edgar Pittman Plan of Care Planned Activity Planned Date Details Comments Source Future Scheduled Test 2019-12-20 00:00:00 INFLUENZA VACCINE [code = INFLUENZA VACCINE] [facility] Future Scheduled Test 2019-08-02 00:00:00 URINE MICROALBUMIN [code = URINE MICROALBUMIN] [facility] Future Scheduled Test 2005 00:00:00 BREAST CANCER SCRE ENING [code = BREAST CANCER SCREENING] [facility] Future Scheduled Test 2005 00:00:00 COLONOSCOPY SCREEN ING [code = COLONOSCOPY SCREENING] [facility] Scheduled Test 2005 00:00:00 SHINGLES VACCINES (#1) [code = SHINGLES VACCINES (#1)] [facility] Scheduled Test 1976 00:00:00 Screening for isauro gnant neoplasm of cervix (procedure) [code = 257539759] [facility] Future Scheduled Test 1965 00:00:00 DIABETES: RETINAL EYE EXAM [code = DIABETES: RETINAL EYE EXAM] [facility] Future Scheduled Test 1965 00:00:00 DIABETIC FOOT EXAM [code = DIABETIC FOOT EXAM] [facility] Instructions Cellulitis [facility] Instructions Urinary Tract Infection - Women [facility] Encounters Start Date/Time End Date/Time Encounter Type Admission Type [facility] Facility Care Department Encounter ID Source 2019-12-10 00:21:00 2019-12-15 12:17:00 Discharged Inpatient 1 CAREY DUNLAP [facility] [id number] I [facility] 2019-10-24 00:00:00 2019-10-24 00:00:00 Outpatient GENIE PITTMAN [facility] [id number] [facility] 2019-10-24 00:00:00 2019-10-24 00:00:00 Outpatient GENIE PITTMAN [facility] [id number] [facility] 2019-10-14 00:00:00 2019-10-15 00:00:00 Outpatient PROSPER CRUZ [facility] 064 [id number] [facility] Results Test Description Test Time Test Comments Results Result Comments Source CHEST SINGLE (NOT PORTABLE) 2020-03-17 17:17:00 [facility] 1955 Sex: [place] [address] Patient Name: YVES LUGO MR #: [id number] : 1955 Age/Sex: 64/F Req #: [id number] Adm Physician: Ordered by: CL CHRISTIE MD Report #: [id number] Location: Room/Bed: Procedure: [id number] DX/CHEST SINGLE (NOT PORTABLE) Exam Date: 03/17/20 Exam Time: 1654 REPORT STATUS: Signed EXAMINATION: CHEST SINGLE (NOT PORTABLE) INDICATION: WEAKNESS, RECENT PNEUMONIA [id number] COMPARISON: Chest radiograph 03/06/2020 FINDINGS: TUBES and LINES: None. LUNGS: Normal lung volumes. No focal opacity or consolidation. Previously noted right perihilar haziness is no longer visualized. PLEURA: No pleural effusion or pneumothorax. HEART AND MEDIASTINUM: The cardiomediastinal silhouette is unremarkable. BONES AND SOFT TISSUES: No acute osseous lesion. Soft tissues are unremarkable. UPPER ABDOMEN: No free air under the diaphragm. IMPRESSION: No acute thoracic radiographic abnormality. Previously noted right perihilar haziness is no longer visualized. Signed by: Dr. Markell Ramos M.D. on 03/17/2020 5:20 PM Dictated By: MARKELL RAMOS MD 19 Transcribed By: SETH on 03/17/201719 COPY TO: CL CHRISTIE MD CT BRAIN WO 2020-03-06 22:38:00 [facility] 1955 Sex: F [facility] [address] [place] [address] Patient Name: YVES LUGO MR #: [id number] : 1955 Age/Sex: 64/F Req #: [id number] Adm Physician: Ordered by: CAREY DUNLAP MD Report #: [id number] Location: ER Room/Bed: Procedure: [id number] CT/CT BRAIN WO Exam Date: 03/06/20 Exam [...] MD CHEST SINGLE (PORTABLE) 2020-03-06 22:32:00 [facility] 1955 Sex: [place] [address] Patient Name: YVES LUGO MR #: [id number] : 1955 Age/Sex: 64/F Req #: [id number] Adm Physician: Ordered by: CAREY DUNLAP MD Report #: [id number] Location: ER Room/Bed: Procedure: [id number] DX/CHEST SINGLE (PORTABLE) Exam Date: 03/06/20 Exam Time: 2204 REPORT STATUS: Signed EXAMINATION: CHEST SINGLE (PORTABLE) INDICATION: GENERALIZED WEAKNESS [id number] Y COMPARISON: 12/09/2019 FINDINGS: AP view TUBES and [...] Test Item Bedside Glucose (test code = 84573-9) 89 70-120 Meter ID: [id number] [facility]er[facility] or plasma trough vancomycin level at trough (mass/volume)2019-12-14 16:40:00* Test Item Value Reference Range Interpretation Comments Vancomycin Level Trough (test code = 4092-3) 9.3 5.0-10.0 [facility] leukocytes automated count (number/volume)2019-12-12 04:48:00* Test Item Value Reference Range Interpretation Comments White Blood Count (test code = 6690-2) 6.30 4.8-10.8 [facility] erythrocytes automated count (number/volume)2019-12-12 04:48:00* Test Item Value Reference Range Interpretation Comments Red Blood Count (test code = 789-8) 3.88 3.6-5.1 [facility] hemoglobin measurement (moles/volume)2019-12-12 04:48:00* Test Item Value Reference Range Interpretation Comments Hemoglobin (test code = 21110-4) 9.2 12.0-16.0 [facility] blood hematocrit (volume fraction)2019-12-12 04:48:00* Test Item Value Reference Range Interpretation Comments Hematocrit (test code = 4544-3) 31.7 34.2-44.1 [facility] erythrocyte mean corpuscular jjrxcl8281-78-58 04:48:00* Test Item Value Reference Range Interpretation Comments Mean Corpuscular Volume (test code = 787-2) 81.7 81-99 [facility] erythrocyte mean corpuscular hemoglobin (mass per erythrocyte)2019-12-12 04:48:00* Test Item Value Reference Range Interpretation Comments Mean Corpuscular Hemoglobin (test code = 785-6) 23.7 28-32 [facility] erythrocyte mean corpuscular hemoglobin concentration measurement (mass/volume)2019-12-12 04:48:00* Test Item Value Reference Range Interpretation Comments Mean Corpuscular Hemoglobin Concent (test code = 786-4) 29.0 31-35 [facility] SouthRDW AtnSt-Lhn8734-21-24 04:48:00* Test Item Value Reference Range Interpretation Comments Red Cell Distribution Width (test code = 26521-8) 17.7 11.7 -14.4 [facility] SouthAut[facility] healthed blood platelet count (count/volume)2019-12-12 04:48:00* Test Item Value Reference Range Interpretation Comments Platelet Count (test code = 777-3) 279 140-360 [facility]althed blood segmented neutrophil count as percentage of total repmfspikp2624-20-83 04:48:00* Test Item Value Reference Range Interpretation Comments Neutrophils (%) (Auto) (test code = 07170-5) 55.6 38.7-80.0 [facility]althed blood lymphocyte count as percentage ot total dxcvjnpqxu9488-62-17 04:48:00* Test Item Value Reference Range Interpretation Comments Lymphocytes (%) (Auto) (test code = 736-9) 34.3 18.0-39.1 [facility]alt[facility] blood monocyte count as percentage of total ouuskevnri5390-18-66 04:48:00* Test Item Value Reference Range Interpretation Comments Monocytes (%) (Auto) (test code = 5905-5) 6.5 4.4-11.3 [facility] blood eosinophil count as percentage of total hbgvqyrely5333-80-61 04:48:00* Test Item Value Reference Range Interpretation Comments Eosinophils (%) (Auto) (test code = 713-8) 2.5 0.0-6.0 [facility] blood basophil count as percentage of total qzawwbhmfp0967-59-96 04:48:00* Test Item Value Reference Range Interpretation Comments Basophils (%) (Auto) (test code = 706-2) 0.6 0.0-1.0 [facility] SouthFluoroscopic procedure less than one hour ccrkfyol5297-32-75 04:48:00* Test Item Value Reference Range Interpretation Comments IM GRANULOCYTES % (test code = IM GRANULOCYTES %) 0.5 0.0- 1.0 [facility] blood neutrophil count 2019-12-12 04:48:00* Test Item Value Reference Range Interpretation Comments Neutrophils # (Auto) (test code = 751-8) 3.5 2.1-6.9 [facility] lymphocytes count (number/volume) 2019-12-12 04:48:00* Test Item Value Reference Range Interpretation Comments Lymphocytes # (Auto) (test code = 57973-6) 2.2 1.0-3.2 [facility] monocytes automated count (number/volume)2019-12-12 04:48:00* Test Item Value Reference Range Interpretation Comments Monocytes # (Auto) (test code = 742-7) 0.4 0.2-0.8 [facility] blood eosinophil count 2019-12-12 04:48:00* Test Item Value Reference Range Interpretation Comments Eosinophils # (Auto) (test code = 711-2) 0.2 0.0-0.4 [facility] blood basophil count (count/volume)2019-12-12 04:48:00* Test Item Value Reference Range Interpretation Comments Basophils # (Auto) (test code = 704-7) 0.0 0.0-0.1 [facility] SouthFluoroscopic procedure less than one hour pnddqjzg0812-05-63 04:48:00* Test Item Value Reference Range Interpretation Comments Absolute Immature Granulocyte (auto (julee t code = Absolute Immature Granulocyte (auto) 0.03 0-0.1 [facility] or plasma sodium measurement (moles/volume)2019-12-12 04:48:00* Test Item Value Reference Range Interpretation Comments Sodium Level (test code = 2951-2) 140 136-145 [facility]erum or plasma potassium measurement (moles/volume)2019-12-12 04:48:00* Test Item Value Reference Range Interpretation Comments Potassium Level (test code = 2823-3) 3.7 3.5-5.1 [facility]er[facility] or plasma chloride measurement (moles/volume)2019-12-12 04:48:00* Test Item Value Reference Range Interpretation Comments Chloride Level (test code = 2075-0) 108 98-107 [facility]erum or plasma carbon dioxide, total measurement (moles/volume)2019-12-12 04:48:00* Test Item Value Reference Range Interpretation Comments Carbon Dioxide Level (test code = 2028-9) 24 22-29 [facility]erum or plasma anion xzr7219-75-85 04:48:00* Test Item Value Reference Range Interpretation Comments Anion Gap (test code = 40041-9) 11.7 8-16 [facility]er[facility] or plasma urea nitrogen measurement (mass/volume)2019-12-12 04:48:00* Test Item Value Reference Range Interpretation Comments Blood Urea Nitrogen (test code = 3094-0) 14 7-26 [facility] or plasma creatinine measurement (mass/volume)2019-12-12 04:48:00* Test Item Value Reference Range Interpretation Comments Creatinine (test code = 2160-0) 0.76 0.57-1.11 [facility] or plasma urea nitrogen/creatinine mass yltsv6595-84-00 04:48:00* Test Item Value Reference Range Interpretation Comments BUN/Creatinine Ratio (test code = 3097-3) 18 6-25 [facility] SouthEstimated glomerular filtration rate (GFR) jgfctxrmgcjgp1273-97-39 04:48:00* Test Item Value Reference Range Interpretation Comments Estimat Glomerular Filtration Rate (test code = 121470524) > 60 >60 Ranges were taken from the National Kidney Disease Education Program and the [employer] literature.Reference ranges:60 or greater: Bvxovz81-22 ( for 3 consecutive months): Chronic kidney disease 15 or less: Kidney failureCHRISTUS Spohn Hospital [facility]i – SouthGlucose vojxvjvopxi2277-69-51 04:48:00* Test Item Value Reference Range Interpretation Comments Glucose Level (test code = LUC4676) 109 74-118 [facility]erum or plasma calcium measurement (mass/volume)2019-12-12 04:48:00* Test Item Value Reference Range Interpretation Comments Calcium Level (test code = 10134-6) 8.7 8.4-10.2 [facility]er[facility] or plasma magnesium measurement (mass/volume)2019-12-12 04:48:00* Test Item Value Reference Range Interpretation Comments Magnesium Level (test code = 44388-6) 1.7 1.3-2.1 [facility] or plasma total bilirubin measurement (mass/volume)2019-12-12 04:48:00* Test Item Value Reference Range Interpretation Comments Total Bilirubin (test code = 1975-2) 0.2 0.2-1.2 [facility] SouthFluoroscopic procedure less than one hour okituctz3359-94-49 04:48:00* Test Item Value Reference Range Interpretation Comments Aspartate Amino Transf (AST/SGOT) (test code = Aspartate Amino Transf (AST/SGOT)) 15 5-34 [facility] Hospitalerum or plasma alanine aminotransferase measurement (enzymatic activity/volume)2019-12-12 04:48:00* Test Item Value Reference Range Interpretation Comments Alanine Aminotransferase (ALT/SGPT) (test code = 1742-6) 10 0-55 [facility] Hospitalerum or plasma protein measurement (mass/volume)2019-12-12 04:48:00* Test Item Value Reference Range Interpretation Comments Total Protein (test code = 2885-2) 6.4 6.5-8.1 [facility] Hospitaler[facility] or plasma albumin measurement (mass/volume)2019-12-12 04:48:00* Test Item Value Reference Range Interpretation Comments Albumin (test code = 1751-7) 2.7 3.5-5.0 [facility]asma globulin measurement (mass/volume) 2019-12-12 04:48:00* Test Item Value Reference Range Interpretation Comments Globulin (test code = 77563-6) 3.7 2.3-3.5 [facility] Hospitalerum or plasma albumin/globulin mass aqpfq1512-47-85 04:48:00* Test Item Value Reference Range Interpretation Comments Albumin/Globulin Ratio (test code = 1759-0) 0.7 0.8-2.0 [facility]er[facility] or plasma alkaline phosphatase measurement (enzymatic activity/volume)2019-12-12 04:48:00* Test Item Value Reference Range Interpretation Comments Alkaline Phosphatase (test code = 6768-6) 61 40-150 [facility] platelets count by estimate (number/volume)2019-12-11 05:30:00* Test Item Value Reference Range Interpretation Comments Platelet Estimate (test code = 58910-7) ADEQUATE [facility] SouthPlatelet gzicecbitf6176-38-15 05:30:00* Test Item Value Reference Range Interpretation Comments Platelet Morphology Comment (test code = 97847-4) RARE EDTA CLUMPIN G [facility] SouthBlood hypochromia detection by light lpxzjxfgkm9299-39-27 05:30:00* Test Item Value Reference Range Interpretation Comments Hypochromasia (test code = 728-6) SLIGHT [facility] SouthBlood poikilocytosis detection by light rjflkgncvv7542-51-30 05:30:00* Test Item Value Reference Range Interpretation Comments Poikilocytosis (test code = 779-9) SLIGHT [facility] anisocytosis detection by light zikzesgeqp7503-20-04 05:30:00* Test Item Value Reference Range Interpretation Comments Anisocytosis (test code = 702-1) SLIGHT [facility] SouthRB cmqnsjwnwn4220-62-70 05:30:00* Test Item Value Reference Range Interpretation Comments Red Cell Morphology Comment (test code = 6742-1) NORMAL [facility] SouthFluoroscopic procedure less than one hour rtsknwrt0791-38-19 05:40:00* Test Item Value Reference Range Interpretation Comments Lactic Acid Level (test code = Lactic Acid Level) 1.8 0.5- 2.0 [facility] SouthFluoroscopic procedure less than one hour wtrmkrpa2301-63-18 00:50:00* Test Item Value Reference Range Interpretation [...] complexity tests.Testing performed by [facility] [id number] [place] [address] [phone] Director: Andre Hanna M.D.CLIA # [id number] [facility] SINGLE (PORTABLE)2019-12-09 23:58:00 [place] [address] Patient Name: YVES LUGO MR #: [id number] : 1955 Age/Sex: 64/F Req #: [id number] Adm Physician: Ordered by: CAREY DUNLAP MD Report #: [id number] Location: ER Room/Bed: Procedure: [id number] DX/CH EST SINGLE (PORTABLE) Exam Date: 12/09/19 [...] COPY TO: CAREY AKERS MD Urine color hbhbbvblcvzws6568-08-35 21:41:00* Test Item Value Reference Range Interpretation Comments Urine Color (test code = 5778-6) YELLOW YELLOW [facility] SouthUrine kzkwjwp2829-70-97 21:41:00* Test Item Value Reference Range Interpretation Comments Urine Clarity (test code = 27905-5) SL CLOUDY CLEAR [facility] Hospitalpecific gravity of Urine by Test strip 2019-12-09 21:41:00* Test Item Value Reference Range Interpretation Comments Urine Specific [place] (test code = 5811-5) 1.020 1.010-1.02 5 [facility] [place] [facility] [place] measurement by automated test oqrax5896-41-52 21:41:00* Test Item Value Reference Range Interpretation Comments Urine pH (test code = 23168-5) 7 5-7 [facility] leukocyte esterase detection by tmzffrtx9050-75-24 21:41:00* Test Item Value Reference Range Interpretation Comments Urine Leukocyte Esterase (test code = 5799-2) TRACE NEGATIVE [facility] nitrite tixenrvvu5774-47-67 21:41:00* Test Item Value Reference Range Interpretation Comments Urine Nitrite (test code = 68090-0) NEGATIVE NEGATIVE [facility] protein measurement by test strip (mass/volume)2019-12-09 21:41:00* Test Item Value Reference Range Interpretation Comments Urine Protein (test code = 5804-0) 1+ NEGATIVE [facility] glucose hpfezgwer2237-72-65 21:41:00* Test Item Value Reference Range Interpretation Comments Urine Glucose (UA) (test code = 2349-9) 2+ NEGATIVE [facility] ketones detection by automated test rsgvp5659-97-39 21:41:00* Test Item Value Reference Range Interpretation Comments Urine Ketones (test code = 97353-4) NEGATIVE NEGATIVE [facility] urobilinogen measurement by test strip (mass/volume)2019-12-09 21:41:00* Test Item Value Reference Range Interpretation Comments Urine Urobilinogen (test code = 71033-8) 0.2 0.2-1 [facility] total bilirubin measurement (mass/volume)2019-12-09 21:41:00* Test Item Value Reference Range Interpretation Comments Urine Bilirubin (test code = 1978-6) NEGATIVE NEGATIVE [facility] erythrocytes vthexgaer2488-39-78 21:41:00* Test Item Value Reference Range Interpretation Comments Urine Blood (test code = 11463-8) TRACE NEGATIVE [facility] urine sediment leukocyte count by microscopy (number/high power field)2019-12-09 21:41:00* Test Item Value Reference Range Interpretation Comments Urine WBC (test code = 5821-4) 11-20 0-5 [facility] South[facility]rythrocytes detection in urine sediment by light noulgbamqy6876-36-19 21:41:00* Test Item Value Reference Range Interpretation Comments Urine RBC (test code = 44777-9) 6-10 0-5 [facility]acteria detection in urine sediment by light inxpzwxlml6036-41-87 21:41:00* Test Item Value Reference Range Interpretation Comments Urine Bacteria (test code = 38341-6) MODERATE NONE [facility] SouthEpithelial cells detection in urine sediment by light arwidhiiym7872-38-97 21:41:00* Test Item Value Reference Range Interpretation Comments Urine Epithelial Cells (test code = 20394-4) MODERATE NONE [facility] SouthBlood tfxbjuk2095-17-92 21:30:00* Test Item Value Reference Range Interpretation Comments Blood Culture (test code = 59476736) NO GROWTH AFTER 5 DAYS, FINAL REPORT [facility] SouthBasic metabolic jwwnl6727-29-96 18:27:00 * Test Item Value Reference Range [...] 13% higher for peopleidentified as -[place]izen Of [place]. EGFR Non-Afr. [place] (test code = 2775) 68 > OR = 60 mL /min/1.73m2 EGFR (test code = 58171-2) 78 > OR = 60 mL/min/1.73m2 BUN/creatinine ratio (test code = 3097-3) NOT APPLICABLE 6- 22 (randy c) Sodium (test code = 2951-2) 137 mmol/L 135-146 Potassium (test code = 2823-3) 3.4 mmol/L 3.5-5.3 L Chloride (test code = 2075-0) 101 mmol/L 98-110 CO2 (test code = 8-9) 25 mmol/L 20-32 Calcium (test code = 88628-5) 9.6 mg/dL 8.6-10.4 RAC (test code = RAC) Performing Organization Info rmation: Site ID: RGA Name: [facility] Address: [address] [place] [phone] Director: Delvin Yin Lab Interpretation (test code = 15375-0) Abnormal Rg MethodistUrinalysis, automated with skfohetozs2751-08-77 18:27:00* Test Item Value Reference Range Interpretation Comments Color, UA (test code = 5778-6) YELLOW YELLOW Appearance (test code = 5767-9) CLOUDY CLEAR A Specific gravity, urine (test code = 5811-5) 1.016 1.001-1.0 35 pH, urine (test code = 5803-2) 6.0 5.0-8.0 Glucose, urine (test code = 26202-7) 3+ NEGATIVE A Bilirubin, UA (test code = 5770-3) NEGATIVE NEGATIVE Ketones, UA (test code = 2514-8) NEGATIVE NEGATIVE Occult blood, urine (test code = 5794-3) TRACE NEGATIVE A Protein, UA (test code = 96100-1) 1+ NEGATIVE A Nitrite, UA (test code = 5802-4) NEGATIVE NEGATIVE Leukocyte esterase, UA (test code = 5799-2) 2+ NEGATIVE A WBC, UA (test code = 5821-4) 20-40 < OR = 5 /HPF A RBC, UA (test code = 03496-4) 0-2 < OR = 2 /HPF Squamous epithelial cells, UA (test code = 50707-5) 0-5 < OR = 5 /HPF Bacteria, UA (test code = 5769-5) FEW NONE SEEN /HPF A Calcium oxalate crystals, UA (test code = 87346-1) FEW NON E OR FEW /HPF Hyaline casts, UA (test code = 5796-8) NONE SEEN NONE SEEN /LPF RAC (test code = RAC) Performing Organization Info rmation: Site ID: RGA Name: [facility] Address: [address] [place] [phone] Director: Delvin Yin Lab Interpretation (test code = 89565-4) Abnormal [place] MethodistUrine hnnxtdr6961-13-70 04:27:00* Test Item Value Reference Range Interpretation Comments Urine culture (test code = 630-4) SEE NOTE CULTURE, URINE, ROUTINE Micro Number: [id number] Test Status: Final Specimen Source: NOT GIVEN Specimen Quality: Adequate Result: Multiple organisms present, each less than 10,000 CFU/mL. These organisms, commonly found on external and internal genitalia, are considered to be colonizers. No further testing performed. RAC (test code = RAC) Performing Organization Info rmation: Site ID: RGA Name: [facility] Address: [address] [place] [address] Director: Delvin Yin [facility] mahnyza0513-10-65 16:01:00* Test Item Value Reference Range Interpretation Comments POC glucose (test code = 7200122) 196 65-100 [place] MethodistECG 12 hqyd9048-08-41 10:37:25* Test Item Value Reference Range Interpretation Comments Ventricular rate (test code = 253) 77 Atrial rate (test code = 255) 77 SD interval (test code = 266) 156 QRSD [...] 10:21,-ST no longer depressed in Lateral leads[facility], (w Contrast, Strain and 3D if needed)2019-10-15 12:44:00Interface, Radiology Results In - 10/15/2019 12:44 PM CDT Echocardiography Report [id number] [id number] Pat.Name: YVES LUGO Hamida Pat.ID: [id number] St.Date: 10/15/2019 Refer.MD: ANALI CRUZ MDExbairon Time: 10:13:00 AM Study Type:Routine Echo Height: 66in Weight: 209lb BSA: 2.04 m2 Age: 1 1955,64Y Sex: FEMALE BP: 117/75 HR: 82 bpm Sonogrphr: JUDY Pemberton RVS Pat. Stat.:Inpatient Room: A7036 Study Status:Final Echo Event ID:[id number] Order ID: [id number] Reason for Study:HF - Initial eval of [...] systolic pressure. MEASUREME NTS: 2DPara sternal [place] Ao An 2.1 cm LVPWd 0.93 cm [...] l/m/m2 Signed 10/15/2019 12:44 PMSu Gus Forrest M.D.[place] MethodistHemoglobin A1c 2019-10-15 08:06:19* Test Item Value Reference Range Interpretation Comments Hemoglobin A1C (test code = 71094-6) 11.6 % 4-5.6 H HbA1c cutoffs for diagnosing diabetes:4.0% - 5.6% = normal5.7% - 6.4% = increased risk for diabetes (prediabetes)9>=6.5% = grhhqtpt3Wococ for glycemic control (ADA 2016)< 7.0% Target for non adults with diabetes. More or less stringent targets may be appropriate for individual patients. <7.5% Target for Children and adolescents with type 1 diabetes. Lab Interpretation (test code = 12680-4) Abnormal [place] MethodistLipid evrvj4550-56-44 04:22:54* Test Item Value Reference Range Interpretation Comments Cholesterol (test code = 2093-3) 198 mg/dL <200 Triglycerides (test code = 2571-8) 239 mg/dL <150 H HDL cholesterol (test code = 2085-9) 34 mg/dL >40 L LDL cholesterol (test code = 2089-1) 145 mg/dL <100 H Result obtained by direct LDL measurement Lipid panel interpretation (test code = 91724-6) SeeBelow Total Cholesterol (mg/dL) <200 Desirable 200-239 [...] (>=200 mg/dL) Lab Interpretation (test code = 81019-8) Abnormal Rg MethodistEstimated [id number] 04:22:54* Test Item Value Reference Range Interpretation Comments Estimated GFR (test code = 5488) 80 mL/min/1.73 m2 Catergory Units InterpretationG1 >=90 Normal or highG2 60-89 Mildly drbmrbldaM0l 45-59 Mildly to moderately yvmdyyuppS2z 30-44 Moderately to severely decreasedG4 15-29 Severely decreasedG5 <15 Kidney failureThe eGFR was calculated using the Chronic Kidney Disease Epidemiology Collaboration (CKD-EPI) equation. Interpretation is based on recommendations of the National Kidney Foundation-Kidney Disease Outcomes Quality Initiative (NKF-KDOQI) published in 2014. Arcenio SchaefferXjefnowoqDjcvurxq3549-72-91 17:53:06* Test Item Value Reference Range Interpretation Comments Troponin (test code = 10847-3) <0.006 0-0.04 In patients suspected of having [...] OR decreased by less than 0.020 ng/mL [facility] cta coronary arteries w contrast and ffr if smvhnp5634-29-94 17:15:00Interface, Radiology Results In 10/14/2019 5:15 PM CDT Nuclear Cardiology and Cardiac CT [address] [place] [address] Department Number: [phone] CTA Coronary Arteries w/ Calcium Scoring ReportPat.Name: YVES LUGO.ID: [id number] St.Date: 10/14/2019 Refer.MD: ANALI CRUZ MD.Exam Time: 1:58:00 PM Study Type:CTA Coronary Arteries with Calcium ScoringHeight: 66in BSA: 2.06 m2 Age: 1 1955,64Y Sex: FEMALE BP: 162/80 HR: 75 bpm Nuclear Tech:ASHLEY Franco(N)(CT)CPT - 4: CCTA w Thoracic Aorta (NonCongenital) 74095;78639Lhqyrtg Event ID:[id number] Order ID: [id number] Reason for Study:ED [place] ACS Pathway, Chest painProcedures: CT Prospective (Intervals), CT Flash Mode with PlanningScanRace: C SUMMARY: ----Technique: IV contrast was administered and sequential 0.[address] cutswere ob tained through the chest using the Siemens Somatom Graviton CTscanner. Image post- processing consisting of multiplanar [...] diagonal branch and a large first septal brush painter artery.No significant athero sclerotic plaque is present.The [...] refer to the separate radiology report in [facility] for anyadditional non-cardiovascular findings. STUDY QUALITYThe study quality is excellent.COMMENTS: None. ------FINDINGS: Signed 10/14/2019 05:15 PMAlex De La Rosa MethodistCT Cardiac Jxmvthrc2866-54-28 14:48:03Hm Interface, Radiology Results Incoming - 10/14/2019 [...] es involving the proximal stomach as described.Arcenio SchaefferBeta qhkdovhnwemryhj7825-42-68 13:28:55* Test Item Value Reference Range Interpretation Comments Beta hydroxybutyrate (test code = 6873-4) 0.14 mmol/L 0.02-0.27 Rg MethodistArterial blood gpj5770-56-93 12:55:11* Test Item Value Reference Range Interpretation [...] % 95-100 Lab Interpretation (test code = 22254-3) Abnormal Arcenio PriceistB natriuretic nqsprbw7909-34-29 11:52:07* Test Item Value Reference Range Interpretation Comments BNP (test code = 69575-0) 14 pg/mL 0-100 RADHA (test code = RADHA) GLUCOSE results called to an d read back by JEFF PURCELL/KODY AT 10/14/2019 11:48 BY LM1. Arcenio SchaefferComprehensive metabolic sdkjb5044-18-46 11:40:33* Test Item Value Reference Range Interpretation Comments Sodium (test code = 2951-2) 131 135- 148 mEq/L L Potassium (test code = 2823-3) 4.2 3.5- 5.0 mEq/L Chloride (test code = 5-0) 92 98- 112 mEq/L L CO2 (test code = 2027-9) 20 24- 31 mEq/L L Anion gap (test code = 89656-2) 19@ANIO 7- 15 mEq/L H BUN (test code = 3094-0) 19 mg/dL 8-23 Creatinine (test code = 2160-0) 0.93 mg/dL 0.5-0.9 H Glucose (test code = 2345-7) 489 mg/dL 65-99 HH Calcium (test code = 43815-4) 10.3 mg/dL 8.8-10.2 H Protein (test code = 2885-2) 8.2 g/dL 6.3-8.3 - 4.6- 7.0 g/dL1 week 4.4-7.6 g/dL7 months-1year 5.1-7.3 g/dL1-2 years 5.6-7.5 g/dL>3 years 6.0-8.0 g/rW77-080 6.3-8.3 g/dL Albumin (test code = 1751-7) 3.3 g/dL 3.5-5 L A/G ratio (test code = 1759-0) 0.7 0.7-3.8 Alkaline phosphatase (test code = 6768-6) 81 U/L 35-104 AST (test code = 1920-8) 12 U/L 10-35 ALT (test code = 1742-6) 9 U/L 5-50 Total bilirubin (test code = 1974-) 0.3 mg/dL 0-1.2 Lab Interpretation (test code = 70993-6) Abnormal [facility] with platelet and huexrhwgeiph4973-33-06 10:59:18* Test Item Value Reference Range Interpretation Comments WBC (test code = 28032-2) 8.91 4.50- 11.00 k/uL RBC (test code = 61963-6) 4.60 m/uL 4.2-5.5 HGB (test code = 718-7) 9.6 g/dL 12-16 L HCT (test code = 4544-3) 33.9 % 37-47 L MCV (test code = 787-2) 73.7 fL 82-100 L MCH (test code = 785-6) 20.9 pg 27-34 L MCHC (test code = 786-4) 28.3 g/dL 31-37 L RDW - SD (test code = 99870-6) 43.4 fL 37-55 MPV (test code = 20710-0) 10.3 fL 8.8-13.2 Platelet count (test code = 17315-5) 406 150- 400 k/uL H Nucleated RBC (test code = 49504-6) 0.00 /100 WBC Neutrophils (test code = 37447-8) 70.8 % 39-69 H Lymphocytes (test code = 28384-6) 21.0 % 25-45 L Monocytes (test code = 96372-3) 6.6 % 0-10 Eosinophils (test code = 16726-8) 0.9 % 0-5 Basophils (test code = 78200-9) 0.4 % 0-1 Immature granulocytes (test code = 51260-4) 0.3 % 0-1 "Immature granulocytes" (promyelocytes, myelocytes, metamyelocytes) Lab Interpretation (test code = 71317-9) Abnormal Rg MethodistXR Chest 1 Vw Cutqaevx7903-81-29 10:57:12Hm Interface, Radiology Results 10/14/2019 11:00 AM CDTExamination: XR CHEST 1 VW PORTABLEClinical history: "SOB" Comparison: None IMPRESSION: Lungs are clear. Lung volumes are low. Cardiomediastinal silhouette is within normal limits. Suspicious osseous lesion is not seen. [facility]H-[id number] MethodistECG ED Preliminary Interpretation - Not an Order 2019-10-14 10:37:26* Test Item Value Reference Range Interpretation Comments RADHA (test code = RADHA) Delvin Alfonso DO 5:14 PME ED Preliminary Interpretation - Not an OrderPerformed by: Delvin Alfonso DOAuthorized by: Alfonso, Delvin B., DO ECG reviewed by ED Physician in the absence of a back tender cloth printing: yes Interpretation: Interpretation: abnormal Rate: ECG rate: 110 ECG rate assessment: tachycardic Rhythm: Rhythm: sinus tachycardia ST segments: ST segments: Normal Lab Interpretation (test code = 13664-3) Abnormal [facility] XLNO4746-70-91 10:37:26SDelvin arnold DO 10/16/2019 5:14 PMCritical CarePerformed [...] of patient's condition and [facility] rapid strep T0857-58-32 16:25:00* Test Item Value Reference Range Interpretation Comments Rapid strep A antigen result (test code = 96345-1) Negative Neg ative [facility] Influenza A/M0874-77-68 16:25:00* Test Item Value Reference Range Interpretation Comments Rapid Influenza A Ag (test code = 66567-4) negative Rapid Influenza B Ag (test code = 68862-1) negative [facility] BrownwoodistFerritin fidst9058-98-91 14:57:00* Test Item Value Reference Range Interpretation Comments Ferritin level (test code = 2276-4) 11 ng/mL 16-288 L RAC (test code = RAC) Performing Organization Info rmation: Site ID: RGA Name: [facility] Address: [address] [place] [phone] Director: Delvin Yin Lab Interpretation (test code = 54701-6) Abnormal [facility] BrownwoodistThyroid stimulating nsdiegv6971-08-78 14:57:00* Test Item Value Reference Range Interpretation Comments TSH (test code = 3016-3) 1.26 0.40- 4.50 mIU/L RAC (test code = RAC) Performing Organization Info rmation: Site ID: RAYSHAWN Name: [facility] Address: [address] [place] [address] Director: Delvin Yin [place] MethodistTotal iron binding btkxhdou8617-20-65 14:57:00* Test Item Value Reference Range Interpretation Comments Iron level (test code = 2498-4) 29 45- 160 mcg/dL L Iron binding capacity (test code = 2500-7) 466 250- 450 mc g/dL (calc) H Iron saturation (test code = 2502-3) 6 16- 45 % (calc) L RAC (test code = RAC) Performing Organization Info rmation: Site ID: RAYSHAWN Name: [facility] Address: [address] [place] [address] Director: Delvin Yin Lab Interpretation (test code = 95580-4) Abnormal [place] MethodistMAMMOGRAPHY DIGITAL SCR MJODL1359-67-38 09:41:[address] [address] Patient Name: YVES LUGO MR #: [id number] : 1955 Age/Sex: 63/F Req #: [id number] Adm Physician: Ordered by: OCTAVIO BACON MD Report #: [id number] Location: [facility] Room/Bed: Procedure: 2574-2627 M G/MAMMOGRAPHY DIGITAL SCR BILAT Exam Date: 09/12/18 Exam Time: 09 REPORT STATUS: Sign ed #[id number] - MGSCRBIL #BILATERAL DIGITAL SCREENING MAMMOGRAM WITH CAD: 09/12/2018 CLINICAL: Routine screening. Comparison is made to exams dated: 07/30/2014 mammogram and 05/23/2013 mammogram - [facility]. The tissue of both breasts is [...] the results. MICHAELA ULLOA M.D., mc/ashok:09/24/2018 09:38:10 Arborist Representative: Irlanda banks RT(R)(M), [facility] letter sent: Normal Exam Mammogram BI-RADS: 2 Benign Dictated By: CHERI ULLOA MD 7 Transcribed By: ASHOK on 12/06 COPY TO: OCTAVIO BACON MD
--- OUTSIDE RECORDS SUMMARY | 2020-03-25 17:35 | XMS REPORT | Continuity of Care Document ---
Author Author [facility] t Organization [facility] Address [address] [place] [place] [address] Phone Unavailable Care Team Providers Care Levee Superintendent Name Role Phone Marvin PITTMAN PCP Shasta CHRISTIE Attphys Unavailable Yuni DUNLAP Attphys Unavailable Zain TORREZ, Jerry Pena Attphys [phone] Norberto Alfonso DO Attphys [place] TORREZ, Yasmin Briones Attphys [phone] Tarun ANG, Mariely Prescott Attphys Unavailable Markell ANG, Laci Attphys Unavailable OCTAVIO BACON Attphys Unavailable ANALI CRUZ Admphys Unavailable Payers Payer Name Policy Type Policy Number Effective Date Expiration Date S tomas Aerajendrana [facility] Care [id number] 2014 00:00:00 C [facility] AETNAAETNA HMO,POS,EPO, [id number] 2013-PresentO [id number] 2014 00:00:00 Arcenio Schaeffer Problems Condition Name [...] 00:00:[address] Sepsis Problem Active [facility]ulitis of right upper arm Problem Active [facility] Urinary tract infection Problem Active [facility] History of Past Illness Condition Name Condition [...] Known Allergies DA Active U 2018-02-11 00:00:00 [facility] No Known Allergies DA Active U 2016-05-15 00:00:00 [facility] Family History Family Member Diagnosis Comments Start Date Stop Date Source Natural father CABG/Stent Rg Me thodist Natural father Heart attack Arcenio Schaeffer Maternal grandfather Stroke [place] Natural mother Heart disease Rg Moravian Natural mother Hypertension Arcenio Schaeffer Natural mother Lung cancer Rg M ethodist Natural mother Thyroid cancer [place] Paternal grandfather Heart attack Ho maude Schaeffer Natural sister Heart disease Arcenio Moravian Natural sister Thyroid cancer [place] Social History Social Habit Start Date Stop [...] by mouth nightly for 120 d ays. Arceino Schaeffer metoclopramide (Reglan) 10 MG tablet 2019-10-24 15:09:51 Yes 10mg Q.[id number] Take 10 mg by mouth 3 (three) [...] (50 mg total) by mouth daily. Arcenio Scheaffer escitalopram (LEXAPRO) 20 MG tablet 2018-08-01 00:00:0 [...] (Lexapro) 10 Mg TABLET Yes 1 Daily [facility] Esomeprazole Magnesium Esomeprazole Magnesium Yes 1 Twice A Day [facility] Glipizide (Glipizide Er) 10 Mg TAB.ER.24 Glipizide (Gl ipizide Er) 10 Mg TAB.ER.24 Yes 1 Daily [facility] Losartan Potassium Losartan Potassium Yes 50 Da lyubov [facility] Metformin Hcl (Metformin Hcl Er) 500 Mg TAB.ER.24H Met formin Hcl (Metformin Hcl Er) 500 Mg TAB.ER.24H Yes 1 Twice A Day [facility] Metoclopramide Hcl (Reglan) 10 Mg TABLET Metoclopramid e Hcl (Reglan) 10 Mg TABLET Yes 10 Three Times A Day C [facility] Metoprolol Succinate Metoprolol Succinate Yes Daily [facility] Aripiprazole (Abilify*) 2 Mg TABLET Aripiprazole (Abilify*) 2 Mg TABLET 2019-12-10 00:00:00 No 1 Daily [facility] Zolpidem Tartrate Zolpidem Tartrate 2019-12-10 00:00:00 No [facility] Vital Signs Vital Name Observation Time Observation Value Comments Source Body Temperature 2019-12-15 11:34:00 97.7 [degF] [facility] Weight 2019-12-10 02:30:00 197.03 [lb_av] [facility] BMI (Body Mass Index) 2019-12-10 02:30:00 37.7 kg/m2 [facility] Systolic blood pressure 2019-10-24 15:07:00 121 mm[Hg] Arcenio Schaeffer Diastolic blood pressure 2019-10-24 15:07:00 76 mm[Hg] Arcenio Schaeffer Heart rate 2019-10-24 15:07:00 106 /min Arcenio Schaeffer Body temperature 2019-10-24 15:07:00 37.22 Nena [place] Body height 2019-10-24 15:07:00 167.6 cm Arcenio [...] Cruz TTE COMPLETE, WO CONTRAST, W DOPPLER ([id number]) 2019-10-15 11:0 0:00 Anali Cruz POC GLUCOSE [...] Cruzmina Arcenio Schaeffer TROPONIN 2019-10-14 12:35:00 Anali Cruzminshatsa Schaeffer ARTERIAL BLOOD GAS 2019-10-14 12:35:00 Anali Cruzjesus peralta Arcenio Schaeffer BETA HYDROXYBUTYRATE 2019-10-14 12:07:00 Anali Cruz lupilloshasta Schaeffer POC GLUCOSE 2019-10-14 11:54:00 Delvin Alfonso XR CHEST 1 VW PORTABLE 2019-10-14 10:56:07 Delvin Alfonso [place] [facility], E/M 30-74 MINUTES 2019-10-14 10:37:26 [...] Pittman THYROID STIMULATING HORMONE 2019-04-07 16:03:00 Edgar Pittamn CBC WITH PLATELET AND DIFFERENTIAL 2019-04-07 16:03:00 Steveno lnBecky FERRITIN LEVEL 2019-04-07 16:03:00 Becky Pittman TOTAL IRON BINDING CAPACITY 2019-04-07 16:03:00 Edgar Pittman Plan of Care Planned Activity Planned Date Details Comments Source Future Scheduled Test 2019-12-20 00:00:00 INFLUENZA VACCINE [code = INFLUENZA VACCINE] [facility] Future Scheduled Test 2019-08-02 00:00:00 URINE MICROALBUMIN [code = URINE MICROALBUMIN] [facility] Future Scheduled Test 2005 00:00:00 BREAST CANCER SCRE ENING [code = BREAST CANCER SCREENING] [facility] Future Scheduled Test 2005 00:00:00 COLONOSCOPY SCREEN ING [code = COLONOSCOPY SCREENING] [facility] Scheduled Test 2005 00:00:00 SHINGLES VACCINES (#1) [code = SHINGLES VACCINES (#1)] [facility] Scheduled Test 1976 00:00:00 Screening for isauro gnant neoplasm of cervix (procedure) [code = 764149489] [facility] Future Scheduled Test 1965 00:00:00 DIABETES: RETINAL EYE EXAM [code = DIABETES: RETINAL EYE EXAM] [facility] Future Scheduled Test 1965 00:00:00 DIABETIC FOOT EXAM [code = DIABETIC FOOT EXAM] [facility] Instructions Cellulitis [facility] Instructions Urinary Tract Infection - Women [facility] Encounters Start Date/Time End Date/Time Encounter Type Admission Type [facility] Facility Care Department Encounter ID Source 2019-12-10 00:21:00 2019-12-15 12:17:00 Discharged Inpatient 1 CAREY DUNLAP [facility] [id number] I [facility] 2019-10-24 00:00:00 2019-10-24 00:00:00 Outpatient GENIE PITTMAN [facility] [id number] [facility] 2019-10-24 00:00:00 2019-10-24 00:00:00 Outpatient GENIE PITTMAN [facility] [id number] [facility] 2019-10-14 00:00:00 2019-10-15 00:00:00 Outpatient PROSPER CRUZ [facility] [id number] [facility] Results Test Description Test Time Test Comments Results Result Comments Source CHEST SINGLE (NOT PORTABLE) 2020-03-17 17:17:[address] [facility] 1955 Sex: [place] [address] Patient Name: YVES LUGO MR #: [id number] : 1955 Age/Sex: 64/F Req #: [id number] Adm Physician: Ordered by: CL CHRISTIE MD Report #: [id number] Location: Room/Bed: Procedure: [id number] DX/CHEST SINGLE (NOT PORTABLE) Exam Date: 03/17/20 [...] CHRISTIE MD CT BRAIN WO 2020-03-06 22:38:00 [facility] 1955 Sex: F [facility] [address] [place] [address] Patient Name: YVES LUGO MR #: [id number] : 1955 Age/Sex: 64/F Req #: [id number] Adm Physician: Ordered by: CAREY DUNLAP MD Report #: [id number] Location: ER Room/Bed: Procedure: [id number] CT/CT BRAIN WO Exam Date: 03/06/20 Exam [...] MD CHEST SINGLE (PORTABLE) 2020-03-06 22:32:00 [facility] : 1955 Sex: [place] [address] Patient Name: YVES LUGO MR #: [id number] : 1955 Age/Sex: 64/F Req #: [id number] Adm Physician: Ordered by: CAREY DUNLAP MD Report #: [id number] Location: ER Room/Bed: Procedure: [id number] DX/CHEST SINGLE (PORTABLE) Exam Date: 03/06/20 Exam [...] Test Item Bedside Glucose (test code = 55812-2) 89 70-120 Meter ID: [id number] [facility]ohn Hospital Aliceerum or plasma trough vancomycin level at trough (mass/volume)2019-12-14 16:40:00* Test Item Value Reference Range Interpretation Comments Vancomycin Level Trough (test code = 4092-3) 9.3 5.0-10.0 [facility] leukocytes automated count (number/volume)2019-12-12 04:48:00* Test Item Value Reference Range Interpretation Comments White Blood Count (test code = 6690-2) 6.30 4.8-10.8 [facility] erythrocytes automated count (number/volume)2019-12-12 04:48:00* Test Item Value Reference Range Interpretation Comments Red Blood Count (test code = 789-8) 3.88 3.6-5.1 [facility]ham[facility] hemoglobin measurement (moles/volume)2019-12-12 04:48:00* Test Item Value Reference Range Interpretation Comments Hemoglobin (test code = 53418-0) 9.2 12.0-16.0 [facility]hamAutomated blood hematocrit (volume fraction)2019-12-12 04:48:00* Test Item Value Reference Range Interpretation Comments Hematocrit (test code = 4544-3) 31.7 34.2-44.1 [facility]hamAutomated erythrocyte mean corpuscular benztt8440-54-20 04:48:00* Test Item Value Reference Range Interpretation Comments Mean Corpuscular Volume (test code = 787-2) 81.7 81-99 [facility]hamAutomated erythrocyte mean corpuscular hemoglobin (mass per erythrocyte)2019-12-12 04:48:00* Test Item Value Reference Range Interpretation Comments Mean Corpuscular Hemoglobin (test code = 785-6) 23.7 28-32 [facility]hamAutomated erythrocyte mean corpuscular hemoglobin concentration measurement (mass/volume)2019-12-12 04:48:00* Test Item Value Reference Range Interpretation Comments Mean Corpuscular Hemoglobin Concent (test code = 786-4) 29.0 31-35 [facility] BrenhamRDW SjxYc-Qbv8333-50-24 04:48:00* Test Item Value Reference Range Interpretation Comments Red Cell Distribution Width (test code = 65738-6) 17.7 11.7 -14.4 [facility]hamAut[facility] blood platelet count (count/volume)2019-12-12 04:48:00* Test Item Value Reference Range Interpretation Comments Platelet Count (test code = 777-3) 279 140-360 [facility]hamAutnov[facility] centered blood segmented neutrophil count as percentage of total smkuvqqdap3022-26-71 04:48:00* Test Item Value Reference Range Interpretation Comments Neutrophils (%) (Auto) (test code = 89200-2) 55.6 38.7-80.0 [facility]hamAutnov[facility] centered blood lymphocyte count as percentage ot total maisgcilks3336-98-68 04:48:00* Test Item Value Reference Range Interpretation Comments Lymphocytes (%) (Auto) (test code = 736-9) 34.3 18.0-39.1 [facility]hamAutnov[facility] centered blood monocyte count as percentage of total jqsqynewwh2573-39-17 04:48:00* Test Item Value Reference Range Interpretation Comments Monocytes (%) (Auto) (test code = 5905-5) 6.5 4.4-11.3 [facility]hamAutomated blood eosinophil count as percentage of total bcokcaisdz0054-24-29 04:48:00* Test Item Value Reference Range Interpretation Comments Eosinophils (%) (Auto) (test code = 713-8) 2.5 0.0-6.0 [facility]hamAutomated blood basophil count as percentage of total higrtcirbs2614-43-18 04:48:00* Test Item Value Reference Range Interpretation Comments Basophils (%) (Auto) (test code = 706-2) 0.6 0.0-1.0 [facility]hamFluoroscopic procedure less than one hour aqumzhqs5247-43-01 04:48:00* Test Item Value Reference Range Interpretation Comments IM GRANULOCYTES % (test code = IM GRANULOCYTES %) 0.5 0.0- 1.0 [facility]hamAutomated blood neutrophil count 2019-12-12 04:48:00* Test Item Value Reference Range Interpretation Comments Neutrophils # (Auto) (test code = 751-8) 3.5 2.1-6.9 [facility]hamBlood lymphocytes count (number/volume) 2019-12-12 04:48:00* Test Item Value Reference Range Interpretation Comments Lymphocytes # (Auto) (test code = 10995-8) 2.2 1.0-3.2 [facility]hamBlood monocytes automated count (number/volume)2019-12-12 04:48:00* Test Item Value Reference Range Interpretation Comments Monocytes # (Auto) (test code = 742-7) 0.4 0.2-0.8 [facility]hamAutomated blood eosinophil count 2019-12-12 04:48:00* Test Item Value Reference Range Interpretation Comments Eosinophils # (Auto) (test code = 711-2) 0.2 0.0-0.4 [facility]hamAutomated blood basophil count (count/volume)2019-12-12 04:48:00* Test Item Value Reference Range Interpretation Comments Basophils # (Auto) (test code = 704-7) 0.0 0.0-0.1 [facility]hamFluoroscopic procedure less than one hour nzrbvmya3700-91-16 04:48:00* Test Item Value Reference Range Interpretation Comments Absolute Immature Granulocyte (auto (julee t code = Absolute Immature Granulocyte (auto) 0.03 0-0.1 [facility] Aliceerum or plasma sodium measurement (moles/volume)2019-12-12 04:48:00* Test Item Value Reference Range Interpretation Comments Sodium Level (test code = 2951-2) 140 136-145 [facility] Aliceerum or plasma potassium measurement (moles/volume)2019-12-12 04:48:00* Test Item Value Reference Range Interpretation Comments Potassium Level (test code = 2823-3) 3.7 3.5-5.1 [facility] Aliceer[facility] or plasma chloride measurement (moles/volume)2019-12-12 04:48:00* Test Item Value Reference Range Interpretation Comments Chloride Level (test code = 2075-0) 108 98-107 [facility] Aliceerum or plasma carbon dioxide, total measurement (moles/volume)2019-12-12 04:48:00* Test Item Value Reference Range Interpretation Comments Carbon Dioxide Level (test code = 2028-9) 24 22-29 [facility] Aliceerum or plasma anion agx9943-25-72 04:48:00* Test Item Value Reference Range Interpretation Comments Anion Gap (test code = 78742-0) 11.7 8-16 [facility] Aliceer[facility] or plasma urea nitrogen measurement (mass/volume)2019-12-12 04:48:00* Test Item Value Reference Range Interpretation Comments Blood Urea Nitrogen (test code = 3094-0) 14 7-26 [facility] Aliceer[facility] or plasma creatinine measurement (mass/volume)2019-12-12 04:48:00* Test Item Value Reference Range Interpretation Comments Creatinine (test code = 2160-0) 0.76 0.57-1.11 [facility] Aliceer[facility] or plasma urea nitrogen/creatinine mass qrdem3611-41-43 04:48:00* Test Item Value Reference Range Interpretation Comments BUN/Creatinine Ratio (test code = 3097-3) 18 6-25 [facility]hamEstimated glomerular filtration rate (GFR) nvkqxkxuasqzw8764-52-06 04:48:00* Test Item Value Reference Range Interpretation Comments Estimat Glomerular Filtration Rate (test code = 015429101) > 60 >60 Ranges were taken from the National Kidney Disease Education Program and the [facility] literature.Reference ranges:60 or greater: Qlergu41-72 ( for 3 consecutive months): Chronic kidney disease 15 or less: Kidney failureBaylor Scott & White Medical Center – BrenhamGlucose hxrcytkzonf1491-52-17 04:48:00* Test Item Value Reference Range Interpretation Comments Glucose Level (test code = DTW1826) 109 74-118 [facility] Aliceerum or plasma calcium measurement (mass/volume)2019-12-12 04:48:00* Test Item Value Reference Range Interpretation Comments Calcium Level (test code = 34711-6) 8.7 8.4-10.2 [facility] Aliceerum or plasma magnesium measurement (mass/volume)2019-12-12 04:48:00* Test Item Value Reference Range Interpretation Comments Magnesium Level (test code = 33317-5) 1.7 1.3-2.1 [facility] Aliceerum or plasma total bilirubin measurement (mass/volume)2019-12-12 04:48:00* Test Item Value Reference Range Interpretation Comments Total Bilirubin (test code = 1975-2) 0.2 0.2-1.2 [facility] BrenhamFluoroscopic procedure less than one hour ruygaphd8553-33-78 04:48:00* Test Item Value Reference Range Interpretation Comments Aspartate Amino Transf (AST/SGOT) (test code = Aspartate Amino Transf (AST/SGOT)) 15 5-34 [facility] Aliceerum or plasma alanine aminotransferase measurement (enzymatic activity/volume)2019-12-12 04:48:00* Test Item Value Reference Range Interpretation Comments Alanine Aminotransferase (ALT/SGPT) (test code = 1742-6) 10 0-55 [facility] Aliceerum or plasma protein measurement (mass/volume)2019-12-12 04:48:00* Test Item Value Reference Range Interpretation Comments Total Protein (test code = 2885-2) 6.4 6.5-8.1 [facility] Aliceer[facility] or plasma albumin measurement (mass/volume)2019-12-12 04:48:00* Test Item Value Reference Range Interpretation Comments Albumin (test code = 1751-7) 2.7 3.5-5.0 [facility] BrenhamPlasma globulin measurement (mass/volume) 2019-12-12 04:48:00* Test Item Value Reference Range Interpretation Comments Globulin (test code = 45378-4) 3.7 2.3-3.5 [facility] Aliceer[facility] or plasma albumin/globulin mass kklxn0991-31-74 04:48:00* Test Item Value Reference Range Interpretation Comments Albumin/Globulin Ratio (test code = 1759-0) 0.7 0.8-2.0 [facility] Aliceerum or plasma alkaline phosphatase measurement (enzymatic activity/volume)2019-12-12 04:48:00* Test Item Value Reference Range Interpretation Comments Alkaline Phosphatase (test code = 6768-6) 61 40-150 [facility]hamBlood platelets count by estimate (number/volume)2019-12-11 05:30:00* Test Item Value Reference Range Interpretation Comments Platelet Estimate (test code = 87712-7) ADEQUATE [facility] BrenhamPlatelet smnpcvvlad8065-83-23 05:30:00* Test Item Value Reference Range Interpretation Comments Platelet Morphology Comment (test code = 85160-0) RARE EDTA CLUMPIN G [facility] BrenhamBlood hypochromia detection by light tyezdpfglv6296-61-60 05:30:00* Test Item Value Reference Range Interpretation Comments Hypochromasia (test code = 728-6) SLIGHT [facility] BrenhamBlood poikilocytosis detection by light habshpwstu6211-46-18 05:30:00* Test Item Value Reference Range Interpretation Comments Poikilocytosis (test code = 779-9) SLIGHT [facility]hamBlood anisocytosis detection by light yynziuikaa4157-34-13 05:30:00* Test Item Value Reference Range Interpretation Comments Anisocytosis (test code = 702-1) SLIGHT [facility] BrenhamRB focxqvwzxn5995-74-01 05:30:00* Test Item Value Reference Range Interpretation Comments Red Cell Morphology Comment (test code = 6742-1) NORMAL [facility] BrenhamFluoroscopic procedure less than one hour hborzizc7155-46-68 05:40:00* Test Item Value Reference Range Interpretation Comments Lactic Acid Level (test code = Lactic Acid Level) 1.8 0.5- 2.0 [facility] BrenhamFluoroscopic procedure less than one hour tbslolbq1290-69-53 00:50:00* Test Item Value Reference Range Interpretation [...] complexity tests.Testing performed by [facility] [id number] [place] [address] [id number] Director: Andre Hanna M.D.CLIA # [id number] [facility] SINGLE (PORTABLE)2019-12-09 23:58:00 [place] [address] Patient Name: YVES LUGO MR #: [id number] : 1955 Age/Sex: 64/F Req #: [id number] Adm Physician: Ordered by: CAREY DUNLAP MD Report #: [id number] Location: ER Room/Bed: Procedure: [id number] DX/CH EST SINGLE (PORTABLE) Exam Date: 12/09/19 [...] COPY TO: CAREY AKERS MD Urine color yvrupvwkfsynr0609-51-69 21:41:00* Test Item Value Reference Range Interpretation Comments Urine Color (test code = 5778-6) YELLOW YELLOW [facility] BrenhamUrine adwixrb0289-96-08 21:41:00* Test Item Value Reference Range Interpretation Comments Urine Clarity (test code = 85848-5) SL CLOUDY CLEAR [facility] Alicepecific gravity of Urine by Test strip 2019-12-09 21:41:00* Test Item Value Reference Range Interpretation Comments Urine Specific [place] (test code = 5811-5) 1.020 1.010-1.02 5 [facility]hamUrine pH measurement by automated test hlrch8079-22-29 21:41:00* Test Item Value Reference Range Interpretation Comments Urine pH (test code = 44753-4) 7 5-7 [facility] BrenhamUrine leukocyte esterase detection by ggomjlaq2505-73-51 21:41:00* Test Item Value Reference Range Interpretation Comments Urine Leukocyte Esterase (test code = 5799-2) TRACE NEGATIVE [facility] BrenhamUrine nitrite ibhwdokqf3197-94-48 21:41:00* Test Item Value Reference Range Interpretation Comments Urine Nitrite (test code = 68873-6) NEGATIVE NEGATIVE [facility] BrenhamUrine protein measurement by test strip (mass/volume)2019-12-09 21:41:00* Test Item Value Reference Range Interpretation Comments Urine Protein (test code = 5804-0) 1+ NEGATIVE [facility] BrenhamUrine glucose hvfzcvfmu8382-98-09 21:41:00* Test Item Value Reference Range Interpretation Comments Urine Glucose (UA) (test code = 2349-9) 2+ NEGATIVE [facility] BrenhamUrine ketones detection by automated test nsbpt7242-09-25 21:41:00* Test Item Value Reference Range Interpretation Comments Urine Ketones (test code = 51797-7) NEGATIVE NEGATIVE [facility] BrenhamUrine urobilinogen measurement by test strip (mass/volume)2019-12-09 21:41:00* Test Item Value Reference Range Interpretation Comments Urine Urobilinogen (test code = 68023-9) 0.2 0.2-1 [facility] BrenhamUrine total bilirubin measurement (mass/volume)2019-12-09 21:41:00* Test Item Value Reference Range Interpretation Comments Urine Bilirubin (test code = 1978-6) NEGATIVE NEGATIVE [facility] BrenhamUrine erythrocytes lwaxlgoji7776-43-20 21:41:00* Test Item Value Reference Range Interpretation Comments Urine Blood (test code = 03866-4) TRACE NEGATIVE [facility] BrenhamAutomated urine sediment leukocyte count by microscopy (number/high power field)2019-12-09 21:41:00* Test Item Value Reference Range Interpretation Comments Urine WBC (test code = 5821-4) 11-20 0-5 [facility] BrenhamErythrocytes detection in urine sediment by light lbmgccorro8230-33-52 21:41:00* Test Item Value Reference Range Interpretation Comments Urine RBC (test code = 40292-4) 6-10 0-5 [facility] BrenhamBacteria detection in urine sediment by light nrbgxzelqy4524-09-76 21:41:00* Test Item Value Reference Range Interpretation Comments Urine Bacteria (test code = 56529-8) MODERATE NONE [facility] BrenhamEpithelial cells detection in urine sediment by light lnnlzokcfg9124-60-34 21:41:00* Test Item Value Reference Range Interpretation Comments Urine Epithelial Cells (test code = 94270-4) MODERATE NONE [facility] BrenhamBlood lgdvxiy6702-25-13 21:30:00* Test Item Value Reference Range Interpretation Comments Blood Culture (test code = 57687743) NO GROWTH AFTER 5 DAYS, FINAL REPORT [facility] BrenhamBasic metabolic idequ1232-75-92 18:27:00 * Test Item Value Reference Range [...] is approximately 13% higher for peopleidentified as -Kosovan. EGFR Non-Afr. Kosovan (test code = 2775) 68 > OR = 60 mL /min/1.73m2 EGFR (test code = 42534-3) 78 > OR = 60 mL/min/1.73m2 BUN/creatinine ratio (test code = 3097-3) NOT APPLICABLE 6- 22 (randy c) Sodium (test code = 2951-2) 137 mmol/L 135-146 Potassium (test code = 2823-3) 3.4 mmol/L 3.5-5.3 L Chloride (test code = 2075-0) 101 mmol/L 98-110 CO2 (test code = 8-9) 25 mmol/L 20-32 Calcium (test code = 34676-1) 9.6 mg/dL 8.6-10.4 RAC (test code = RAC) Performing Organization Info rmation: Site ID: RGA Name: [facility] Address: [address] [place] [id number] Director: Delvin Yin Lab Interpretation (test code = 91342-2) Abnormal Rg MethodistUrinalysis, automated with yuhedznmzl6679-36-14 18:27:00* Test Item Value Reference Range Interpretation Comments Color, UA (test code = 5778-6) YELLOW YELLOW Appearance (test code = 5767-9) CLOUDY CLEAR A Specific gravity, urine (test code = 5811-5) 1.016 1.001-1.0 35 pH, urine (test code = 5803-2) 6.0 5.0-8.0 Glucose, urine (test code = 51258-6) 3+ NEGATIVE A Bilirubin, UA (test code = 5770-3) NEGATIVE NEGATIVE Ketones, UA (test code = 2514-8) NEGATIVE NEGATIVE Occult blood, urine (test code = 5794-3) TRACE NEGATIVE A Protein, UA (test code = 85734-1) 1+ NEGATIVE A Nitrite, UA (test code = 5802-4) NEGATIVE NEGATIVE Leukocyte esterase, UA (test code = 5799-2) 2+ NEGATIVE A WBC, UA (test code = 5821-4) 20-40 < OR = 5 /HPF A RBC, UA (test code = 77592-6) 0-2 < OR = 2 /HPF Squamous epithelial cells, UA (test code = 94391-4) 0-5 < OR = 5 /HPF Bacteria, UA (test code = 5769-5) FEW NONE SEEN /HPF A Calcium oxalate crystals, UA (test code = 09551-7) FEW NON E OR FEW /HPF Hyaline casts, UA (test code = 5796-8) NONE SEEN NONE SEEN /LPF RAC (test code = RAC) Performing Organization Info rmation: Site ID: RGA Name: [facility] Address: [address] [place] [id number] Director: Delvin Yin Lab Interpretation (test code = 51566-5) Abnormal [place] MethodistUrine gcihocn8170-27-84 04:27:00* Test Item Value Reference Range Interpretation Comments Urine culture (test code = 630-4) SEE NOTE CULTURE, URINE, ROUTINE Micro Number: [id number] Test Status: Final Specimen Source: NOT GIVEN Specimen Quality: Adequate Result: Multiple organisms present, each less than 10,000 CFU/mL. These organisms, commonly found on external and internal genitalia, are considered to be colonizers. No further testing performed. RAC (test code = RAC) Performing Organization Info rmation: Site ID: RGA Name: [facility] Address: [address] [place] [address] Director: Delvin Yin [facility] daswhsc7543-95-15 16:01:00* Test Item Value Reference Range Interpretation Comments POC glucose (test code = 7731967) 196 65-100 [place] MethodistECG 12 kmzm9498-50-80 10:37:25* Test Item Value Reference Range Interpretation Comments Ventricular rate (test code = 253) 77 Atrial rate (test code = 255) 77 [place] interval (test code = 266) 156 QRSD [...] in Lateral leads-Electronically Signed By Hardy TORREZ [facility] ([id number]) on 10/15/2019 10:30:16 PM [facility], (w Contrast, Strain and 3D if needed)2019-10-15 12:44:00Interface, Radiology Results In - 10/15/2019 12:44 PM CDT Echocardiography Report [id number] [id number] Pat.Name: YVES LUGO Hamida Pat.ID: [id number] St.Date: 10/15/2019 Refer.MD: ANALI CRUZ MDExbairon Time: 10:13:00 AM Study Type:Routine Echo Height: 66in Weight: 209lb BSA: 2.04 m2 Age: 1 1955,64Y Sex: FEMALE BP: 117/75 HR: 82 bpm Sonogrphr: JUDY Pemberton RVS Pat. Stat.:Inpatient Room: A7036 Study Status:Final Echo Event ID:[id number] Order ID: [id number] Reason for Study:HF - Initial eval of [...] systolic pressure. MEASUREME NTS: 2DPara sternal [place] Ao An 2.1 cm LVPWd 0.93 cm [...] l/m/m2 Signed 10/15/2019 12:44 PMSu Gus Forrest M.D.[facility] MethodistHemoglobin A1c 2019-10-15 08:06:19* Test Item Value Reference Range Interpretation Comments Hemoglobin A1C (test code = 35780-7) 11.6 % 4-5.6 H HbA1c cutoffs for diagnosing diabetes:4.0% - 5.6% = normal5.7% - 6.4% = increased risk for diabetes (prediabetes)9>=6.5% = eiskccfo3Xlhtj for glycemic control (ADA 2016)< 7.0% Target for non adults with diabetes. More or less stringent targets may be appropriate for individual patients. <7.5% Target for Children and adolescents with type 1 diabetes. Lab Interpretation (test code = 77022-7) Abnormal [place] MethodistLipid wjhnf2023-23-76 04:22:54* Test Item Value Reference Range Interpretation Comments Cholesterol (test code = 2093-3) 198 mg/dL <200 Triglycerides (test code = 2571-8) 239 mg/dL <150 H HDL cholesterol (test code = 2085-9) 34 mg/dL >40 L LDL cholesterol (test code = 2089-1) 145 mg/dL <100 H Result obtained by direct LDL measurement Lipid panel interpretation (test code = 07734-3) SeeBelow Total Cholesterol (mg/dL) <200 Desirable 200-239 [...] (>=200 mg/dL) Lab Interpretation (test code = 89655-8) Abnormal Rg MethodistEstimated [id number] 04:22:54* Test Item Value Reference Range Interpretation Comments Estimated GFR (test code = 5488) 80 mL/min/1.73 m2 Catergory Units InterpretationG1 >=90 Normal or highG2 60-89 Mildly wyulesphqP1x 45-59 Mildly to moderately kyepyewvlA8a 30-44 Moderately to severely decreasedG4 15-29 Severely decreasedG5 <15 Kidney failureThe eGFR was calculated using the Chronic Kidney Disease Epidemiology Collaboration (CKD-EPI) equation. Interpretation is based on recommendations of the National Kidney Foundation-Kidney Disease Outcomes Quality Initiative (NKF-KDOQI) published in 2014. Arcenio SchaefferZxezcsjbwWhczwcsz5610-78-89 17:53:06* Test Item Value Reference Range Interpretation Comments Troponin (test code = 15274-5) <0.006 0-0.04 In patients suspected of having [...] OR decreased by less than 0.020 ng/mL [facility] cta coronary arteries w contrast and ffr if jouypb7759-18-90 17:15:00Interface, Radiology Results In 10/14/2019 5:15 PM CDT Nuclear Cardiology and Cardiac CT [address] [place] [address] Department Number: [phone] CTA Coronary Arteries w/ Calcium Scoring ReportPat.Name: YVES LUGO.ID: [id number] St.Date: 10/14/2019 Refer.MD: ANALI CRUZ MD.Exam Time: 1:58:00 PM Study Type:CTA Coronary Arteries with Calcium ScoringHeight: 66in BSA: 2.06 m2 Age: 1 1955,64Y Sex: FEMALE BP: 162/80 HR: 75 bpm Nuclear Tech:ASHLEY Franco(N)(CT)CPT - 4: CCTA w Thoracic Aorta (NonCongenital) [id number] Event ID:[id number] Order ID: [id number] Reason for Study:ED [facility] ACS Pathway, Chest painProcedures: CT Prospective (Intervals), CT Flash Mode with PlanningScanRace: C SUMMARY: ----Technique: IV contrast was administered and sequential 0.[address] cutswere ob tained through the chest using the Siem[employer] CTscanner. Image post- processing consisting of multiplanar [...] branch and a large first septal supervisor printing shop artery.No significant athero sclerotic plaque is present.The [...] refer to the separate radiology report in [facility] for anyadditional non-cardiovascular findings. STUDY QUALITYThe study quality is excellent.COMMENTS: None. ------FINDINGS: Signed 10/14/2019 05:15 PMAlex De La Rosa MethodistCT Cardiac Wzywgayd6756-56-75 14:48:03Hm Interface, Radiology Results Incoming - 10/14/2019 [...] involving the proximal stomach as described.Arcenio SchaefferBeta lvvjoprawkvmczv6417-27-68 13:28:55* Test Item Value Reference Range Interpretation Comments Beta hydroxybutyrate (test code = 6873-4) 0.14 mmol/L 0.02-0.27 Gr MethodistArterial blood nza2272-08-37 12:55:11* Test Item Value Reference Range Interpretation [...] % 95-100 Lab Interpretation (test code = 06163-5) Abnormal Arcenio PriceistB natriuretic yjkzjvf0756-71-50 11:52:07* Test Item Value Reference Range Interpretation Comments BNP (test code = 07760-4) 14 pg/mL 0-100 RADHA (test code = RADHA) GLUCOSE results called to an d read back by JEFF PURCELL/KODY AT 10/14/2019 11:48 BY LM1. Arcenio SchaefferComprehensive metabolic knpqb0684-96-39 11:40:33* Test Item Value Reference Range Interpretation Comments Sodium (test code = 2951-2) 131 135- 148 mEq/L L Potassium (test code = 2823-3) 4.2 3.5- 5.0 mEq/L Chloride (test code = 5-0) 92 98- 112 mEq/L L CO2 (test code = 2027-9) 20 24- 31 mEq/L L Anion gap (test code = 24959-9) 19@ANIO 7- 15 mEq/L H BUN (test code = 3094-0) 19 mg/dL 8-23 Creatinine (test code = 2160-0) 0.93 mg/dL 0.5-0.9 H Glucose (test code = 2345-7) 489 mg/dL 65-99 HH Calcium (test code = 08655-5) 10.3 mg/dL 8.8-10.2 H Protein (test code = 2885-2) 8.2 g/dL 6.3-8.3 - 4.6- 7.0 g/dL1 week 4.4-7.6 g/dL7 months-1year 5.1-7.3 g/dL1-2 years 5.6-7.5 g/dL>3 years 6.0-8.0 g/xR32-207 6.3-8.3 g/dL Albumin (test code = 1751-7) 3.3 g/dL 3.5-5 L A/G ratio (test code = 1759-0) 0.7 0.7-3.8 Alkaline phosphatase (test code = 6768-6) 81 U/L 35-104 AST (test code = 1920-8) 12 U/L 10-35 ALT (test code = 1742-6) 9 U/L 5-50 Total bilirubin (test code = 1974-) 0.3 mg/dL 0-1.2 Lab Interpretation (test code = 67703-5) Abnormal [facility] with platelet and vxtksbgoomty5635-66-84 10:59:18* Test Item Value Reference Range Interpretation Comments WBC (test code = 43731-8) 8.91 4.50- 11.00 k/uL RBC (test code = 68226-8) 4.60 m/uL 4.2-5.5 HGB (test code = 718-7) 9.6 g/dL 12-16 L HCT (test code = 4544-3) 33.9 % 37-47 L MCV (test code = 787-2) 73.7 fL 82-100 L MCH (test code = 785-6) 20.9 pg 27-34 L MCHC (test code = 786-4) 28.3 g/dL 31-37 L RDW - SD (test code = 71543-4) 43.4 fL 37-55 MPV (test code = 41676-0) 10.3 fL 8.8-13.2 Platelet count (test code = 13245-6) 406 150- 400 k/uL H Nucleated RBC (test code = 92260-8) 0.00 /100 WBC Neutrophils (test code = 17063-6) 70.8 % 39-69 H Lymphocytes (test code = 75419-3) 21.0 % 25-45 L Monocytes (test code = 81823-9) 6.6 % 0-10 Eosinophils (test code = 67969-6) 0.9 % 0-5 Basophils (test code = 72800-0) 0.4 % 0-1 Immature granulocytes (test code = 74122-1) 0.3 % 0-1 "Immature granulocytes" (promyelocytes, myelocytes, metamyelocytes) Lab Interpretation (test code = 89503-3) Abnormal Rg MethodistXR Chest 1 Vw Pfuwcrvp9712-64-74 10:57:12Hm Interface, Radiology Results 10/14/2019 11:00 AM CDTExamination: XR CHEST 1 VW PORTABLEClinical history: "SOB" Comparison: None IMPRESSION: Lungs are clear. Lung volumes are low. Cardiomediastinal silhouette is within normal limits. Suspicious osseous lesion is not seen. [facility]ITALH-[id number] MethodistECG ED Preliminary Interpretation - Not an Order 2019-10-14 10:37:26* Test Item Value Reference Range Interpretation Comments RADHA (test code = RADHA) Delvin Alfonso DO 5:14 PME ED Preliminary Interpretation - Not an OrderPerformed by: Delvin Alfonso DOAuthorized by: Alfonso, Delvin B., DO ECG reviewed by ED Physician in the absence of a astrochemist: yes Interpretation: Interpretation: abnormal Rate: ECG rate: 110 ECG rate assessment: tachycardic Rhythm: Rhythm: sinus tachycardia ST segments: ST segments: Normal Lab Interpretation (test code = 88602-3) Abnormal [facility] DDUS8293-81-45 10:37:26SDelvin arnold DO 10/16/2019 5:14 PMCritical CarePerformed [...] chartsB[facility] rapid strep M6195-21-28 16:25:00* Test Item Value Reference Range Interpretation Comments Rapid strep A antigen result (test code = 01951-8) Negative Neg ative [facility] Influenza A/U5754-80-59 16:25:00* Test Item Value Reference Range Interpretation Comments Rapid Influenza A Ag (test code = 82314-9) negative Rapid Influenza B Ag (test code = 21658-3) negative [facility] CenteristFerritin kkimx9954-47-83 14:57:00* Test Item Value Reference Range Interpretation Comments Ferritin level (test code = 2276-4) 11 ng/mL 16-288 L RAC (test code = RAC) Performing Organization Info rmation: Site ID: RGA Name: [facility] Address: [address] [place] [id number] Director: Delvin Yin Lab Interpretation (test code = 22407-0) Abnormal [facility] CenteristThyroid stimulating fxzudfj7038-93-54 14:57:00* Test Item Value Reference Range Interpretation Comments TSH (test code = 3016-3) 1.26 0.40- 4.50 mIU/L RAC (test code = RAC) Performing Organization Info rmation: Site ID: RAYSHAWN Name: [facility] Address: [address] [place] [address] Director: Delvin Yin [facility] MethodistTotal iron binding ozcqysdc1656-84-41 14:57:00* Test Item Value Reference Range Interpretation Comments Iron level (test code = 2498-4) 29 45- 160 mcg/dL L Iron binding capacity (test code = 2500-7) 466 250- 450 mc g/dL (calc) H Iron saturation (test code = 2502-3) 6 16- 45 % (calc) L RAC (test code = RAC) Performing Organization Info rmation: Site ID: RAYSHAWN Name: [facility] Address: [address] [place] [address] Director: Delvin Yin Lab Interpretation (test code = 61081-7) Abnormal [place] MethodistMAMMOGRAPHY DIGITAL SCR CRXVQ0285-01-12 09:41:[address] [address] Patient Name: YVES LUGO MR #: [id number] : 1955 Age/Sex: 63/F Req #: [id number] Adm Physician: Ordered by: OCTAVIO BACON MD Report #: [id number] [facility] Room/Bed: Procedure: [id number] M G/MAMMOGRAPHY DIGITAL SCR BILAT Exam Date: 09/12/18 Exam Time: 09 REPORT STATUS: Sign ed #[id number] - MGSCRBIL #BILATERAL DIGITAL SCREENING MAMMOGRAM WITH CAD: 09/12/2018 CLINICAL: Routine screening. Comparison is made to exams dated: 07/30/2014 mammogram and 05/23/2013 mammogram - [facility]. The tissue of both breasts [...] the results. MICHAELA ULLOA M.D., mc/ashok:09/24/2018 09:38:10 Sales Representative Business Courses: [employer] RT(R)(M), [facility] letter sent: Normal Exam Mammogram BI-RADS: 2 Benign Dictated By: CHERI ULLOA MD 7 Transcribed By: ASHOK on 12/06 COPY TO: OCTAVIO BACON MD
== END 2020-03-21 09:49 | disposition home or self-care (01) | DRG 690 ==
LOC: ER 15:35 → ERHOLD 18:20 → MED/SURG 20:32 → MED/SURG3 03-18 12:50
PROVIDERS: ADMIT Internal Medicine; ATTEND Internal Medicine
DX: N39.0 Urinary tract infection, site not specified (principal); N17.9 Acute kidney failure, unspecified; E86.0 Dehydration; I10 Essential (primary) hypertension; E11.9 Type 2 diabetes mellitus without complications; Z11.59 Encounter for screening for other viral diseases; D63.8 Anemia in other chronic diseases classified elsewhere; F41.9 Anxiety disorder, unspecified; Z87.11 Personal history of peptic ulcer disease; E66.9 Obesity, unspecified; Z68.32 Body mass index [BMI] 32.0-32.9, adult; K21.9 Gastro-esophageal reflux disease without esophagitis
CPT/HCPCS: 36415; 71045; 80048; 80053; 81001; 82550; 82553; 82948; 83735; 84484; 85025; 85610; 85730; 87086; 99284; J0696; J2405; J2550; J7030

== ENCOUNTER 2020-09-12 01:53 | Inpatient (IN) | payer MEDICARE, OTHER ==
[~2020-09-12] VITALS: Ht 167.6 cm; Wt 91.2 kg
[2020-09-12] MEDS ORDERED: ONDANSETRON HCL INJ 2MG/ML 2ML 2 MG/ML VIAL IV STA (02:02)
[2020-09-12] MEDS ORDERED: SODIUM CHLORIDE 0.9% 1000ML 1,000 ML IV STA (02:02)
[2020-09-12] MEDS ORDERED: ASPIRIN 81 MG CHEW TAB PO ONE ×2 (02:15→05:30)
[2020-09-12 03:13] LABS: BASOPHILS # (AUTO) 0.1 (0.0-0.1); BASOPHILS % 0.4 % (0.0-1.0); EOSINOPHILS # (AUTO) 0.1 (0.0-0.4); EOSINOPHILS % 0.4 % (0.0-6.0); HEMATOCRIT 29.9 % (34.2-44.1); HEMOGLOBIN 9.2 g/dL (12.0-16.0); LYMPHOCYTES # (AUTO) 2.3 (1.0-3.2); LYMPHOCYTES % 18.6 % (18.0-39.1); MEAN CORPUSCULAR HEMOGLOBIN 24.1 pg (28-32); MEAN CORPUSCULAR HGB CONC 30.8 g/dL (31-35); MEAN CORPUSCULAR VOLUME 78.5 fL (81-99); MONOCYTES # (AUTO) 0.9 (0.2-0.8); MONOCYTES % 7.1 % (4.4-11.3); NEUTROPHILS # (AUTO) 9.1 (2.1-6.9); NEUTROPHILS % 72.8 % (38.7-80.0); PLATELET COUNT 543 x10e3/uL (140-360); RED BLOOD COUNT 3.81 x10e6/uL (3.6-5.1); RED CELL DISTRIBUTION WIDTH 14.9 % (11.7-14.4)
[2020-09-12] MEDS ORDERED: PROMETHAZINE 25MG/ NS 50ML (IV) IV STA (03:32)
[2020-09-12 03:37] LABS: ALBUMIN 2.7 g/dL (3.5-5.0); ALBUMIN/GLOBULIN RATIO 0.5 (0.8-2.0); ANION GAP 16.9 mmol/L (8-16); CALCIUM 9.1 mg/dL (8.4-10.2); CREATININE, SERUM 1.47 mg/dL (0.57-1.11); POTASSIUM 3.9 mmol/L (3.5-5.1)
[2020-09-12 03:44] LABS: CREATINE KINASE MB 0.2 ng/mL (0-5.0)
[2020-09-12] MEDS ORDERED: PROMETHAZINE 25MG/SOD CHL 0.9% 50 ML IV ONE (03:44)
[2020-09-12 05:02] LABS: CLARITY,URINE TURBID (CLEAR); COLOR,URINE YELLOW (YELLOW); LEUKOCYTE ESTERASE ,URINE LARGE (NEGATIVE)
[2020-09-12 05:03] LABS: KETONES,URINE NEGATIVE (NEGATIVE); NITRITE,URINE NEGATIVE (NEGATIVE); PROTEIN,URINE DIPSTICK 1+ (NEGATIVE); URINE UROBILINOGEN 0.2 mg/dL (0.2 - 1)
[2020-09-12 05:04] LABS: BACTERIA,URINE MANY /HPF; EPITHELIAL CELLS,URINE MANY /LPF; RBC,URINE >50 /HPF (0-5); WBC,URINE (MAN) >50 /HPF (0-5)
[2020-09-12] MEDS ORDERED: PIPER-TAZ 3.375 GM 50 ML IV SCH (06:00)
[2020-09-12] MEDS: PIPERACILLIN/TAZOBAC 3.375 GM in SODIUM CHLORIDE 0.9% 50ML 50 ML IV SCH ×4 (06:15→23:57)
[2020-09-12] MEDS: SODIUM CHLORIDE 0.9% 1000ML 1,000 ML IV SCH ×4 (06:15→20:52)
[2020-09-12] MEDS: ONDANSETRON HCL INJ 2MG/ML 2ML 2 MG/ML VIAL IV PRN ×2 (06:15→12:04)
[2020-09-12] MEDS ORDERED: DEXTROSE 50% SYRINGE 50 ML IV PRN (07:00)
[2020-09-12] MEDS: INSULIN REGULAR, HUMAN 100 UNIT/1 ML 3ML VIAL SQ SCH ×4 (07:38→20:52)
[2020-09-12] MEDS ORDERED: BUSPIRONE HCL10 MG PO (07:46)
[2020-09-12] MEDS ORDERED: ABILIFY5 MG PO (07:46)
[2020-09-12] MEDS ORDERED: HYDROCHLOROTHIA25 MG PO (07:46)
[2020-09-12] MEDS ORDERED: LYRICA50 MG PO (07:46)
[2020-09-12 08:19] VITALS: BP 150/87
[2020-09-12] MEDS ORDERED: PROMETHAZINE 25MG/ NS 50ML (IV) IV ONE (08:30)
[2020-09-12] MEDS: ESCITALOPRAM OXALATE 10 MG TAB PO SCH (09:00)
[2020-09-12] MEDS: ARIPIPRAZOLE 5 MG TABLET PO SCH (09:00)
[2020-09-12] MEDS: LOSARTAN POTASSIUM 100 MG TAB PO SCH (09:00)
[2020-09-12 10:17] VITALS: BP 150/87
[2020-09-12 12:24] VITALS: BP 122/53
[2020-09-12] MEDS: PROMETHAZINE 25MG/ NS 50ML (IV) IV PRN ×2 (15:02→20:53)
[2020-09-12 16:33] VITALS: BP 122/60
[2020-09-12 20:00] VITALS: BP 122/68
[2020-09-12] MEDS: BUSPIRONE HCL 10 MG TABLET PO SCH (20:48)
[2020-09-12 21:00] VITALS: BP 122/68
[2020-09-13] VITALS (8 sets, daily range): BP systolic 122–139; BP diastolic 56–72
[2020-09-13] MEDS: PROMETHAZINE 25MG/ NS 50ML (IV) IV PRN ×4 (03:39→22:05)
[2020-09-13] MEDS: SODIUM CHLORIDE 0.9% 1000ML 1,000 ML IV SCH ×3 (05:23→21:29)
[2020-09-13] MEDS: PIPERACILLIN/TAZOBAC 3.375 GM in SODIUM CHLORIDE 0.9% 50ML 50 ML IV SCH ×3 (05:24→18:19)
[2020-09-13] MEDS: ONDANSETRON HCL INJ 2MG/ML 2ML 2 MG/ML VIAL IV PRN ×3 (05:37→18:19)
[2020-09-13] MEDS: METOCLOPRAMIDE HCL 10 MG/2ML VIAL IV SCH ×3 (05:37→18:19)
[2020-09-13 05:45] LABS: BASOPHILS % 0.4 % (0.0-1.0); EOSINOPHILS # (AUTO) 0.1 (0.0-0.4); HEMATOCRIT 29.1 % (34.2-44.1); HEMOGLOBIN 8.7 g/dL (12.0-16.0); LYMPHOCYTES # (AUTO) 1.9 (1.0-3.2); LYMPHOCYTES % 19.4 % (18.0-39.1); MEAN CORPUSCULAR HEMOGLOBIN 24.1 pg (28-32); MEAN CORPUSCULAR HGB CONC 29.9 g/dL (31-35); MEAN CORPUSCULAR VOLUME 80.6 fL (81-99); MONOCYTES # (AUTO) 0.7 (0.2-0.8); MONOCYTES % 7.3 % (4.4-11.3); PLATELET COUNT 427 x10e3/uL (140-360); RED BLOOD COUNT 3.61 x10e6/uL (3.6-5.1); RED CELL DISTRIBUTION WIDTH 15.2 % (11.7-14.4)
[2020-09-13 06:09] LABS: ALBUMIN 2.4 g/dL (3.5-5.0); ALBUMIN/GLOBULIN RATIO 0.5 (0.8-2.0); ANION GAP 14.9 mmol/L (8-16); CALCIUM 8.2 mg/dL (8.4-10.2); CREATININE, SERUM 1.2 mg/dL (0.57-1.11); POTASSIUM 3.9 mmol/L (3.5-5.1)
[2020-09-13] MEDS: ESCITALOPRAM OXALATE 10 MG TAB PO SCH (08:42)
[2020-09-13] MEDS: LOSARTAN POTASSIUM 100 MG TAB PO SCH (08:42)
[2020-09-13] MEDS: ARIPIPRAZOLE 5 MG TABLET PO SCH (08:42)
[2020-09-13] MEDS: INSULIN REGULAR, HUMAN 100 UNIT/1 ML 3ML VIAL SQ SCH ×4 (08:43→20:50)
[2020-09-13] MEDS: BUSPIRONE HCL 10 MG TABLET PO SCH (21:28)
[2020-09-14] VITALS (8 sets, daily range): BP systolic 123–148; BP diastolic 66–75
[2020-09-14] MEDS: PIPERACILLIN/TAZOBAC 3.375 GM in SODIUM CHLORIDE 0.9% 50ML 50 ML IV SCH ×5 (00:35→23:33)
[2020-09-14] MEDS: METOCLOPRAMIDE HCL 10 MG/2ML VIAL IV SCH ×3 (00:35→12:14)
[2020-09-14] MEDS: SODIUM CHLORIDE 0.9% 1000ML 1,000 ML IV SCH ×3 (03:42→21:23)
[2020-09-14] MEDS: PROMETHAZINE 25MG/ NS 50ML (IV) IV PRN ×3 (03:42→21:30)
[2020-09-14 06:17] LABS: BASOPHILS % 0.4 % (0.0-1.0); EOSINOPHILS # (AUTO) 0.1 (0.0-0.4); HEMATOCRIT 25.8 % (34.2-44.1); LYMPHOCYTES # (AUTO) 2.1 (1.0-3.2); LYMPHOCYTES % 19.6 % (18.0-39.1); MEAN CORPUSCULAR HEMOGLOBIN 24.3 pg (28-32); MEAN CORPUSCULAR VOLUME 78.4 fL (81-99); MONOCYTES # (AUTO) 0.6 (0.2-0.8); MONOCYTES % 6.1 % (4.4-11.3); NEUTROPHILS # (AUTO) 7.6 (2.1-6.9); PLATELET COUNT 592 x10e3/uL (140-360); RED BLOOD COUNT 3.29 x10e6/uL (3.6-5.1); RED CELL DISTRIBUTION WIDTH 15.4 % (11.7-14.4)
[2020-09-14 06:53] LABS: ALBUMIN 2.2 g/dL (3.5-5.0); ALBUMIN/GLOBULIN RATIO 0.5 (0.8-2.0); CREATININE, SERUM 1.12 mg/dL (0.57-1.11); MAGNESIUM 1.8 MG/DL (1.3-2.1)
[2020-09-14] MEDS: INSULIN REGULAR, HUMAN 100 UNIT/1 ML 3ML VIAL SQ SCH ×4 (07:30→21:00)
[2020-09-14] MEDS: LOSARTAN POTASSIUM 100 MG TAB PO SCH (08:50)
[2020-09-14] MEDS: ARIPIPRAZOLE 5 MG TABLET PO SCH (08:50)
[2020-09-14] MEDS: ESCITALOPRAM OXALATE 10 MG TAB PO SCH (08:50)
[2020-09-14] MEDS: ONDANSETRON HCL INJ 2MG/ML 2ML 2 MG/ML VIAL IV PRN ×2 (08:51→17:35)
[2020-09-14] MEDS: BUSPIRONE HCL 10 MG TABLET PO SCH (21:23)
[2020-09-15] VITALS (7 sets, daily range): BP systolic 112–151; BP diastolic 65–93
[2020-09-15] MEDS: ONDANSETRON HCL INJ 2MG/ML 2ML 2 MG/ML VIAL IV PRN (00:10)
[2020-09-15] MEDS: SODIUM CHLORIDE 0.9% 1000ML 1,000 ML IV SCH ×3 (05:30→23:26)
[2020-09-15] MEDS: PIPERACILLIN/TAZOBAC 3.375 GM in SODIUM CHLORIDE 0.9% 50ML 50 ML IV SCH ×4 (05:57→23:29)
[2020-09-15] MEDS: INSULIN REGULAR, HUMAN 100 UNIT/1 ML 3ML VIAL SQ SCH ×4 (07:30→20:59)
[2020-09-15 07:33] LABS: BASOPHILS % 0.3 % (0.0-1.0); EOSINOPHILS # (AUTO) 0.1 (0.0-0.4); EOSINOPHILS % 1.2 % (0.0-6.0); HEMATOCRIT 26.5 % (34.2-44.1); LYMPHOCYTES # (AUTO) 2.4 (1.0-3.2); LYMPHOCYTES % 24.1 % (18.0-39.1); MEAN CORPUSCULAR HEMOGLOBIN 23.8 pg (28-32); MEAN CORPUSCULAR HGB CONC 30.2 g/dL (31-35); MEAN CORPUSCULAR VOLUME 78.9 fL (81-99); MONOCYTES # (AUTO) 0.7 (0.2-0.8); MONOCYTES % 6.5 % (4.4-11.3); NEUTROPHILS # (AUTO) 6.7 (2.1-6.9); NEUTROPHILS % 67.2 % (38.7-80.0); PLATELET COUNT 596 x10e3/uL (140-360); RED BLOOD COUNT 3.36 x10e6/uL (3.6-5.1); RED CELL DISTRIBUTION WIDTH 15.4 % (11.7-14.4)
[2020-09-15 07:56] LABS: ALBUMIN 2.2 g/dL (3.5-5.0); ALBUMIN/GLOBULIN RATIO 0.5 (0.8-2.0); ANION GAP 13.7 mmol/L (8-16); CALCIUM 7.7 mg/dL (8.4-10.2); CREATININE, SERUM 1.04 mg/dL (0.57-1.11); MAGNESIUM 1.8 MG/DL (1.3-2.1); POTASSIUM 3.7 mmol/L (3.5-5.1)
[2020-09-15] MEDS: FAMOTIDINE 20 MG/2 ML VIAL IV SCH ×2 (08:13→17:43)
[2020-09-15] MEDS: PROMETHAZINE 25MG/ NS 50ML (IV) IV PRN ×3 (08:14→21:10)
[2020-09-15] MEDS ORDERED: MIDAZOLAM HCL 2 MG/2 ML VIAL ONE (12:38)
[2020-09-15] MEDS ORDERED: FENTANYL CITRATE/PF 100MCG/2 ML INJ ONE (12:38)
[2020-09-15] MEDS ORDERED: LIDOCAINE HCL 2% LOCAL INJ 5 ML SDV VIAL INJ ONE (13:36)
[2020-09-15] MEDS ORDERED: PROPOFOL IV EMULSION 10 MG/ML 20 ML VIAL ONE (13:36)
[2020-09-15] MEDS ORDERED: POVIDONE IODINE 0.05% 0.05 % ML PO ONE (13:36)
[2020-09-15] MEDS: ESCITALOPRAM OXALATE 10 MG TAB PO SCH (17:43)
[2020-09-15] MEDS: ARIPIPRAZOLE 5 MG TABLET PO SCH (17:43)
[2020-09-15] MEDS: SUCRALFATE 1 GM TAB PO SCH ×2 (17:43→20:58)
[2020-09-15] MEDS: THIAMINE HCL 100 MG TAB PO SCH (17:43)
[2020-09-15] MEDS: LOSARTAN POTASSIUM 100 MG TAB PO SCH (17:43)
[2020-09-15] MEDS: BUSPIRONE HCL 10 MG TABLET PO SCH (20:58)
[2020-09-16] VITALS: BP 152/84
[2020-09-16 04:00] VITALS: BP 146/90
[2020-09-16] MEDS: SODIUM CHLORIDE 0.9% 1000ML 1,000 ML IV SCH (05:02)
[2020-09-16] MEDS: PIPERACILLIN/TAZOBAC 3.375 GM in SODIUM CHLORIDE 0.9% 50ML 50 ML IV SCH (05:02)
[2020-09-16] MEDS ORDERED: PANTOPRAZOLE SOD 40 MG TABEC PO SCH (07:30)
[2020-09-16] MEDS ORDERED: SODIUM CHLORIDE 0.9% 50ML 50 ML ONE (08:02)
[2020-09-16] MEDS ORDERED: IOPAMIDOL 370 MG/ML 200 ML INFUS..BTL INJ ONE (08:03)
[2020-09-16 08:15] VITALS: BP 147/85
[2020-09-16 08:29] VITALS: BP 147/85
[2020-09-16] MEDS: ESCITALOPRAM OXALATE 10 MG TAB PO SCH (09:04)
[2020-09-16] MEDS: ARIPIPRAZOLE 5 MG TABLET PO SCH (09:04)
[2020-09-16] MEDS: FAMOTIDINE 20 MG/2 ML VIAL IV SCH (09:04)
[2020-09-16] MEDS: SUCRALFATE 1 GM TAB PO SCH (09:04)
[2020-09-16] MEDS: THIAMINE HCL 100 MG TAB PO SCH (09:05)
[2020-09-16] MEDS: LOSARTAN POTASSIUM 100 MG TAB PO SCH (09:05)
[2020-09-16] MEDS: INSULIN REGULAR, HUMAN 100 UNIT/1 ML 3ML VIAL SQ SCH (09:07)
[2020-09-16 12:00] VITALS: BP 138/77
== END 2020-09-16 12:50 | disposition home or self-care (01) | DRG 392 ==
LOC: ER 02:00 → ERHOLD 05:45 → MED/SURG2 08:01 → OBSVTOIN 09-13 11:07
PROVIDERS: ADMIT Internal Medicine; ATTEND Internal Medicine
PROC: 0DB78ZX Excision of Stomach, Pylorus, Via Natural or Artificial Opening Endoscopic, Diagnostic (ICD-10-PCS; 2020-09-15)
PROC: 0DB38ZX Excision of Lower Esophagus, Via Natural or Artificial Opening Endoscopic, Diagnostic (ICD-10-PCS; principal; 2020-09-15 13:01)
DX: K29.00 Acute gastritis without bleeding (principal); K22.10 Ulcer of esophagus without bleeding; N39.0 Urinary tract infection, site not specified; N17.9 Acute kidney failure, unspecified; T80.1XXA Vascular complications following infusion, transfusion and therapeutic injection, initial encounter; Z79.4 Long term (current) use of insulin; I10 Essential (primary) hypertension; Z98.84 Bariatric surgery status; E11.42 Type 2 diabetes mellitus with diabetic polyneuropathy; D50.9 Iron deficiency anemia, unspecified; F41.9 Anxiety disorder, unspecified; E66.9 Obesity, unspecified; Z68.32 Body mass index [BMI] 32.0-32.9, adult; I80.8 Phlebitis and thrombophlebitis of other sites; Z20.822 Contact with and (suspected) exposure to COVID-19
CPT/HCPCS: 36415; 43239; 71045; 74178; 76705; 80053; 81001; 82550; 82553; 82948; 83605; 83690; 83735; 83880; 84484; 85025; 87040; 87086; 88305; 88312; 93005; 96361; 99251; 99284; G0378; J1817; J2001; J2250; J2405; J2543; J2550; J2765; J3010; J3411; J7030; Q9967; U0002

== ENCOUNTER → 2020-10-01 | Outpatient (CLI) | payer MEDICARE, BC ==
[~2020-10-01] MED LIST changes: +ABILIFY5 MG PO; +BUSPIRONE HCL10 MG PO; +HYDROCHLOROTHIA25 MG PO; +LYRICA50 MG PO; +PANTOPRAZOLE SO40 MG PO; +SUCRALFATE1 GM PO; +TRAMADOL/APAP PO
== END ==
LOC: NM 07:05
PROVIDERS: ATTEND Internal Medicine
DX: R10.11 Right upper quadrant pain (principal)
CPT/HCPCS: 78227; A9537

== ENCOUNTER → 2020-10-07 | Day surgery (SDC) | payer MEDICARE, BC ==
[2020-10-06 10:25] LABS: BASOPHILS % 0.3 % (0.0-1.0); EOSINOPHILS # (AUTO) 0.1 (0.0-0.4); HEMATOCRIT 33.4 % (34.2-44.1); HEMOGLOBIN 9.7 g/dL (12.0-16.0); LYMPHOCYTES # (AUTO) 1.9 (1.0-3.2); LYMPHOCYTES % 24.6 % (18.0-39.1); MEAN CORPUSCULAR HEMOGLOBIN 22.9 pg (28-32); MEAN CORPUSCULAR VOLUME 78.8 fL (81-99); MONOCYTES # (AUTO) 0.5 (0.2-0.8); MONOCYTES % 6.7 % (4.4-11.3); NEUTROPHILS # (AUTO) 5.2 (2.1-6.9); NEUTROPHILS % 66.8 % (38.7-80.0); PLATELET COUNT 339 x10e3/uL (140-360); RED BLOOD COUNT 4.24 x10e6/uL (3.6-5.1); RED CELL DISTRIBUTION WIDTH 15.9 % (11.7-14.4)
[2020-10-06 10:50] LABS: ALBUMIN 3.3 g/dL (3.5-5.0); ALBUMIN/GLOBULIN RATIO 0.8 (0.8-2.0); ANION GAP 16.8 mmol/L (8-16); CALCIUM 8.9 mg/dL (8.4-10.2); CREATININE, SERUM 1.2 mg/dL (0.57-1.11); POTASSIUM 3.8 mmol/L (3.5-5.1)
[~2020-10-07] MED LIST changes: +BUPIVACAINE HCL 0.5% INJ 30 ML VIAL INJ ONE; +CEFAZOLIN SOD 1 GM/NS 50ML 100 ML IV ONE; +DEXAMETHASONE SOD PHOS INJ 4 MG/ML VIAL ONE; +FENTANYL CITRATE/PF 100MCG/2 ML INJ ONE; +GLYCOPYRROLATE INJ 0.2 MG/ML VIAL ONE; +INSULIN REGULAR, HUMAN 100 UNIT/1 ML 3ML VIAL ONE; +LIDOCAINE HCL 2% LOCAL INJ 5 ML SDV VIAL INJ ONE; +METOCLOPRAMIDE HCL 10 MG/2ML VIAL ONE; +MIDAZOLAM HCL 2 MG/2 ML VIAL ONE; +NEOSTIGMINE 1 MG/ML 10ML VIAL ONE; +ONDANSETRON HCL INJ 2MG/ML 2ML 2 MG/ML VIAL ONE; +POVIDONE IODINE 0.05% 0.05 % ML PO ONE; +PROPOFOL IV EMULSION 10 MG/ML 20 ML VIAL ONE; +ROCURONIUM BROMIDE 10 MG/ML 5ML VIAL IV ONE; +SEVOFLURANE INHAL SOLN 250 ML PEN BTL ONE
[2020-10-07 14:55] VITALS: BP 160/95
== END | disposition home or self-care (01) ==
LOC: OR 10:49
PROVIDERS: ATTEND Surgery
DX: K80.10 Calculus of gallbladder with chronic cholecystitis without obstruction (principal); K82.8 Other specified diseases of gallbladder; I10 Essential (primary) hypertension; E11.9 Type 2 diabetes mellitus without complications; Z01.810 Encounter for preprocedural cardiovascular examination; Z01.812 Encounter for preprocedural laboratory examination; Z01.818 Encounter for other preprocedural examination; Z20.822 Contact with and (suspected) exposure to COVID-19; Z79.84 Long term (current) use of oral hypoglycemic drugs; Z68.33 Body mass index [BMI] 33.0-33.9, adult
CPT/HCPCS: 36415 ×2; 47562; 71046; 80053; 82948; 85025; 88304; 93005; J0690; J1100; J2001; J2250; J2405; J2704; J2710; J2765; J3010; U0002; J1817

== ENCOUNTER 2020-11-10 18:32 | Inpatient (IN) | payer BC, MEDICARE ==
[~2020-11-10] VITALS: Ht 167.6 cm; Wt 91.3 kg
[~2020-11-10 18:32] MED LIST changes: -BUPIVACAINE HCL 0.5% INJ 30 ML VIAL INJ ONE; -CEFAZOLIN SOD 1 GM/NS 50ML 100 ML IV ONE; -DEXAMETHASONE SOD PHOS INJ 4 MG/ML VIAL ONE; -FENTANYL CITRATE/PF 100MCG/2 ML INJ ONE; -GLYCOPYRROLATE INJ 0.2 MG/ML VIAL ONE; -INSULIN REGULAR, HUMAN 100 UNIT/1 ML 3ML VIAL ONE; -LIDOCAINE HCL 2% LOCAL INJ 5 ML SDV VIAL INJ ONE; -METOCLOPRAMIDE HCL 10 MG/2ML VIAL ONE; -MIDAZOLAM HCL 2 MG/2 ML VIAL ONE; -NEOSTIGMINE 1 MG/ML 10ML VIAL ONE; -ONDANSETRON HCL INJ 2MG/ML 2ML 2 MG/ML VIAL ONE; -POVIDONE IODINE 0.05% 0.05 % ML PO ONE; -PROPOFOL IV EMULSION 10 MG/ML 20 ML VIAL ONE; -ROCURONIUM BROMIDE 10 MG/ML 5ML VIAL IV ONE; -SEVOFLURANE INHAL SOLN 250 ML PEN BTL ONE
[2020-11-10] MEDS ORDERED: ONDANSETRON HCL INJ 2MG/ML 2ML 2 MG/ML VIAL IV STA (18:56)
[2020-11-10] MEDS ORDERED: SODIUM CHLORIDE 0.9% 1000ML 1,000 ML IV ONE ×3 (19:00→19:45)
[2020-11-10 19:17] LABS: BASOPHILS # (AUTO) 0.1 (0.0-0.1); BASOPHILS % 0.4 % (0.0-1.0); EOSINOPHILS # (AUTO) 0.1 (0.0-0.4); HEMATOCRIT 36.3 % (34.2-44.1); HEMOGLOBIN 10.7 g/dL (12.0-16.0); LYMPHOCYTES # (AUTO) 2.1 (1.0-3.2); LYMPHOCYTES % 16.4 % (18.0-39.1); MEAN CORPUSCULAR HEMOGLOBIN 22.4 pg (28-32); MEAN CORPUSCULAR HGB CONC 29.5 g/dL (31-35); MEAN CORPUSCULAR VOLUME 76.1 fL (81-99); NEUTROPHILS # (AUTO) 9.4 (2.1-6.9); NEUTROPHILS % 73.8 % (38.7-80.0); PLATELET COUNT 456 x10e3/uL (140-360); RED BLOOD COUNT 4.77 x10e6/uL (3.6-5.1); RED CELL DISTRIBUTION WIDTH 16.3 % (11.7-14.4)
[2020-11-10 19:33] LABS: ALBUMIN 3.6 g/dL (3.5-5.0); ALBUMIN/GLOBULIN RATIO 0.8 (0.8-2.0); CALCIUM 9.4 mg/dL (8.4-10.2); CREATININE, SERUM 1.69 mg/dL (0.57-1.11)
[2020-11-10 19:43] LABS: AMYLASE 61 U/L (25-125); LIPASE 78 U/L (8-78)
[2020-11-10] MEDS ORDERED: CEFEPIME 1 GM in SODIUM CHLORIDE 0.9% 50ML 50 ML IV ONE (19:45)
[2020-11-10 20:06] LABS: CREATINE KINASE MB 2.9 ng/mL (0-5.0)
[2020-11-10 22:10] LABS: CLARITY,URINE CLEAR (CLEAR); COLOR,URINE YELLOW (YELLOW)
[2020-11-10 22:11] LABS: KETONES,URINE NEGATIVE (NEGATIVE); LEUKOCYTE ESTERASE ,URINE MODERATE (NEGATIVE); NITRITE,URINE NEGATIVE (NEGATIVE); PROTEIN,URINE DIPSTICK 1+ (NEGATIVE); URINE UROBILINOGEN 0.2 mg/dL (0.2 - 1)
[2020-11-10 22:23] LABS: BACTERIA,URINE MODERATE /HPF; EPITHELIAL CELLS,URINE MODERATE /LPF; RBC,URINE 0-5 /HPF (0-5); WBC,URINE (MAN) 21-50 /HPF (0-5)
[2020-11-10] MEDS ORDERED: DEXTROSE 50% SYRINGE 50 ML IV PRN (23:45)
[2020-11-10] MEDS: SODIUM CHLORIDE 0.9% 1000ML 1,000 ML IV SCH (23:45)
[2020-11-11] VITALS (7 sets, daily range): BP systolic 114–142; BP diastolic 71–75
[2020-11-11] MEDS: SODIUM CHLORIDE 0.9% 1000ML 1,000 ML IV SCH ×6 (02:00→22:30)
[2020-11-11 03:18] LABS: CREATINE KINASE MB 2.3 ng/mL (0-5.0)
[2020-11-11 05:27] LABS: BASOPHILS % 0.4 % (0.0-1.0); EOSINOPHILS # (AUTO) 0.1 (0.0-0.4); EOSINOPHILS % 1.5 % (0.0-6.0); HEMATOCRIT 28.7 % (34.2-44.1); HEMOGLOBIN 8.3 g/dL (12.0-16.0); LYMPHOCYTES # (AUTO) 2.5 (1.0-3.2); LYMPHOCYTES % 30.9 % (18.0-39.1); MEAN CORPUSCULAR HEMOGLOBIN 22.2 pg (28-32); MEAN CORPUSCULAR HGB CONC 28.9 g/dL (31-35); MEAN CORPUSCULAR VOLUME 76.7 fL (81-99); MONOCYTES # (AUTO) 0.7 (0.2-0.8); MONOCYTES % 8.3 % (4.4-11.3); NEUTROPHILS # (AUTO) 4.7 (2.1-6.9); NEUTROPHILS % 58.5 % (38.7-80.0); PLATELET COUNT 296 x10e3/uL (140-360); RED BLOOD COUNT 3.74 x10e6/uL (3.6-5.1); RED CELL DISTRIBUTION WIDTH 15.9 % (11.7-14.4)
[2020-11-11 05:48] LABS: ALBUMIN 2.8 g/dL (3.5-5.0); ALBUMIN/GLOBULIN RATIO 0.9 (0.8-2.0); ANION GAP 11.7 mmol/L (8-16); CALCIUM 7.6 mg/dL (8.4-10.2); CREATININE, SERUM 1.27 mg/dL (0.57-1.11); POTASSIUM 3.7 mmol/L (3.5-5.1)
[2020-11-11] MEDS ORDERED: CEFEPIME 1 GM in SODIUM CHLORIDE 0.9% 50ML 50 ML IV SCH (06:00)
[2020-11-11] MEDS: ONDANSETRON HCL INJ 2MG/ML 2ML 2 MG/ML VIAL IV PRN (06:30)
[2020-11-11] MEDS: INSULIN REGULAR, HUMAN 100 UNIT/1 ML SQ SCH ×4 (07:30→20:46)
[2020-11-11] MEDS ORDERED: PANTOPRAZOLE SOD 40 MG TABEC PO SCH (07:30)
[2020-11-11] MEDS: PREGABALIN 50 MG CAP PO SCH ×2 (09:00→17:00)
[2020-11-11] MEDS: SUCRALFATE 1 GM TAB PO SCH ×2 (09:00→17:00)
[2020-11-11] MEDS: ESCITALOPRAM OXALATE 10 MG TAB PO SCH (09:25)
[2020-11-11 11:37] LABS: CREATINE KINASE MB 1.2 ng/mL (0-5.0)
[2020-11-11] MEDS: CEFEPIME 1 GM in SODIUM CHLORIDE 0.9% 50ML 50 ML IV SCH ×2 (12:13→23:08)
[2020-11-11] MEDS ORDERED: BUSPIRONE HCL 10 MG TABLET PO SCH (21:00)
[2020-11-12] VITALS (8 sets, daily range): BP systolic 136–152; BP diastolic 76–95
[2020-11-12 01:28] LABS: FERRITIN 9.32 ng/mL (4.63-204.00)
[2020-11-12] MEDS: SODIUM CHLORIDE 0.9% 1000ML 1,000 ML IV SCH ×3 (06:10→20:02)
[2020-11-12 06:29] LABS: BASOPHILS % 0.5 % (0.0-1.0); EOSINOPHILS # (AUTO) 0.2 (0.0-0.4); EOSINOPHILS % 3.2 % (0.0-6.0); HEMATOCRIT 27.3 % (34.2-44.1); HEMOGLOBIN 8.1 g/dL (12.0-16.0); LYMPHOCYTES # (AUTO) 2.7 (1.0-3.2); LYMPHOCYTES % 36.7 % (18.0-39.1); MEAN CORPUSCULAR HEMOGLOBIN 22.4 pg (28-32); MEAN CORPUSCULAR HGB CONC 29.7 g/dL (31-35); MEAN CORPUSCULAR VOLUME 75.6 fL (81-99); MONOCYTES # (AUTO) 0.5 (0.2-0.8); MONOCYTES % 6.9 % (4.4-11.3); NEUTROPHILS # (AUTO) 3.8 (2.1-6.9); NEUTROPHILS % 52.4 % (38.7-80.0); PLATELET COUNT 329 x10e3/uL (140-360); RED BLOOD COUNT 3.61 x10e6/uL (3.6-5.1); RED CELL DISTRIBUTION WIDTH 15.9 % (11.7-14.4)
[2020-11-12 07:08] LABS: ALBUMIN 2.8 g/dL (3.5-5.0); ANION GAP 11.9 mmol/L (8-16); CALCIUM 7.8 mg/dL (8.4-10.2); CREATININE, SERUM 0.91 mg/dL (0.57-1.11); MAGNESIUM 1.5 MG/DL (1.3-2.1); POTASSIUM 3.9 mmol/L (3.5-5.1)
[2020-11-12] MEDS: INSULIN REGULAR, HUMAN 100 UNIT/1 ML SQ SCH ×4 (07:30→21:01)
[2020-11-12] MEDS: SUCRALFATE 1 GM TAB PO SCH ×4 (07:30→20:52)
[2020-11-12] MEDS: ESCITALOPRAM OXALATE 10 MG TAB PO SCH (07:43)
[2020-11-12] MEDS: PREGABALIN 50 MG CAP PO SCH ×2 (07:43→16:21)
[2020-11-12] MEDS: ONDANSETRON HCL INJ 2MG/ML 2ML 2 MG/ML VIAL IV PRN (09:54)
[2020-11-12] MEDS: CEFEPIME 1 GM in SODIUM CHLORIDE 0.9% 50ML 50 ML IV SCH ×2 (12:13→23:18)
[2020-11-13] VITALS (8 sets, daily range): BP systolic 113–187; BP diastolic 69–93
[2020-11-13] MEDS: SODIUM CHLORIDE 0.9% 1000ML 1,000 ML IV SCH ×3 (00:39→22:34)
[2020-11-13 05:42] LABS: BASOPHILS % 0.4 % (0.0-1.0); EOSINOPHILS # (AUTO) 0.2 (0.0-0.4); EOSINOPHILS % 3.4 % (0.0-6.0); HEMATOCRIT 28.4 % (34.2-44.1); HEMOGLOBIN 8.5 g/dL (12.0-16.0); LYMPHOCYTES # (AUTO) 2.4 (1.0-3.2); LYMPHOCYTES % 36.2 % (18.0-39.1); MEAN CORPUSCULAR HEMOGLOBIN 22.8 pg (28-32); MEAN CORPUSCULAR HGB CONC 29.9 g/dL (31-35); MEAN CORPUSCULAR VOLUME 76.3 fL (81-99); MONOCYTES # (AUTO) 0.5 (0.2-0.8); MONOCYTES % 7.3 % (4.4-11.3); NEUTROPHILS # (AUTO) 3.5 (2.1-6.9); NEUTROPHILS % 52.4 % (38.7-80.0); PLATELET COUNT 308 x10e3/uL (140-360); RED BLOOD COUNT 3.72 x10e6/uL (3.6-5.1); RED CELL DISTRIBUTION WIDTH 15.7 % (11.7-14.4)
[2020-11-13 06:01] LABS: ALBUMIN 2.8 g/dL (3.5-5.0); ALBUMIN/GLOBULIN RATIO 0.9 (0.8-2.0); ANION GAP 12.7 mmol/L (8-16); CALCIUM 8.1 mg/dL (8.4-10.2); CREATININE, SERUM 0.85 mg/dL (0.57-1.11); MAGNESIUM 1.5 MG/DL (1.3-2.1); POTASSIUM 3.7 mmol/L (3.5-5.1)
[2020-11-13] MEDS: INSULIN REGULAR, HUMAN 100 UNIT/1 ML SQ SCH ×4 (07:30→20:36)
[2020-11-13] MEDS: ESCITALOPRAM OXALATE 10 MG TAB PO SCH (08:58)
[2020-11-13] MEDS ORDERED: IRON SUCROSE 100 MG in SODIUM CHLORIDE 0.9% 100 ML 100 ML IV SCH (09:00)
[2020-11-13] MEDS ORDERED: CYANOCOBALAMIN INJ 1,000 MCG/ML VIAL IM SCH (09:00)
[2020-11-13] MEDS: CEFEPIME 1 GM in SODIUM CHLORIDE 0.9% 50ML 50 ML IV SCH ×2 (11:00→22:34)
[2020-11-14] VITALS: BP 156/88
[2020-11-14 04:00] VITALS: BP 123/96
[2020-11-14] MEDS ORDERED: MACROBID 100 M100 MG PO (07:25)
[2020-11-14] MEDS: INSULIN REGULAR, HUMAN 100 UNIT/1 ML SQ SCH (07:30)
[2020-11-14 07:52] VITALS: BP 144/99
[2020-11-14] MEDS ORDERED: CEFEPIME 1 GM in SODIUM CHLORIDE 0.9% 50ML 50 ML IV SCH (08:00)
== END 2020-11-14 09:00 | disposition home or self-care (01) | DRG 872 ==
LOC: ER 18:55 → ERHOLD 23:43 → IMCU 11-11 07:50 → MED/SURG 11-12 12:55
PROVIDERS: ADMIT Internal Medicine; ATTEND Internal Medicine
DX: A41.9 Sepsis, unspecified organism (principal); N17.9 Acute kidney failure, unspecified; N39.0 Urinary tract infection, site not specified; K22.10 Ulcer of esophagus without bleeding; K27.9 Peptic ulcer, site unspecified, unspecified as acute or chronic, without hemorrhage or perforation; E11.9 Type 2 diabetes mellitus without complications; Z79.4 Long term (current) use of insulin; F41.9 Anxiety disorder, unspecified; F32.9 Major depressive disorder, single episode, unspecified; D50.9 Iron deficiency anemia, unspecified; D51.9 Vitamin B12 deficiency anemia, unspecified; I10 Essential (primary) hypertension; R11.0 Nausea; E86.0 Dehydration
CPT/HCPCS: 36415; 71045; 74176; 78264; 80053; 81001; 82150; 82550; 82553; 82607; 82728; 82746; 82948; 83540; 83605; 83690; 83735; 84466; 84484; 85025; 85045; 87040; 87086; 93005; 96367; 96372; 96376; 99251; 99284; A9541; J0692; J1756; J1817; J2405; J3420; J7030

== ENCOUNTER 2021-05-25 19:03 | Inpatient (IN) | payer MEDICARE, OTHER ==
[~2021-05-25] VITALS: Ht 170.2 cm; Wt 91.2 kg
[~2021-05-25 19:03] MED LIST changes: +MACROBID 100 M100 MG PO
[2021-05-25] MEDS ORDERED: SODIUM CHLORIDE 0.9% 1000ML 1,000 ML IV STA ×2 (19:57→22:53)
[2021-05-25] MEDS ORDERED: PIPERACILLIN/TAZOBACTAM 3.375 GM in SODIUM CHLORIDE 0.9% 50ML 50 ML IV STA (19:57)
[2021-05-25 20:26] LABS: BASOPHILS % 0.2 % (0.0-1.0); EOSINOPHILS # (AUTO) 0.1 (0.0-0.4); EOSINOPHILS % 0.9 % (0.0-6.0); HEMATOCRIT 36.5 % (34.2-44.1); HEMOGLOBIN 10.5 g/dL (12.0-16.0); LYMPHOCYTES # (AUTO) 3.3 (1.0-3.2); LYMPHOCYTES % 25.9 % (18.0-39.1); MEAN CORPUSCULAR HEMOGLOBIN 21.1 pg (28-32); MEAN CORPUSCULAR HGB CONC 28.8 g/dL (31-35); MEAN CORPUSCULAR VOLUME 73.4 fL (81-99); MONOCYTES # (AUTO) 0.8 (0.2-0.8); MONOCYTES % 6.1 % (4.4-11.3); NEUTROPHILS # (AUTO) 8.4 (2.1-6.9); PLATELET COUNT 453 x10e3/uL (140-360); RED BLOOD COUNT 4.97 x10e6/uL (3.6-5.1); RED CELL DISTRIBUTION WIDTH 15.7 % (11.7-14.4)
[2021-05-25] MEDS ORDERED: PROMETHAZINE 25MG/ NS 50ML (IV) IV STA (20:43)
[2021-05-25 20:44] LABS: ALANINE AMINOTRANSFERASE 12 IU/L (0-55); ALBUMIN 3.3 g/dL (3.5-5.0); ALBUMIN/GLOBULIN RATIO 0.7 (0.8-2.0); ALKALINE PHOSPHATASE 88 IU/L (40-150); ANION GAP 18.3 mmol/L (8-16); BLOOD UREA NITROGEN 29 mg/dL (7-26); BUN/CREATININE RATIO 21 (6-25); CALCIUM 9.6 mg/dL (8.4-10.2); CARBON DIOXIDE 18 mmol/L (22-29); CHLORIDE 96 mmol/L (98-107); CREATINE KINASE 33 IU/L (29-168); CREATININE, SERUM 1.39 mg/dL (0.57-1.11); EST GLOMERULAR FILTRATION RATE 38 ML/MIN (60-); POTASSIUM 4.3 mmol/L (3.5-5.1); SODIUM 128 mmol/L (136-145)
[2021-05-25 20:45] LABS: B-TYPE NATRIURETIC PEPTIDE2 44.2 pg/mL (0-100)
[2021-05-25 20:47] LABS: GLUCOSE 573 mg/dL (74-118)
[2021-05-25 21:00] LABS: CLARITY,URINE CLEAR (CLEAR); COLOR,URINE YELLOW (YELLOW)
[2021-05-25 21:01] LABS: KETONES,URINE NEGATIVE (NEGATIVE); LEUKOCYTE ESTERASE ,URINE TRACE (NEGATIVE); NITRITE,URINE NEGATIVE (NEGATIVE); PROTEIN,URINE DIPSTICK NEGATIVE (NEGATIVE); URINE UROBILINOGEN 0.2 mg/dL (0.2 - 1)
[2021-05-25 21:19] LABS: AMORPHOUS SEDIMENT,URINE MODERATE (FEW); BACTERIA,URINE MODERATE /HPF; EPITHELIAL CELLS,URINE FEW /LPF; RBC,URINE 0-5 /HPF (0-5)
[2021-05-25] MEDS ORDERED: ACETAMINOPHEN 325 MG TAB PO STA (22:53)
[2021-05-25] MEDS ORDERED: INSULIN REGULAR, HUMAN 100 UNIT/1 ML IV STA (23:20)
[2021-05-26] MEDS: SODIUM CHLORIDE 0.9% 1000ML 1,000 ML IV SCH ×3 (00:30→16:30)
[2021-05-26] MEDS ORDERED: DEXTROSE 50% SYRINGE 50 ML IV PRN (00:30)
[2021-05-26] MEDS ORDERED: INSULIN REGULAR, HUMAN 100 UNIT/1 ML IV ONE (02:30)
[2021-05-26] MEDS: Morphine 4mg Syringe 4 MG/ML INJ IV PRN ×4 (03:21→22:15)
[2021-05-26] MEDS: ONDANSETRON HCL INJ 2MG/ML 2ML 2 MG/ML VIAL IV PRN ×6 (03:22→21:30)
[2021-05-26] MEDS: PIPERACILLIN/TAZOBACTAM 3.375 GM in SODIUM CHLORIDE 0.9% 50ML 50 ML IV SCH ×3 (06:39→17:01)
[2021-05-26 07:09] LABS: BASOPHILS % 0.3 % (0.0-1.0); EOSINOPHILS # (AUTO) 0.1 (0.0-0.4); EOSINOPHILS % 1.2 % (0.0-6.0); HEMATOCRIT 32.5 % (34.2-44.1); LYMPHOCYTES # (AUTO) 3.1 (1.0-3.2); LYMPHOCYTES % 30.6 % (18.0-39.1); MEAN CORPUSCULAR HGB CONC 27.7 g/dL (31-35); MEAN CORPUSCULAR VOLUME 75.8 fL (81-99); MONOCYTES # (AUTO) 0.7 (0.2-0.8); MONOCYTES % 6.5 % (4.4-11.3); NEUTROPHILS # (AUTO) 6.1 (2.1-6.9); NEUTROPHILS % 60.4 % (38.7-80.0); PLATELET COUNT 339 x10e3/uL (140-360); RED BLOOD COUNT 4.29 x10e6/uL (3.6-5.1); RED CELL DISTRIBUTION WIDTH 15.7 % (11.7-14.4)
[2021-05-26 07:25] LABS: ALBUMIN 2.7 g/dL (3.5-5.0); ALBUMIN/GLOBULIN RATIO 0.8 (0.8-2.0); ANION GAP 12.8 mmol/L (8-16); CALCIUM 8.1 mg/dL (8.4-10.2); CREATININE, SERUM 0.87 mg/dL (0.57-1.11); MAGNESIUM 1.7 MG/DL (1.3-2.1); POTASSIUM 3.8 mmol/L (3.5-5.1)
[2021-05-26] MEDS: ESCITALOPRAM OXALATE 10 MG TAB PO SCH (08:00)
[2021-05-26] MEDS: INSULIN REGULAR, HUMAN 100 UNIT/1 ML SQ SCH ×4 (08:00→21:29)
[2021-05-26] MEDS: LOSARTAN POTASSIUM 100 MG TAB PO SCH (08:00)
[2021-05-26] MEDS ORDERED: PANTOPRAZOLE SOD 40 MG TABEC PO SCH (09:00)
[2021-05-26 11:23] VITALS: BP 150/80
[2021-05-26 11:32] VITALS: BP 150/80
[2021-05-26 11:45] VITALS: BP 150/80
[2021-05-26 15:37] VITALS: BP 134/78
[2021-05-26 20:37] VITALS: BP 149/89
[2021-05-26 20:48] VITALS: BP 149/89
[2021-05-27] VITALS (10 sets, daily range): BP systolic 110–157; BP diastolic 67–87
[2021-05-27] MEDS: SODIUM CHLORIDE 0.9% 1000ML 1,000 ML IV SCH ×3 (02:04→16:30)
[2021-05-27] MEDS: PIPERACILLIN/TAZOBACTAM 3.375 GM in SODIUM CHLORIDE 0.9% 50ML 50 ML IV SCH ×4 (02:06→17:30)
[2021-05-27] MEDS ORDERED: PROMETHAZINE 25MG/ NS 50ML (IV) IV PRN (04:15)
[2021-05-27] MEDS: Morphine 4mg Syringe 4 MG/ML INJ IV PRN ×3 (05:04→22:20)
[2021-05-27] MEDS: ONDANSETRON HCL INJ 2MG/ML 2ML 2 MG/ML VIAL IV PRN (05:04)
[2021-05-27 05:05] LABS: BASOPHILS % 0.2 % (0.0-1.0); EOSINOPHILS # (AUTO) 0.3 (0.0-0.4); EOSINOPHILS % 2.6 % (0.0-6.0); HEMATOCRIT 30.1 % (34.2-44.1); HEMOGLOBIN 8.4 g/dL (12.0-16.0); LYMPHOCYTES # (AUTO) 2.2 (1.0-3.2); LYMPHOCYTES % 22.5 % (18.0-39.1); MEAN CORPUSCULAR HEMOGLOBIN 21.1 pg (28-32); MEAN CORPUSCULAR HGB CONC 27.9 g/dL (31-35); MEAN CORPUSCULAR VOLUME 75.6 fL (81-99); MONOCYTES # (AUTO) 0.6 (0.2-0.8); MONOCYTES % 5.9 % (4.4-11.3); NEUTROPHILS # (AUTO) 6.7 (2.1-6.9); PLATELET COUNT 324 x10e3/uL (140-360); RED BLOOD COUNT 3.98 x10e6/uL (3.6-5.1); RED CELL DISTRIBUTION WIDTH 15.6 % (11.7-14.4)
[2021-05-27 05:25] LABS: ALBUMIN 2.4 g/dL (3.5-5.0); ALBUMIN/GLOBULIN RATIO 0.7 (0.8-2.0); CALCIUM 8.4 mg/dL (8.4-10.2); CREATININE, SERUM 0.89 mg/dL (0.57-1.11)
[2021-05-27] MEDS: METOCLOPRAMIDE HCL 10 MG/2ML VIAL IV SCH ×3 (06:27→22:20)
[2021-05-27] MEDS: INSULIN REGULAR, HUMAN 100 UNIT/1 ML SQ SCH ×4 (07:30→22:09)
[2021-05-27] MEDS ORDERED: FENTANYL CITRATE/PF 100MCG/2 ML INJ ONE (13:02)
[2021-05-27] MEDS ORDERED: MIDAZOLAM HCL 2 MG/2 ML VIAL ONE (13:02)
[2021-05-27] MEDS ORDERED: POVIDONE IODINE 0.05% 0.05 % ML PO ONE (14:01)
[2021-05-27] MEDS ORDERED: PROPOFOL IV EMULSION 10 MG/ML 20 ML VIAL ONE (14:01)
[2021-05-27] MEDS ORDERED: SEVOFLURANE INHAL SOLN 250 ML PEN BTL ONE (14:01)
[2021-05-27] MEDS ORDERED: ONDANSETRON HCL INJ 2MG/ML 2ML 2 MG/ML VIAL ONE ×2 (14:01→16:54)
[2021-05-27] MEDS ORDERED: PHENYLEPHRINE HCL 1% 10 MG/ML VIAL ONE (14:01)
[2021-05-27] MEDS ORDERED: LIDOCAINE HCL 2% LOCAL INJ 5 ML SDV VIAL INJ ONE (14:01)
[2021-05-27] MEDS ORDERED: IOPAMIDOL 300MG/ML 50ML INFUS..BTL IV ONE (15:58)
[2021-05-27] MEDS ORDERED: BELLADONNA/OPIUM 30 MG SUPP RC ONE (15:58)
[2021-05-27] MEDS ORDERED: B&O 60MG R/S 60 MG SUPP PR PRN (16:15)
[2021-05-27] MEDS ORDERED: PHENAZOPYRIDINE HCL 100 MG TAB PO PRN (16:15)
[2021-05-27] MEDS ORDERED: ACETAMINOPHEN/CODEINE 300MG - 30MG TAB PO PRN (16:15)
[2021-05-27] MEDS ORDERED: METOCLOPRAMIDE HCL 10 MG/2ML VIAL ONE (16:54)
[2021-05-27] MEDS: NYSTATIN 100,000 UNITS/GM CRM 30GM TUBE TOP SCH (17:00)
[2021-05-27] MEDS ORDERED: OMEPRAZOLE40 MG PO (17:27)
[2021-05-27] MEDS: FLUCONAZOLE 100 MG TAB PO SCH (17:28)
[2021-05-27] MEDS: ESCITALOPRAM OXALATE 10 MG TAB PO SCH (17:28)
[2021-05-27] MEDS: LOSARTAN POTASSIUM 100 MG TAB PO SCH (17:29)
[2021-05-28] MEDS: PIPERACILLIN/TAZOBACTAM 3.375 GM in SODIUM CHLORIDE 0.9% 50ML 50 ML IV SCH ×3 (00:58→11:51)
[2021-05-28 01:38] VITALS: BP 115/59
[2021-05-28] MEDS: SODIUM CHLORIDE 0.9% 1000ML 1,000 ML IV SCH ×3 (02:31→16:30)
[2021-05-28] MEDS: ONDANSETRON HCL INJ 2MG/ML 2ML 2 MG/ML VIAL IV PRN ×2 (03:07→08:06)
[2021-05-28] MEDS: Morphine 4mg Syringe 4 MG/ML INJ IV PRN ×2 (03:07→08:06)
[2021-05-28 06:10] VITALS: BP 123/61
[2021-05-28] MEDS: METOCLOPRAMIDE HCL 10 MG/2ML VIAL IV SCH ×2 (06:30→14:49)
[2021-05-28] MEDS: INSULIN REGULAR, HUMAN 100 UNIT/1 ML SQ SCH ×3 (07:30→16:04)
[2021-05-28] MEDS: ESCITALOPRAM OXALATE 10 MG TAB PO SCH (08:05)
[2021-05-28] MEDS: FLUCONAZOLE 100 MG TAB PO SCH (08:05)
[2021-05-28] MEDS: LOSARTAN POTASSIUM 100 MG TAB PO SCH (08:05)
[2021-05-28 08:07] VITALS: BP 103/64
[2021-05-28] MEDS: NYSTATIN 100,000 UNITS/GM CRM 30GM TUBE TOP SCH ×2 (08:08→16:04)
[2021-05-28 08:41] VITALS: BP 103/64
[2021-05-28] MEDS ORDERED: OMEPRAZOLE 20 MG CAP PO SCH (09:00)
[2021-05-28 12:00] VITALS: BP 105/50
[2021-05-28 16:02] VITALS: BP 134/88
[2021-05-28] MEDS ORDERED: DITROPAN XL5 MG PO (17:53)
[2021-05-28] MEDS ORDERED: tylenol 3 PO (17:54)
[2021-05-28] MEDS ORDERED: MACROBID 100 M100 MG PO (17:54)
== END 2021-05-28 18:16 | disposition home or self-care (01) | DRG 661 ==
LOC: ER 19:27 → ERHOLD 05-26 00:25 → MED/SURG2 05-26 10:35
PROVIDERS: ADMIT Internal Medicine; ATTEND Internal Medicine
PROC: 0T778ZZ Dilation of Left Ureter, Via Natural or Artificial Opening Endoscopic (ICD-10-PCS; 2021-05-27)
PROC: BT141ZZ Fluoroscopy of Kidneys, Ureters and Bladder using Low Osmolar Contrast (ICD-10-PCS; 2021-05-27)
PROC: 0TC38ZZ Extirpation of Matter from Right Kidney Pelvis, Via Natural or Artificial Opening Endoscopic (ICD-10-PCS; principal; 2021-05-27 14:30)
PROC: 0T768DZ Dilation of Right Ureter with Intraluminal Device, Via Natural or Artificial Opening Endoscopic (ICD-10-PCS; 2021-05-27 14:30)
DX: N13.6 Pyonephrosis (principal); N39.0 Urinary tract infection, site not specified; N17.9 Acute kidney failure, unspecified; E11.9 Type 2 diabetes mellitus without complications; F41.9 Anxiety disorder, unspecified; D64.9 Anemia, unspecified; I10 Essential (primary) hypertension; E66.9 Obesity, unspecified; Z68.31 Body mass index [BMI] 31.0-31.9, adult; E83.51 Hypocalcemia; R39.15 Urgency of urination; Z20.822 Contact with and (suspected) exposure to COVID-19; N81.10 Cystocele, unspecified; N81.6 Rectocele; N95.2 Postmenopausal atrophic vaginitis; F32.A Depression, unspecified
CPT/HCPCS: 36415; 50590; 71045; 74176; 80053; 81001; 82550; 82553; 82948; 83605; 83735; 83880; 84484; 85025; 87040; 87086; 93005; 94799; 96372; 99284; C1758; C1769; C2617; J1817; J2001; J2250; J2270; J2370; J2405; J2543; J2550; J2765; J3010; J7030; U0002

== ENCOUNTER 2021-06-02 21:17 | Inpatient (IN) | payer MEDICARE ==
[~2021-06-02] VITALS: Ht 167.6 cm; Wt 91.3 kg
[~2021-06-02 21:17] MED LIST changes: +DITROPAN XL5 MG PO; +OMEPRAZOLE40 MG PO; +tylenol 3 PO
[2021-06-02] MEDS ORDERED: SODIUM CHLORIDE 0.9% 1000ML 1,000 ML IV STA (21:50)
[2021-06-02 22:04] LABS: BASOPHILS % 0.4 % (0.0-1.0); EOSINOPHILS # (AUTO) 0.1 (0.0-0.4); EOSINOPHILS % 1.4 % (0.0-6.0); HEMATOCRIT 35.6 % (34.2-44.1); LYMPHOCYTES # (AUTO) 2.6 (1.0-3.2); LYMPHOCYTES % 24.9 % (18.0-39.1); MEAN CORPUSCULAR HEMOGLOBIN 21.2 pg (28-32); MEAN CORPUSCULAR HGB CONC 28.1 g/dL (31-35); MEAN CORPUSCULAR VOLUME 75.6 fL (81-99); MONOCYTES # (AUTO) 0.7 (0.2-0.8); NEUTROPHILS # (AUTO) 6.8 (2.1-6.9); NEUTROPHILS % 65.9 % (38.7-80.0); PLATELET COUNT 319 x10e3/uL (140-360); RED BLOOD COUNT 4.71 x10e6/uL (3.6-5.1)
[2021-06-02 22:05] LABS: CLARITY,URINE SL CLOUDY (CLEAR); COLOR,URINE STRAW (YELLOW); KETONES,URINE 1+ (NEGATIVE); LEUKOCYTE ESTERASE ,URINE SMALL (NEGATIVE); NITRITE,URINE NEGATIVE (NEGATIVE); PROTEIN,URINE DIPSTICK 2+ (NEGATIVE); URINE UROBILINOGEN 0.2 mg/dL (0.2 - 1)
[2021-06-02 22:18] LABS: AMORPHOUS SEDIMENT,URINE MODERATE (FEW); BACTERIA,URINE MODERATE /HPF; EPITHELIAL CELLS,URINE MODERATE /LPF
[2021-06-02] MEDS ORDERED: PIPERACILLIN/TAZOBACTAM 3.375 GM in SODIUM CHLORIDE 0.9% 50ML 50 ML IV STA (22:18)
[2021-06-02] MEDS ORDERED: Vancomycin IV 1 GM in SODIUM CHLORIDE 0.9% 250ML 250 ML IV STA (22:18)
[2021-06-02 22:19] LABS: ALBUMIN 3.4 g/dL (3.5-5.0); ALBUMIN/GLOBULIN RATIO 0.7 (0.8-2.0); ANION GAP 14.3 mmol/L (8-16); CALCIUM 9.6 mg/dL (8.4-10.2); CREATININE, SERUM 0.91 mg/dL (0.57-1.11); POTASSIUM 4.3 mmol/L (3.5-5.1)
[2021-06-02] MEDS ORDERED: ONDANSETRON HCL INJ 2MG/ML 2ML 2 MG/ML VIAL IV STA (22:34)
[2021-06-02] MEDS ORDERED: ACETAMINOPHEN 325 MG TAB PO ONE (22:45)
[2021-06-03] VITALS (9 sets, daily range): BP systolic 130–157; BP diastolic 69–88
[2021-06-03] MEDS ORDERED: PROMETHAZINE 12.5MG/ NACL 0.9% 12.5 MG/50 ML BAG IV ONE (00:30)
[2021-06-03] MEDS: SODIUM CHLORIDE 0.9% 1000ML 1,000 ML IV SCH ×3 (00:38→15:45)
[2021-06-03] MEDS ORDERED: OXYBUTYNIN CHLORIDE XL 5 MG TAB PO PRN (04:00)
[2021-06-03] MEDS: PROMETHAZINE 25MG/ NS 50ML (IV) IV PRN ×4 (04:20→16:57)
[2021-06-03] MEDS: PIPERACILLIN/TAZOBACTAM 3.375 GM in SODIUM CHLORIDE 0.9% 50ML 50 ML IV SCH ×3 (06:00→18:11)
[2021-06-03] MEDS: METFORMIN HCL 500 MG TAB CR PO SCH ×2 (09:00→16:49)
[2021-06-03] MEDS: PANTOPRAZOLE SOD 40 MG TABEC PO SCH (09:00)
[2021-06-03] MEDS: LOSARTAN POTASSIUM 100 MG TAB PO SCH (09:00)
[2021-06-03] MEDS: ESCITALOPRAM OXALATE 10 MG TAB PO SCH (09:00)
[2021-06-03 10:15] LABS: BASOPHILS % 0.4 % (0.0-1.0); EOSINOPHILS # (AUTO) 0.2 (0.0-0.4); EOSINOPHILS % 1.8 % (0.0-6.0); HEMATOCRIT 29.3 % (34.2-44.1); HEMOGLOBIN 8.3 g/dL (12.0-16.0); LYMPHOCYTES # (AUTO) 1.5 (1.0-3.2); LYMPHOCYTES % 18.4 % (18.0-39.1); MEAN CORPUSCULAR HEMOGLOBIN 21.6 pg (28-32); MEAN CORPUSCULAR HGB CONC 28.3 g/dL (31-35); MEAN CORPUSCULAR VOLUME 76.3 fL (81-99); MONOCYTES # (AUTO) 0.7 (0.2-0.8); MONOCYTES % 7.8 % (4.4-11.3); NEUTROPHILS % 71.1 % (38.7-80.0); PLATELET COUNT 295 x10e3/uL (140-360); RED BLOOD COUNT 3.84 x10e6/uL (3.6-5.1); RED CELL DISTRIBUTION WIDTH 16.8 % (11.7-14.4)
[2021-06-03 10:36] LABS: ANION GAP 8.8 mmol/L (8-16); CALCIUM 8.1 mg/dL (8.4-10.2); CREATININE, SERUM 0.82 mg/dL (0.57-1.11); POTASSIUM 3.8 mmol/L (3.5-5.1)
[2021-06-03] MEDS ORDERED: DEXTROSE 50% SYRINGE 50 ML IV PRN (12:30)
[2021-06-03] MEDS: INSULIN LISPRO 100 UNIT/1 ML 3ML VIAL SQ SCH ×3 (13:00→20:47)
[2021-06-03] MEDS: ONDANSETRON HCL INJ 2MG/ML 2ML 2 MG/ML VIAL IV PRN ×2 (15:23→20:18)
[2021-06-04] VITALS (8 sets, daily range): BP systolic 119–141; BP diastolic 61–76
[2021-06-04] MEDS: SODIUM CHLORIDE 0.9% 1000ML 1,000 ML IV SCH ×4 (00:10→23:17)
[2021-06-04] MEDS: PIPERACILLIN/TAZOBACTAM 3.375 GM in SODIUM CHLORIDE 0.9% 50ML 50 ML IV SCH ×5 (00:10→23:20)
[2021-06-04 06:53] LABS: BASOPHILS # (AUTO) 0.1 (0.0-0.1); BASOPHILS % 0.6 % (0.0-1.0); EOSINOPHILS # (AUTO) 0.2 (0.0-0.4); EOSINOPHILS % 2.2 % (0.0-6.0); HEMATOCRIT 28.4 % (34.2-44.1); HEMOGLOBIN 7.9 g/dL (12.0-16.0); LYMPHOCYTES # (AUTO) 2.3 (1.0-3.2); LYMPHOCYTES % 28.3 % (18.0-39.1); MEAN CORPUSCULAR HEMOGLOBIN 21.4 pg (28-32); MEAN CORPUSCULAR HGB CONC 27.8 g/dL (31-35); MONOCYTES # (AUTO) 0.7 (0.2-0.8); MONOCYTES % 8.4 % (4.4-11.3); NEUTROPHILS # (AUTO) 4.9 (2.1-6.9); NEUTROPHILS % 60.1 % (38.7-80.0); PLATELET COUNT 299 x10e3/uL (140-360); RED BLOOD COUNT 3.69 x10e6/uL (3.6-5.1); RED CELL DISTRIBUTION WIDTH 16.9 % (11.7-14.4)
[2021-06-04 07:22] LABS: ALBUMIN 2.6 g/dL (3.5-5.0); ALBUMIN/GLOBULIN RATIO 0.8 (0.8-2.0); ANION GAP 8.7 mmol/L (8-16); CREATININE, SERUM 0.8 mg/dL (0.57-1.11); MAGNESIUM 1.7 MG/DL (1.3-2.1); POTASSIUM 3.7 mmol/L (3.5-5.1)
[2021-06-04] MEDS: INSULIN LISPRO 100 UNIT/1 ML 3ML VIAL SQ SCH ×3 (07:30→16:22)
[2021-06-04] MEDS: ESCITALOPRAM OXALATE 10 MG TAB PO SCH (08:43)
[2021-06-04] MEDS: LOSARTAN POTASSIUM 100 MG TAB PO SCH (08:44)
[2021-06-04] MEDS: METFORMIN HCL 500 MG TAB CR PO SCH ×2 (08:44→16:21)
[2021-06-04] MEDS: PANTOPRAZOLE SOD 40 MG TABEC PO SCH (08:45)
[2021-06-04 10:21] LABS: % IRON SATURATION 6 % (15-50); IRON 25 ug/dL (50-170); TOTAL IRON BINDING CAPACITY 423 ug/dL (261-478); TRANSFERRIN 302 mg/dL (180-382)
[2021-06-04 11:50] LABS: LYMPHOCYTES % (MANUAL) 22 % (19-48); MONOCYTES % (MANUAL) 11 % (3.4-9.0); NEUTROPHILS % (MANUAL) 67 % (40-74); PLATELET ESTIMATE ADEQUATE
[2021-06-04 11:51] LABS: PLATELET MORPHOLOGY COMMENT NORMAL; RBC MORPHOLOGY COMMENT NORMAL
[2021-06-05] VITALS (8 sets, daily range): BP systolic 125–161; BP diastolic 52–77
[2021-06-05] MEDS: PIPERACILLIN/TAZOBACTAM 3.375 GM in SODIUM CHLORIDE 0.9% 50ML 50 ML IV SCH ×3 (05:57→17:27)
[2021-06-05 07:16] LABS: BASOPHILS % 0.5 % (0.0-1.0); EOSINOPHILS # (AUTO) 0.3 (0.0-0.4); EOSINOPHILS % 4.2 % (0.0-6.0); HEMATOCRIT 27.7 % (34.2-44.1); HEMOGLOBIN 7.5 g/dL (12.0-16.0); LYMPHOCYTES # (AUTO) 2.4 (1.0-3.2); LYMPHOCYTES % 33.2 % (18.0-39.1); MEAN CORPUSCULAR HEMOGLOBIN 21.7 pg (28-32); MEAN CORPUSCULAR HGB CONC 27.1 g/dL (31-35); MEAN CORPUSCULAR VOLUME 80.1 fL (81-99); MONOCYTES # (AUTO) 0.6 (0.2-0.8); MONOCYTES % 8.3 % (4.4-11.3); NEUTROPHILS # (AUTO) 3.9 (2.1-6.9); NEUTROPHILS % 53.5 % (38.7-80.0); PLATELET COUNT 277 x10e3/uL (140-360); RED BLOOD COUNT 3.46 x10e6/uL (3.6-5.1); RED CELL DISTRIBUTION WIDTH 16.9 % (11.7-14.4)
[2021-06-05 07:32] LABS: ALBUMIN 2.5 g/dL (3.5-5.0); ALBUMIN/GLOBULIN RATIO 0.8 (0.8-2.0); ANION GAP 8.6 mmol/L (8-16); CALCIUM 8.4 mg/dL (8.4-10.2); CREATININE, SERUM 0.85 mg/dL (0.57-1.11); POTASSIUM 3.6 mmol/L (3.5-5.1)
[2021-06-05] MEDS: SODIUM CHLORIDE 0.9% 1000ML 1,000 ML IV SCH ×3 (08:17→23:45)
[2021-06-05] MEDS: PANTOPRAZOLE SOD 40 MG TABEC PO SCH (08:18)
[2021-06-05] MEDS: ESCITALOPRAM OXALATE 10 MG TAB PO SCH (08:18)
[2021-06-05] MEDS: METFORMIN HCL 500 MG TAB CR PO SCH ×2 (08:18→17:00)
[2021-06-05] MEDS: FOLIC ACID 1 MG TAB PO SCH (08:19)
[2021-06-05] MEDS: LOSARTAN POTASSIUM 100 MG TAB PO SCH (08:19)
[2021-06-05] MEDS ORDERED: IRON SUCROSE 100 MG in SODIUM CHLORIDE 0.9% 100 ML 100 ML IV SCH (09:00)
[2021-06-05] MEDS ORDERED: CYANOCOBALAMIN INJ 1,000 MCG/ML VIAL IM SCH (09:00)
[2021-06-06] VITALS (8 sets, daily range): BP systolic 129–150; BP diastolic 59–78
[2021-06-06 05:58] LABS: BASOPHILS % 0.5 % (0.0-1.0); EOSINOPHILS # (AUTO) 0.3 (0.0-0.4); HEMATOCRIT 27.2 % (34.2-44.1); HEMOGLOBIN 7.4 g/dL (12.0-16.0); LYMPHOCYTES # (AUTO) 2.1 (1.0-3.2); LYMPHOCYTES % 32.3 % (18.0-39.1); MEAN CORPUSCULAR HEMOGLOBIN 21.2 pg (28-32); MEAN CORPUSCULAR HGB CONC 27.2 g/dL (31-35); MEAN CORPUSCULAR VOLUME 77.9 fL (81-99); MONOCYTES # (AUTO) 0.5 (0.2-0.8); MONOCYTES % 7.3 % (4.4-11.3); NEUTROPHILS # (AUTO) 3.5 (2.1-6.9); NEUTROPHILS % 54.7 % (38.7-80.0); PLATELET COUNT 312 x10e3/uL (140-360); RED BLOOD COUNT 3.49 x10e6/uL (3.6-5.1); RED CELL DISTRIBUTION WIDTH 16.9 % (11.7-14.4)
[2021-06-06] MEDS: PIPERACILLIN/TAZOBACTAM 3.375 GM in SODIUM CHLORIDE 0.9% 50ML 50 ML IV SCH ×6 (06:00→23:53)
[2021-06-06 06:23] LABS: ANION GAP 6.9 mmol/L (8-16); CALCIUM 8.1 mg/dL (8.4-10.2); CREATININE, SERUM 0.8 mg/dL (0.57-1.11); MAGNESIUM 1.6 MG/DL (1.3-2.1); POTASSIUM 3.9 mmol/L (3.5-5.1)
[2021-06-06 06:24] LABS: ALBUMIN 2.6 g/dL (3.5-5.0); ALBUMIN/GLOBULIN RATIO 0.8 (0.8-2.0)
[2021-06-06] MEDS: SODIUM CHLORIDE 0.9% 1000ML 1,000 ML IV SCH ×3 (07:45→23:53)
[2021-06-06] MEDS: FOLIC ACID 1 MG TAB PO SCH (11:24)
[2021-06-06] MEDS: METFORMIN HCL 500 MG TAB CR PO SCH ×2 (11:24→18:22)
[2021-06-06] MEDS: LOSARTAN POTASSIUM 100 MG TAB PO SCH (11:25)
[2021-06-06] MEDS: ESCITALOPRAM OXALATE 10 MG TAB PO SCH (11:25)
[2021-06-06] MEDS: CYANOCOBALAMIN INJ 1,000 MCG/ML VIAL IM SCH (11:37)
[2021-06-06] MEDS: IRON SUCROSE 100 MG in SODIUM CHLORIDE 0.9% 100 ML 100 ML IV SCH (11:55)
[2021-06-06] MEDS ORDERED: PROPOFOL IV EMULSION 10 MG/ML 20 ML VIAL ONE (12:05)
[2021-06-06] MEDS ORDERED: LIDOCAINE HCL 2% LOCAL INJ 5 ML SDV VIAL INJ ONE (12:05)
[2021-06-06] MEDS ORDERED: MIDAZOLAM HCL 2 MG/2 ML VIAL ONE (12:13)
[2021-06-06] MEDS ORDERED: FENTANYL CITRATE/PF 100MCG/2 ML INJ ONE (12:13)
[2021-06-07] VITALS: BP 163/80
[2021-06-07 04:00] VITALS: BP 148/75
[2021-06-07] MEDS: PIPERACILLIN/TAZOBACTAM 3.375 GM in SODIUM CHLORIDE 0.9% 50ML 50 ML IV SCH (05:52)
[2021-06-07] MEDS: SODIUM CHLORIDE 0.9% 1000ML 1,000 ML IV SCH (07:45)
[2021-06-07 07:54] VITALS: BP 148/75
[2021-06-07 08:00] VITALS: BP 147/72
[2021-06-07] MEDS: IRON SUCROSE 100 MG in SODIUM CHLORIDE 0.9% 100 ML 100 ML IV SCH (09:05)
[2021-06-07] MEDS: ESCITALOPRAM OXALATE 10 MG TAB PO SCH (09:09)
[2021-06-07] MEDS: FOLIC ACID 1 MG TAB PO SCH (09:10)
[2021-06-07] MEDS: METFORMIN HCL 500 MG TAB CR PO SCH (09:10)
[2021-06-07] MEDS: LOSARTAN POTASSIUM 100 MG TAB PO SCH (09:10)
[2021-06-07] MEDS: CYANOCOBALAMIN INJ 1,000 MCG/ML VIAL IM SCH (09:12)
== END 2021-06-07 10:25 | disposition home or self-care (01) | DRG 871 ==
LOC: ER 21:30 → ERHOLD 23:37 → UNDOADMIN 06-03 00:09 → ERHOLD 06-03 00:09 → MED/SURG3 06-03 00:45
PROVIDERS: ADMIT Internal Medicine; ATTEND Internal Medicine
PROC: 0DB68ZX Excision of Stomach, Via Natural or Artificial Opening Endoscopic, Diagnostic (ICD-10-PCS; 2021-06-06)
PROC: 0DB78ZX Excision of Stomach, Pylorus, Via Natural or Artificial Opening Endoscopic, Diagnostic (ICD-10-PCS; 2021-06-06)
PROC: 0DB98ZX Excision of Duodenum, Via Natural or Artificial Opening Endoscopic, Diagnostic (ICD-10-PCS; principal; 2021-06-06 14:00)
DX: A41.9 Sepsis, unspecified organism (principal); K20.91 Esophagitis, unspecified with bleeding; K25.4 Chronic or unspecified gastric ulcer with hemorrhage; K29.71 Gastritis, unspecified, with bleeding; N39.0 Urinary tract infection, site not specified; D64.9 Anemia, unspecified; I10 Essential (primary) hypertension; E11.9 Type 2 diabetes mellitus without complications; K21.9 Gastro-esophageal reflux disease without esophagitis; R11.0 Nausea; E66.9 Obesity, unspecified; N20.0 Calculus of kidney; D50.9 Iron deficiency anemia, unspecified; Z96.0 Presence of urogenital implants; F32.A Depression, unspecified; Z82.49 Family history of ischemic heart disease and other diseases of the circulatory system; Z68.32 Body mass index [BMI] 32.0-32.9, adult; Z87.442 Personal history of urinary calculi; Z98.84 Bariatric surgery status; Z79.84 Long term (current) use of oral hypoglycemic drugs
CPT/HCPCS: 36415; 43239; 71046; 74176; 80048; 80053; 81001; 82270; 82607; 82746; 82948; 83540; 83605; 83735; 84466; 85025; 85045; 87040; 87086; 88305; 88312; 93005; 94799; 96372; 99284; J1756; J2001; J2250; J2405; J2543; J2550; J3010; J3370; J3420; J7030; J7050; U0002

== ENCOUNTER → 2021-06-17 | Day surgery (SDC) | payer MEDICARE ==
[~2021-06-17] MED LIST changes: +BELLADONNA/OPIUM 30 MG SUPP RC ONE; +CEFTRIAXONE 1 GM VIAL ONE; +EPHEDRINE SULFATE INJ 50 MG/ML VIAL ONE; +FAMOTIDINE 20 MG/2 ML VIAL IV ONE; +FENTANYL CITRATE/PF 100MCG/2 ML INJ ONE; +IOPAMIDOL 300MG/ML 50ML INFUS..BTL IV ONE; +LIDOCAINE HCL 2% LOCAL INJ 5 ML SDV VIAL INJ ONE; +METOCLOPRAMIDE HCL 10 MG/2ML VIAL ONE; +MIDAZOLAM HCL 2 MG/2 ML VIAL ONE; +ONDANSETRON HCL INJ 2MG/ML 2ML 2 MG/ML VIAL ONE; +POVIDONE IODINE 0.05% 0.05 % ML PO ONE; +PROPOFOL IV EMULSION 10 MG/ML 20 ML VIAL ONE; +SEVOFLURANE INHAL SOLN 250 ML PEN BTL ONE; +SODIUM CHLORIDE 0.9% 50ML 100 ML ONE
[2021-06-17 08:01] LABS: BASOPHILS % 0.6 % (0.0-1.0); EOSINOPHILS # (AUTO) 0.3 (0.0-0.4); EOSINOPHILS % 3.7 % (0.0-6.0); HEMATOCRIT 31.6 % (34.2-44.1); HEMOGLOBIN 8.9 g/dL (12.0-16.0); LYMPHOCYTES % 29.4 % (18.0-39.1); MEAN CORPUSCULAR HGB CONC 28.2 g/dL (31-35); MEAN CORPUSCULAR VOLUME 78.2 fL (81-99); MONOCYTES # (AUTO) 0.6 (0.2-0.8); MONOCYTES % 8.5 % (4.4-11.3); NEUTROPHILS % 57.5 % (38.7-80.0); PLATELET COUNT 471 x10e3/uL (140-360); RED BLOOD COUNT 4.04 x10e6/uL (3.6-5.1)
[2021-06-17 08:52] LABS: CALCIUM 9.4 mg/dL (8.4-10.2); CREATININE, SERUM 0.92 mg/dL (0.57-1.11)
[2021-06-17 10:23] LABS: ANISOCYTOSIS MODERATE; PLATELET ESTIMATE ADEQUATE; PLATELET MORPHOLOGY COMMENT NORMAL; RBC MORPHOLOGY COMMENT ABNORMAL
[2021-06-17 10:24] LABS: HYPOCHROMASIA SLIGHT; MICROCYTOSIS MODERATE; POLYCHROMASIA FEW
[2021-06-17 11:26] VITALS: BP 157/90
== END | disposition home or self-care (01) ==
LOC: OR 07:12
PROVIDERS: ATTEND Urology
DX: N13.2 Hydronephrosis with renal and ureteral calculous obstruction (principal); Z46.6 Encounter for fitting and adjustment of urinary device; N81.10 Cystocele, unspecified; N81.6 Rectocele; N36.41 Hypermobility of urethra; N95.2 Postmenopausal atrophic vaginitis; I10 Essential (primary) hypertension; E66.9 Obesity, unspecified; E11.9 Type 2 diabetes mellitus without complications; K21.9 Gastro-esophageal reflux disease without esophagitis; F41.9 Anxiety disorder, unspecified; Z01.812 Encounter for preprocedural laboratory examination; Z01.818 Encounter for other preprocedural examination; Z20.822 Contact with and (suspected) exposure to COVID-19; Z79.84 Long term (current) use of oral hypoglycemic drugs; Z79.899 Other long term (current) drug therapy
CPT/HCPCS: 36415; 50590; 52332; 74018; 80048; 82948; 84550; 85025; C1758; C2617; J0696; J2001; J2250; J2405; J2704; J2765; J3010; Q9967; U0002

== ENCOUNTER → 2021-06-29 | Outpatient (CLI) | payer MEDICARE ==
[~2021-06-29] MED LIST changes: -BELLADONNA/OPIUM 30 MG SUPP RC ONE; -CEFTRIAXONE 1 GM VIAL ONE; -EPHEDRINE SULFATE INJ 50 MG/ML VIAL ONE; -FAMOTIDINE 20 MG/2 ML VIAL IV ONE; -FENTANYL CITRATE/PF 100MCG/2 ML INJ ONE; -IOPAMIDOL 300MG/ML 50ML INFUS..BTL IV ONE; -LIDOCAINE HCL 2% LOCAL INJ 5 ML SDV VIAL INJ ONE; -METOCLOPRAMIDE HCL 10 MG/2ML VIAL ONE; -MIDAZOLAM HCL 2 MG/2 ML VIAL ONE; -ONDANSETRON HCL INJ 2MG/ML 2ML 2 MG/ML VIAL ONE; -POVIDONE IODINE 0.05% 0.05 % ML PO ONE; -PROPOFOL IV EMULSION 10 MG/ML 20 ML VIAL ONE; -SEVOFLURANE INHAL SOLN 250 ML PEN BTL ONE; -SODIUM CHLORIDE 0.9% 50ML 100 ML ONE
== END ==
LOC: RAD 07:18
PROVIDERS: ATTEND Urology
DX: N20.0 Calculus of kidney (principal); T19.1XXA Foreign body in bladder, initial encounter
CPT/HCPCS: 74018

== ENCOUNTER → 2021-07-08 | Day surgery (SDC) | payer MEDICARE ==
[2021-07-06 14:31] LABS: BASOPHILS % 0.3 % (0.0-1.0); EOSINOPHILS # (AUTO) 0.2 (0.0-0.4); EOSINOPHILS % 1.6 % (0.0-6.0); HEMATOCRIT 34.5 % (34.2-44.1); HEMOGLOBIN 9.9 g/dL (12.0-16.0); LYMPHOCYTES # (AUTO) 1.8 (1.0-3.2); LYMPHOCYTES % 19.5 % (18.0-39.1); MEAN CORPUSCULAR HEMOGLOBIN 22.1 pg (28-32); MEAN CORPUSCULAR HGB CONC 28.7 g/dL (31-35); MONOCYTES # (AUTO) 0.6 (0.2-0.8); MONOCYTES % 6.7 % (4.4-11.3); NEUTROPHILS # (AUTO) 6.6 (2.1-6.9); NEUTROPHILS % 71.5 % (38.7-80.0); PLATELET COUNT 368 x10e3/uL (140-360); RED BLOOD COUNT 4.48 x10e6/uL (3.6-5.1); RED CELL DISTRIBUTION WIDTH 18.9 % (11.7-14.4)
[2021-07-06 14:55] LABS: ANION GAP 15.6 mmol/L (8-16); CALCIUM 9.6 mg/dL (8.4-10.2); CREATININE, SERUM 1.1 mg/dL (0.57-1.11); POTASSIUM 4.6 mmol/L (3.5-5.1)
[~2021-07-08] MED LIST changes: +CEFTRIAXONE 1 GM VIAL ONE; +CYMBALTA20 MG PO; +DEXAMETHASONE SOD PHOS INJ 4 MG/ML SDV ONE; +EPHEDRINE SULFATE INJ 50 MG/ML VIAL ONE; +FENTANYL CITRATE/PF 100MCG/2 ML INJ ONE; +INSULIN REGULAR, HUMAN 100 UNIT/1 ML ONE; +KETOROLAC TROMETHAMINE 30 MG/ML VIAL ONE; +LIDOCAINE HCL 2% LOCAL INJ 5 ML SDV VIAL INJ ONE; +METOCLOPRAMIDE HCL 10 MG/2ML VIAL ONE; +MIDAZOLAM HCL 2 MG/2 ML VIAL ONE; +MYRBETRIQ25 MG; +ONDANSETRON HCL INJ 2MG/ML 2ML 2 MG/ML VIAL ONE; +POVIDONE IODINE 0.05% 0.05 % ML PO ONE; +PROMETHAZINE HCL (IM) 25 MG/ML VIAL IM ONE; +PROPOFOL IV EMULSION 10 MG/ML 20 ML VIAL ONE; +SEVOFLURANE INHAL SOLN 250 ML PEN BTL ONE; +SODIUM CHLORIDE 0.9% 50ML 50 ML ONE
[2021-07-08 13:15] VITALS: BP 120/80
== END | disposition home or self-care (01) ==
LOC: OR 09:18
PROVIDERS: ATTEND Urology
DX: N20.0 Calculus of kidney (principal); Z96.0 Presence of urogenital implants; N32.81 Overactive bladder; N39.41 Urge incontinence; N81.89 Other female genital prolapse; N81.6 Rectocele; N36.41 Hypermobility of urethra; N95.2 Postmenopausal atrophic vaginitis; R81 Glycosuria; E11.9 Type 2 diabetes mellitus without complications; I10 Essential (primary) hypertension; F32.A Depression, unspecified; Z01.812 Encounter for preprocedural laboratory examination; Z01.818 Encounter for other preprocedural examination; Z20.822 Contact with and (suspected) exposure to COVID-19; Z79.84 Long term (current) use of oral hypoglycemic drugs; Z79.899 Other long term (current) drug therapy; Z68.32 Body mass index [BMI] 32.0-32.9, adult
CPT/HCPCS: 36415 ×2; 50590; 74018; 80048; 82948; 84550; 85025; J0696; J1100; J1885; J2001; J2250; J2405; J2550; J2704; J2765; J3010; U0002; J1817

== ENCOUNTER 2021-07-21 15:48 | Inpatient (IN) | payer MEDICARE ==
[~2021-07-21] VITALS: Ht 167.6 cm; Wt 91.2 kg
[~2021-07-21 15:48] MED LIST changes: -CEFTRIAXONE 1 GM VIAL ONE; -DEXAMETHASONE SOD PHOS INJ 4 MG/ML SDV ONE; -EPHEDRINE SULFATE INJ 50 MG/ML VIAL ONE; -FENTANYL CITRATE/PF 100MCG/2 ML INJ ONE; -INSULIN REGULAR, HUMAN 100 UNIT/1 ML ONE; -KETOROLAC TROMETHAMINE 30 MG/ML VIAL ONE; -LIDOCAINE HCL 2% LOCAL INJ 5 ML SDV VIAL INJ ONE; -METOCLOPRAMIDE HCL 10 MG/2ML VIAL ONE; -MIDAZOLAM HCL 2 MG/2 ML VIAL ONE; -ONDANSETRON HCL INJ 2MG/ML 2ML 2 MG/ML VIAL ONE; -POVIDONE IODINE 0.05% 0.05 % ML PO ONE; -PROMETHAZINE HCL (IM) 25 MG/ML VIAL IM ONE; -PROPOFOL IV EMULSION 10 MG/ML 20 ML VIAL ONE; -SEVOFLURANE INHAL SOLN 250 ML PEN BTL ONE; -SODIUM CHLORIDE 0.9% 50ML 50 ML ONE; +URIBEL CAPSULE1 EACH PO
[2021-07-21] MEDS ORDERED: CEFTRIAXONE 1 GM in SODIUM CHLORIDE 0.9% 50ML 50 ML IV ONE (16:30)
[2021-07-21] MEDS ORDERED: SODIUM CHLORIDE 0.9% 1000ML 1,000 ML IV ONE ×2 (16:30→21:00)
[2021-07-21] MEDS ORDERED: ONDANSETRON HCL INJ 2MG/ML 2ML 2 MG/ML VIAL IV STA (16:44)
[2021-07-21] MEDS ORDERED: CEFTRIAXONE 1 GM VIAL ONE (16:46)
[2021-07-21 16:54] LABS: CLARITY,URINE CLOUDY (CLEAR); COLOR,URINE GREEN (YELLOW); KETONES,URINE NEGATIVE (NEGATIVE); LEUKOCYTE ESTERASE ,URINE SMALL (NEGATIVE); NITRITE,URINE NEGATIVE (NEGATIVE); PROTEIN,URINE DIPSTICK 2+ (NEGATIVE); URINE UROBILINOGEN 0.2 mg/dL (0.2 - 1)
[2021-07-21 16:58] LABS: BASOPHILS % 0.3 % (0.0-1.0); EOSINOPHILS # (AUTO) 0.2 (0.0-0.4); EOSINOPHILS % 2.3 % (0.0-6.0); HEMATOCRIT 33.4 % (34.2-44.1); HEMOGLOBIN 10.2 g/dL (12.0-16.0); LYMPHOCYTES # (AUTO) 1.7 (1.0-3.2); MEAN CORPUSCULAR HEMOGLOBIN 23.1 pg (28-32); MEAN CORPUSCULAR HGB CONC 30.5 g/dL (31-35); MEAN CORPUSCULAR VOLUME 75.7 fL (81-99); MONOCYTES # (AUTO) 0.9 (0.2-0.8); MONOCYTES % 9.4 % (4.4-11.3); NEUTROPHILS % 70.7 % (38.7-80.0); PLATELET COUNT 463 x10e3/uL (140-360); RED BLOOD COUNT 4.41 x10e6/uL (3.6-5.1)
[2021-07-21] MEDS ORDERED: ONDANSETRON HCL INJ 2MG/ML 2ML 2 MG/ML VIAL IV PRN ×3 (17:00→18:15)
[2021-07-21 17:10] LABS: INR 0.9
[2021-07-21 17:11] LABS: PARTIAL THROMBOPLASTIN TIME 26.8 seconds (23.8-35.5)
[2021-07-21 17:14] LABS: BACTERIA,URINE MODERATE /HPF; WBC,URINE (MAN) >50 /HPF (0-5)
[2021-07-21 17:21] LABS: ALBUMIN/GLOBULIN RATIO 0.6 (0.8-2.0); ANION GAP 16.5 mmol/L (8-16); CALCIUM 9.5 mg/dL (8.4-10.2); CREATININE, SERUM 1.41 mg/dL (0.57-1.11); POTASSIUM 4.5 mmol/L (3.5-5.1)
[2021-07-21 17:29] LABS: CREATINE KINASE MB 0.7 ng/mL (0-5.0)
[2021-07-21] MEDS ORDERED: Morphine 4mg Syringe 4 MG/ML INJ IV PRN ×2 (18:00→18:15)
[2021-07-21] MEDS ORDERED: DEXTROSE 50% SYRINGE 50 ML IV PRN (18:15)
[2021-07-21] MEDS ORDERED: ACETAMINOPHEN 325 MG TAB PO PRN (18:15)
[2021-07-21] MEDS: MEROPENEM 1 GM in SODIUM CHLORIDE 0.9% 100 ML IV SCH (18:18)
[2021-07-21] MEDS: SODIUM CHLORIDE 0.9% 1000ML 1,000 ML IV SCH (18:54)
[2021-07-21 19:38] VITALS: BP 123/56
[2021-07-21 20:00] VITALS: BP 123/56
[2021-07-21] MEDS ORDERED: URO-MP CAPSULE1 EACH (21:11)
[2021-07-21] MEDS ORDERED: AMBIEN10 MG PO (21:11)
[2021-07-21] MEDS: ZOLPIDEM TARTRATE 10 MG TAB PO SCH (21:15)
[2021-07-22] VITALS (8 sets, daily range): BP systolic 103–136; BP diastolic 45–67
[2021-07-22] MEDS: SODIUM CHLORIDE 0.9% 1000ML 1,000 ML IV SCH ×2 (02:40→16:17)
[2021-07-22] MEDS ORDERED: ONDANSETRON HCL INJ 2MG/ML 2ML 2 MG/ML VIAL IV PRN (04:15)
[2021-07-22 05:00] LABS: BASOPHILS % 0.3 % (0.0-1.0); EOSINOPHILS # (AUTO) 0.2 (0.0-0.4); EOSINOPHILS % 2.6 % (0.0-6.0); HEMATOCRIT 29.1 % (34.2-44.1); HEMOGLOBIN 8.7 g/dL (12.0-16.0); LYMPHOCYTES # (AUTO) 1.7 (1.0-3.2); LYMPHOCYTES % 26.3 % (18.0-39.1); MEAN CORPUSCULAR HEMOGLOBIN 23.1 pg (28-32); MEAN CORPUSCULAR HGB CONC 29.9 g/dL (31-35); MEAN CORPUSCULAR VOLUME 77.2 fL (81-99); MONOCYTES # (AUTO) 0.7 (0.2-0.8); MONOCYTES % 10.4 % (4.4-11.3); NEUTROPHILS % 59.9 % (38.7-80.0); PLATELET COUNT 377 x10e3/uL (140-360); RED BLOOD COUNT 3.77 x10e6/uL (3.6-5.1); RED CELL DISTRIBUTION WIDTH 19.3 % (11.7-14.4)
[2021-07-22 05:30] LABS: ALBUMIN 2.5 g/dL (3.5-5.0); ALBUMIN/GLOBULIN RATIO 0.6 (0.8-2.0); ANION GAP 11.2 mmol/L (8-16); CALCIUM 8.6 mg/dL (8.4-10.2); CREATININE, SERUM 1.1 mg/dL (0.57-1.11); MAGNESIUM 1.7 MG/DL (1.3-2.1); POTASSIUM 4.2 mmol/L (3.5-5.1)
[2021-07-22] MEDS: MEROPENEM 1 GM in SODIUM CHLORIDE 0.9% 100 ML IV SCH ×2 (05:44→17:43)
[2021-07-22] MEDS ORDERED: GENTAMICIN 80MG/NS 100 ML 100 ML IV SCH ×2 (08:15→08:45)
[2021-07-22] MEDS: PROMETHAZINE 25MG/ NS 50ML (IV) IV PRN (08:48)
[2021-07-22] MEDS ORDERED: GENTAMICIN SULFATE 160 MG in SODIUM CHLORIDE 0.9% 100 ML IV SCH (09:00)
[2021-07-22] MEDS ORDERED: ONDANSETRON HCL INJ 2MG/ML 2ML 2 MG/ML VIAL ONE ×2 (11:21→12:25)
[2021-07-22] MEDS ORDERED: DEXTROSE 50% SYRINGE 50 ML IV PRN (12:00)
[2021-07-22] MEDS: INSULIN LISPRO 100 UNIT/1 ML 3ML VIAL SQ SCH ×4 (12:09→20:21)
[2021-07-22] MEDS ORDERED: POVIDONE IODINE 0.05% 0.05 % ML PO ONE (12:25)
[2021-07-22] MEDS ORDERED: DEXAMETHASONE SOD PHOS INJ 4 MG/ML SDV ONE (12:25)
[2021-07-22] MEDS ORDERED: SEVOFLURANE INHAL SOLN 250 ML PEN BTL ONE (12:25)
[2021-07-22] MEDS ORDERED: LIDOCAINE HCL 2% LOCAL INJ 5 ML SDV VIAL INJ ONE (12:25)
[2021-07-22] MEDS ORDERED: PROPOFOL IV EMULSION 10 MG/ML 20 ML VIAL ONE (12:25)
[2021-07-22] MEDS ORDERED: MIDAZOLAM HCL 2 MG/2 ML VIAL ONE (13:12)
[2021-07-22] MEDS ORDERED: FENTANYL CITRATE/PF 100MCG/2 ML INJ ONE (13:12)
[2021-07-22] MEDS ORDERED: INSULIN LISPRO 100 UNIT/1 ML 3ML VIAL SQ STA (17:43)
[2021-07-22] MEDS: ZOLPIDEM TARTRATE 10 MG TAB PO SCH (20:20)
[2021-07-22] MEDS: INSULIN GLARGINE 100 UNITS/ML VIAL SQ SCH (20:21)
[2021-07-23] VITALS (8 sets, daily range): BP systolic 128–139; BP diastolic 60–73
[2021-07-23] MEDS: SODIUM CHLORIDE 0.9% 1000ML 1,000 ML IV SCH ×4 (00:05→16:00)
[2021-07-23] MEDS: MEROPENEM 1 GM in SODIUM CHLORIDE 0.9% 100 ML IV SCH ×2 (05:49→21:03)
[2021-07-23 06:18] LABS: BASOPHILS % 0.1 % (0.0-1.0); EOSINOPHILS # (AUTO) 0.1 (0.0-0.4); EOSINOPHILS % 0.7 % (0.0-6.0); HEMATOCRIT 26.2 % (34.2-44.1); HEMOGLOBIN 7.8 g/dL (12.0-16.0); LYMPHOCYTES # (AUTO) 1.4 (1.0-3.2); LYMPHOCYTES % 18.6 % (18.0-39.1); MEAN CORPUSCULAR HEMOGLOBIN 23.1 pg (28-32); MEAN CORPUSCULAR HGB CONC 29.8 g/dL (31-35); MEAN CORPUSCULAR VOLUME 77.7 fL (81-99); MONOCYTES # (AUTO) 0.7 (0.2-0.8); NEUTROPHILS # (AUTO) 5.3 (2.1-6.9); NEUTROPHILS % 70.9 % (38.7-80.0); PLATELET COUNT 366 x10e3/uL (140-360); RED BLOOD COUNT 3.37 x10e6/uL (3.6-5.1); RED CELL DISTRIBUTION WIDTH 19.4 % (11.7-14.4)
[2021-07-23 06:27] LABS: ANION GAP 10.8 mmol/L (8-16); CALCIUM 8.1 mg/dL (8.4-10.2); CREATININE, SERUM 0.86 mg/dL (0.57-1.11); POTASSIUM 3.8 mmol/L (3.5-5.1)
[2021-07-23] MEDS: INSULIN LISPRO 100 UNIT/1 ML 3ML VIAL SQ SCH ×8 (07:30→21:05)
[2021-07-23] MEDS: PROMETHAZINE 25MG/ NS 50ML (IV) IV PRN (14:54)
[2021-07-23] MEDS: PROMETHAZINE HCL 25 MG TAB PO PRN ×2 (15:39→21:03)
[2021-07-23] MEDS: ZOLPIDEM TARTRATE 10 MG TAB PO SCH (21:03)
[2021-07-23] MEDS: INSULIN GLARGINE 100 UNITS/ML VIAL SQ SCH (21:04)
[2021-07-24] VITALS (8 sets, daily range): BP systolic 124–160; BP diastolic 55–92
[2021-07-24] MEDS: SODIUM CHLORIDE 0.9% 1000ML 1,000 ML IV SCH ×3 (02:11→17:04)
[2021-07-24] MEDS: MEROPENEM 1 GM in SODIUM CHLORIDE 0.9% 100 ML IV SCH ×2 (06:01→17:04)
[2021-07-24] MEDS: INSULIN LISPRO 100 UNIT/1 ML 3ML VIAL SQ SCH ×8 (07:26→21:00)
[2021-07-24] MEDS: PROMETHAZINE HCL 25 MG TAB PO PRN ×2 (09:29→21:36)
[2021-07-24 10:09] LABS: BASOPHILS % 0.4 % (0.0-1.0); EOSINOPHILS # (AUTO) 0.2 (0.0-0.4); EOSINOPHILS % 3.1 % (0.0-6.0); HEMATOCRIT 28.9 % (34.2-44.1); HEMOGLOBIN 8.6 g/dL (12.0-16.0); LYMPHOCYTES # (AUTO) 1.6 (1.0-3.2); LYMPHOCYTES % 20.8 % (18.0-39.1); MEAN CORPUSCULAR HEMOGLOBIN 23.1 pg (28-32); MEAN CORPUSCULAR HGB CONC 29.8 g/dL (31-35); MEAN CORPUSCULAR VOLUME 77.5 fL (81-99); MONOCYTES # (AUTO) 0.7 (0.2-0.8); NEUTROPHILS % 65.9 % (38.7-80.0); PLATELET COUNT 429 x10e3/uL (140-360); RED BLOOD COUNT 3.73 x10e6/uL (3.6-5.1); RED CELL DISTRIBUTION WIDTH 19.9 % (11.7-14.4)
[2021-07-24 10:24] LABS: % IRON SATURATION 5 % (15-50); IRON 17 ug/dL (50-170); TOTAL IRON BINDING CAPACITY 357 ug/dL (261-478); TRANSFERRIN 255 mg/dL (180-382)
[2021-07-24] MEDS: INSULIN GLARGINE 100 UNITS/ML VIAL SQ SCH (21:00)
[2021-07-24] MEDS: ZOLPIDEM TARTRATE 10 MG TAB PO SCH (21:36)
[2021-07-25] VITALS (8 sets, daily range): BP systolic 139–161; BP diastolic 79–96
[2021-07-25] MEDS: SODIUM CHLORIDE 0.9% 1000ML 1,000 ML IV SCH ×3 (02:09→18:00)
[2021-07-25] MEDS: PROMETHAZINE 25MG/ NS 50ML (IV) IV PRN ×2 (04:38→11:23)
[2021-07-25] MEDS: CEFEPIME 1 GM in SODIUM CHLORIDE 0.9% 50ML 50 ML IV SCH ×3 (06:10→22:00)
[2021-07-25] MEDS: INSULIN LISPRO 100 UNIT/1 ML 3ML VIAL SQ SCH ×8 (07:30→21:00)
[2021-07-25] MEDS: CITALOPRAM HYDROBROMIDE 20 MG TAB PO SCH (08:45)
[2021-07-25] MEDS ORDERED: SEVOFLURANE INHAL SOLN 250 ML PEN BTL ONE (12:56)
[2021-07-25] MEDS ORDERED: PROPOFOL IV EMULSION 10 MG/ML 20 ML VIAL ONE (12:56)
[2021-07-25] MEDS ORDERED: LIDOCAINE HCL 2% LOCAL INJ 5 ML SDV VIAL INJ ONE (12:56)
[2021-07-25] MEDS ORDERED: POVIDONE IODINE 0.05% 0.05 % ML PO ONE (12:56)
[2021-07-25] MEDS ORDERED: EPHEDRINE SULFATE INJ 50 MG/ML VIAL ONE (12:56)
[2021-07-25] MEDS ORDERED: ONDANSETRON HCL INJ 2MG/ML 2ML 2 MG/ML VIAL ONE (12:56)
[2021-07-25] MEDS ORDERED: DEXAMETHASONE SOD PHOS INJ 4 MG/ML SDV ONE (12:56)
[2021-07-25] MEDS ORDERED: FENTANYL CITRATE/PF 100MCG/2 ML INJ ONE (13:08)
[2021-07-25] MEDS ORDERED: MIDAZOLAM HCL 2 MG/2 ML VIAL ONE (13:08)
[2021-07-25] MEDS ORDERED: B&O 60MG R/S 60 MG SUPP PR ONE (16:53)
[2021-07-25] MEDS ORDERED: IOPAMIDOL 300MG/ML 50ML INFUS..BTL IV ONE (16:53)
[2021-07-25] MEDS ORDERED: B&O 60MG R/S 60 MG SUPP PR PRN (18:30)
[2021-07-25] MEDS ORDERED: PHENAZOPYRIDINE HCL 100 MG TAB PO PRN (18:30)
[2021-07-25] MEDS ORDERED: HYDROMORPHONE 1MG/1ML INJ ONE (18:45)
[2021-07-25] MEDS: INSULIN GLARGINE 100 UNITS/ML VIAL SQ SCH (21:00)
[2021-07-25] MEDS: ZOLPIDEM TARTRATE 10 MG TAB PO SCH (22:00)
[2021-07-26] VITALS (8 sets, daily range): BP systolic 125–167; BP diastolic 58–98
[2021-07-26] MEDS: SODIUM CHLORIDE 0.9% 1000ML 1,000 ML IV SCH ×4 (02:00→20:00)
[2021-07-26] MEDS: PROMETHAZINE 25MG/ NS 50ML (IV) IV PRN ×3 (04:25→16:23)
[2021-07-26 05:28] LABS: BASOPHILS % 0.1 % (0.0-1.0); HEMATOCRIT 31.7 % (34.2-44.1); HEMOGLOBIN 9.6 g/dL (12.0-16.0); LYMPHOCYTES # (AUTO) 0.7 (1.0-3.2); MEAN CORPUSCULAR HEMOGLOBIN 23.3 pg (28-32); MEAN CORPUSCULAR HGB CONC 30.3 g/dL (31-35); MEAN CORPUSCULAR VOLUME 76.9 fL (81-99); MONOCYTES # (AUTO) 0.5 (0.2-0.8); MONOCYTES % 4.8 % (4.4-11.3); NEUTROPHILS # (AUTO) 8.1 (2.1-6.9); NEUTROPHILS % 87.5 % (38.7-80.0); PLATELET COUNT 469 x10e3/uL (140-360); RED BLOOD COUNT 4.12 x10e6/uL (3.6-5.1); RED CELL DISTRIBUTION WIDTH 19.2 % (11.7-14.4)
[2021-07-26] MEDS ORDERED: HYDRALAZINE HCL 20 MG/ML VIAL IV PRN (05:45)
[2021-07-26 05:58] LABS: ANION GAP 13.6 mmol/L (8-16); CALCIUM 8.7 mg/dL (8.4-10.2); CREATININE, SERUM 1.06 mg/dL (0.57-1.11); POTASSIUM 4.6 mmol/L (3.5-5.1)
[2021-07-26] MEDS: CEFEPIME 1 GM in SODIUM CHLORIDE 0.9% 50ML 50 ML IV SCH ×3 (06:14→21:19)
[2021-07-26] MEDS: INSULIN LISPRO 100 UNIT/1 ML 3ML VIAL SQ SCH ×8 (08:00→21:19)
[2021-07-26] MEDS: FAMOTIDINE 20 MG/2 ML VIAL IV SCH ×2 (09:21→16:23)
[2021-07-26] MEDS: OMEPRAZOLE 20 MG CAP PO SCH ×2 (09:21→16:23)
[2021-07-26] MEDS: CITALOPRAM HYDROBROMIDE 20 MG TAB PO SCH (09:21)
[2021-07-26] MEDS: PROMETHAZINE HCL 25 MG TAB PO PRN (11:48)
[2021-07-26] MEDS: INSULIN GLARGINE 100 UNITS/ML VIAL SQ SCH (21:19)
[2021-07-26] MEDS: ZOLPIDEM TARTRATE 10 MG TAB PO SCH (21:19)
[2021-07-27] VITALS (8 sets, daily range): BP systolic 120–143; BP diastolic 60–72
[2021-07-27] MEDS: SODIUM CHLORIDE 0.9% 1000ML 1,000 ML IV SCH ×3 (04:33→22:45)
[2021-07-27] MEDS ORDERED: ALPRAZOLAM 0.25 MG TAB PO PRN (05:00)
[2021-07-27] MEDS: CEFEPIME 1 GM in SODIUM CHLORIDE 0.9% 50ML 50 ML IV SCH ×3 (05:56→21:19)
[2021-07-27] MEDS: INSULIN LISPRO 100 UNIT/1 ML 3ML VIAL SQ SCH ×8 (07:30→21:35)
[2021-07-27] MEDS: FAMOTIDINE 20 MG/2 ML VIAL IV SCH (08:01)
[2021-07-27] MEDS: CITALOPRAM HYDROBROMIDE 20 MG TAB PO SCH (08:01)
[2021-07-27] MEDS: OMEPRAZOLE 20 MG CAP PO SCH ×2 (08:01→16:21)
[2021-07-27] MEDS: PROMETHAZINE 25MG/ NS 50ML (IV) IV PRN (16:17)
[2021-07-27] MEDS: FAMOTIDINE 20 MG TAB PO SCH (16:21)
[2021-07-27] MEDS: ZOLPIDEM TARTRATE 10 MG TAB PO SCH (21:15)
[2021-07-27] MEDS: INSULIN GLARGINE 100 UNITS/ML VIAL SQ SCH (21:36)
[2021-07-28 00:10] VITALS: BP 131/54
[2021-07-28 04:00] VITALS: BP 140/73
[2021-07-28] MEDS: CEFEPIME 1 GM in SODIUM CHLORIDE 0.9% 50ML 50 ML IV SCH (05:48)
[2021-07-28] MEDS: INSULIN LISPRO 100 UNIT/1 ML 3ML VIAL SQ SCH (07:30)
[2021-07-28] MEDS: FAMOTIDINE 20 MG TAB PO SCH (07:30)
[2021-07-28 08:00] VITALS: BP_SYST 145; BP_SYST 159; BP_DIAS 72; BP_DIAS 87
[2021-07-28] MEDS ORDERED: phenergan PO (08:20)
[2021-07-28] MEDS ORDERED: ceftin PO (08:20)
[2021-07-28] MEDS ORDERED: XANAX0.25 MG PO (08:21)
[2021-07-28 08:23] VITALS: BP 145/7
[2021-07-28] MEDS ORDERED: CELEXA20 MG PO (08:23)
[2021-07-28] MEDS: CITALOPRAM HYDROBROMIDE 20 MG TAB PO SCH (08:30)
[2021-07-28] MEDS: OMEPRAZOLE 20 MG CAP PO SCH (08:30)
== END 2021-07-28 09:05 | disposition home or self-care (01) | DRG 659 ==
LOC: ER 16:29 → ERHOLD 18:07 → MED/SURG 19:38
PROVIDERS: ADMIT Internal Medicine; ATTEND Internal Medicine
PROC: 0TF4XZZ Fragmentation in Left Kidney Pelvis, External Approach (ICD-10-PCS; principal; 2021-07-22)
PROC: 0TP98DZ Removal of Intraluminal Device from Ureter, Via Natural or Artificial Opening Endoscopic (ICD-10-PCS; 2021-07-25)
PROC: 0TF48ZZ Fragmentation in Left Kidney Pelvis, Via Natural or Artificial Opening Endoscopic (ICD-10-PCS; 2021-07-25)
PROC: 0TF38ZZ Fragmentation in Right Kidney Pelvis, Via Natural or Artificial Opening Endoscopic (ICD-10-PCS; 2021-07-25)
PROC: 0T788DZ Dilation of Bilateral Ureters with Intraluminal Device, Via Natural or Artificial Opening Endoscopic (ICD-10-PCS; 2021-07-25 16:00)
DX: T83.592A Infection and inflammatory reaction due to indwelling ureteral stent, initial encounter (principal); A41.9 Sepsis, unspecified organism; N20.1 Calculus of ureter; E87.2 Acidosis; N39.0 Urinary tract infection, site not specified; N17.9 Acute kidney failure, unspecified; E11.65 Type 2 diabetes mellitus with hyperglycemia; E11.22 Type 2 diabetes mellitus with diabetic chronic kidney disease; I12.9 Hypertensive chronic kidney disease with stage 1 through stage 4 chronic kidney disease, or unspecified chronic kidney disease; N18.30 Chronic kidney disease, stage 3 unspecified; Z96.0 Presence of urogenital implants; E78.5 Hyperlipidemia, unspecified; E66.9 Obesity, unspecified; Z68.32 Body mass index [BMI] 32.0-32.9, adult; Z87.440 Personal history of urinary (tract) infections; Z87.898 Personal history of other specified conditions; Z98.84 Bariatric surgery status; D64.9 Anemia, unspecified; F41.9 Anxiety disorder, unspecified; N81.4 Uterovaginal prolapse, unspecified; N95.2 Postmenopausal atrophic vaginitis; N36.41 Hypermobility of urethra; Z82.49 Family history of ischemic heart disease and other diseases of the circulatory system; K21.9 Gastro-esophageal reflux disease without esophagitis; Z79.84 Long term (current) use of oral hypoglycemic drugs
CPT/HCPCS: 36415; 71045; 74176; 80048; 80053; 81001; 82550; 82553; 82948; 83540; 83605; 83735; 84466; 84484; 85025; 85610; 85730; 87040; 87086; 93005; 94799; 96372; 99284; C1766; C1769; C2617; J0692; J0696; J1100; J1170; J1580; J1815; J2001; J2185; J2250; J2270; J2405; J2550; J3010; J7030; J7050